=== PATIENT | female | born 1995 | race Caucasian/White ===

== ENCOUNTER 2016-06-18 08:53 | Emergency (ER) | payer BC, OTHER, MEDICAID ==
[~2016-06-18 08:53] MED LIST: BUPR15TAXL PO; IBUP80TA PO; LABE20TAB PO; LOTRCRE TOP; NORA0.35 PO; PERC5TAB PO; PREN27TA3 PO; STUACAP PO; TYLE325T5 PO; ZOLO50TA PO
[2016-06-18 10:13] LABS: CONTROL LINE UCG INT CTR LINE PRESENT
--- NOTE | 2016-06-18 10:48 | REP ---
Clinical: Epigastric and abdominal pain. Technique: Upright view of the chest with supine and upright views of the abdomen and pelvis. Findings: Frontal upright view of the chest demonstrates no acute cardiopulmonary process or free air below the diaphragm to suspect pneumoperitoneum. Supine and upright views of the abdomen and pelvis demonstrate nonspecific bowel gas pattern without obstruction or perforation. No organomegaly. No abnormal calcifications. Skeletal structures normal for age. Impression: Nonspecific bowel gas pattern. Signed by Omer Wyman MD 06/18/2016 10:39 A
--- NOTE | 2016-06-18 11:10 | EDDOCDS ---
Nurse's Notes [facility] Name: Erma Adam Age: 21 yrs Sex: Female : 1995 Arrival Date: 06/18/2016 Time: 08:53 Bed PR1 / 25 Private MD: Carmine Mcknight Diagnosis: Constipation Presentation: 06/18 09:05 Presenting complaint: Patient states: "I was severely constipated last week. I took 3 jc4 tablets and I went 2 days and had diarrhea. Now I'm back to being constipated. Now I have a lump in my stomach and I don't know what to do. My doctors keep ignoring it and it's really frustrating". Risk factors: the patient reports no vaginal bleeding. Suicide/Homicide risk assessment- the patient denies having any suicidal and/or homicidal ideations and does not present with any other emotional, behavioral or mental health complaints. Status: Patient is not a professional services manager or dependent. Transition of care: patient was not received from another setting of care. 09:05 Acuity: SOULEYMANE Level 4 jc4 09:05 Method Of Arrival: Walkin/Carried/Asstd jc4 09:11 Adult Sepsis Screening: The patient does not have new or worsening altered mentation. jc4 Patient's respiratory rate is less than 22. Systolic blood pressure is greater than 100. Patient has a qSOFA score of 0- Negative Sepsis Screen. Triage Assessment: 09:07 General: Appears in no apparent distress. Pain: Pain currently is 6 out of 10 on a pain jc4 scale. HIV screening NA for this visit Offered previously. GI: Reports constipation. 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 none - PMHx: Anxiety; Depression; Endometriosis; Frequent UTI's; - PSHx: ; - Social history: Smoking status: Patient uses tobacco products, light tobacco smoker. No barriers to communication noted, The patient speaks fluent Chadian. - Family history: Not pertinent. - : The pt / caregiver states he / she is not on anticoagulants. Home medication list is obtained from the patient. - Exposure Risk Screening:: None identified. Screenin:07 Screening information is obtained from the patient. Fall risk: No risks identified. jc4 Assistance ADL's: requires no assistance with activities of daily living. Abuse/DV Screen: The patient / caregiver reports he/she is: not in a situation that causes fear, pain or injury. Nutritional screening: No deficits noted. Advance Directives: Currently, there is no health care proxy. There is no active DNR order. There is no living will. There is no Power of Lap Maker. home support is adequate. Assessment: 11:06 General: Appears in no apparent distress, Behavior is cooperative, pleasant. jc4 Neurological: Level of Consciousness is awake, alert, Oriented to person, place, time. Respiratory: Airway is patent Respiratory effort is even, unlabored, Respiratory pattern is regular, symmetrical. GI: Abdomen is non- distended Bowel sounds present X 4 quads. Abd is soft and non tender X 4 quads. Derm: Skin is pink, warm & dry. Vital Signs: 09:07 BP 140 / 71; Pulse 94; Resp 20; Temp 97.4(O); Pulse Ox 98% on R/A; Weight 72.57 kg; jc4 Height 5 ft. 3 in. (160.02 cm); Pain 6/10; 11:08 BP 111 / 63; Pulse 76; Resp 20; Temp 96.4(O); Pulse Ox 97% on R/A; Pain 7/10; jc4 09:07 Body Mass Index 28.34 (72.57 kg, 160.02 cm) 4 Vitals: 09:07 Log In Time: June 18, 2016 at 08:53. 4 ED Course: 08:55 Patient visited by Reji Rodriguez Reg. pm4 08:55 Carmine Mcknight is Private Physician. pm4 08:55 Patient moved to Waiting pm4 09:05 Patient moved to Triage 3 jc4 09:07 Triage Initiated jc4 09:25 Valentin Edouard FNP [facility]. ke 09:25 Patient visited by Valentin Edouard FNP. ke 09:25 Patient visited by Valentin Edouard FNP. ke 09:35 Patient moved to TR1 jc4 09:51 Patient visited by Valentin Edouard FNP. ke 10:03 Urine Test-In Lab Sent. ead 10:05 [facility] Payment Agreement was scanned into [employer] and attached to record. lg 10:17 Patient visited by Valentin Edouard FNP. ke 10:52 Carmine Mcknight is Referral Physician. ke 10:59 Patient moved to jc4 10:59 Abdomen, Flat\\E\\Upright,PA Chest Returned. EDMS 11:07 The patient / caregiver is instructed regarding the plan of care and ED course. jc4 11:08 No IV's were initiated during this patient's visit. No procedures done that require jc4 assistance. Order Results: Lab Order: Urine Test-In Lab; SPEC'M 06/18/16 10:02 Test: URINE PREG TEST; Value: NEGATIVE; Range: NEGATIVE; Status: F Radiology Order: Abdomen, Flat\\E\\Upright,PA Chest Test: Abdomen, Flat\\E\\Upright,PA Chest REASON FOR EXAMINATION: Abdomen Pain; Clinical: Epigastric and abdominal pain.; ; Technique: Upright view of the chest with supine and upright views of the; abdomen and pelvis.; ; Findings: Frontal upright view of the chest demonstrates no acute; cardiopulmonary process or free air below the diaphragm to suspect; pneumoperitoneum. Supine and upright views of the abdomen and pelvis demonstrate; nonspecific bowel gas pattern without obstruction or perforation. No; organomegaly. No abnormal calcifications. Skeletal structures normal for age.; ; Impression:; Nonspecific bowel gas pattern.; ; ; Signed by; Omer Wyman MD 06/18/2016 10:39 A; Outcome: 10:52 Discharge ordered by Provider. ke 11:07 Discharge Assessment: Patient awake, alert and oriented x 3. No cognitive and/or jc4 functional deficits noted. Patient verbalized understanding of disposition instructions. patient administered narcotics - no. The following High Risk Discharge criteria are identified: None. Discharged to home ambulatory. Condition: stable. Discharge instructions given to patient, Instructed on discharge instructions, follow up and referral plans. medication usage, Demonstrated understanding of instructions, medications, Pt was receptive of discharge instructions/ teaching. No special radiology studies were completed. Property :Personal belongings accompany Pt. 11:08 Patient left the ED. 4 Signatures: Dispatcher [employer] EDUT Christopher Rowland, Reg Reg lg Valentin Edouard FNP FNP ke Castle, Jennifer RN RN jc4 Rica StewartRN RN Reji Zhang, Reg Reg pm4 MTDD
--- NOTE | 2016-06-18 11:10 | EDDOCDS ---
Physician Documentation [facility] Name: Erma Adam Age: 21 yrs Sex: Female : 1995 Arrival Date: 06/18/2016 Time: 08:53 Bed PR Private MD: Carmine Mcknight Disposition: 06/18/16 10:52 Discharged to Home/Self Care. Impression: Constipation. - Condition is Stable. - Discharge Instructions: Constipation, Adult. - Prescriptions for Miralax 17 gram/dose - take 17 gram by ORAL route once daily As needed dilute in 8 ounces of water or juice; 1 bottle. - Medication Reconciliation, Local Pharmacy Hours form. - Follow up: Carmine Mcknight; When: As needed; Reason: Continuance of care. - Problem is an ongoing problem. - Symptoms are unchanged. Historical: - Allergies: no known allergies; - Home Meds: 1. none - PMHx: Anxiety; Depression; Endometriosis; Frequent UTI's; - PSHx: ; - Social history: Smoking status: Patient uses tobacco products, light tobacco smoker. No barriers to communication noted, The patient speaks fluent Nepali. - Family history: Not pertinent. - : The pt / caregiver states he / she is not on anticoagulants. Home medication list is obtained from the patient. - Exposure Risk Screening:: None identified. 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 3 in. (160.02 cm); Pain 6/10; 11:08 BP 111 / 63; Pulse 76; Resp 20; Temp 96.4(O); Pulse Ox 97% on R/A; Pain 7/10; jc4 09:07 Body Mass Index 28.34 (72.57 kg, 160.02 cm) jc4 MDM: 09:32 Abdomen, Flat\E\Upright,PA Chest Ordered. EDMS 09:33 Financial registration complete. lg 09:53 Urine Test-In Lab Ordered. EDMS 10:05 [facility] Payment Agreement was scanned into [employer] and attached to record. lg 10:17 Urine Test-In Lab Reviewed. opal Signatures: Dispatcher [employer] Christopher Conner, Reg Reg lg Valentin Edouard, BURRING WHEEL OPERATOR BURRING WHEEL OPERATOR Felipa Sol, RN RN jc4 The chart was reviewed and I authenticate all verbal orders and agree with the evaluation and treatment provided.Attachments: 10:05 [facility] Payment Agreement lg MTDD
--- NOTE | 2016-06-20 12:09 | EDDOCDS ---
Nurse's Notes [facility] Name: Erma Adam Age: 21 yrs Sex: Female : 1995 Arrival Date: 06/18/2016 Time: 08:53 Bed PR1 / 25 Private MD: Carmine Mcknight Diagnosis: Constipation Presentation: 06/18 09:05 Presenting complaint: Patient states: "I was severely constipated last week. I took 3 jc4 tablets and I went 2 days and had diarrhea. Now I'm back to being constipated. Now I have a lump in my stomach and I don't know what to do. My doctors keep ignoring it and it's really frustrating". Risk factors: the patient reports no vaginal bleeding. Suicide/Homicide risk assessment- the patient denies having any suicidal and/or homicidal ideations and does not present with any other emotional, behavioral or mental health complaints. Status: Patient is not a automotive service technician or dependent. Transition of care: patient was not received from another setting of care. 09:05 Acuity: SOULEYMANE Level 4 jc4 09:05 Method Of Arrival: Walkin/Carried/Asstd jc4 09:11 Adult Sepsis Screening: The patient does not have new or worsening altered mentation. jc4 Patient's respiratory rate is less than 22. Systolic blood pressure is greater than 100. Patient has a qSOFA score of 0- Negative Sepsis Screen. Triage Assessment: 09:07 General: Appears in no apparent distress. Pain: Pain currently is 6 out of 10 on a pain jc4 scale. HIV screening NA for this visit Offered previously. GI: Reports constipation. VENEER GRADER: 09:07 LMP 05/27/2016 jc4 Historical: - Allergies: no known allergies; - Home Meds: 1. none - PMHx: Anxiety; Depression; Endometriosis; Frequent UTI's; - PSHx: ; - Social history: Smoking status: Patient uses tobacco products, light tobacco smoker. No barriers to communication noted, The patient speaks fluent [place]. - Family history: Not pertinent. - : The pt / caregiver states he / she is not on anticoagulants. Home medication list is obtained from the patient. - Exposure Risk Screening:: None identified. Screenin:07 Screening information is obtained from the patient. Fall risk: No risks identified. jc4 Assistance ADL's: requires no assistance with activities of daily living. Abuse/DV Screen: The patient / caregiver reports he/she is: not in a situation that causes fear, pain or injury. Nutritional screening: No deficits noted. Advance Directives: Currently, there is no health care proxy. There is no active DNR order. There is no living will. There is no Power of Senior Java Web Application Developer. home support is adequate. Assessment: 11:06 General: Appears in no apparent distress, Behavior is cooperative, pleasant. jc4 Neurological: Level of Consciousness is awake, alert, Oriented to person, place, time. Respiratory: Airway is patent Respiratory effort is even, unlabored, Respiratory pattern is regular, symmetrical. GI: Abdomen is non- distended Bowel sounds present X 4 quads. Abd is soft and non tender X 4 quads. Derm: Skin is pink, warm & dry. Vital Signs: 09:07 BP 140 / 71; Pulse 94; Resp 20; Temp 97.4(O); Pulse Ox 98% on R/A; Weight 72.57 kg; jc4 Height 5 ft. 3 in. (160.02 cm); Pain 6/10; 11:08 BP 111 / 63; Pulse 76; Resp 20; Temp 96.4(O); Pulse Ox 97% on R/A; Pain 7/10; jc4 09:07 Body Mass Index 28.34 (72.57 kg, 160.02 cm) 4 Vitals: 09:07 Log In Time: June 18, 2016 at 08:53. 4 ED Course: 08:55 Patient visited by Reji Rodriguez Reg. pm4 08:55 Carmine Mcknight is Private Physician. pm4 08:55 Patient moved to Waiting pm4 09:05 Patient moved to Triage 3 jc4 09:07 Triage Initiated jc4 09:25 Valent[facility] Edouard F[facility]. ke 09:25 Patient visited by Valentin Edouard FNP. ke 09:25 Patient visited by Valentin Edouard FNP. ke 09:35 Patient moved to TR1 jc4 09:51 Patient visited by Valentin Edouard FNP. ke 10:03 Urine Test-In Lab Sent. ead 10:05 [facility] Payment Agreement was scanned into [employer] and attached to record. lg 10:17 Patient visited by Valentin Edouard FNP. ke 10:52 Carmine Mcknight is Referral Physician. ke 10:59 Patient moved to PR jc4 10:59 Abdomen, Flat\\E\\Upright,PA Chest Returned. EDMS 11:07 The patient / caregiver is instructed regarding the plan of care and ED course. jc4 11:08 No IV's were initiated during this patient's visit. No procedures done that require jc4 assistance. 13:20 T-Sheet-- Draft Copy was scanned into [employer] and attached to record. gb Order Results: Lab Order: Urine Test-In Lab; SPEC'M 06/18/16 10:02 Test: URINE PREG TEST; Value: NEGATIVE; Range: NEGATIVE; Status: F Radiology Order: Abdomen, Flat\\E\\Upright,PA Chest Test: Abdomen, Flat\\E\\Upright,PA Chest REASON FOR EXAMINATION: Abdomen Pain; Clinical: Epigastric and abdominal pain.; ; Technique: Upright view of the chest with supine and upright views of the; abdomen and pelvis.; ; Findings: Frontal upright view of the chest demonstrates no acute; cardiopulmonary process or free air below the diaphragm to suspect; pneumoperitoneum. Supine and upright views of the abdomen and pelvis demonstrate; nonspecific bowel gas pattern without obstruction or perforation. No; organomegaly. No abnormal calcifications. Skeletal structures normal for age.; ; Impression:; Nonspecific bowel gas pattern.; ; ; Signed by; Omer Wyman MD 06/18/2016 10:39 A; Outcome: 10:52 Discharge ordered by Provider. ke 11:07 Discharge Assessment: Patient awake, alert and oriented x 3. No cognitive and/or jc4 functional deficits noted. Patient verbalized understanding of disposition instructions. patient administered narcotics - no. The following High Risk Discharge criteria are identified: None. Discharged to home ambulatory. Condition: stable. Discharge instructions given to patient, Instructed on discharge instructions, follow up and referral plans. medication usage, Demonstrated understanding of instructions, medications, Pt was receptive of discharge instructions/ teaching. No special radiology studies were completed. Property :Personal belongings accompany Pt. 11:08 Patient left the ED. jc4 Signatures: Dispatcher MedHo EDMS Rupinder Forte, Reg Reg gb Christopher Rowland, Reg Reg lg Valentin Edouard FNP FNP ke Castle, Jennifer, RN RN jc4 Rica StewartYANIV RN ead Reji Rodriguez, Reg Reg pm4 Chart Complete MTDD
--- NOTE | 2016-06-20 12:09 | EDDOCDS ---
Physician Documentation [facility] Name: Erma Adam Age: 21 yrs Sex: Female : 1995 Arrival Date: 06/18/2016 Time: 08:53 Bed PR Private MD: Carmine Mcknight Disposition: 06/18/16 10:52 Discharged to Home/Self Care. Impression: Constipation. - Condition is Stable. - Discharge Instructions: Constipation, Adult. - Prescriptions for Miralax 17 gram/dose - take 17 gram by ORAL route once daily As needed dilute in 8 ounces of water or juice; 1 bottle. - Medication Reconciliation, Local Pharmacy Hours form. - Follow up: Carmine Mcknight; When: As needed; Reason: Continuance of care. - Problem is an ongoing problem. - Symptoms are unchanged. Historical: - Allergies: no known allergies; - Home Meds: 1. none - PMHx: Anxiety; Depression; Endometriosis; Frequent UTI's; - PSHx: ; - Social history: Smoking status: Patient uses tobacco products, light tobacco smoker. No barriers to communication noted, The patient speaks fluent Italian. - Family history: Not pertinent. - : The pt / caregiver states he / she is not on anticoagulants. Home medication list is obtained from the patient. - Exposure Risk Screening:: None identified. PARTITION NOTCHER: 06/18 09:07 LMP 05/27/2016 jc4 Vital Signs: 09:07 BP 140 / 71; Pulse 94; Resp 20; Temp 97.4(O); Pulse Ox 98% on R/A; Weight 72.57 kg / jc4 159.99 lbs; Height 5 ft. 3 in. (160.02 cm); Pain 6/10; 11:08 BP 111 / 63; Pulse 76; Resp 20; Temp 96.4(O); Pulse Ox 97% on R/A; Pain 7/10; jc4 09:07 Body Mass Index 28.34 (72.57 kg, 160.02 cm) jc4 MDM: 09:32 Abdomen, Flat\E\Upright,PA Chest Ordered. EDMS 09:33 Financial registration complete. lg 09:53 Urine Test-In Lab Ordered. EDMS 10:05 [facility] Payment Agreement was scanned into [employer] and attached to record. lg 10:17 Urine Test-In Lab Reviewed. opal 13:20 T-Sheet-- Draft Copy was scanned into [employer] and attached to record. gb Signatures: Dispatcher [employer]Host EDMS Rupinder Forte, Reg Reg gb Christopher Rowland, Reg Reg lg Valentin Edouard, FIREWORKS ASSEMBLY SUPERVISOR FIREWORKS ASSEMBLY SUPERVISOR Felipa Sol, RN RN jc4 The chart was reviewed and I authenticate all verbal orders and agree with the evaluation and treatment provided.Attachments: 10:05 [facility] Payment Agreement lg 13:20 T-Sheet-- Draft Copy gb Chart Complete MTDD
--- NOTE | 2016-06-20 12:09 | EDDOCDS ---
Physician Documentation [facility] Name: Erma Adam Age: 21 yrs Sex: Female : 1995 Arrival Date: 06/18/2016 Time: 08:53 Bed PR Private MD: Carmine Mcknight Disposition: 06/18/16 10:52 Discharged to Home/Self Care. Impression: Constipation. - Condition is Stable. - Discharge Instructions: Constipation, Adult. - Prescriptions for Miralax 17 gram/dose - take 17 gram by ORAL route once daily As needed dilute in 8 ounces of water or juice; 1 bottle. - Medication Reconciliation, Local Pharmacy Hours form. - Follow up: Carmine Mcknight; When: As needed; Reason: Continuance of care. - Problem is an ongoing problem. - Symptoms are unchanged. Historical: - Allergies: no known allergies; - Home Meds: 1. none - PMHx: Anxiety; Depression; Endometriosis; Frequent UTI's; - PSHx: ; - Social history: Smoking status: Patient uses tobacco products, light tobacco smoker. No barriers to communication noted, The patient speaks fluent Amharic. - Family history: Not pertinent. - : The pt / caregiver states he / she is not on anticoagulants. Home medication list is obtained from the patient. - Exposure Risk Screening:: None identified. SUPERVISOR ENGINES ROAD: 06/18 09:07 LMP 05/27/2016 jc4 Vital Signs: 09:07 BP 140 / 71; Pulse 94; Resp 20; Temp 97.4(O); Pulse Ox 98% on R/A; Weight 72.57 kg / jc4 159.99 lbs; Height 5 ft. 3 in. (160.02 cm); Pain 6/10; 11:08 BP 111 / 63; Pulse 76; Resp 20; Temp 96.4(O); Pulse Ox 97% on R/A; Pain 7/10; jc4 09:07 Body Mass Index 28.34 (72.57 kg, 160.02 cm) jc4 MDM: 09:32 Abdomen, Flat\E\Upright,PA Chest Ordered. EDMS 09:33 Financial registration complete. lg 09:53 Urine Test-In Lab Ordered. EDMS 10:05 [facility] Payment Agreement was scanned into [employer] and attached to record. lg 10:17 Urine Test-In Lab Reviewed. opal 13:20 T-Sheet-- Draft Copy was scanned into [employer] and attached to record. gb Signatures: Dispatcher [employer] EDMS Rupinder Forte, Reg Reg gb Christopher Rowland, Reg Reg lg Valentin Edouard, BESSEMER BOTTOM MAKER BESSEMER BOTTOM MAKER Felipa Sol, RN RN jc4 The chart was reviewed and I authenticate all verbal orders and agree with the evaluation and treatment provided.Attachments: 10:05 [facility] Payment Agreement lg 13:20 T-Sheet-- Draft Copy gb Chart Complete MTDD
== END 2016-06-18 11:08 | disposition home or self-care (01) ==
LOC: M ED 08:53
DX: K59.00 Constipation, unspecified (principal); N80.9 Endometriosis, unspecified; F41.9 Anxiety disorder, unspecified; F32.9 Major depressive disorder, single episode, unspecified; Z87.440 Personal history of urinary (tract) infections; F17.200 Nicotine dependence, unspecified, uncomplicated

== ENCOUNTER 2016-06-24 12:36 | Emergency (ER) | payer BC, OTHER, MEDICAID ==
[2016-06-24 14:04] LABS: BASO % 0.5 % (0.0-1.0); EOS # 0.2 K/mm3 (0.0-0.50); EOS % 2.8 % (0.0-3.0); LARGE UNSTAINED CELL # 0.2 K/mm3 (0.0-0.4); LARGE UNSTAINED CELL % 2.2 % (0.0-4.0); LYMPH % 26.1 % (24.0-44.0); MEAN CORPUSCULAR HEMOGLOBIN 31.6 pg (27.0-33.0); MEAN CORPUSCULAR HGB CONC 33.9 g/dl (32.0-36.5); MEAN CORPUSCULAR VOLUME 93.1 fl (80.0-96.0); MONO # 0.4 K/mm3 (0.0-0.8); MONO % 4.5 % (0.0-5.0); NEUTROPHILS # 4.9 K/mm3 (1.8-7.7); NEUTROPHILS % 63.9 % (36.0-66.0); PLATELET COUNT, AUTOMATED 265 k/mm3 (150-450); RED CELL DISTRIBUTION WIDTH 11.7 % (11.5-14.5); WHITE BLOOD COUNT 7.7 K/mm3 (4.0-10.0)
[2016-06-24 14:07] LABS: CALCIUM OXALATE CRYSTALS SMALL
[2016-06-24] MEDS ORDERED: KETOROLAC 30 MG/ML VIAL (J1885) As Ordered ONE (14:17)
[2016-06-24] MEDS ORDERED: ONDANSETRON 4MG/2ML VIAL (J2405) As Ordered ONE (14:17)
--- NOTE | 2016-06-24 14:22 | REP ---
Clinical: Pelvic pain . Technique: Transabdominal pelvic ultrasound followed by transvaginal examination for better evaluation of the endometrium and adnexa with color Doppler evaluation of the ovaries. Findings: Bladder is unremarkable and under distended measuring 4.7 x 1.3 x 1.9 cm . Normal retroverted uterus measures 7.3 x 4.0 x 5.6 cm with sub centimeter Nabothian cysts in the lower uterine segment. The endometrial complex measures 4.8 mm thickness. No significant discrete uterine or endometrial abnormalities are appreciated. Bilateral ovaries are normal in appearance and vascularity without evidence for torsion. Right ovary measures 3.4 x 2.0 x 2.4 cm ; R I = 0.60 . Left ovary measures 3.8 x 2.4 x 2.0 cm ; R I = 0.60 . Trace pelvic free fluid is nonspecific. No adnexal mass lesion . Impression: 1. Essentially normal pelvic ultrasound. No evidence for torsion. Signed by Omer Wyman MD 06/24/2016 02:15 P
[2016-06-24 14:26] LABS: ALBUMIN 3.8 GM/DL (3.2-5.2); ALKALINE PHOSPHATASE 80 U/L (45-117); ALT/SGPT 23 U/L (12-78); AMYLASE 42 U/L (25-115); ANION GAP 5 MEQ/L (8-16); AST/SGOT 13 U/L (15-37); BILIRUBIN,DIRECT < 0.1 MG/DL (0.0-0.2); BILIRUBIN,TOTAL 0.3 MG/DL (0.2-1.0); BLOOD UREA NITROGEN 9 MG/DL (7-18); CALCIUM LEVEL 8.7 MG/DL (8.5-10.1); CARBON DIOXIDE LEVEL 30 MEQ/L (21-32); CHLORIDE LEVEL 108 MEQ/L (98-107); CREATININE FOR GFR 0.67 MG/DL (0.55-1.02); GLOMERULAR FILTRATION RATE > 60.0 (>60); GLUCOSE, FASTING 80 MG/DL (70-105); SODIUM LEVEL 143 MEQ/L (136-145); TOTAL PROTEIN 7.6 GM/DL (6.4-8.2)
--- NOTE | 2016-06-24 15:08 | REP ---
Clinical: Diffuse abdominal and flank pain. Comparison: 11/09/2015. Findings: Lung bases clear. Liver, spleen, pancreas, gallbladder, bilateral adrenal glands and kidneys are normal for noncontrast evaluation. The enteric system is without obstruction or acute inflammatory process and a normal terminal ileum and appendix are identified in the right lower quadrant. Pelvis demonstrates collapse normal bladder and age-appropriate uterus/adnexa. 3 cm fat containing periumbilical hernia again identified. No pelvic fluid or ascites. No free air. No evidence for abdominal aortic aneurysm. Musculoskeletal structures appear intact and without focal osseous abnormality. Impression: 3 cm fat containing periumbilical hernia. Otherwise normal noncontrast CT of the abdomen and pelvis. Signed by Omer Wyman MD 06/24/2016 02:59 P
[2016-06-24] MEDS ORDERED: CIPROFLOXACIN 500 MG TAB As Ordered ONE (15:24)
[2016-06-24] MEDS ORDERED: PHENAZOPYRIDINE 100 MG TAB As Ordered ONE (15:24)
--- NOTE | 2016-06-24 15:32 | EDDOCDS ---
Nurse's Notes [facility] Name: Erma Adam Age: 21 yrs Sex: Female : 1995 Arrival Date: 06/24/2016 Time: 12:36 Bed I5 / M5 Private MD: Carmine Mcknight Diagnosis: Generalized abdominal pain;Umbilical hernia;Urinary tract infection, site not specified;Anxiety disorder, unspecified-with Depressed Mood, No SI/HI;Dysmenorrhea, unspecified;Constipation Presentation: 06/24 12:41 Presenting complaint: Patient states: abdominal pain and cramps since yesterday. worse rs3 with menstrual period. H/o endometriosis. No relief with Tylenol, Motrin and midol. Risk factors: the patient reports moderate vaginal bleeding. Adult Sepsis Screening: The patient does not have new or worsening altered mentation. Patient's respiratory rate is less than 22. Systolic blood pressure is greater than 100. Patient has a qSOFA score of 0- Negative Sepsis Screen. Suicide/Homicide risk assessment- the patient denies having any suicidal and/or homicidal ideations and does not present with any other emotional, behavioral or mental health complaints. Status: Patient is not a shared services and outsourcing manager or dependent. Transition of care: patient was not received from another setting of care. 12:41 Acuity: SOULEYMANE Level 4 rs3 12:41 Method Of Arrival: Walkin/Carried/Asstd rs3 Triage Assessment: 12:44 General: Appears in no apparent distress. Pain: Location: abdomen. HIV screening NA for rs3 this visit Offered previously. GI: Reports lower abdominal pain, upper abd pain. 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 Miralax 17 gram/dose Oral powd 17 g once daily - PMHx: Anxiety; Depression; Endometriosis; Frequent UTI's; - PSHx: ; - Social history: Smoking status: Patient uses tobacco products, current every day smoker. . - Family history: No immediate family members are acutely ill. - : The pt / caregiver states he / she is not on anticoagulants. Home medication list is obtained from the patient. - Exposure Risk Screening:: None identified. Screenin:07 Screening information is obtained from the patient. Fall risk: No risks identified. hs1 Assistance ADL's: requires no assistance with activities of daily living. Abuse/DV Screen: The patient / caregiver reports he/she is: not in a situation that causes fear, pain or injury. Nutritional screening: No deficits noted. Advance Directives: There is no active DNR order. home support is adequate. Assessment: 13:06 General: Appears in no apparent distress, Behavior is appropriate for age, cooperative. hs1 Neurological: No deficits noted. Cardiovascular: Capillary refill < 3 seconds. Respiratory: Airway is patent Respiratory effort is even, unlabored, Respiratory pattern is regular, symmetrical. GI: Abdomen is flat, non- distended Bowel sounds present X 4 quads. Abd is soft X 4 quads Abd is non tender X 4 quads. Derm: Skin is pink, warm & dry. normal. 14:21 Reassessment: Patient appears in no apparent distress at this time. Patient states hs1 symptoms have not improved. Patient states pain 7/10. Medication administered at this time. Patient returns from Ultrasound with no needs. Patient aware of needing CT. . 15:29 General: Appears in no apparent distress, comfortable, Behavior is appropriate for age, hs1 cooperative. Pain: Location: abdomen Pain currently is 6 out of 10 on a pain scale. Quality of pain is described as tender. Cardiovascular: No deficits noted. Respiratory: No deficits noted. GI: Denies nausea, vomiting. Vital Signs: 12:38 BP 127 / 77; Pulse 77; Resp 18 S; Temp 97.1(O); Pulse Ox 100% on R/A; Weight 72.57 kg dd6 (R); Height 5 ft. 3 in. (160.02 cm) (R); 15:28 BP 126 / 80; Pulse 68; Resp 18; Temp 97.7(O); Pulse Ox 100% ; jrd 12:38 Body Mass Index 28.34 (72.57 kg, 160.02 cm) dd6 Vitals: 12:38 Log In Time: June 24, 2016 at 12:36. dd6 ED Course: 12:37 Patient visited by Brayden Alvarado PCA. dd6 12:37 Carmine Mcknight is Private Physician. dd6 12:37 Patient moved to Waiting dd6 12:38 Patient moved to Pre RCE dd6 12:43 Triage Initiated rs3 13:00 Patient moved to I5 / ar3 13:04 Koki Pena PA-C is PHCP. ef1 13:04 Kenny Matson MD is Attending Physician. ef1 13:04 Patient visited by Koki Pena PA-C. ef1 13:07 The patient / caregiver is instructed regarding the plan of care and ED course. hs1 13:35 Patient visited by Koki Pena PA-C. ef1 13:35 Inserted saline lock: 18 gauge in left antecubital area and blood collected. The hs1 patient tolerated the procedure well. 13:38 Amylase Sent. hs1 13:38 Basic Metabolic Profile Sent. hs1 13:38 CBC with Diff Sent. hs1 13:38 Lipase Sent. hs1 13:38 Liver Profile Sent. hs1 13:38 Urinalysis Sent. hs1 13:38 Urine Culture Sent. hs1 13:39 Patient moved to Ultrasound hgl 14:07 Patient moved to I5 / M5 hgl 14:10 Patient visited by Koki Pena PA-C. ef1 14:21 [facility] Payment Agreement was scanned into [employer] and attached to record. mm15 14:26 -US Pelvic Non-Ob Complete Returned. EDMS 14:35 Patient visited by Koki Pena PA-C. ef1 14:41 Patient visited by Vidya Fan PSA. ml4 15:13 Patient visited by Koki Pena PA-C. ef1 15:16 Carmine Mcknight is Referral Physician. ef1 15:16 Moris Garcia is Referral Physician. ef1 15:18 Your School Custodian is Referral Physician. ef1 15:18 Zaid Montes MD is Referral Physician. ef1 15:29 Patient visited by Jag Shields PCA. jrd 15:30 Discontinued IV lock intact, bleeding controlled, pressure dressing applied, No hs1 redness/swelling at site. No procedures done that require assistance. Administered Medications: 14:21 Drug: ketorolac 30 mg [ketorolac 30 mg/mL (1 mL) injection solution (1 mL)] Route: IVP; hs1 Site: left antecubital; 14:21 Drug: Ondansetron 4 mg [ondansetron HCl 2 mg/mL intravenous solution (2 mL)] Route: hs1 IVP; Site: left antecubital; 15:29 Drug: Ciprofloxacin 500 mg [ciprofloxacin 500 mg tablet (1 tabs)] Route: PO; hs1 15:29 Drug: Phenazopyridine 200 mg [phenazopyridine 100 mg tablet (2 tabs)] Route: PO; hs1 Point of Care Testing: Urine : 13:53 hCG Reading: Negative; Control Reading: Positive; hs1 Ranges: Order Results: Lab Order: Amylase; SPEC'M 06/24/16 13:27 Test: AMYLASE; Value: 42; Range: 25-115; Units: U/L; Status: F Lab Order: Basic Metabolic Profile; SPEC'M 06/24/16 13:27 Test: GLUCOSE, FASTING; Value: 80; Range: 70-105; Units: MG/DL; Status: F Test: BLOOD UREA NITROGEN; Value: 9; Range: 7-18; Units: MG/DL; Status: F Test: CREATININE FOR GFR; Value: 0.67; Range: 0.55-1.02; Units: MG/DL; Status: F Test: GLOMERULAR FILTRATION RATE; Value: > 60.0; Range: >60; Status: F Test: SODIUM LEVEL; Value: 143; Range: 136-145; Units: MEQ/L; Status: F Test: POTASSIUM SERUM; Value: 4.0; Range: 3.5-5.1; Units: MEQ/L; Status: F Test: CHLORIDE LEVEL; Value: 108; Range: 98-107; Abnormal: Above high normal; Units: MEQ/L; Status: F Test: CARBON DIOXIDE LEVEL; Value: 30; Range: 21-32; Units: MEQ/L; Status: F Test: ANION GAP; Value: 5; Range: 8-16; Abnormal: Below low normal; Units: MEQ/L; Status: F Test: CALCIUM LEVEL; Value: 8.7; Range: 8.5-10.1; Units: MG/DL; Status: F Test Note: ; Units are mL/min/1.73 m2 Chronic Kidney Disease Staging per NKF: Stage I & II GFR >=60 Normal to Mildly Decreased Stage III GFR 30-59 Moderately Decreased Stage IV GFR 15-29 Severely Decreased Stage V GFR <15 Very Little GFR Left ESRD GFR <15 on MAGNETIC OBSERVER Lab Order: CBC with Diff; SPEC'M 06/24/16 13:27 Test: WHITE BLOOD COUNT; Value: 7.7; Range: 4.0-10.0; Units: K/mm3; Status: F Test: RED BLOOD COUNT; Value: 4.39; Range: 4.00-5.40; Units: M/mm3; Status: F Test: HEMOGLOBIN; Value: 13.9; Range: 12.0-16.0; Units: g/dl; Status: F Test: HEMATOCRIT; Value: 40.9; Range: 36.0-47.0; Units: %; Status: F Test: MEAN CORPUSCULAR VOLUME; Value: 93.1; Range: 80.0-96.0; Units: fl; Status: F Test: MEAN CORPUSCULAR HEMOGLOBIN; Value: 31.6; Range: 27.0-33.0; Units: pg; Status: F Test: MEAN CORPUSCULAR HGB CONC; Value: 33.9; Range: 32.0-36.5; Units: g/dl; Status: F Test: RED CELL DISTRIBUTION WIDTH; Value: 11.7; Range: 11.5-14.5; Units: %; Status: F Test: PLATELET COUNT, AUTOMATED; Value: 265; Range: 150-450; Units: k/mm3; Status: F Test: NEUTROPHILS %; Value: 63.9; Range: 36.0-66.0; Units: %; Status: F Test: LYMPH %; Value: 26.1; Range: 24.0-44.0; Units: %; Status: F Test: MONO %; Value: 4.5; Range: 0.0-5.0; Units: %; Status: F Test: EOS %; Value: 2.8; Range: 0.0-3.0; Units: %; Status: F Test: BASO %; Value: 0.5; Range: 0.0-1.0; Units: %; Status: F Test: LARGE UNSTAINED CELL %; Value: 2.2; Range: 0.0-4.0; Units: %; Status: F Test: NEUTROPHILS #; Value: 4.9; Range: 1.8-7.7; Units: K/mm3; Status: F Test: LYMPH #; Value: 2.0; Range: 1.5-6.5; Units: K/mm3; Status: F Test: MONO #; Value: 0.4; Range: 0.0-0.8; Units: K/mm3; Status: F Test: EOS #; Value: 0.2; Range: 0.0-0.50; Units: K/mm3; Status: F Test: BASO #; Value: 0.0; Range: 0.0-0.2; Units: K/mm3; Status: F Test: LARGE UNSTAINED CELL #; Value: 0.2; Range: 0.0-0.4; Units: K/mm3; Status: F Lab Order: Lipase; SPEC' 06/24/16 13: Test: LIPASE; Value: 192; Range: 73-393; Units: U/L; Status: F Lab Order: Liver Profile; SPEC' 06/24/16 13: Test: AST/SGOT; Value: 13; Range: 15-37; Abnormal: Below low normal; Units: U/L; Status: F Test: ALT/SGPT; Value: 23; Range: 12-78; Units: U/L; Status: F Test: ALKALINE PHOSPHATASE; Value: 80; Range: 45-117; Units: U/L; Status: F Test: BILIRUBIN,TOTAL; Value: 0.3; Range: 0.2-1.0; Units: MG/DL; Status: F Test: BILIRUBIN,DIRECT; Value: < 0.1; Range: 0.0-0.2; Units: MG/DL; Status: F Test: TOTAL PROTEIN; Value: 7.6; Range: 6.4-8.2; Units: GM/DL; Status: F Test: ALBUMIN; Value: 3.8; Range: 3.2-5.2; Units: GM/DL; Status: F Test: ALBUMIN/GLOBULIN RATIO; Value: 1.00; Range: 1.00-1.93; Status: F Lab Order: Urinalysis; SPEC' 06/24/16 13:27 Test: APPEARANCE, URINE; Value: HAZY; Range: CLEAR; Status: F Test: COLOR, URINE; Value: YELLOW; Range: YELLOW; Status: F Test: PH,URINE; Value: 5.0; Range: 5.0-9.0; Units: UNITS; Status: F Test: SPECIFIC GRAVITY URINE AUTO; Value: 1.019; Range: 1.002-1.035; Status: F Test: PROTEIN, URINE AUTO; Value: 1+; Range: NEGATIVE; Abnormal: Above high normal; Units: mg/dL; Status: F Test: GLUCOSE, URINE (UA) AUTO; Value: NEGATIVE; Range: NEGATIVE; Units: mg/dL; Status: F Test: KETONE, URINE AUTO; Value: NEGATIVE; Range: NEGATIVE; Units: mg/dL; Status: F Test: UROBILINOGEN, URINE AUTO; Value: 0.2; Range: 0.0-2.0; Units: mg/dL; Status: F Test: BILIRUBIN, URINE AUTO; Value: NEGATIVE; Range: NEGATIVE; Status: F Test: NITRITE, URINE AUTO; Value: NEGATIVE; Range: NEGATIVE; Status: F Test: LEUKOCYTE ESTERASE, URINE AUTO; Value: NEGATIVE; Range: NEGATIVE; Status: F Test: BLOOD, URINE BLOOD; Value: 3+; Range: NEGATIVE; Abnormal: Above high normal; Status: F Test: WBC, URINE AUTO; Value: 4; Range: 0-3; Abnormal: Above high normal; Units: /HPF; Status: F Test: RBC, URINE AUTO; Value: 95; Range: 0-3; Abnormal: Above high normal; Units: /HPF; Status: F Test: BACTERIA, URINE AUTO; Value: NEGATIVE; Range: NEGATIVE; Status: F Test: SQUAMOUS EPITHELIAL CELL UR AU; Value: 2; Range: 0-6; Units: /HPF; Status: F Test: MUCUS, URINE; Value: SMALL; Range: NEGATIVE; Status: F Test: HYALINE CAST, URINE AUTO; Value: 0; Range: 0-1; Units: /LPF; Status: F Test: CALCIUM OXALATE CRYSTALS; Value: SMALL; Range: NONE; Status: F Radiology Order: -US Pelvic Non-Ob Complete Test: -US Pelvic Non-Ob Complete REASON FOR EXAMINATION: Adnexal Pain r/o Torsion; Clinical: Pelvic pain .; ; Technique: Transabdominal pelvic ultrasound followed by transvaginal examination; for better evaluation of the endometrium and adnexa with color Doppler evaluation; of the ovaries.; ; Findings:; ; Bladder is unremarkable and under distended measuring 4.7 x 1.3 x 1.9 cm .; ; Normal retroverted uterus measures 7.3 x 4.0 x 5.6 cm with sub centimeter; Nabothian cysts in the lower uterine segment. The endometrial complex measures; 4.8 mm thickness. No significant discrete uterine or endometrial abnormalities; are appreciated.; ; Bilateral ovaries are normal in appearance and vascularity without evidence for; torsion. Right ovary measures 3.4 x 2.0 x 2.4 cm ; R I = 0.60 . Left ovary; measures 3.8 x 2.4 x 2.0 cm ; R I = 0.60 .; ; Trace pelvic free fluid is nonspecific. No adnexal mass lesion .; ; Impression:; 1. Essentially normal pelvic ultrasound. No evidence for torsion.; ; ; Signed by; Omer Wyman MD 06/24/2016 02:15 P; Outcome: 15:16 Discharge ordered by Provider. ef1 15:31 Discharge Assessment: Patient awake, alert and oriented x 3. No cognitive and/or hs1 functional deficits noted. Patient verbalized understanding of disposition instructions. patient administered narcotics - no. The following High Risk Discharge criteria are identified: None. Condition: stable. Discharge instructions given to patient, Instructed on discharge instructions, follow up and referral plans. medication usage, Demonstrated understanding of instructions, medications, Pt was receptive of discharge instructions/ teaching. Prescriptions given X 6. CT Study completed. Ultrasound Study completed. Property sent home with patient. 15:31 Patient left the ED. hs1 Signatures: Dispatcher [employer] EDMS Vidya Fan, PSA PSA ml4 DesormBrayden gonzalez, AIR SUPPORT OPERATIONS OPERATOR AIR SUPPORT OPERATIONS OPERATOR dd6 Koki Pena, PA-C PA-C ef1 Jossy Abdullahi,YANIV RN rs3 Frances Trevizo, AIR SUPPORT OPERATIONS OPERATOR AIR SUPPORT OPERATIONS OPERATOR ar3 Yanci Montenegro RN RN hs1 Jay Bee Marlynn mm15 Jag Shields, AIR SUPPORT OPERATIONS OPERATOR AIR SUPPORT OPERATIONS OPERATOR jrd MTDD
--- NOTE | 2016-06-24 15:32 | EDDOCDS ---
Physician Documentation [facility] Name: Erma Adam Age: 21 yrs Sex: Female : 1995 Arrival Date: 06/24/2016 Time: 12:36 Bed I5 / M5 Private MD: Carmine Mcknight Disposition: 06/24/16 15:16 Discharged to Home/Self Care. Impression: Generalized abdominal pain, Umbilical hernia, Urinary tract infection, site not specified, Anxiety disorder, unspecified - with Depressed Mood, No SI/HI, Dysmenorrhea, unspecified, Constipation. - Condition is Stable. - Discharge Instructions: Abdominal Pain, Adult, Urinary Tract Infection, Akzv-oh-Nwjw, Generalized Anxiety Disorder, Depression, Adult, Intu-vp-Asrk, Hernia, Phfg-an-Hvpa, Dysmenorrhea, Dvtj-hy-Elvt. - Prescriptions for Hydroxyzine HCl 25 mg Oral Tablet - take 1 tablet by ORAL route every 6 hours As needed For anxiety/ sleep disturbance; 12 tablet. Cipro 500 mg Oral Tablet - take 1 tablet by ORAL route every 12 hours; 14 tablet. Naprosyn 500 mg Oral Tablet - take 1 tablet by ORAL route 2 times per day take with food; 30 tablet. Pyridium 200 mg Oral Tablet - take 1 tablet by ORAL route every 8 hours for 3 days; 9 tablet. Reglan 10 mg Oral Tablet - take 1 tablet by ORAL route every 6 hours take 30 minutes before meals and at bedtime; 20 tablet. Colace 100 mg Oral Tablet - take 1 tablet by ORAL route every 12 hours; 14 tablet. - Medication Reconciliation, Local Pharmacy Hours form. - Follow up: Carmine Mcknight; When: 1 - 2 days; Reason: Recheck today's complaints, Continuance of care. Follow up: Emergency Department; Reason: Worsening of conditions. Follow up: Moris Garcia; When: Call to arrange an appointment; Reason: Further diagnostic work-up, Recheck today's complaints, Continuance of care. Follow up: Your Contact Manager; When: Call to arrange an appointment; Reason: Further diagnostic work-up, Recheck today's complaints, Continuance of care. Follow up: Zaid Montes MD; When: Call to arrange an appointment; Reason: Further diagnostic work-up, Recheck today's complaints, Continuance of care. - Problem is new. - Symptoms have improved. Historical: - Allergies: no known allergies; - Home Meds: 1. Miralax 17 gram/dose Oral powd 17 g once daily - PMHx: Anxiety; Depression; Endometriosis; Frequent UTI's; - PSHx: ; - Social history: Smoking status: Patient uses tobacco products, current every day smoker. . - Family history: No immediate family members are acutely ill. - : The pt / caregiver states he / she is not on anticoagulants. Home medication list is obtained from the patient. - Exposure Risk Screening:: None identified. SEAMLESS HOSIERY KNITTER: 06/24 12:45 LMP 06/23/2016 rs3 Vital Signs: 12:38 BP 127 / 77; Pulse 77; Resp 18 S; Temp 97.1(O); Pulse Ox 100% on R/A; Weight 72.57 kg / dd6 159.99 lbs (R); Height 5 ft. 3 in. (160.02 cm) (R); 15:28 BP 126 / 80; Pulse 68; Resp 18; Temp 97.7(O); Pulse Ox 100% ; jrd 12:38 Body Mass Index 28.34 (72.57 kg, 160.02 cm) dd6 MDM: 13:08 IV Saline Lock ordered. ef1 13:08 Undress patient appropriately for examination ordered. ef1 13:08 UCG by Nursing ordered. ef1 13:09 Amylase Ordered. EDMS 13:09 Basic Metabolic Profile Ordered. EDMS 13:09 CBC with Diff Ordered. EDMS 13:09 Lipase Ordered. EDMS 13:09 Liver Profile Ordered. EDMS 13:09 Urinalysis Ordered. EDMS 13:09 Urine Culture Ordered. EDMS 13:09 -US Pelvic Non-Ob Complete Ordered. EDMS 13:09 NOTHING BY MOUTH+DIET ordered. EDMS 13:09 DUPLEX SCAN LIMITED (DOPPLER)+US Ordered. EDMS 13:41 ketorolac 30 mg IVP once ordered. ef1 13:41 Ondansetron 4 mg IVP once ordered. ef1 13:51 Financial registration complete. mm15 13:52 Transvaginal NON- US Ordered. EDMS 14:12 CT ABD & PELVIS: No Contrast Ordered. EDMS 14:21 [facility] Payment Agreement was scanned into [employer] and attached to record. mm15 14:36 Consult PFS/PSA/Social Professionals: Resources/Social Work ordered. ef1 14:37 Basic Metabolic Profile Reviewed. ef1 14:37 Liver Profile Reviewed. ef1 14:37 Urinalysis Reviewed. ef1 14:37 Amylase Reviewed. ef1 14:37 CBC with Diff Reviewed. ef1 14:37 Lipase Reviewed. ef1 14:37 -US Pelvic Non-Ob Complete Reviewed. ef1 14:41 Consult PFS/PSA/Social Professionals: Resources/Social Work complete. ml4 15:20 Ciprofloxacin 500 mg PO once ordered. ef1 15:20 Phenazopyridine 200 mg PO once ordered. ef1 Point of Care Testing: Urine : 13:53 hCG Reading: Negative; Control Reading: Positive; hs1 Ranges: Administered Medications: 14:21 Drug: ketorolac 30 mg [ketorolac 30 mg/mL (1 mL) injection solution (1 mL)] Route: IVP; hs1 Site: left antecubital; 14:21 Drug: Ondansetron 4 mg [ondansetron HCl 2 mg/mL intravenous solution (2 mL)] Route: hs1 IVP; Site: left antecubital; 15:29 Drug: Ciprofloxacin 500 mg [ciprofloxacin 500 mg tablet (1 tabs)] Route: PO; hs1 15:29 Drug: Phenazopyridine 200 mg [phenazopyridine 100 mg tablet (2 tabs)] Route: PO; hs1 Signatures: Dispatcher [employer] EDMS Vidya Fan, PSA PSA ml4 Koki Pena, PA-C PA-C ef1 Jossy Abdullahi RN RN rs3 Yanci Montenegro RN RN hs1 Lubna Haynes mm15 The chart was reviewed and I authenticate all verbal orders and agree with the evaluation and treatment provided.Corrections: (The following items were deleted from the chart) 14:16 13:09 Abdomen,Flat\E\Upright,PA CHEST+XR ordered. EDMS EDMS Attachments: 14:21 [facility] Payment Agreement mm15 MTDD
--- NOTE | 2016-06-26 16:32 | EDDOCDS ---
Nurse's Notes [facility] Name: Erma Adam Age: 21 yrs Sex: Female : 1995 Arrival Date: 06/24/2016 Time: 12:36 Bed I5 / M5 Private MD: Carmine Mcknight Diagnosis: Generalized abdominal pain;Umbilical hernia;Urinary tract infection, site not specified;Anxiety disorder, unspecified-with Depressed Mood, No SI/HI;Dysmenorrhea, unspecified;Constipation Presentation: 06/24 12:41 Presenting complaint: Patient states: abdominal pain and cramps since yesterday. worse rs3 with menstrual period. H/o endometriosis. No relief with Tylenol, Motrin and midol. Risk factors: the patient reports moderate vaginal bleeding. Adult Sepsis Screening: The patient does not have new or worsening altered mentation. Patient's respiratory rate is less than 22. Systolic blood pressure is greater than 100. Patient has a qSOFA score of 0- Negative Sepsis Screen. Suicide/Homicide risk assessment- the patient denies having any suicidal and/or homicidal ideations and does not present with any other emotional, behavioral or mental health complaints. Status: Patient is not a veterans service officer or dependent. Transition of care: patient was not received from another setting of care. 12:41 Acuity: SOULEYMANE Level 4 rs3 12:41 Method Of Arrival: Walkin/Carried/Asstd rs3 Triage Assessment: 12:44 General: Appears in no apparent distress. Pain: Location: abdomen. HIV screening NA for rs3 this visit Offered previously. GI: Reports lower abdominal pain, upper abd pain. TRANSACTION PROCESSOR: 12:45 LMP 06/23/2016 rs3 Historical: - Allergies: no known allergies; - Home Meds: 1. Miralax 17 gram/dose Oral powd 17 g once daily - PMHx: Anxiety; Depression; Endometriosis; Frequent UTI's; - PSHx: ; - Social history: Smoking status: Patient uses tobacco products, current every day smoker. . - Family history: No immediate family members are acutely ill. - : The pt / caregiver states he / she is not on anticoagulants. Home medication list is obtained from the patient. - Exposure Risk Screening:: None identified. Screenin:07 Screening information is obtained from the patient. Fall risk: No risks identified. hs1 Assistance ADL's: requires no assistance with activities of daily living. Abuse/DV Screen: The patient / caregiver reports he/she is: not in a situation that causes fear, pain or injury. Nutritional screening: No deficits noted. Advance Directives: There is no active DNR order. home support is adequate. Assessment: 13:06 General: Appears in no apparent distress, Behavior is appropriate for age, cooperative. hs1 Neurological: No deficits noted. Cardiovascular: Capillary refill < 3 seconds. Respiratory: Airway is patent Respiratory effort is even, unlabored, Respiratory pattern is regular, symmetrical. GI: Abdomen is flat, non- distended Bowel sounds present X 4 quads. Abd is soft X 4 quads Abd is non tender X 4 quads. Derm: Skin is pink, warm & dry. normal. 14:21 Reassessment: Patient appears in no apparent distress at this time. Patient states hs1 symptoms have not improved. Patient states pain 7/10. Medication administered at this time. Patient returns from Ultrasound with no needs. Patient aware of needing CT. . 15:29 General: Appears in no apparent distress, comfortable, Behavior is appropriate for age, hs1 cooperative. Pain: Location: abdomen Pain currently is 6 out of 10 on a pain scale. Quality of pain is described as tender. Cardiovascular: No deficits noted. Respiratory: No deficits noted. GI: Denies nausea, vomiting. Social Work Consult: 15:30 Social Work Note: Met pt at bedside regarding depression. Pt reports a hx of ml4 depression, hospitalized to [facility] 2013. States she's been increasingly more depressed due to on-going financial difficulties and custody problems regarding her 3 year old daughter. Due to her stressors, pt reports unable to sleep and is having difficulty eating. She denies SI and HI, able to CFS. Referrals for outpt services was given at bedside and directed to follow up with [facility] and DSS for further tx. Vital Signs: 12:38 BP 127 / 77; Pulse 77; Resp 18 S; Temp 97.1(O); Pulse Ox 100% on R/A; Weight 72.57 kg dd6 (R); Height 5 ft. 3 in. (160.02 cm) (R); 15:28 BP 126 / 80; Pulse 68; Resp 18; Temp 97.7(O); Pulse Ox 100% ; jrd 12:38 Body Mass Index 28.34 (72.57 kg, 160.02 cm) dd6 Vitals: 12:38 Log In Time: June 24, 2016 at 12:36. dd6 ED Course: 12:37 Patient visited by Brayden Alvarado PCA. dd6 12:37 Carmine Mcknight is Private Physician. dd6 12:37 Patient moved to Waiting dd6 12:38 Patient moved to Pre RCE dd6 12:43 Triage Initiated rs3 13:00 Patient moved to I5 / M5 ar3 13:04 Koki Pena PA-C is PHCP. ef1 13:04 Kenny Matson MD is Attending Physician. ef1 13:04 Patient visited by Koki Pena PA-C. ef1 13:07 The patient / caregiver is instructed regarding the plan of care and ED course. hs1 13:35 Patient visited by Koki Pena PA-C. ef1 13:35 Inserted saline lock: 18 gauge in left antecubital area and blood collected. The hs1 patient tolerated the procedure well. 13:38 Amylase Sent. hs1 13:38 Basic Metabolic Profile Sent. hs1 13:38 CBC with Diff Sent. hs1 13:38 Lipase Sent. hs1 13:38 Liver Profile Sent. hs1 13:38 Urinalysis Sent. hs1 13:38 Urine Culture Sent. hs1 13:39 Patient moved to Ultrasound hgl 14:07 Patient moved to I5 / M5 hgl 14:10 Patient visited by Koki Pena PA-C. ef1 14:21 [facility] Payment Agreement was scanned into [employer] and attached to record. mm15 14:26 -US Pelvic Non-Ob Complete Returned. EDMS 14:35 Patient visited by Koki Pena PA-C. ef1 14:41 Patient visited by Vidya Fan PSA. ml4 15:13 Patient visited by Koki Pena PA-C. ef1 15:16 Carmine Mcknight is Referral Physician. ef1 15:16 Moris Garcia is Referral Physician. ef1 15:18 Your [employer] is Referral Physician. ef1 15:18 Zaid Montes MD is Referral Physician. ef1 15:29 Patient visited by Jag Shields PCA. jrd 15:30 Discontinued IV lock intact, bleeding controlled, pressure dressing applied, No hs1 redness/swelling at site. No procedures done that require assistance. 15:47 CT ABD & PELVIS: No Contrast Returned. EDMS 15:48 PSA Outpatient Referrals was scanned into [employer] and attached to record. ml4 22:25 T-Sheet-- Draft Copy was scanned into [employer] and attached to record. klr Administered Medications: 14:21 Drug: ketorolac 30 mg [ketorolac 30 mg/mL (1 mL) injection solution (1 mL)] Route: IVP; hs1 Site: left antecubital; 14:21 Drug: Ondansetron 4 mg [ondansetron HCl 2 mg/mL intravenous solution (2 mL)] Route: hs1 IVP; Site: left antecubital; 15:29 Drug: Ciprofloxacin 500 mg [ciprofloxacin 500 mg tablet (1 tabs)] Route: PO; hs1 15:29 Drug: Phenazopyridine 200 mg [phenazopyridine 100 mg tablet (2 tabs)] Route: PO; hs1 Point of Care Testing: Urine : 13:53 hCG Reading: Negative; Control Reading: Positive; hs1 Ranges: Order Results: Lab Order: Amylase; SPEC'M 06/24/16 13:27 Test: AMYLASE; Value: 42; Range: 25-115; Units: U/L; Status: F Lab Order: Basic Metabolic Profile; SPEC'M 06/24/16 13:27 Test: GLUCOSE, FASTING; Value: 80; Range: 70-105; Units: MG/DL; Status: F Test: BLOOD UREA NITROGEN; Value: 9; Range: 7-18; Units: MG/DL; Status: F Test: CREATININE FOR GFR; Value: 0.67; Range: 0.55-1.02; Units: MG/DL; Status: F Test: GLOMERULAR FILTRATION RATE; Value: > 60.0; Range: >60; Status: F Test: SODIUM LEVEL; Value: 143; Range: 136-145; Units: MEQ/L; Status: F Test: POTASSIUM SERUM; Value: 4.0; Range: 3.5-5.1; Units: MEQ/L; Status: F Test: CHLORIDE LEVEL; Value: 108; Range: 98-107; Abnormal: Above high normal; Units: MEQ/L; Status: F Test: CARBON DIOXIDE LEVEL; Value: 30; Range: 21-32; Units: MEQ/L; Status: F Test: ANION GAP; Value: 5; Range: 8-16; Abnormal: Below low normal; Units: MEQ/L; Status: F Test: CALCIUM LEVEL; Value: 8.7; Range: 8.5-10.1; Units: MG/DL; Status: F Test Note: ; Units are mL/min/1.73 m2 Chronic Kidney Disease Staging per NKF: Stage I & II GFR >=60 Normal to Mildly Decreased Stage III GFR 30-59 Moderately Decreased Stage IV GFR 15-29 Severely Decreased Stage V GFR <15 Very Little GFR Left ESRD GFR <15 on DISABILITY EXAMINER Lab Order: CBC with Diff; SPEC'M 06/24/16 13:27 Test: WHITE BLOOD COUNT; Value: 7.7; Range: 4.0-10.0; Units: K/mm3; Status: F Test: RED BLOOD COUNT; Value: 4.39; Range: 4.00-5.40; Units: M/mm3; Status: F Test: HEMOGLOBIN; Value: 13.9; Range: 12.0-16.0; Units: g/dl; Status: F Test: HEMATOCRIT; Value: 40.9; Range: 36.0-47.0; Units: %; Status: F Test: MEAN CORPUSCULAR VOLUME; Value: 93.1; Range: 80.0-96.0; Units: fl; Status: F Test: MEAN CORPUSCULAR HEMOGLOBIN; Value: 31.6; Range: 27.0-33.0; Units: pg; Status: F Test: MEAN CORPUSCULAR HGB CONC; Value: 33.9; Range: 32.0-36.5; Units: g/dl; Status: F Test: RED CELL DISTRIBUTION WIDTH; Value: 11.7; Range: 11.5-14.5; Units: %; Status: F Test: PLATELET COUNT, AUTOMATED; Value: 265; Range: 150-450; Units: k/mm3; Status: F Test: NEUTROPHILS %; Value: 63.9; Range: 36.0-66.0; Units: %; Status: F Test: LYMPH %; Value: 26.1; Range: 24.0-44.0; Units: %; Status: F Test: MONO %; Value: 4.5; Range: 0.0-5.0; Units: %; Status: F Test: EOS %; Value: 2.8; Range: 0.0-3.0; Units: %; Status: F Test: BASO %; Value: 0.5; Range: 0.0-1.0; Units: %; Status: F Test: LARGE UNSTAINED CELL %; Value: 2.2; Range: 0.0-4.0; Units: %; Status: F Test: NEUTROPHILS #; Value: 4.9; Range: 1.8-7.7; Units: K/mm3; Status: F Test: LYMPH #; Value: 2.0; Range: 1.5-6.5; Units: K/mm3; Status: F Test: MONO #; Value: 0.4; Range: 0.0-0.8; Units: K/mm3; Status: F Test: EOS #; Value: 0.2; Range: 0.0-0.50; Units: K/mm3; Status: F Test: BASO #; Value: 0.0; Range: 0.0-0.2; Units: K/mm3; Status: F Test: LARGE UNSTAINED CELL #; Value: 0.2; Range: 0.0-0.4; Units: K/mm3; Status: F Lab Order: Lipase; SPEC' 06/24/16 13:27 Test: LIPASE; Value: 192; Range: 73-393; Units: U/L; Status: F Lab Order: Liver Profile; SPEC' 06/24/16 13:27 Test: AST/SGOT; Value: 13; Range: 15-37; Abnormal: Below low normal; Units: U/L; Status: F Test: ALT/SGPT; Value: 23; Range: 12-78; Units: U/L; Status: F Test: ALKALINE PHOSPHATASE; Value: 80; Range: 45-117; Units: U/L; Status: F Test: BILIRUBIN,TOTAL; Value: 0.3; Range: 0.2-1.0; Units: MG/DL; Status: F Test: BILIRUBIN,DIRECT; Value: < 0.1; Range: 0.0-0.2; Units: MG/DL; Status: F Test: TOTAL PROTEIN; Value: 7.6; Range: 6.4-8.2; Units: GM/DL; Status: F Test: ALBUMIN; Value: 3.8; Range: 3.2-5.2; Units: GM/DL; Status: F Test: ALBUMIN/GLOBULIN RATIO; Value: 1.00; Range: 1.00-1.93; Status: F Lab Order: Urinalysis; SPEC'M 06/24/16 13:27 Test: APPEARANCE, URINE; Value: HAZY; Range: CLEAR; Status: F Test: COLOR, URINE; Value: YELLOW; Range: YELLOW; Status: F Test: PH,URINE; Value: 5.0; Range: 5.0-9.0; Units: UNITS; Status: F Test: SPECIFIC GRAVITY URINE AUTO; Value: 1.019; Range: 1.002-1.035; Status: F Test: PROTEIN, URINE AUTO; Value: 1+; Range: NEGATIVE; Abnormal: Above high normal; Units: mg/dL; Status: F Test: GLUCOSE, URINE (UA) AUTO; Value: NEGATIVE; Range: NEGATIVE; Units: mg/dL; Status: F Test: KETONE, URINE AUTO; Value: NEGATIVE; Range: NEGATIVE; Units: mg/dL; Status: F Test: UROBILINOGEN, URINE AUTO; Value: 0.2; Range: 0.0-2.0; Units: mg/dL; Status: F Test: BILIRUBIN, URINE AUTO; Value: NEGATIVE; Range: NEGATIVE; Status: F Test: NITRITE, URINE AUTO; Value: NEGATIVE; Range: NEGATIVE; Status: F Test: LEUKOCYTE ESTERASE, URINE AUTO; Value: NEGATIVE; Range: NEGATIVE; Status: F Test: BLOOD, URINE BLOOD; Value: 3+; Range: NEGATIVE; Abnormal: Above high normal; Status: F Test: WBC, URINE AUTO; Value: 4; Range: 0-3; Abnormal: Above high normal; Units: /HPF; Status: F Test: RBC, URINE AUTO; Value: 95; Range: 0-3; Abnormal: Above high normal; Units: /HPF; Status: F Test: BACTERIA, URINE AUTO; Value: NEGATIVE; Range: NEGATIVE; Status: F Test: SQUAMOUS EPITHELIAL CELL UR AU; Value: 2; Range: 0-6; Units: /HPF; Status: F Test: MUCUS, URINE; Value: SMALL; Range: NEGATIVE; Status: F Test: HYALINE CAST, URINE AUTO; Value: 0; Range: 0-1; Units: /LPF; Status: F Test: CALCIUM OXALATE CRYSTALS; Value: SMALL; Range: NONE; Status: F Lab Order: Urine Culture; SPEC'M 06/24/16 13:27 Test: URINE CULTURE; Value: URINE CULTURE RESULT; Status: F Test: URINE CULTURE; Value: NO GROWTH CLINICAL SIGNIFICANCE 2 OR MORE ORGANISMS; Status: F Radiology Order: -US Pelvic Non-Ob Complete Test: -US Pelvic Non-Ob Complete REASON FOR EXAMINATION: Adnexal Pain r/o Torsion; Clinical: Pelvic pain .; ; Technique: Transabdominal pelvic ultrasound followed by transvaginal examination; for better evaluation of the endometrium and adnexa with color Doppler evaluation; of the ovaries.; ; Findings:; ; Bladder is unremarkable and under distended measuring 4.7 x 1.3 x 1.9 cm .; ; Normal retroverted uterus measures 7.3 x 4.0 x 5.6 cm with sub centimeter; Nabothian cysts in the lower uterine segment. The endometrial complex measures; 4.8 mm thickness. No significant discrete uterine or endometrial abnormalities; are appreciated.; ; Bilateral ovaries are normal in appearance and vascularity without evidence for; torsion. Right ovary measures 3.4 x 2.0 x 2.4 cm ; R I = 0.60 . Left ovary; measures 3.8 x 2.4 x 2.0 cm ; R I = 0.60 .; ; Trace pelvic free fluid is nonspecific. No adnexal mass lesion .; ; Impression:; 1. Essentially normal pelvic ultrasound. No evidence for torsion.; ; ; Signed by; Omer Wyman MD 06/24/2016 02:15 P; Radiology Order: CT ABD & PELVIS: No Contrast Test: CT ABD & PELVIS: No Contrast REASON FOR EXAMINATION: diffuse abd pain with flank pain; Clinical: Diffuse abdominal and flank pain.; ; Comparison: 11/09/2015.; ; Findings:; Lung bases clear.; ; Liver, spleen, pancreas, gallbladder, bilateral adrenal glands and kidneys are; normal for noncontrast evaluation. The enteric system is without obstruction or; acute inflammatory process and a normal terminal ileum and appendix are; identified in the right lower quadrant. Pelvis demonstrates collapse normal; bladder and age-appropriate uterus/adnexa. 3 cm fat containing periumbilical; hernia again identified. No pelvic fluid or ascites. No free air. No evidence; for abdominal aortic aneurysm. Musculoskeletal structures appear intact and; without focal osseous abnormality.; ; Impression:; 3 cm fat containing periumbilical hernia.; Otherwise normal noncontrast CT of the abdomen and pelvis.; ; ; Signed by; Omer Wyman MD 06/24/2016 02:59 P; Outcome: 15:16 Discharge ordered by Provider. ef1 15:31 Discharge Assessment: Patient awake, alert and oriented x 3. No cognitive and/or hs1 functional deficits noted. Patient verbalized understanding of disposition instructions. patient administered narcotics - no. The following High Risk Discharge criteria are identified: None. Condition: stable. Discharge instructions given to patient, Instructed on discharge instructions, follow up and referral plans. medication usage, Demonstrated understanding of instructions, medications, Pt was receptive of discharge instructions/ teaching. Prescriptions given X 6. CT Study completed. Ultrasound Study completed. Property sent home with patient. 15:31 Patient left the ED. hs1 Signatures: Dispatcher [employer] EDMS Vidya Fan, PSA PSA ml4 Desormeau, Brayden, FILTER MACHINE OPERATOR FILTER MACHINE OPERATOR dd6 Koki Pena, PA-C PA-C ef1 Jossy Abdullahi,RN RN rs3 Frances Trevizo, FILTER MACHINE OPERATOR FILTER MACHINE OPERATOR ar3 Yanci Montenegro RN RN hs1 Jay Bee Marlynn mm15 Jag Shields, FILTER MACHINE OPERATOR FILTER MACHINE OPERATOR d Diana Mcgrath Chart Complete MTDD
--- NOTE | 2016-06-26 16:32 | EDDOCDS ---
Physician Documentation [facility] Name: Erma Adam Age: 21 yrs Sex: Female : 1995 Arrival Date: 06/24/2016 Time: 12:36 Bed I5 / M5 Private MD: Carmine Mcknihgt Disposition: 06/24/16 15:16 Discharged to Home/Self Care. Impression: Generalized abdominal pain, Umbilical hernia, Urinary tract infection, site not specified, Anxiety disorder, unspecified - with Depressed Mood, No SI/HI, Dysmenorrhea, unspecified, Constipation. - Condition is Stable. - Discharge Instructions: Abdominal Pain, Adult, Urinary Tract Infection, [id number], Generalized Anxiety Disorder, Depression, Adult, Jkum-zn-Kduk, Hernia, Daid-ll-Vyjl, Dysmenorrhea, Smgx-[id number]-[id number]. - Prescriptions for Hydroxyzine HCl 25 mg Oral Tablet - take 1 tablet by ORAL route every 6 hours As needed For anxiety/ sleep disturbance; 12 tablet. Cipro 500 mg Oral Tablet - take 1 tablet by ORAL route every 12 hours; 14 tablet. Naprosyn 500 mg Oral Tablet - take 1 tablet by ORAL route 2 times per day take with food; 30 tablet. Pyridium 200 mg Oral Tablet - take 1 tablet by ORAL route every 8 hours for 3 days; 9 tablet. Reglan 10 mg Oral Tablet - take 1 tablet by ORAL route every 6 hours take 30 minutes before meals and at bedtime; 20 tablet. Colace 100 mg Oral Tablet - take 1 tablet by ORAL route every 12 hours; 14 tablet. - Medication Reconciliation, Local Pharmacy Hours form. - Follow up: Carmine Mcknight; When: 1 - 2 days; Reason: Recheck today's complaints, Continuance of care. Follow up: Emergency Department; Reason: Worsening of conditions. Follow up: Moris Garcia; When: Call to arrange an appointment; Reason: Further diagnostic work-up, Recheck today's complaints, Continuance of care. Follow up: Your [employer]; When: Call to arrange an appointment; Reason: Further diagnostic work-up, Recheck today's complaints, Continuance of care. Follow up: Zaid Montes MD; When: Call to arrange an appointment; Reason: Further diagnostic work-up, Recheck today's complaints, Continuance of care. - Problem is new. - Symptoms have improved. Historical: - Allergies: no known allergies; - Home Meds: 1. Miralax 17 gram/dose Oral powd 17 g once daily - PMHx: Anxiety; Depression; Endometriosis; Frequent UTI's; - PSHx: ; - Social history: Smoking status: Patient uses tobacco products, current every day smoker. . - Family history: No immediate family members are acutely ill. - : The pt / caregiver states he / she is not on anticoagulants. Home medication list is obtained from the patient. - Exposure Risk Screening:: None identified. ELECTROPLATING SALES REPRESENTATIVE: 06/24 12:45 LMP 06/23/2016 rs3 Vital Signs: 12:38 BP 127 / 77; Pulse 77; Resp 18 S; Temp 97.1(O); Pulse Ox 100% on R/A; Weight 72.57 kg / dd6 159.99 lbs (R); Height 5 ft. 3 in. (160.02 cm) (R); 15:28 BP 126 / 80; Pulse 68; Resp 18; Temp 97.7(O); Pulse Ox 100% ; jrd 12:38 Body Mass Index 28.34 (72.57 kg, 160.02 cm) dd6 MDM: 13:08 IV Saline Lock ordered. ef1 13:08 Undress patient appropriately for examination ordered. ef1 13:08 UCG by Nursing ordered. ef1 13:09 Amylase Ordered. EDMS 13:09 Basic Metabolic Profile Ordered. EDMS 13:09 CBC with Diff Ordered. EDMS 13:09 Lipase Ordered. EDMS 13:09 Liver Profile Ordered. EDMS 13:09 Urinalysis Ordered. EDMS 13:09 Urine Culture Ordered. EDMS 13:09 -US Pelvic Non-Ob Complete Ordered. EDMS 13:09 NOTHING BY MOUTH+DIET ordered. EDMS 13:09 DUPLEX SCAN LIMITED (DOPPLER)+US Ordered. EDMS 13:41 ketorolac 30 mg IVP once ordered. ef1 13:41 Ondansetron 4 mg IVP once ordered. ef1 13:51 Financial registration complete. mm15 13:52 Transvaginal NON- US Ordered. EDMS 14:12 CT ABD & PELVIS: No Contrast Ordered. EDMS 14:21 [facility] Payment Agreement was scanned into [employer] and attached to record. mm15 14:36 Consult PFS/PSA/Pediatric Rn: Resources/Social Work ordered. ef1 14:37 Basic Metabolic Profile Reviewed. ef1 14:37 Liver Profile Reviewed. ef1 14:37 Urinalysis Reviewed. ef1 14:37 Amylase Reviewed. ef1 14:37 CBC with Diff Reviewed. ef1 14:37 Lipase Reviewed. ef1 14:37 -US Pelvic Non-Ob Complete Reviewed. ef1 14:41 Consult PFS/PSA/Pediatric Rn: Resources/Social Work complete. ml4 15:20 Ciprofloxacin 500 mg PO once ordered. ef1 15:20 Phenazopyridine 200 mg PO once ordered. ef1 15:48 PSA Outpatient Referrals was scanned into [employer] and attached to record. ml4 22:25 T-Sheet-- Draft Copy was scanned into [employer] and attached to record. klr Point of Care Testing: Urine : 13:53 hCG Reading: Negative; Control Reading: Positive; hs1 Ranges: Administered Medications: 14:21 Drug: ketorolac 30 mg [ketorolac 30 mg/mL (1 mL) injection solution (1 mL)] Route: IVP; hs1 Site: left antecubital; 14:21 Drug: Ondansetron 4 mg [ondansetron HCl 2 mg/mL intravenous solution (2 mL)] Route: hs1 IVP; Site: left antecubital; 15:29 Drug: Ciprofloxacin 500 mg [ciprofloxacin 500 mg tablet (1 tabs)] Route: PO; hs1 15:29 Drug: Phenazopyridine 200 mg [phenazopyridine 100 mg tablet (2 tabs)] Route: PO; hs1 Signatures: [facility] Vidya Fan, PSA PSA ml4 Koki Pena PA-C PA-C ef1 Jossy AbdullahiRN RN rs3 Yanci Montenegro RN RN hs1 Lubna Haynes mm15 Diana Mcgrath klray The chart was reviewed and I authenticate all verbal orders and agree with the evaluation and treatment provided.Corrections: (The following items were deleted from the chart) 14:16 13:09 Abdomen,Flat\E\Upright,PA CHEST+XR ordered. EDMS EDMS Attachments: 14:21 [facility] Payment Agreement mm15 22:25 T-Sheet-- Draft Copy klr Chart Complete MTDD
--- NOTE | 2016-06-26 16:32 | EDDOCDS ---
Physician Documentation [facility] Name: Erma Adam Age: 21 yrs Sex: Female : 1995 Arrival Date: 06/24/2016 Time: 12:36 Bed I5 / M5 Private MD: Carmine Mcknight Disposition: 06/24/16 15:16 Discharged to Home/Self Care. Impression: Generalized abdominal pain, Umbilical hernia, Urinary tract infection, site not specified, Anxiety disorder, unspecified - with Depressed Mood, No SI/HI, Dysmenorrhea, unspecified, Constipation. - Condition is Stable. - Discharge Instructions: Abdominal Pain, Adult, Urinary Tract Infection, Qlts-di-Glii, Generalized Anxiety Disorder, Depression, Adult, Kzyt-cv-Pgmq, Hernia, Kkby-wr-Tdbe, Dysmenorrhea, Bacy-wj-Shcj. - Prescriptions for Hydroxyzine HCl 25 mg Oral Tablet - take 1 tablet by ORAL route every 6 hours As needed For anxiety/ sleep disturbance; 12 tablet. Cipro 500 mg Oral Tablet - take 1 tablet by ORAL route every 12 hours; 14 tablet. Naprosyn 500 mg Oral Tablet - take 1 tablet by ORAL route 2 times per day take with food; 30 tablet. Pyridium 200 mg Oral Tablet - take 1 tablet by ORAL route every 8 hours for 3 days; 9 tablet. Reglan 10 mg Oral Tablet - take 1 tablet by ORAL route every 6 hours take 30 minutes before meals and at bedtime; 20 tablet. Colace 100 mg Oral Tablet - take 1 tablet by ORAL route every 12 hours; 14 tablet. - Medication Reconciliation, Local Pharmacy Hours form. - Follow up: Carmine Mcknight; When: 1 - 2 days; Reason: Recheck today's complaints, Continuance of care. Follow up: Emergency Department; Reason: Worsening of conditions. Follow up: Moris Garcia; When: Call to arrange an appointment; Reason: Further diagnostic work-up, Recheck today's complaints, Continuance of care. Follow up: [facility] [employer] [facility] [facility]; When: Call to arrange an appointment; Reason: Further diagnostic work-up, Recheck today's complaints, Continuance of care. Follow up: Zaid Montes MD; When: Call to arrange an appointment; Reason: Further diagnostic work-up, Recheck today's complaints, Continuance of care. - Problem is new. - Symptoms have improved. Historical: - Allergies: no known allergies; - Home Meds: 1. Miralax 17 gram/dose Oral powd 17 g once daily - PMHx: Anxiety; Depression; Endometriosis; Frequent UTI's; - PSHx: ; - Social history: Smoking status: Patient uses tobacco products, current every day smoker. . - Family history: No immediate family members are acutely ill. - : The pt / caregiver states he / she is not on anticoagulants. Home medication list is obtained from the patient. - Exposure Risk Screening:: None identified. 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 3 in. (160.02 cm) (R); 15:28 BP 126 / 80; Pulse 68; Resp 18; Temp 97.7(O); Pulse Ox 100% ; jrd 12:38 Body Mass Index 28.34 (72.57 kg, 160.02 cm) dd6 MDM: 13:08 IV Saline Lock ordered. ef1 13:08 Undress patient appropriately for examination ordered. ef1 13:08 UCG by Nursing ordered. ef1 13:09 Amylase Ordered. EDMS 13:09 Basic Metabolic Profile Ordered. EDMS 13:09 CBC with Diff Ordered. EDMS 13:09 Lipase Ordered. EDMS 13:09 Liver Profile Ordered. EDMS 13:09 Urinalysis Ordered. EDMS 13:09 Urine Culture Ordered. EDMS 13:09 -US Pelvic Non-Ob Complete Ordered. EDMS 13:09 NOTHING BY MOUTH+DIET ordered. EDMS 13:09 DUPLEX SCAN LIMITED (DOPPLER)+US Ordered. EDMS 13:41 ketorolac 30 mg IVP once ordered. ef1 13:41 Ondansetron 4 mg IVP once ordered. ef1 13:51 Financial registration complete. mm15 13:52 Transvaginal NON- US Ordered. EDMS 14:12 CT ABD & PELVIS: No Contrast Ordered. EDMS 14:21 [facility] Payment Agreement was scanned into [employer] and attached to record. mm15 14:36 Consult PFS/PSA/Risk Investigator: Resources/Social Work ordered. ef1 14:37 Basic Metabolic Profile Reviewed. ef1 14:37 Liver Profile Reviewed. ef1 14:37 Urinalysis Reviewed. ef1 14:37 Amylase Reviewed. ef1 14:37 CBC with Diff Reviewed. ef1 14:37 Lipase Reviewed. ef1 14:37 -US Pelvic Non-Ob Complete Reviewed. ef1 14:41 Consult PFS/PSA/Risk Investigator: Resources/Social Work complete. ml4 15:20 Ciprofloxacin 500 mg PO once ordered. ef1 15:20 Phenazopyridine 200 mg PO once ordered. ef1 15:48 PSA Outpatient Referrals was scanned into [employer] and attached to record. ml4 22:25 T-Sheet-- Draft Copy was scanned into [employer] and attached to record. klr Point of Care Testing: Urine : 13:53 hCG Reading: Negative; Control Reading: Positive; hs1 Ranges: Administered Medications: 14:21 Drug: ketorolac 30 mg [ketorolac 30 mg/mL (1 mL) injection solution (1 mL)] Route: IVP; hs1 Site: left antecubital; 14:21 Drug: Ondansetron 4 mg [ondansetron HCl 2 mg/mL intravenous solution (2 mL)] Route: hs1 IVP; Site: left antecubital; 15:29 Drug: Ciprofloxacin 500 mg [ciprofloxacin 500 mg tablet (1 tabs)] Route: PO; hs1 15:29 Drug: Phenazopyridine 200 mg [phenazopyridine 100 mg tablet (2 tabs)] Route: PO; hs1 Signatures: [facility] EDID Vidya Fan, PSA PSA ml4 Koki Pnea PA-C PA-C ef1 Jossy AbdullahiRN RN rs3 Yanci Montenegro RN RN hs1 Lubna Haynes mm15 Diana Mcgrath klray The chart was reviewed and I authenticate all verbal orders and agree with the evaluation and treatment provided.Corrections: (The following items were deleted from the chart) 14:16 13:09 Abdomen,Flat\E\Upright,PA CHEST+XR ordered. EDMS EDMS Attachments: 14:21 [facility] Payment Agreement mm15 22:25 T-Sheet-- Draft Copy klr Chart Complete MTDD
== END 2016-06-24 15:31 | disposition home or self-care (01) ==
LOC: M ED 12:36
DX: N39.0 Urinary tract infection, site not specified (principal); K42.9 Umbilical hernia without obstruction or gangrene; N94.6 Dysmenorrhea, unspecified; K59.00 Constipation, unspecified; F41.9 Anxiety disorder, unspecified; F32.9 Major depressive disorder, single episode, unspecified; F17.210 Nicotine dependence, cigarettes, uncomplicated; N80.9 Endometriosis, unspecified; Z87.440 Personal history of urinary (tract) infections
CPT/HCPCS: 36415; 74176; 76830; 76856; 80048; 80076; 81001; 81025; 82150; 83690; 85025; 87086; 93976; 96374; 96375; 99284; J1885; J2405

== ENCOUNTER 2016-06-25 20:20 | Emergency (ER) | payer BC, OTHER, MEDICAID ==
[2016-06-25] MEDS ORDERED: MORPHINE 4 MG/ML 1ML SYRINGE As Ordered ONE (23:49)
[2016-06-25] MEDS ORDERED: ONDANSETRON 4MG/2ML VIAL (J2405) As Ordered ONE (23:49)
[2016-06-26 00:08] LABS: BASO % 0.3 % (0.0-1.0); EOS # 0.2 K/mm3 (0.0-0.50); EOS % 2.4 % (0.0-3.0); LARGE UNSTAINED CELL # 0.2 K/mm3 (0.0-0.4); LARGE UNSTAINED CELL % 1.8 % (0.0-4.0); LYMPH # 2.2 K/mm3 (1.5-6.5); LYMPH % 25.6 % (24.0-44.0); MEAN CORPUSCULAR HEMOGLOBIN 31.3 pg (27.0-33.0); MEAN CORPUSCULAR VOLUME 92.2 fl (80.0-96.0); MONO # 0.3 K/mm3 (0.0-0.8); MONO % 3.4 % (0.0-5.0); NEUTROPHILS # 5.7 K/mm3 (1.8-7.7); NEUTROPHILS % 66.4 % (36.0-66.0); PLATELET COUNT, AUTOMATED 259 k/mm3 (150-450); RED CELL DISTRIBUTION WIDTH 11.6 % (11.5-14.5); WHITE BLOOD COUNT 8.6 K/mm3 (4.0-10.0)
[2016-06-26 00:23] LABS: CONTROL LINE HCG INT CTR LINE PRESENT
[2016-06-26 00:30] LABS: ALBUMIN 3.7 GM/DL (3.2-5.2); ALBUMIN/GLOBULIN RATIO 1.06 (1.00-1.93); ALKALINE PHOSPHATASE 75 U/L (45-117); ALT/SGPT 19 U/L (12-78); AMYLASE 43 U/L (25-115); ANION GAP 8 MEQ/L (8-16); AST/SGOT 16 U/L (15-37); BILIRUBIN,DIRECT < 0.1 MG/DL (0.0-0.2); BILIRUBIN,TOTAL 0.3 MG/DL (0.2-1.0); BLOOD UREA NITROGEN 11 MG/DL (7-18); CALCIUM LEVEL 8.5 MG/DL (8.5-10.1); CARBON DIOXIDE LEVEL 26 MEQ/L (21-32); CHLORIDE LEVEL 109 MEQ/L (98-107); CREATININE FOR GFR 0.73 MG/DL (0.55-1.02); GLOMERULAR FILTRATION RATE > 60.0 (>60); GLUCOSE, FASTING 87 MG/DL (70-105); SODIUM LEVEL 143 MEQ/L (136-145); TOTAL PROTEIN 7.2 GM/DL (6.4-8.2)
[2016-06-26] MEDS ORDERED: ISOVUE-370 76% 100ML VIAL (Q9967) As Ordered ONE (00:43)
[2016-06-26] MEDS ORDERED: MORPHINE 4 MG/ML 1ML SYRINGE As Ordered ONE (01:00)
--- NOTE | 2016-06-26 01:40 | REPUSA ---
CLINICAL HISTORY: Abdominal pain. TECHNIQUE: Multiple axial, sagittal and coronal CT images were obtained through the abdomen and pelvi s after administration of intravenous contrast material. COMMENTS: The liver is of uniform attenuation without mass or defect. There is no intra or extrahepatic biliary ductal dilatation. The spleen is normal. The gallbladder is within normal limits. The pancreas is of normal contour and attenuation characteristics. There is no evidence of adrenal mass. Both kidneys demonstrate prompt and equal nephrograms. The kidneys are normal in size, shape and conf iguration. There is no evidence of renal or ureteral mass. No renal or ureteral calculi are identifie d. There is no hydroureter or hydronephrosis. No evidence for appendicitis. There is no bowel wall thickening. No evidence for small or large han l obstruction. There is no evidence of abdominal ascites or lymphadenopathy. Fluid-filled mildly dila becky proximal small bowel loops. There is no evidence of intrinsic or extrinsic bladder mass. There is no pelvic ascites or lymphadeno lauren. Mild diffuse thickening of the bladder. Images of the lung bases show no evidence of pleural or parenchymal mass. There are no pleural effusi ons. The bony structures are free of lytic or blastic lesions. Fat-containing umbilical hernia without incarceration. IMPRESSION: Mild thickening of the wall of the bladder. Fluid filled mildly dilated proximal small bowel loops. Focal ileus versus mild enteritis. Thank you for your kind referral of this patient.
[2016-06-26] MEDS ORDERED: metroNIDAZOLE (FLAGYL) 500 MG TAB As Ordered ONE (02:37)
[2016-06-26] MEDS ORDERED: NORCO 5/325MG TABLET (BULK) As Ordered ONE (02:37)
--- NOTE | 2016-06-26 02:50 | EDDOCDS ---
Physician Documentation [facility] Name: Erma Adam Age: 21 yrs Sex: Female : 1995 Arrival Date: 06/25/2016 Time: 20:20 Bed 14 Private MD: Carmine Mcknight Disposition: 06/26/16 02:08 Discharged to Home/Self Care. Impression: Vaginitis, vulvitis and vulvovaginitis in diseases classified elsewhere - Bacterial. - Condition is Stable. - Discharge Instructions: Bacterial Vaginosis, Bacterial Vaginosis, [id number]. - Prescriptions for Flagyl 500 mg Oral Tablet - take 1 tablet by ORAL route every 12 hours for 7 days; 14 tablet. Thurston 5- 325 mg Oral Tablet - take 1 tablet by ORAL route every 6 hours As needed MDD: 4 tabs; 6 tablet. - Medication Reconciliation, Local Pharmacy Hours form. - Follow up: Kamila Fernandez MD; When: As previously arranged; Reason: Continuance of care. - Problem is an acute exacerbation. - Symptoms have improved. Historical: - Allergies: no known allergies; - Home Meds: 1. naproxen 250 mg Oral tab 2 tabs 2 times per day 2. Miralax 17 gram/dose Oral powd 17 g once daily 3. hydroxyzine HCl 50 mg oral tab nightly - PMHx: Anxiety; Depression; Endometriosis; Frequent UTI's; - PSHx: ; - Social history: Smoking status: Patient uses tobacco products, light tobacco smoker. No barriers to communication noted, The patient speaks fluent Turkmen, Speaks appropriately for age. - Family history: Not pertinent. - : The pt / caregiver states he / she is not on anticoagulants. Home medication list is obtained from the patient. - Exposure Risk Screening:: None identified. 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 3 in. (160.02 cm); Pain 9/10; 22:31 BP 124 / 75; Pulse 84; Resp 18; Temp 98.8(TE); Pulse Ox 97% on R/A; Pain 9/10; ar3 23:55 BP 118 / 77 (auto/); tm5 23:57 Pulse 82 MON; Pulse Ox 97% ; tm5 06/26 00:35 BP 144 / 81 (auto/); tm5 00:36 Pulse 102 MON; Pulse Ox 99% ; tm5 01:02 BP 134 / 73 (auto/); tm5 01:03 Pulse 98 MON; Pulse Ox 99% ; tm5 01:04 BP 142 / 69; Pulse 98; Resp 20; Pulse Ox 98% on R/A; tm5 01:32 BP 132 / 76 (auto/); tm5 01:33 Pulse 98 MON; Resp 20 S; Pulse Ox 98% on R/A; Pain 4/10; tm5 02:12 BP 114 / 71; Pulse 89; Resp 18; Temp 97.5(O); Pulse Ox 99% on R/A; Pain 6/10; nataly 02:47 BP 119 / 78; Pulse 87; Resp 18; Temp 98.9(O); Pulse Ox 100% on R/A; Pain 4/10; tm5 06/25 20:22 Body Mass Index 28.34 (72.57 kg, 160.02 cm) [facility] MDM: 06/25 21:35 UA Ordered. EDMS 23:34 NS 0.9% 1000 ml IV at bolus once ordered. mm11 23:34 Ondansetron 4 mg IVP once ordered. mm11 23:34 morphine 4 mg IVP every 30 minutes; Document pain score/vitals after each dose (Hold if mm11 SBP < 90mmHg) x2 ordered. 23:34 IV Saline Lock ordered. mm11 23:34 Undress patient appropriately for examination ordered. mm11 23:34 Set up pelvic ordered. mm11 23:36 Amylase Ordered. EDMS 23:36 Basic Metabolic Profile Ordered. EDMS 23:36 CBC with Diff Ordered. EDMS 23:36 HCG,Serum Qualitative Ordered. EDMS 23:36 Lipase Ordered. EDMS 23:36 Liver Profile Ordered. EDMS 23:36 CT ABD & PELVIS: IV Contrast Only Ordered. EDMS 23:36 NOTHING BY MOUTH+DIET ordered. EDMS 06/26 00:01 Financial registration complete. hs2 00:08 [place] [place] was scanned into [employer] and attached to record. hs2 00:26 UA Reviewed. mm11 00:26 CBC with Diff Reviewed. mm11 00:26 HCG,Serum Qualitative Reviewed. mm11 00:35 Basic Metabolic Profile Reviewed. mm11 00:35 Amylase Reviewed. mm11 00:35 HCG,Serum Qualitative Reviewed. mm11 00:35 Lipase Reviewed. mm11 00:35 Liver Profile Reviewed. mm11 00:54 Wet Prep Ordered. EDMS 00:54 GC & Chlamydia Amplification Ordered. EDMS 01:16 Wet Prep Reviewed. mm11 02:00 CT ABD & PELVIS: IV Contrast Only Reviewed. mm11 02:06 metroNIDAZOLE 500 mg PO once ordered. mm11 02:06 HYDROcodone-acetaminophen 4 pack- 5 mg-325 mg 1 packets PO Per package directions; mm11 Dispense with patient. 1 po q4h prn for pain ordered. Administered Medications: 06/25 23:56 Drug: NS 0.9% 1000 ml [sodium chloride 0.9 % intravenous solution] Route: IV; Rate: mlc bolus; Site: right antecubital; 06/26 01:59 Follow up: IV Status: Completed infusion; IV Intake: 1000ml tm5 06/25 23:57 Drug: Ondansetron 4 mg [ondansetron HCl 2 mg/mL intravenous solution (2 mL)] Route: mlc IVP; Site: right antecubital; 06/26 01:04 Follow up: Response: Nausea is resolved; No Adverse Reaction tm5 06/25 23:57 Drug: morphine 4 mg [morphine 4 mg/mL intravenous cartridge (1 mL)] Route: IVP; [place] [facility] [place]; 06/26 01:04 Drug: morphine 4 mg [morphine 4 mg/mL intravenous cartridge (1 mL)] Route: IVP; Site: [facility] right antecubital; 01:04 Follow up: BP 142 / 69; Pulse 98 bpm; Resp 20 bpm; Pulse Ox 98% RA tm5 01:35 Follow up: Response: No Adverse Reaction; Pain is decreased tm5 02:42 Drug: HYDROcodone-acetaminophen 4 pack- 1 packets [hydrocodone 5 mg-acetaminophen 325 tm5 mg tablet (1 tabs)] {Co-Signature: michelle (Mario Carbajal RN).} Route: PO; Signatures: Dispatcher [employer] EDMS Dariel Leiva DO DO mm11 Elina Alberto RN RN pml Stanton, Hillary, Reg Reg hs2 Connie CooperRN RN tm5 Carmencita Flowers RN mlc Mario Carbajal RN jmb The chart was reviewed and I authenticate all verbal orders and agree with the evaluation and treatment provided.Attachments: 00:08 [facility] Payment Agreement hs2 MTDD
--- NOTE | 2016-06-26 02:50 | EDDOCDS ---
Nurse's Notes [facility] Name: Erma Adam Age: 21 yrs Sex: Female : 1995 Arrival Date: 06/25/2016 Time: 20:20 Bed 14 Private MD: Carmine Mcknight Diagnosis: Vaginitis, vulvitis and vulvovaginitis in diseases classified elsewhere-Bacterial Presentation: 06/25 20:24 Presenting complaint: Patient states: lower abdominal pain - seen here a few days ago pml for the same and diagnosed with a hernia and rx for naproxen - pt states no relief. has not made appt with surgeon. Risk factors: the patient reports no vaginal bleeding. Adult Sepsis Screening: The patient does not have new or worsening altered mentation. Patient's respiratory rate is less than 22. Systolic blood pressure is greater than 100. Patient has a qSOFA score of 0- Negative Sepsis Screen. Suicide/Homicide risk assessment- the patient denies having any suicidal and/or homicidal ideations and does not present with any other emotional, behavioral or mental health complaints. Status: Patient is not a sales service coordinator or dependent. Transition of care: patient was not received from another setting of care. 20:24 Acuity: SOULEYMANE Level 3 pml 20:24 Method Of Arrival: Walkin/Carried/Asstd pml Triage Assessment: 20:26 General: Appears uncomfortable, Behavior is appropriate for age, cooperative. Pain: pml Location: umbilical area Pain currently is 9 out of 10 on a pain scale. HIV screening NA for this visit Offered previously. GI: Reports lower abdominal pain, upper abd pain. 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 naproxen 250 mg Oral tab 2 tabs 2 times per day 2. Miralax 17 gram/dose Oral powd 17 g once daily 3. hydroxyzine HCl 50 mg oral tab nightly - PMHx: Anxiety; Depression; Endometriosis; Frequent UTI's; - PSHx: ; - Social history: Smoking status: Patient uses tobacco products, light tobacco smoker. No barriers to communication noted, The patient speaks fluent Lao, Speaks appropriately for age. - Family history: Not pertinent. - : The pt / caregiver states he / she is not on anticoagulants. Home medication list is obtained from the patient. - Exposure Risk Screening:: None identified. Screenin:02 Screening information is obtained from the patient. Fall risk: No risks identified. tm5 Assistance ADL's: requires no assistance with activities of daily living. Abuse/DV Screen: The patient / caregiver reports he/she is: not in a situation that causes fear, pain or injury. Nutritional screening: No deficits noted. Advance Directives: There is no active DNR order. home support is adequate. Assessment: 23:02 General: Appears in no apparent distress, Behavior is appropriate for age, cooperative. tm5 General: pt was seen here yesterday was diagnosed with Abdominal hernia was told to follow up with Surgeon & was prescribed Naproxen & pt states that she is getting no pain relief with this medication . Pain: Location: umbilical area Pain currently is 9 out of 10 on a pain scale. Quality of pain is described as aching, sharp. Neurological: Level of Consciousness is awake, alert, Oriented to person, place, time. Respiratory: Airway is patent Respiratory effort is even, unlabored, Respiratory pattern is regular, symmetrical. GI: Abdomen is non- distended Bowel sounds present X 4 quads. Abd is soft X 4 quads Abd is tender to palpation in umbilical area. : No deficits noted. Derm: Skin is pink, warm & dry. normal. 06/26 01:58 Reassessment: Patient appears in no apparent distress at this time. Patient states tm5 feeling better. Patient states symptoms have improved. 02:00 General: pt asking this RN if she will be discharged with stronger pain medication when tm5 she goes home, states again that Naproxen wasn't working for her at home . 02:47 Reassessment: Patient appears in no apparent distress at this time. Patient states tm5 feeling better. Patient states symptoms have improved. pt had to be awakened for discharge. Vital Signs: 06/25 20:22 BP 132 / 78; Pulse 101; Resp 18; Temp 96.9; Pulse Ox 99% ; Weight 72.57 kg; Height 5 jlm ft. 3 in. (160.02 cm); Pain 9/10; 22:31 BP 124 / 75; Pulse 84; Resp 18; Temp 98.8(TE); Pulse Ox 97% on R/A; Pain 9/10; ar3 23:55 BP 118 / 77 (auto/); tm5 23:57 Pulse 82 MON; Pulse Ox 97% ; tm5 06/26 00:35 BP 144 / 81 (auto/); tm5 00:36 Pulse 102 MON; Pulse Ox 99% ; tm5 01:02 BP 134 / 73 (auto/); tm5 01:03 Pulse 98 MON; Pulse Ox 99% ; tm5 01:04 BP 142 / 69; Pulse 98; Resp 20; Pulse Ox 98% on R/A; tm5 01:32 BP 132 / 76 (auto/); tm5 01:33 Pulse 98 MON; Resp 20 S; Pulse Ox 98% on R/A; Pain 4/10; tm5 02:12 BP 114 / 71; Pulse 89; Resp 18; Temp 97.5(O); Pulse Ox 99% on R/A; Pain 6/10; nataly 02:47 BP 119 / 78; Pulse 87; Resp 18; Temp 98.9(O); Pulse Ox 100% on R/A; Pain 4/10; tm5 06/25 20:22 Body Mass Index 28.34 (72.57 kg, 160.02 cm) [facility] Vitals: 06/25 20:22 Log In Time: June 25, 2016 at 20:22. [facility] ED Course: 20:21 Patient visited by Maame Berg, Space Control Agent. [facility] 20:21 Carmine Mcknight is Private Physician. jl 20:21 Patient moved to Waiting jlm 20:23 Patient moved to Pre RCE jlm 20:25 Triage Initiated pml 22:33 Patient visited by Frances Trevizo PCA. ar3 22:59 Patient moved to cz 23:02 Awaiting ED physician evaluation. tm5 23:02 The patient / caregiver is instructed regarding the plan of care and ED course. tm5 23:11 Dariel Leiva DO is Attending Physician. mm11 23:11 Patient visited by Dariel Leiva DO. mm11 23:33 Patient visited by Dariel Leiva DO. mm11 23:57 Patient visited by Carmencita Flowers RN. [facility] [place] Inserted saline lock: 20 gauge in right antecubital area and blood collected. [place] [facility] tolerated the procedure well. 06/26 00:08 [facility] [place] was [place] into [employer] and attached to record. hs2 00:11 Patient visited by Connie Cooper RN. tm5 00:50 Patient visited by Connie Cooper RN. tm5 00:[address] tm5 00:50 Assist provider with pelvic exam: Set up pelvic tray. Specimens sent to lab. Performed tm5 by Dariel Leiva DO Patient tolerated well. 00:59 GC & Chlamydia Amplification Sent. tm5 00:59 Wet Prep Sent. tm5 01:21 Patient visited by Connie Cooper RN. tm5 01:46 CT ABD & PELVIS: IV Contrast Only Returned. EDMS 01:58 Patient visited by Connie Cooper RN. tm5 02:00 Patient visited by Connie Cooper RN. tm5 02:07 Kamila Fernandez MD is Referral Physician. mm11 02:12 Patient visited by Montse Zapata PCA. nataly 02:46 Patient visited by Connie Cooper RN. tm5 02:47 Discontinued lock intact, bleeding controlled, pressure dressing applied, No tm5 redness/swelling at site. Administered Medications: 06/25 23:56 Drug: NS 0.9% 1000 ml [sodium chloride 0.9 % intravenous solution] Route: IV; Rate: mlc bolus; Site: right antecubital; 06/26 01:59 Follow up: IV Status: Completed infusion; IV Intake: 1000ml tm5 06/25 23:57 Drug: Ondansetron 4 mg [ondansetron HCl 2 mg/mL intravenous solution (2 mL)] Route: mlc IVP; Site: right antecubital; 06/26 01:04 Follow up: Response: Nausea is resolved; No Adverse Reaction tm5 06/25 23:57 Drug: morphine 4 mg [morphine 4 mg/mL intravenous cartridge (1 mL)] Route: IVP; Site: mlc right antecubital; 06/26 01:04 Drug: morphine 4 mg [morphine 4 mg/mL intravenous cartridge (1 mL)] Route: IVP; Site: tm5 right antecubital; 01:04 Follow up: BP 142 / 69; Pulse 98 bpm; Resp 20 bpm; Pulse Ox 98% RA tm5 01:35 Follow up: Response: No Adverse Reaction; Pain is decreased tm5 02:42 Drug: HYDROcodone-acetaminophen 4 pack- 1 packets [hydrocodone 5 mg-acetaminophen 325 tm5 mg tablet (1 tabs)] {Co-Signature: michelle (Mario Carbajal RN).} Route: PO; Intake: 01:59 IV: 1000.00ml; Total: 1000.00ml. tm5 Order Results: Lab Order: UA; SPEC'M 06/25/16 21:35 Test: APPEARANCE, URINE; Value: HAZY; Range: CLEAR; Status: F Test: COLOR, URINE; Value: YELLOW; Range: YELLOW; Status: F Test: PH,URINE; Value: 6.0; Range: 5.0-9.0; Units: UNITS; Status: F Test: SPECIFIC GRAVITY URINE AUTO; Value: 1.019; Range: 1.002-1.035; Status: F Test: PROTEIN, URINE AUTO; Value: 1+; Range: NEGATIVE; Abnormal: Above high normal; Units: mg/dL; Status: F Test: GLUCOSE, URINE (UA) AUTO; Value: NEGATIVE; Range: NEGATIVE; Units: mg/dL; Status: F Test: KETONE, URINE AUTO; Value: NEGATIVE; Range: NEGATIVE; Units: mg/dL; Status: F Test: UROBILINOGEN, URINE AUTO; Value: 0.2; Range: 0.0-2.0; Units: mg/dL; Status: F Test: BILIRUBIN, URINE AUTO; Value: NEGATIVE; Range: NEGATIVE; Status: F Test: NITRITE, URINE AUTO; Value: NEGATIVE; Range: NEGATIVE; Status: F Test: LEUKOCYTE ESTERASE, URINE AUTO; Value: NEGATIVE; Range: NEGATIVE; Status: F Test: BLOOD, URINE BLOOD; Value: 3+; Range: NEGATIVE; Abnormal: Above high normal; Status: F Test: WBC, URINE AUTO; Value: 2; Range: 0-3; Units: /HPF; Status: F Test: RBC, URINE AUTO; Value: 155; Range: 0-3; Abnormal: Above high normal; Units: /HPF; Status: F Test: BACTERIA, URINE AUTO; Value: NEGATIVE; Range: NEGATIVE; Status: F Test: SQUAMOUS EPITHELIAL CELL UR AU; Value: 0; Range: 0-6; Units: /HPF; Status: F Test: MUCUS, URINE; Value: SMALL; Range: NEGATIVE; Status: F Test: HYALINE CAST, URINE AUTO; Value: 0; Range: 0-1; Units: /LPF; Status: F Lab Order: Amylase; SPEC'M 06/25/16 23:47 Test: AMYLASE; Value: 43; Range: 25-115; Units: U/L; Status: F Lab Order: Basic Metabolic Profile; SPEC'M 06/25/16 23:47 Test: GLUCOSE, FASTING; Value: 87; Range: 70-105; Units: MG/DL; Status: F Test: BLOOD UREA NITROGEN; Value: 11; Range: 7-18; Units: MG/DL; Status: F Test: CREATININE FOR GFR; Value: 0.73; Range: 0.55-1.02; Units: MG/DL; Status: F Test: SODIUM LEVEL; Range: 136-145; Units: MEQ/L; Status: I Test: POTASSIUM SERUM; Range: 3.5-5.1; Units: MEQ/L; Status: I Test: CHLORIDE LEVEL; Range: 98-107; Units: MEQ/L; Status: I Test: CARBON DIOXIDE LEVEL; Range: 21-32; Units: MEQ/L; Status: I Test: ANION GAP; Range: 8-16; Units: MEQ/L; Status: I Test: CALCIUM LEVEL; Range: 8.5-10.1; Units: MG/DL; Status: I Test: GLOMERULAR FILTRATION RATE; Value: > 60.0; Range: >60; Status: F Test: SODIUM LEVEL; Value: 143; Range: 136-145; Units: MEQ/L; Status: F Test: POTASSIUM SERUM; Value: 4.0; Range: 3.5-5.1; Units: MEQ/L; Status: F Test: CHLORIDE LEVEL; Value: 109; Range: 98-107; Abnormal: Above high normal; Units: MEQ/L; Status: F Test: CARBON DIOXIDE LEVEL; Value: 26; Range: 21-32; Units: MEQ/L; Status: F Test: ANION GAP; Value: 8; Range: 8-16; Units: MEQ/L; Status: F Test: CALCIUM LEVEL; Value: 8.5; Range: 8.5-10.1; Units: MG/DL; Status: F Test Note: ; Units are mL/min/1.73 m2 Chronic Kidney Disease Staging per NKF: Stage I & II GFR >=60 Normal to Mildly Decreased Stage III GFR 30-59 Moderately Decreased Stage IV GFR 15-29 Severely Decreased Stage V GFR <15 Very Little GFR Left ESRD GFR <15 on CONCRETE SMOOTHER Lab Order: CBC with Diff; SPEC'M 06/25/16 23:47 Test: WHITE BLOOD COUNT; Value: 8.6; Range: 4.0-10.0; Units: K/mm3; Status: F Test: RED BLOOD COUNT; Value: 4.18; Range: 4.00-5.40; Units: M/mm3; Status: F Test: HEMOGLOBIN; Value: 13.1; Range: 12.0-16.0; Units: g/dl; Status: F Test: HEMATOCRIT; Value: 38.6; Range: 36.0-47.0; Units: %; Status: F Test: MEAN CORPUSCULAR VOLUME; Value: 92.2; Range: 80.0-96.0; Units: fl; Status: F Test: MEAN CORPUSCULAR HEMOGLOBIN; Value: 31.3; Range: 27.0-33.0; Units: pg; Status: F Test: MEAN CORPUSCULAR HGB CONC; Value: 34.0; Range: 32.0-36.5; Units: g/dl; Status: F Test: RED CELL DISTRIBUTION WIDTH; Value: 11.6; Range: 11.5-14.5; Units: %; Status: F Test: PLATELET COUNT, AUTOMATED; Value: 259; Range: 150-450; Units: k/mm3; Status: F Test: NEUTROPHILS %; Value: 66.4; Range: 36.0-66.0; Abnormal: Above high normal; Units: %; Status: F Test: LYMPH %; Value: 25.6; Range: 24.0-44.0; Units: %; Status: F Test: MONO %; Value: 3.4; Range: 0.0-5.0; Units: %; Status: F Test: EOS %; Value: 2.4; Range: 0.0-3.0; Units: %; Status: F Test: BASO %; Value: 0.3; Range: 0.0-1.0; Units: %; Status: F Test: LARGE UNSTAINED CELL %; Value: 1.8; Range: 0.0-4.0; Units: %; Status: F Test: NEUTROPHILS #; Value: 5.7; Range: 1.8-7.7; Units: K/mm3; Status: F Test: LYMPH #; Value: 2.2; Range: 1.5-6.5; Units: K/mm3; Status: F Test: MONO #; Value: 0.3; Range: 0.0-0.8; Units: K/mm3; Status: F Test: EOS #; Value: 0.2; Range: 0.0-0.50; Units: K/mm3; Status: F Test: BASO #; Value: 0.0; Range: 0.0-0.2; Units: K/mm3; Status: F Test: LARGE UNSTAINED CELL #; Value: 0.2; Range: 0.0-0.4; Units: K/mm3; Status: F Lab Order: HCG,Serum Qualitative; [facility]' 06/25/16 23:47 Test: HCG, SERUM QUALITATIVE; Value: NEGATIVE; Range: NEGATIVE; Status: F Lab Order: Lipase; [facility] 06/25/16 23:47 Test: LIPASE; Value: 194; Range: 73-393; Units: U/L; Status: F Lab Order: Liver Profile; [facility] 06/25/16 23:47 Test: AST/SGOT; Value: 16; Range: 15-37; Units: U/L; Status: F Test: ALT/SGPT; Value: 19; Range: 12-78; Units: U/L; Status: F Test: ALKALINE PHOSPHATASE; Value: 75; Range: 45-117; Units: U/L; Status: F Test: BILIRUBIN,TOTAL; Value: 0.3; Range: 0.2-1.0; Units: MG/DL; Status: F Test: BILIRUBIN,DIRECT; Value: < 0.1; Range: 0.0-0.2; Units: MG/DL; Status: F Test: TOTAL PROTEIN; Value: 7.2; Range: 6.4-8.2; Units: GM/DL; Status: F Test: ALBUMIN; Value: 3.7; Range: 3.2-5.2; Units: GM/DL; Status: F Test: ALBUMIN/GLOBULIN RATIO; Value: 1.06; Range: 1.00-1.93; Status: F Lab Order: Wet Prep; SPEC'M 06/26/16 00:59 Test: WET PREP; Value: WET PREP RESULT; Status: F Test: WET PREP; Value: MODERATE RBC; Status: F Test: WET PREP; Value: FEW WBC; Status: F Test: WET PREP; Value: FEW EPITHELIAL CELLS PRESENT; Status: F Test: WET PREP; Value: FEW CLUE CELLS PRESENT; Status: F Radiology Order: CT ABD & PELVIS: IV Contrast Only Test: CT ABD & PELVIS: IV Contrast Only REASON FOR EXAMINATION: Abdomen Pain; ; CLINICAL HISTORY: Abdominal pain.; TECHNIQUE: Multiple axial, sagittal and coronal CT images were obtained through the abdomen and pelvi; s after administration of intravenous contrast material.; COMMENTS:; The liver is of uniform attenuation without mass or defect. There is no intra or extrahepatic biliary; ductal dilatation. The spleen is normal. The gallbladder is within normal limits. The pancreas is of; normal contour and attenuation characteristics. There is no evidence of adrenal mass.; Both kidneys demonstrate prompt and equal nephrograms. The kidneys are normal in size, shape and conf; iguration. There is no evidence of renal or ureteral mass. No renal or ureteral calculi are identifie; d. There is no hydroureter or hydronephrosis.; No evidence for appendicitis. There is no bowel wall thickening. No evidence for small or large han; l obstruction. There is no evidence of abdominal ascites or lymphadenopathy. Fluid-filled mildly dila; becky proximal small bowel loops.; There is no evidence of intrinsic or extrinsic bladder mass. There is no pelvic ascites or lymphadeno; lauren. Mild diffuse thickening of the bladder.; Images of the lung bases show no evidence of pleural or parenchymal mass. There are no pleural effusi; ons.; The bony structures are free of lytic or blastic lesions.; Fat-containing umbilical hernia without incarceration.; IMPRESSION:; Mild thickening of the wall of the bladder.; Fluid filled mildly dilated proximal small bowel loops. Focal ileus versus mild enteritis.; Thank you for your kind referral of this patient.; ; Outcome: 02:08 Discharge ordered by Provider. mm11 02:47 Discharge Assessment: Patient awake, alert and oriented x 3. No cognitive and/or tm5 functional deficits noted. Patient verbalized understanding of disposition instructions. patient administered narcotics - yes. Pt provided with safe discharge. The following High Risk Discharge criteria are identified: None. Discharged to home ambulatory, with parent. Condition: good Condition: stable Condition: improved. Discharge instructions given to patient, Instructed on discharge instructions, follow up and referral plans. medication usage, no driving heavy equipment, Demonstrated understanding of instructions, medications, Pt was receptive of discharge instructions/ teaching. Prescriptions given X 2. CT Study completed. Property :Personal belongings accompany Pt. 02:49 Patient left the ED. tm5 Signatures: Dispatcher [employer] EDMS Mike Tomlinson, RN RN cz Dariel Leiva, DO DO mm11 Frances Trevizo, DRY CLEANING ATTENDANT DRY CLEANING ATTENDANT ar3 Montse Zapata, DRY CLEANING ATTENDANT DRY CLEANING ATTENDANT nataly Elina AlbertoRN RN Maame Thakkar, Space Control Agent Unit jlCarmencita BarriosRN RN [facility] Jeimy Felder, Reg Reg hs2 Connie Cooper RN RN tm5 Mario martinez MTDD
--- NOTE | 2016-06-28 03:50 | EDDOCDS ---
Physician Documentation [facility] Name: Erma Adam Age: 21 yrs Sex: Female : 1995 Arrival Date: 06/25/2016 Time: 20:20 Bed 14 Private MD: Carmine Mcknight Disposition: 06/26/16 02:08 Discharged to Home/Self Care. Impression: Vaginitis, vulvitis and vulvovaginitis in diseases classified elsewhere - Bacterial. - Condition is Stable. - Discharge Instructions: Bacterial Vaginosis, Bacterial Vaginosis, Qfrx-vi-Ymbf. - Prescriptions for Flagyl 500 mg Oral Tablet - take 1 tablet by ORAL route every 12 hours for 7 days; 14 tablet. [place] 5- 325 mg Oral Tablet - take 1 tablet by ORAL route every 6 hours As needed MDD: 4 tabs; 6 tablet. - Medication Reconciliation, Local Pharmacy Hours form. - Follow up: Kamila Fernandez MD; When: As previously arranged; Reason: Continuance of care. - Problem is an acute exacerbation. - Symptoms have improved. Historical: - Allergies: no known allergies; - Home Meds: 1. naproxen 250 mg Oral tab 2 tabs 2 times per day 2. Miralax 17 gram/dose Oral powd 17 g once daily 3. hydroxyzine HCl 50 mg oral tab nightly - PMHx: Anxiety; Depression; Endometriosis; Frequent UTI's; - PSHx: ; - Social history: Smoking status: Patient uses tobacco products, light tobacco smoker. No barriers to communication noted, The patient speaks fluent Bahamian, Speaks appropriately for age. - Family history: Not pertinent. - : The pt / caregiver states he / she is not on anticoagulants. Home medication list is obtained from the patient. - Exposure Risk Screening:: None identified. 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 3 in. (160.02 cm); Pain 9/10; 22:31 BP 124 / 75; Pulse 84; Resp 18; Temp 98.8(TE); Pulse Ox 97% on R/A; Pain 9/10; ar3 23:55 BP 118 / 77 (auto/); tm5 23:57 Pulse 82 MON; Pulse Ox 97% ; tm5 06/26 00:35 BP 144 / 81 (auto/); tm5 00:36 Pulse 102 MON; Pulse Ox 99% ; tm5 01:02 BP 134 / 73 (auto/); tm5 01:03 Pulse 98 MON; Pulse Ox 99% ; tm5 01:04 BP 142 / 69; Pulse 98; Resp 20; Pulse Ox 98% on R/A; tm5 01:32 BP 132 / 76 (auto/); tm5 01:33 Pulse 98 MON; Resp 20 S; Pulse Ox 98% on R/A; Pain 4/10; tm5 02:12 BP 114 / 71; Pulse 89; Resp 18; Temp 97.5(O); Pulse Ox 99% on R/A; Pain 6/10; nataly 02:47 BP 119 / 78; Pulse 87; Resp 18; Temp 98.9(O); Pulse Ox 100% on R/A; Pain 4/10; tm5 06/25 20:22 Body Mass Index 28.34 (72.57 kg, 160.02 cm) [facility] MDM: 06/25 21:35 UA Ordered. EDMS 23:34 NS 0.9% 1000 ml IV at bolus once ordered. mm11 23:34 Ondansetron 4 mg IVP once ordered. mm11 23:34 morphine 4 mg IVP every 30 minutes; Document pain score/vitals after each dose (Hold if mm11 SBP < 90mmHg) x2 ordered. 23:34 IV Saline Lock ordered. mm11 23:34 Undress patient appropriately for examination ordered. mm11 23:34 Set up pelvic ordered. mm11 23:36 Amylase Ordered. EDMS 23:36 Basic Metabolic Profile Ordered. EDMS 23:36 CBC with Diff Ordered. EDMS 23:36 HCG,Serum Qualitative Ordered. EDMS 23:36 Lipase Ordered. EDMS 23:36 Liver Profile Ordered. EDMS 23:36 CT ABD & PELVIS: IV Contrast Only Ordered. EDMS 23:36 NOTHING BY MOUTH+DIET ordered. EDMS 06/26 00:01 Financial registration complete. hs2 00:08 [facility] [place] Agreement was scanned into [employer] and attached to record. hs2 00:26 UA Reviewed. mm11 00:26 CBC with Diff Reviewed. mm11 00:26 HCG,Serum Qualitative Reviewed. mm11 00:35 Basic Metabolic Profile Reviewed. mm11 00:35 Amylase Reviewed. mm11 00:35 HCG,Serum Qualitative Reviewed. mm11 00:35 Lipase Reviewed. mm11 00:35 Liver Profile Reviewed. mm11 00:54 Wet Prep Ordered. EDMS 00:54 GC & Chlamydia Amplification Ordered. EDMS 01:16 Wet Prep Reviewed. mm11 02:00 CT ABD & PELVIS: IV Contrast Only Reviewed. mm11 02:06 metroNIDAZOLE 500 mg PO once ordered. mm11 02:06 HYDROcodone-acetaminophen 4 pack- 5 mg-325 mg 1 packets PO Per package directions; mm11 Dispense with patient. 1 po q4h prn for pain ordered. 10:54 T-Sheet-- Draft Copy was scanned into [employer] and attached to record. 10:55 Radiology Report was scanned into [employer] and attached to record. gb Administered Medications: 06/25 23:56 Drug: NS 0.9% 1000 ml [sodium chloride 0.9 % intravenous solution] Route: IV; Rate: mlc bolus; Site: right antecubital; 06/26 01:59 Follow up: IV Status: Completed infusion; IV Intake: 1000ml tm5 06/25 23:57 Drug: Ondansetron 4 mg [ondansetron HCl 2 mg/mL intravenous solution (2 mL)] Route: mlc IVP; Site: right antecubital; 06/26 01:04 Follow up: Response: Nausea is resolved; No Adverse Reaction tm5 06/25 23:57 Drug: morphine 4 mg [morphine 4 mg/mL intravenous cartridge (1 mL)] Route: IVP; [place]: [facility] [place] antecubital; 06/26 01:04 Drug: morphine 4 mg [morphine 4 mg/mL intravenous cartridge (1 mL)] Route: IVP; Site: tm5 right antecubital; 01:04 Follow up: BP 142 / 69; Pulse 98 bpm; Resp 20 bpm; Pulse Ox 98% RA tm5 01:35 Follow up: Response: No Adverse Reaction; Pain is decreased tm5 02:42 Drug: HYDROcodone-acetaminophen 4 pack- 1 packets [hydrocodone 5 mg-acetaminophen 325 tm5 mg tablet (1 tabs)] {Co-Signature: michelle (Mario Carbajal RN).} Route: PO; 02:50 Follow up: Response: Confirmed pt not driving.; Med's dispensed home tm5 02:50 Drug: metroNIDAZOLE 500 mg [metronidazole 500 mg tablet (1 tabs)] Route: PO; tm5 02:50 Follow up: Response: Pt left department before re-evaluation is appropriate tm5 Signatures: Dispatcher [employer] EDMS Rupinder Forte, Reg Reg gb Dariel Leiva, DO mm11 Elina Alberto RN RN [facility] Jeimy Felder, Reg Reg hs2 Connie Cooper RN RN tm5 Carmencita Flowers RN, RNb The chart was reviewed and I authenticate all verbal orders and agree with the evaluation and treatment provided.Attachments: 00:08 [facility] Payment Agreement hs2 10:54 T-Sheet-- Draft Copy Chart Complete MTDD
--- NOTE | 2016-06-28 03:50 | EDDOCDS ---
Nurse's Notes [facility] Name: Erma Adam Age: 21 yrs Sex: Female : 1995 Arrival Date: 06/25/2016 Time: 20:20 Bed 14 Private MD: Carmine Mcknight Diagnosis: Vaginitis, vulvitis and vulvovaginitis in diseases classified elsewhere-Bacterial Presentation: 06/25 20:24 Presenting complaint: Patient states: lower abdominal pain - seen here a few days ago pml for the same and diagnosed with a hernia and rx for naproxen - pt states no relief. has not made appt with surgeon. Risk factors: the patient reports no vaginal bleeding. Adult Sepsis Screening: The patient does not have new or worsening altered mentation. Patient's respiratory rate is less than 22. Systolic blood pressure is greater than 100. Patient has a qSOFA score of 0- Negative Sepsis Screen. Suicide/Homicide risk assessment- the patient denies having any suicidal and/or homicidal ideations and does not present with any other emotional, behavioral or mental health complaints. Status: Patient is not a district service manager or dependent. Transition of care: patient was not received from another setting of care. 20:24 Acuity: SOULEYMANE Level 3 pml 20:24 Method Of Arrival: Walkin/Carried/Asstd pml Triage Assessment: 20:26 General: Appears uncomfortable, Behavior is appropriate for age, cooperative. Pain: pml Location: umbilical area Pain currently is 9 out of 10 on a pain scale. HIV screening NA for this visit Offered previously. GI: Reports lower abdominal pain, upper abd pain. 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 naproxen 250 mg Oral tab 2 tabs 2 times per day 2. Miralax 17 gram/dose Oral powd 17 g once daily 3. hydroxyzine HCl 50 mg oral tab nightly - PMHx: Anxiety; Depression; Endometriosis; Frequent UTI's; - PSHx: ; - Social history: Smoking status: Patient uses tobacco products, light tobacco smoker. No barriers to communication noted, The patient speaks fluent Comoran, Speaks appropriately for age. - Family history: Not pertinent. - : The pt / caregiver states he / she is not on anticoagulants. Home medication list is obtained from the patient. - Exposure Risk Screening:: None identified. Screenin:02 Screening information is obtained from the patient. Fall risk: No risks identified. tm5 Assistance ADL's: requires no assistance with activities of daily living. Abuse/DV Screen: The patient / caregiver reports he/she is: not in a situation that causes fear, pain or injury. Nutritional screening: No deficits noted. Advance Directives: There is no active DNR order. home support is adequate. Assessment: 23:02 General: Appears in no apparent distress, Behavior is appropriate for age, cooperative. tm5 General: pt was seen here yesterday was diagnosed with Abdominal hernia was told to follow up with Surgeon & was prescribed Naproxen & pt states that she is getting no pain relief with this medication . Pain: Location: umbilical area Pain currently is 9 out of 10 on a pain scale. Quality of pain is described as aching, sharp. Neurological: Level of Consciousness is awake, alert, Oriented to person, place, time. Respiratory: Airway is patent Respiratory effort is even, unlabored, Respiratory pattern is regular, symmetrical. GI: Abdomen is non- distended Bowel sounds present X 4 quads. Abd is soft X 4 quads Abd is tender to palpation in umbilical area. : No deficits noted. Derm: Skin is pink, warm & dry. normal. 06/26 01:58 Reassessment: Patient appears in no apparent distress at this time. Patient states tm5 feeling better. Patient states symptoms have improved. 02:00 General: pt asking this RN if she will be discharged with stronger pain medication when tm5 she goes home, states again that Naproxen wasn't working for her at home . 02:47 Reassessment: Patient appears in no apparent distress at this time. Patient states tm5 feeling better. Patient states symptoms have improved. pt had to be awakened for discharge. Vital Signs: 06/25 20:22 BP 132 / 78; Pulse 101; Resp 18; Temp 96.9; Pulse Ox 99% ; Weight 72.57 kg; Height 5 jlm ft. 3 in. (160.02 cm); Pain 9/10; 22:31 BP 124 / 75; Pulse 84; Resp 18; Temp 98.8(TE); Pulse Ox 97% on R/A; Pain 9/10; ar3 23:55 BP 118 / 77 (auto/); tm5 23:57 Pulse 82 MON; Pulse Ox 97% ; tm5 06/26 00:35 BP 144 / 81 (auto/); tm5 00:36 Pulse 102 MON; Pulse Ox 99% ; tm5 01:02 BP 134 / 73 (auto/); tm5 01:03 Pulse 98 MON; Pulse Ox 99% ; tm5 01:04 BP 142 / 69; Pulse 98; Resp 20; Pulse Ox 98% on R/A; tm5 01:32 BP 132 / 76 (auto/); tm5 01:33 Pulse 98 MON; Resp 20 S; Pulse Ox 98% on R/A; Pain 4/10; tm5 02:12 BP 114 / 71; Pulse 89; Resp 18; Temp 97.5(O); Pulse Ox 99% on R/A; Pain 6/10; nataly 02:47 BP 119 / 78; Pulse 87; Resp 18; Temp 98.9(O); Pulse Ox 100% on R/A; Pain 4/10; tm5 06/25 20:22 Body Mass Index 28.34 (72.57 kg, 160.02 cm) [facility] Vitals: 06/25 20:22 Log In Time: June 25, 2016 at 20:22. [facility] ED Course: 20:21 Patient visited by Maame Berg, Microsoft Net Developer. [facility] 20:21 Carmine Mcknight is Private Physician. jl 20:21 Patient moved to Waiting jlm 20:23 Patient moved to Pre RCE jlm 20:25 Triage Initiated pml 22:33 Patient visited by Frances Trevizo PCA. ar3 22:59 Patient moved to cz 23:02 Awaiting ED physician evaluation. tm5 23:02 The patient / caregiver is instructed regarding the plan of care and ED course. tm5 23:11 Dariel Leiva DO is Attending Physician. mm11 23:11 Patient visited by Dariel Leiva DO. mm11 23:33 Patient visited by Dariel Leiva DO. mm11 23:57 Patient visited by Carmencita Flowers RN. [facility] 23:57 Inserted saline lock: 20 gauge in right antecubital area and blood collected. The [facility] patient tolerated the procedure well. 06/26 00:08 [facility] [place] Agreement was scanned into [employer] and attached to record. hs2 00:11 Patient visited by Connie Cooper RN. tm5 00:50 Patient visited by Connie Cooper RN. tm5 00:[address] tm5 00:50 Assist provider with pelvic exam: Set up pelvic tray. Specimens sent to lab. Performed tm5 by Dariel Leiva DO Patient tolerated well. 00:59 GC & Chlamydia Amplification Sent. tm5 00:59 Wet Prep Sent. tm5 01:21 Patient visited by Connie Cooper RN. tm5 01:46 CT ABD & PELVIS: IV Contrast Only Returned. EDMS 01:58 Patient visited by Connie Cooper RN. tm5 02:00 Patient visited by Connie Cooper RN. tm5 02:07 Kamila Fernandez MD is Referral Physician. mm11 02:12 Patient visited by Montse Zapata PCA. nataly 02:46 Patient visited by Connie Cooper RN. tm5 02:47 Discontinued lock intact, bleeding controlled, pressure dressing applied, No tm5 redness/swelling at site. 10:54 T-Sheet-- Draft Copy was scanned into [employer] and attached to record. gb 10:55 Radiology Report was scanned into [employer] and attached to record. gb Administered Medications: 06/25 23:56 Drug: NS 0.9% 1000 ml [sodium chloride 0.9 % intravenous solution] Route: IV; Rate: mlc bolus; Site: right antecubital; 06/26 01:59 Follow up: IV Status: Completed infusion; IV Intake: 1000ml tm5 06/25 23:57 Drug: Ondansetron 4 mg [ondansetron HCl 2 mg/mL intravenous solution (2 mL)] Route: mlc IVP; Site: right antecubital; 06/26 01:04 Follow up: Response: Nausea is resolved; No Adverse Reaction tm5 06/25 23:57 Drug: morphine 4 mg [morphine 4 mg/mL intravenous cartridge (1 mL)] Route: IVP; Site: mlc right antecubital; 06/26 01:04 Drug: morphine 4 mg [morphine 4 mg/mL intravenous cartridge (1 mL)] Route: IVP; Site: tm5 right antecubital; 01:04 Follow up: BP 142 / 69; Pulse 98 bpm; Resp 20 bpm; Pulse Ox 98% RA tm5 01:35 Follow up: Response: No Adverse Reaction; Pain is decreased tm5 02:42 Drug: HYDROcodone-acetaminophen 4 pack- 1 packets [hydrocodone 5 mg-acetaminophen 325 tm5 mg tablet (1 tabs)] {Co-Signature: michelle (Mario Carbajal RN).} Route: PO; 02:50 Follow up: Response: Confirmed pt not driving.; Med's dispensed home tm5 02:50 Drug: metroNIDAZOLE 500 mg [metronidazole 500 mg tablet (1 tabs)] Route: PO; tm5 02:50 Follow up: Response: Pt left department before re-evaluation is appropriate tm5 Intake: 01:59 IV: 1000.00ml; Total: 1000.00ml. tm5 Order Results: Lab Order: UA; SPEC'M 06/25/16 21:35 Test: APPEARANCE, URINE; Value: HAZY; Range: CLEAR; Status: F Test: COLOR, URINE; Value: YELLOW; Range: YELLOW; Status: F Test: PH,URINE; Value: 6.0; Range: 5.0-9.0; Units: UNITS; Status: F Test: SPECIFIC GRAVITY URINE AUTO; Value: 1.019; Range: 1.002-1.035; Status: F Test: PROTEIN, URINE AUTO; Value: 1+; Range: NEGATIVE; Abnormal: Above high normal; Units: mg/dL; Status: F Test: GLUCOSE, URINE (UA) AUTO; Value: NEGATIVE; Range: NEGATIVE; Units: mg/dL; Status: F Test: KETONE, URINE AUTO; Value: NEGATIVE; Range: NEGATIVE; Units: mg/dL; Status: F Test: UROBILINOGEN, URINE AUTO; Value: 0.2; Range: 0.0-2.0; Units: mg/dL; Status: F Test: BILIRUBIN, URINE AUTO; Value: NEGATIVE; Range: NEGATIVE; Status: F Test: NITRITE, URINE AUTO; Value: NEGATIVE; Range: NEGATIVE; Status: F Test: LEUKOCYTE ESTERASE, URINE AUTO; Value: NEGATIVE; Range: NEGATIVE; Status: F Test: BLOOD, URINE BLOOD; Value: 3+; Range: NEGATIVE; Abnormal: Above high normal; Status: F Test: WBC, URINE AUTO; Value: 2; Range: 0-3; Units: /HPF; Status: F Test: RBC, URINE AUTO; Value: 155; Range: 0-3; Abnormal: Above high normal; Units: /HPF; Status: F Test: BACTERIA, URINE AUTO; Value: NEGATIVE; Range: NEGATIVE; Status: F Test: SQUAMOUS EPITHELIAL CELL UR AU; Value: 0; Range: 0-6; Units: /HPF; Status: F Test: MUCUS, URINE; Value: SMALL; Range: NEGATIVE; Status: F Test: HYALINE CAST, URINE AUTO; Value: 0; Range: 0-1; Units: /LPF; Status: F Lab Order: Amylase; SPEC'M 06/25/16 23:47 Test: AMYLASE; Value: 43; Range: 25-115; Units: U/L; Status: F Lab Order: Basic Metabolic Profile; SPEC'M 06/25/16 23:47 Test: GLUCOSE, FASTING; Value: 87; Range: 70-105; Units: MG/DL; Status: F Test: BLOOD UREA NITROGEN; Value: 11; Range: 7-18; Units: MG/DL; Status: F Test: CREATININE FOR GFR; Value: 0.73; Range: 0.55-1.02; Units: MG/DL; Status: F Test: SODIUM LEVEL; Range: 136-145; Units: MEQ/L; Status: I Test: POTASSIUM SERUM; Range: 3.5-5.1; Units: MEQ/L; Status: I Test: CHLORIDE LEVEL; Range: 98-107; Units: MEQ/L; Status: I Test: CARBON DIOXIDE LEVEL; Range: 21-32; Units: MEQ/L; Status: I Test: ANION GAP; Range: 8-16; Units: MEQ/L; Status: I Test: CALCIUM LEVEL; Range: 8.5-10.1; Units: MG/DL; Status: I Test: GLOMERULAR FILTRATION RATE; Value: > 60.0; Range: >60; Status: F Test: SODIUM LEVEL; Value: 143; Range: 136-145; Units: MEQ/L; Status: F Test: POTASSIUM SERUM; Value: 4.0; Range: 3.5-5.1; Units: MEQ/L; Status: F Test: CHLORIDE LEVEL; Value: 109; Range: 98-107; Abnormal: Above high normal; Units: MEQ/L; Status: F Test: CARBON DIOXIDE LEVEL; Value: 26; Range: 21-32; Units: MEQ/L; Status: F Test: ANION GAP; Value: 8; Range: 8-16; Units: MEQ/L; Status: F Test: CALCIUM LEVEL; Value: 8.5; Range: 8.5-10.1; Units: MG/DL; Status: F Test Note: ; Units are mL/min/1.73 m2 Chronic Kidney Disease Staging per NKF: Stage I & II GFR >=60 Normal to Mildly Decreased Stage III GFR 30-59 Moderately Decreased Stage IV GFR 15-29 Severely Decreased Stage V GFR <15 Very Little GFR Left ESRD GFR <15 on SUPERVISOR RECLAMATION Lab Order: CBC with Diff; SPEC'M 06/25/16 23:47 Test: WHITE BLOOD COUNT; Value: 8.6; Range: 4.0-10.0; Units: K/mm3; Status: F Test: RED BLOOD COUNT; Value: 4.18; Range: 4.00-5.40; Units: M/mm3; Status: F Test: HEMOGLOBIN; Value: 13.1; Range: 12.0-16.0; Units: g/dl; Status: F Test: HEMATOCRIT; Value: 38.6; Range: 36.0-47.0; Units: %; Status: F Test: MEAN CORPUSCULAR VOLUME; Value: 92.2; Range: 80.0-96.0; Units: fl; Status: F Test: MEAN CORPUSCULAR HEMOGLOBIN; Value: 31.3; Range: 27.0-33.0; Units: pg; Status: F Test: MEAN CORPUSCULAR HGB CONC; Value: 34.0; Range: 32.0-36.5; Units: g/dl; Status: F Test: RED CELL DISTRIBUTION WIDTH; Value: 11.6; Range: 11.5-14.5; Units: %; Status: F Test: PLATELET COUNT, AUTOMATED; Value: 259; Range: 150-450; Units: k/mm3; Status: F Test: NEUTROPHILS %; Value: 66.4; Range: 36.0-66.0; Abnormal: Above high normal; Units: %; Status: F Test: LYMPH %; Value: 25.6; Range: 24.0-44.0; Units: %; Status: F Test: MONO %; Value: 3.4; Range: 0.0-5.0; Units: %; Status: F Test: EOS %; Value: 2.4; Range: 0.0-3.0; Units: %; Status: F Test: BASO %; Value: 0.3; Range: 0.0-1.0; Units: %; Status: F Test: LARGE UNSTAINED CELL %; Value: 1.8; Range: 0.0-4.0; Units: %; Status: F Test: NEUTROPHILS #; Value: 5.7; Range: 1.8-7.7; Units: K/mm3; Status: F Test: LYMPH #; Value: 2.2; Range: 1.5-6.5; Units: K/mm3; Status: F Test: MONO #; Value: 0.3; Range: 0.0-0.8; Units: K/mm3; Status: F Test: EOS #; Value: 0.2; Range: 0.0-0.50; Units: K/mm3; Status: F Test: BASO #; Value: 0.0; Range: 0.0-0.2; Units: K/mm3; Status: F Test: LARGE UNSTAINED CELL #; Value: 0.2; Range: 0.0-0.4; Units: K/mm3; Status: F Lab Order: HCG,Serum Qualitative; [facility] 06/25/16 23:47 Test: HCG, SERUM QUALITATIVE; Value: NEGATIVE; Range: NEGATIVE; Status: F Lab Order: Lipase; [facility] 06/25/16 23:47 Test: LIPASE; Value: 194; Range: 73-393; Units: U/L; Status: F Lab Order: Liver Profile; [facility] 06/25/16 23:47 Test: AST/SGOT; Value: 16; Range: 15-37; Units: U/L; Status: F Test: ALT/SGPT; Value: 19; Range: 12-78; Units: U/L; Status: F Test: ALKALINE PHOSPHATASE; Value: 75; Range: 45-117; Units: U/L; Status: F Test: BILIRUBIN,TOTAL; Value: 0.3; Range: 0.2-1.0; Units: MG/DL; Status: F Test: BILIRUBIN,DIRECT; Value: < 0.1; Range: 0.0-0.2; Units: MG/DL; Status: F Test: TOTAL PROTEIN; Value: 7.2; Range: 6.4-8.2; Units: GM/DL; Status: F Test: ALBUMIN; Value: 3.7; Range: 3.2-5.2; Units: GM/DL; Status: F Test: ALBUMIN/GLOBULIN RATIO; Value: 1.06; Range: 1.00-1.93; Status: F Lab Order: Wet Prep; SPEC'M 06/26/16 00:59 Test: WET PREP; Value: WET PREP RESULT; Status: F Test: WET PREP; Value: MODERATE RBC; Status: F Test: WET PREP; Value: FEW WBC; Status: F Test: WET PREP; Value: FEW EPITHELIAL CELLS PRESENT; Status: F Test: WET PREP; Value: FEW CLUE CELLS PRESENT; Status: F Lab Order: GC & Chlamydia Amplification; SPEC'M 06/26/16 00:59 Test: CHLAMYDIA DNA AMPLIFICATION; Value: NEGATIVE; Range: NEGATIVE; Status: F Test: GC DNA AMPLIFICATION; Value: NEGATIVE; Range: NEGATIVE; Status: F Radiology Order: CT ABD & PELVIS: IV Contrast Only Test: CT ABD & PELVIS: IV Contrast Only REASON FOR EXAMINATION: Abdomen Pain; ; CLINICAL HISTORY: Abdominal pain.; TECHNIQUE: Multiple axial, sagittal and coronal CT images were obtained through the abdomen and pelvi; s after administration of intravenous contrast material.; COMMENTS:; The liver is of uniform attenuation without mass or defect. There is no intra or extrahepatic biliary; ductal dilatation. The spleen is normal. The gallbladder is within normal limits. The pancreas is of; normal contour and attenuation characteristics. There is no evidence of adrenal mass.; Both kidneys demonstrate prompt and equal nephrograms. The kidneys are normal in size, shape and conf; iguration. There is no evidence of renal or ureteral mass. No renal or ureteral calculi are identifie; d. There is no hydroureter or hydronephrosis.; No evidence for appendicitis. There is no bowel wall thickening. No evidence for small or large han; l obstruction. There is no evidence of abdominal ascites or lymphadenopathy. Fluid-filled mildly dila; becky proximal small bowel loops.; There is no evidence of intrinsic or extrinsic bladder mass. There is no pelvic ascites or lymphadeno; lauren. Mild diffuse thickening of the bladder.; Images of the lung bases show no evidence of pleural or parenchymal mass. There are no pleural effusi; ons.; The bony structures are free of lytic or blastic lesions.; Fat-containing umbilical hernia without incarceration.; IMPRESSION:; Mild thickening of the wall of the bladder.; Fluid filled mildly dilated proximal small bowel loops. Focal ileus versus mild enteritis.; Thank you for your kind referral of this patient.; ; Outcome: 02:08 Discharge ordered by Provider. mm11 02:47 Discharge Assessment: Patient awake, alert and oriented x 3. No cognitive and/or tm5 functional deficits noted. Patient verbalized understanding of disposition instructions. patient administered narcotics - yes. Pt provided with safe discharge. The following High Risk Discharge criteria are identified: None. Discharged to home ambulatory, with parent. Condition: good Condition: stable Condition: improved. Discharge instructions given to patient, Instructed on discharge instructions, follow up and referral plans. medication usage, no driving heavy equipment, Demonstrated understanding of instructions, medications, Pt was receptive of discharge instructions/ teaching. Prescriptions given X 2. CT Study completed. Property :Personal belongings accompany Pt. 02:49 Patient left the ED. tm5 Signatures: Dispatcher [employer] EDMS Mike Tomlinson, RN Rupinder Castelan, Reg Reg gb Dariel Leiva, DO DO mm11 Frances Trevizo, RADIO ELECTRONICS OFFICER RADIO ELECTRONICS OFFICER ar3 Montse Zapata, RADIO ELECTRONICS OFFICER RADIO ELECTRONICS OFFICER nataly Elina AlbertoRN Maame Candelario, [employer] Net Developer Unit Carmencita Barrios RN RN mlc Stanton, Hillary, Reg Reg hs2 Connie Cooper RN RN tm5 Mario martinez Chart Complete MTDD
--- NOTE | 2016-06-28 03:50 | EDDOCDS ---
Physician Documentation [facility] Name: Erma Adam Age: 21 yrs Sex: Female : 1995 Arrival Date: 06/25/2016 Time: 20:20 Bed 14 Private MD: Carmine Mcknight Disposition: 06/26/16 02:08 Discharged to Home/Self Care. Impression: Vaginitis, vulvitis and vulvovaginitis in diseases classified elsewhere - Bacterial. - Condition is Stable. - Discharge Instructions: Bacterial Vaginosis, Bacterial Vaginosis, [id number]. - Prescriptions for Flagyl 500 mg Oral Tablet - take 1 tablet by ORAL route every 12 hours for 7 days; 14 tablet. [place] 5- 325 mg Oral Tablet - take 1 tablet by ORAL route every 6 hours As needed MDD: 4 tabs; 6 tablet. - Medication Reconciliation, Local Pharmacy Hours form. - Follow up: Kamila Fernandez MD; When: As previously arranged; Reason: Continuance of care. - Problem is an acute exacerbation. - Symptoms have improved. Historical: - Allergies: no known allergies; - Home Meds: 1. naproxen 250 mg Oral tab 2 tabs 2 times per day 2. Miralax 17 gram/dose Oral powd 17 g once daily 3. hydroxyzine HCl 50 mg oral tab nightly - PMHx: Anxiety; Depression; Endometriosis; Frequent UTI's; - PSHx: ; - Social history: Smoking status: Patient uses tobacco products, light tobacco smoker. No barriers to communication noted, The patient speaks fluent Estonian, Speaks appropriately for age. - Family history: Not pertinent. - : The pt / caregiver states he / she is not on anticoagulants. Home medication list is obtained from the patient. - Exposure Risk Screening:: None identified. PLANT TECH: 06/25 20:26 LMP 06/25/2016 pml Vital Signs: 20:22 BP 132 / 78; Pulse 101; Resp 18; Temp 96.9; Pulse Ox 99% ; Weight 72.57 kg / 159.99 jlm lbs; Height 5 ft. 3 in. (160.02 cm); Pain 9/10; 22:31 BP 124 / 75; Pulse 84; Resp 18; Temp 98.8(TE); Pulse Ox 97% on R/A; Pain 9/10; ar3 23:55 BP 118 / 77 (auto/); tm5 23:57 Pulse 82 MON; Pulse Ox 97% ; tm5 06/26 00:35 BP 144 / 81 (auto/); tm5 00:36 Pulse 102 MON; Pulse Ox 99% ; tm5 01:02 BP 134 / 73 (auto/); tm5 01:03 Pulse 98 MON; Pulse Ox 99% ; tm5 01:04 BP 142 / 69; Pulse 98; Resp 20; Pulse Ox 98% on R/A; tm5 01:32 BP 132 / 76 (auto/); tm5 01:33 Pulse 98 MON; Resp 20 S; Pulse Ox 98% on R/A; Pain 4/10; tm5 02:12 BP 114 / 71; Pulse 89; Resp 18; Temp 97.5(O); Pulse Ox 99% on R/A; Pain 6/10; nataly 02:47 BP 119 / 78; Pulse 87; Resp 18; Temp 98.9(O); Pulse Ox 100% on R/A; Pain 4/10; tm5 06/25 20:22 Body Mass Index 28.34 (72.57 kg, 160.02 cm) [facility] MDM: 06/25 21:35 UA Ordered. EDMS 23:34 NS 0.9% 1000 ml IV at bolus once ordered. mm11 23:34 Ondansetron 4 mg IVP once ordered. mm11 23:34 morphine 4 mg IVP every 30 minutes; Document pain score/vitals after each dose (Hold if mm11 SBP < 90mmHg) x2 ordered. 23:34 IV Saline Lock ordered. mm11 23:34 Undress patient appropriately for examination ordered. mm11 23:34 Set up pelvic ordered. mm11 23:36 Amylase Ordered. EDMS 23:36 Basic Metabolic Profile Ordered. EDMS 23:36 CBC with Diff Ordered. EDMS 23:36 HCG,Serum Qualitative Ordered. EDMS 23:36 Lipase Ordered. EDMS 23:36 Liver Profile Ordered. EDMS 23:36 CT ABD & PELVIS: IV Contrast Only Ordered. EDMS 23:36 NOTHING BY MOUTH+DIET ordered. EDMS 06/26 00:01 Financial registration complete. hs2 00:08 [facility] Payment Agreement was scanned into [employer] and attached to record. hs2 00:26 UA Reviewed. mm11 00:26 CBC with Diff Reviewed. mm11 00:26 HCG,Serum Qualitative Reviewed. mm11 00:35 Basic Metabolic Profile Reviewed. mm11 00:35 Amylase Reviewed. mm11 00:35 HCG,Serum Qualitative Reviewed. mm11 00:35 Lipase Reviewed. mm11 00:35 Liver Profile Reviewed. mm11 00:54 Wet Prep Ordered. EDMS 00:54 GC & Chlamydia Amplification Ordered. EDMS 01:16 Wet Prep Reviewed. mm11 02:00 CT ABD & PELVIS: IV Contrast Only Reviewed. mm11 02:06 metroNIDAZOLE 500 mg PO once ordered. mm11 02:06 HYDROcodone-acetaminophen 4 pack- 5 mg-325 mg 1 packets PO Per package directions; mm11 Dispense with patient. 1 po q4h prn for pain ordered. 10:54 T-Sheet-- Draft Copy was scanned into [employer] and attached to record. 10:55 Radiology Report was scanned into [employer] and attached to record. gb Administered Medications: 06/25 23:56 Drug: NS 0.9% 1000 ml [sodium chloride 0.9 % intravenous solution] Route: IV; Rate: mlc bolus; Site: right antecubital; 06/26 01:59 Follow up: IV Status: Completed infusion; IV Intake: 1000ml tm5 06/25 23:57 Drug: Ondansetron 4 mg [ondansetron HCl 2 mg/mL intravenous solution (2 mL)] Route: mlc IVP; Site: right antecubital; 06/26 01:04 Follow up: Response: Nausea is resolved; No Adverse Reaction tm5 06/25 23:57 Drug: morphine 4 mg [morphine 4 mg/mL intravenous cartridge (1 mL)] Route: IVP; Site: [facility] right antecubital; 06/26 01:04 Drug: morphine 4 mg [morphine 4 mg/mL intravenous cartridge (1 mL)] Route: IVP; Site: tm5 right antecubital; 01:04 Follow up: BP 142 / 69; Pulse 98 bpm; Resp 20 bpm; Pulse Ox 98% RA tm5 01:35 Follow up: Response: No Adverse Reaction; Pain is decreased tm5 02:42 Drug: HYDROcodone-acetaminophen 4 pack- 1 packets [hydrocodone 5 mg-acetaminophen 325 tm5 mg tablet (1 tabs)] {Co-Signature: michelle (Mario Carbajal RN).} Route: PO; 02:50 Follow up: Response: Confirmed pt not driving.; Med's dispensed home tm5 02:50 Drug: metroNIDAZOLE 500 mg [metronidazole 500 mg tablet (1 tabs)] Route: PO; tm5 02:50 Follow up: Response: Pt left department before re-evaluation is appropriate tm5 Signatures: Dispatcher [employer] EDMS Rupinder Forte, Reg Reg gb Dariel Leiva, DO mm11 Elina Alberto RN RN [facility] Jeimy Felder, Reg Reg hs2 Connie Cooper RN RN tm5 Carmencita Flowers RN, RNb The chart was reviewed and I authenticate all verbal orders and agree with the evaluation and treatment provided.Attachments: 00:08 [facility] Payment Agreement hs2 10:54 T-Sheet-- Draft Copy Chart Complete MTDD
== END 2016-06-26 02:49 | disposition home or self-care (01) ==
LOC: M ED 20:20
DX: N76.0 Acute vaginitis (principal); N80.9 Endometriosis, unspecified; F41.9 Anxiety disorder, unspecified; F32.9 Major depressive disorder, single episode, unspecified; Z87.440 Personal history of urinary (tract) infections; F17.200 Nicotine dependence, unspecified, uncomplicated; Z79.1 Long term (current) use of non-steroidal anti-inflammatories (NSAID); Z79.899 Other long term (current) drug therapy
CPT/HCPCS: 36415; 74177; 80048; 80076; 81001; 82150; 83690; 84703; 85025; 87210; 87491; 87591; 96361; 96374; 96375; 96376; 99285; J2405; Q9967

== ENCOUNTER 2016-07-30 07:38 | Emergency (ER) | payer BC, OTHER, MEDICAID ==
[2016-07-30] MEDS ORDERED: NORCO, ANEXSIA 5/325MG TABLET (HYDROcodone/ACETAMINOPHEN) As Ordered ONE (08:23)
[2016-07-30 08:46] LABS: BASO % 0.4 % (0.0-1.0); CONTROL LINE HCG INT CTR LINE PRESENT; EOS # 0.3 K/mm3 (0.0-0.50); EOS % 3.9 % (0.0-3.0); LARGE UNSTAINED CELL # 0.2 K/mm3 (0.0-0.4); LARGE UNSTAINED CELL % 2.5 % (0.0-4.0); LYMPH % 23.1 % (24.0-44.0); MEAN CORPUSCULAR HEMOGLOBIN 31.7 pg (27.0-33.0); MEAN CORPUSCULAR HGB CONC 33.8 g/dl (32.0-36.5); MEAN CORPUSCULAR VOLUME 93.6 fl (80.0-96.0); MONO # 0.6 K/mm3 (0.0-0.8); MONO % 7.6 % (0.0-5.0); NEUTROPHILS # 4.9 K/mm3 (1.8-7.7); NEUTROPHILS % 62.4 % (36.0-66.0); PLATELET COUNT, AUTOMATED 259 k/mm3 (150-450); RED CELL DISTRIBUTION WIDTH 11.9 % (11.5-14.5); WHITE BLOOD COUNT 7.8 K/mm3 (4.0-10.0)
[2016-07-30 08:50] LABS: ANION GAP 7 MEQ/L (8-16); BLOOD UREA NITROGEN 15 MG/DL (7-18); CALCIUM LEVEL 9.2 MG/DL (8.5-10.1); CARBON DIOXIDE LEVEL 27 MEQ/L (21-32); CHLORIDE LEVEL 107 MEQ/L (98-107); CREATININE FOR GFR 0.81 MG/DL (0.55-1.02); GLOMERULAR FILTRATION RATE > 60.0 (>60); GLUCOSE, FASTING 98 MG/DL (70-105); SODIUM LEVEL 141 MEQ/L (136-145)
[2016-07-30] MEDS ORDERED: ISOVUE-370 76% 100ML VIAL (Q9967) As Ordered ONE (09:06)
--- NOTE | 2016-07-30 09:38 | REP ---
Clinical: Left lower quadrant pain. Comparison: 06/26/2016. Findings: Lung bases clear. Visualized heart and pericardium normal. Liver, spleen, pancreas, gallbladder, bilateral adrenal glands and kidneys are normal. Specifically, there is no perinephric stranding, hydroureteronephrosis, nephrolithiasis or obstructing ureteral calculus. The enteric system is without obstruction or acute inflammatory process. Normal terminal ileum and appendix identified in the right lower quadrant. Pelvis demonstrates collapsed normal bladder and age-appropriate uterus/adnexa. No pelvic fluid or ascites. No adenopathy. Stable 3 cm fat containing periumbilical hernia again identified. Abdominal aorta without aneurysm. Musculoskeletal structures intact. Impression: Stable 3 cm fat containing periumbilical hernia. No acute intra-abdominal or pelvic pathology appreciated. Signed by Omer Wyman MD 07/30/2016 09:30 A
--- NOTE | 2016-07-30 09:51 | EDDOCDS ---
Nurse's Notes [facility] Name: Erma Adam Age: 21 yrs Sex: Female : 1995 Arrival Date: 07/30/2016 Time: 07:38 Bed I3 / M3 Private MD: Carmine Mcknight Diagnosis: Abdominal and pelvic pain;Urinary tract infection, site not specified Presentation: 07/30 07:50 Presenting complaint: Patient states: patient states pain left later flank/hip, c/o ml6 pain with movement, states "I have tramadol but that doesn't normally help my pain". Acute neurological deficits are not present. Mechanism of Injury: No Mechanism of Injury. Adult Sepsis Screening: The patient does not have new or worsening altered mentation. Patient's respiratory rate is less than 22. Systolic blood pressure is greater than 100. Patient has a qSOFA score of 0- Negative Sepsis Screen. Suicide/Homicide risk assessment- the patient denies having any suicidal and/or homicidal ideations and does not present with any other emotional, behavioral or mental health complaints. Status: Patient is not a servicenow administrator or dependent. Transition of care: patient was not received from another setting of care. 07:50 Acuity: SOULEYMANE Level 4 ml6 07:50 Method Of Arrival: Walkin/Carried/Asstd ml6 08:35 Acuity level changed due to complexity of care. ml6 08:35 Acuity: SOULEYMANE Level 3 ml6 Triage Assessment: 07:55 General: Appears in no apparent distress, Behavior is appropriate for age, cooperative. ml6 Pain: Location: left inguinal area Pain currently is 6 out of 10 on a pain scale. Pain does not radiate. HIV screening NA for this visit Offered previously. Neurological: No deficits noted. Cardiovascular: No deficits noted. Respiratory: No deficits noted. GI: No deficits noted. Musculoskeletal: No deficits noted. 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 Miralax 17 gram/dose Oral powd 17 g once daily (Last dose: 07/30/2016 07:00) 2. tramadol 50 mg Oral tab 2 tabs every 6 hours (Last dose: 07/29/2016 22:00) 3. hydroxyzine HCl 50 mg Oral tab nightly (Last dose: 07/29/2016 22:00) 4. Motrin 800 mg Oral tab (Last dose: 07/30/2016 04:30) - PMHx: Anxiety; Depression; Endometriosis; Frequent UTI's; Migraines; Hernia; - PSHx: ; - Social history: Smoking status: Patient states was never smoker of tobacco. No barriers to communication noted, Speaks appropriately for age. - Family history: Not pertinent. - : The pt / caregiver states he / she is not on anticoagulants. Home medication list is obtained from the patient. - Exposure Risk Screening:: None identified. Screenin:35 Screening information is obtained from the patient. Fall risk: No risks identified. ml6 Assistance ADL's: requires no assistance with activities of daily living. Abuse/DV Screen: The patient / caregiver reports he/she is: not in a situation that causes fear, pain or injury. Nutritional screening: No deficits noted. Advance Directives: Currently, there is no health care proxy. home support is adequate. Assessment: 07:55 General: see triage assessment. ml6 09:25 General: Appears uncomfortable, Behavior is appropriate for age, cooperative. General: kc3 Provider aware of pt pain level. Pt updated on plan of care. . Pain: Location: pelvis Pain currently is 9 out of 10 on a pain scale. Respiratory: Respiratory effort is even, unlabored. Derm: Skin is pink, warm & dry. 09:42 General: Appears in no apparent distress, comfortable, Behavior is appropriate for age, kc3 cooperative. Neurological: No deficits noted. Respiratory: Respiratory effort is even, unlabored. Derm: Skin is pink, warm & dry. Vital Signs: 07:54 BP 138 / 80; Pulse 95; Resp 16; Temp 98.2(O); Pulse Ox 98% on R/A; Weight 77.11 kg (R); ml6 Height 5 ft. 3 in. (160.02 cm) (R); Pain 6/10; 09:24 BP 124 / 71; Pulse 85; Resp 18; Temp 97.7(O); Pulse Ox 99% on R/A; Pain 9/10; kc3 07:54 Body Mass Index 30.11 (77.11 kg, 160.02 cm) ml6 09:24 Provider aware of pt pain scale. kc3 Vitals: 07:54 Log In Time: July 30, 2016 at 07:37. ml6 ED Course: 07:39 Patient visited by Lubna Haynes. mm15 07:39 Carmine Mcknight is Private Physician. mm15 07:39 Patient moved to Waiting mm15 07:52 Triage Initiated ml6 07:55 Patient moved to I3 / M3 ml6 07:56 [facility] Edouard FNP [facility]. ke 07:56 Patient visited by Valentin Edouard FNP. ke 07:56 Patient visited by Valentin Edouard FNP. ke 08:25 Basic Metabolic Profile Sent. rs6 08:25 CBC with Diff Sent. rs6 08:25 HCG,Serum Qualitative Sent. rs6 08:25 Urinalysis Sent. rs6 08:27 Patient visited by Dariel Velasquez RN. ml6 08:58 Patient visited by Valentin Edouard FNP. ke 09:03 The patient / caregiver is instructed regarding the plan of care and ED course. kc3 09:14 [facility] Payment Agreement was scanned into [employer] and attached to record. lg 09:26 Patient visited by Valentin Edouard FNP. ke 09:41 Carmine Mcknight is Referral Physician. ke 09:44 No IV's were initiated during this patient's visit. No procedures done that require kc3 assistance. Administered Medications: 08:19 Drug: HYDROcodone-acetaminophen 1 tabs [hydrocodone 5 mg-acetaminophen 325 mg tablet (1 ml6 tabs)] Route: PO; Order Results: Lab Order: Basic Metabolic Profile; SPEC'M 07/30/16 08:25 Test: GLUCOSE, FASTING; Value: 98; Range: 70-105; Units: MG/DL; Status: F Test: BLOOD UREA NITROGEN; Value: 15; Range: 7-18; Units: MG/DL; Status: F Test: CREATININE FOR GFR; Value: 0.81; Range: 0.55-1.02; Units: MG/DL; Status: F Test: SODIUM LEVEL; Range: 136-145; Units: MEQ/L; Status: I Test: POTASSIUM SERUM; Range: 3.5-5.1; Units: MEQ/L; Status: I Test: CHLORIDE LEVEL; Range: 98-107; Units: MEQ/L; Status: I Test: CARBON DIOXIDE LEVEL; Range: 21-32; Units: MEQ/L; Status: I Test: ANION GAP; Range: 8-16; Units: MEQ/L; Status: I Test: CALCIUM LEVEL; Range: 8.5-10.1; Units: MG/DL; Status: I Test: GLOMERULAR FILTRATION RATE; Value: > 60.0; Range: >60; Status: F Test: SODIUM LEVEL; Value: 141; Range: 136-145; Units: MEQ/L; Status: F Test: POTASSIUM SERUM; Value: 4.0; Range: 3.5-5.1; Units: MEQ/L; Status: F Test: CHLORIDE LEVEL; Value: 107; Range: 98-107; Units: MEQ/L; Status: F Test: CARBON DIOXIDE LEVEL; Value: 27; Range: 21-32; Units: MEQ/L; Status: F Test: ANION GAP; Value: 7; Range: 8-16; Abnormal: Below low normal; Units: MEQ/L; Status: F Test: CALCIUM LEVEL; Value: 9.2; Range: 8.5-10.1; Units: MG/DL; Status: F Test Note: ; Units are mL/min/1.73 m2 Chronic Kidney Disease Staging per NKF: Stage I & II GFR >=60 Normal to Mildly Decreased Stage III GFR 30-59 Moderately Decreased Stage IV GFR 15-29 Severely Decreased Stage V GFR <15 Very Little GFR Left ESRD GFR <15 on TOBACCO STRIPPER HAND Lab Order: CBC with Diff; SPEC'M 07/30/16 08:25 Test: WHITE BLOOD COUNT; Value: 7.8; Range: 4.0-10.0; Units: K/mm3; Status: F Test: RED BLOOD COUNT; Value: 4.34; Range: 4.00-5.40; Units: M/mm3; Status: F Test: HEMOGLOBIN; Value: 13.7; Range: 12.0-16.0; Units: g/dl; Status: F Test: HEMATOCRIT; Value: 40.6; Range: 36.0-47.0; Units: %; Status: F Test: MEAN CORPUSCULAR VOLUME; Value: 93.6; Range: 80.0-96.0; Units: fl; Status: F Test: MEAN CORPUSCULAR HEMOGLOBIN; Value: 31.7; Range: 27.0-33.0; Units: pg; Status: F Test: MEAN CORPUSCULAR HGB CONC; Value: 33.8; Range: 32.0-36.5; Units: g/dl; Status: F Test: RED CELL DISTRIBUTION WIDTH; Value: 11.9; Range: 11.5-14.5; Units: %; Status: F Test: PLATELET COUNT, AUTOMATED; Value: 259; Range: 150-450; Units: k/mm3; Status: F Test: NEUTROPHILS %; Value: 62.4; Range: 36.0-66.0; Units: %; Status: F Test: LYMPH %; Value: 23.1; Range: 24.0-44.0; Abnormal: Below low normal; Units: %; Status: F Test: MONO %; Value: 7.6; Range: 0.0-5.0; Abnormal: Above high normal; Units: %; Status: F Test: EOS %; Value: 3.9; Range: 0.0-3.0; Abnormal: Above high normal; Units: %; Status: F Test: BASO %; Value: 0.4; Range: 0.0-1.0; Units: %; Status: F Test: LARGE UNSTAINED CELL %; Value: 2.5; Range: 0.0-4.0; Units: %; Status: F Test: NEUTROPHILS #; Value: 4.9; Range: 1.8-7.7; Units: K/mm3; Status: F Test: LYMPH #; Value: 2.0; Range: 1.5-6.5; Units: K/mm3; Status: F Test: MONO #; Value: 0.6; Range: 0.0-0.8; Units: K/mm3; Status: F Test: EOS #; Value: 0.3; Range: 0.0-0.50; Units: K/mm3; Status: F Test: BASO #; Value: 0.0; Range: 0.0-0.2; Units: K/mm3; Status: F Test: LARGE UNSTAINED CELL #; Value: 0.2; Range: 0.0-0.4; Units: K/mm3; Status: F Lab Order: HCG,Serum Qualitative; SPEC'M 07/30/16 08:25 Test: HCG, SERUM QUALITATIVE; Value: NEGATIVE; Range: NEGATIVE; Status: F Lab Order: Urinalysis; SPEC'M 07/30/16 08:25 Test: APPEARANCE, URINE; Value: CLOUDY; Range: CLEAR; Abnormal: Above high normal; Status: F Test: COLOR, URINE; Value: AGUSTIN; Range: YELLOW; Status: F Test: PH,URINE; Value: 5.0; Range: 5.0-9.0; Units: UNITS; Status: F Test: SPECIFIC GRAVITY URINE AUTO; Value: 1.029; Range: 1.002-1.035; Status: F Test: PROTEIN, URINE AUTO; Value: 1+; Range: NEGATIVE; Abnormal: Above high normal; Units: mg/dL; Status: F Test: GLUCOSE, URINE (UA) AUTO; Value: NEGATIVE; Range: NEGATIVE; Units: mg/dL; Status: F Test: KETONE, URINE AUTO; Value: TRACE; Range: NEGATIVE; Abnormal: Above high normal; Units: mg/dL; Status: F Test: UROBILINOGEN, URINE AUTO; Value: 0.2; Range: 0.0-2.0; Units: mg/dL; Status: F Test: BILIRUBIN, URINE AUTO; Value: NEGATIVE; Range: NEGATIVE; Status: F Test: NITRITE, URINE AUTO; Value: NEGATIVE; Range: NEGATIVE; Status: F Test: LEUKOCYTE ESTERASE, URINE AUTO; Value: 1+; Range: NEGATIVE; Abnormal: Above high normal; Status: F Test: BLOOD, URINE BLOOD; Value: 1+; Range: NEGATIVE; Abnormal: Above high normal; Status: F Test: WBC, URINE AUTO; Value: 10; Range: 0-3; Abnormal: Above high normal; Units: /HPF; Status: F Test: RBC, URINE AUTO; Value: 6; Range: 0-3; Abnormal: Above high normal; Units: /HPF; Status: F Test: BACTERIA, URINE AUTO; Value: 2+; Range: NEGATIVE; Abnormal: Above high normal; Status: F Test: SQUAMOUS EPITHELIAL CELL UR AU; Value: 33; Range: 0-6; Units: /HPF; Status: F Test: MUCUS, URINE; Value: SMALL; Range: NEGATIVE; Status: F Test: HYALINE CAST, URINE AUTO; Value: 1; Range: 0-1; Units: /LPF; Status: F Outcome: 09:42 Discharge ordered by Provider. opal 09:44 Discharge Assessment: Patient awake, alert and oriented x 3. No cognitive and/or kc3 functional deficits noted. Patient verbalized understanding of disposition instructions. patient administered narcotics - yes. Pt provided with safe discharge. The following High Risk Discharge criteria are identified: None. Discharged to home ambulatory. Condition: stable. Discharge instructions given to patient, Instructed on discharge instructions, follow up and referral plans. medication usage, Demonstrated understanding of instructions, medications, Pt was receptive of discharge instructions/ teaching. Prescriptions given X 3. CT Study completed. Property :Personal belongings accompany Pt. 09:50 Patient left the ED. kc3 Signatures: Christopher Rowland, Reg Reg lg Valentin Edouard, WORD PROCESSING OPERATOR WORD PROCESSING OPERATOR Dariel Florence, RN RN ml6 Lubna Haynes mm15 Jemma Ash, HAMMER SMITH HAMMER SMITH rs6 Lea Conway,RN RN kc3 MTDD
--- NOTE | 2016-07-30 09:51 | EDDOCDS ---
Physician Documentation [facility] Name: Erma Adam Age: 21 yrs Sex: Female : 1995 Arrival Date: 07/30/2016 Time: 07:38 Bed I3 / M3 Private MD: Carmine Mcknight Disposition: 07/30/16 09:42 Discharged to Home/Self Care. Impression: Abdominal and pelvic pain, Urinary tract infection, site not specified. - Condition is Stable. - Discharge Instructions: Abdominal Pain, Adult, Urinary Tract Infection. - Prescriptions for Cipro 500 mg Oral Tablet - take 1 tablet by ORAL route every 12 hours; 14 tablet. Pyridium 200 mg Oral Tablet - take 1 tablet by ORAL route every 8 hours for 3 days; 9 tablet. Zofran 4 mg Oral Tablet - take 1 tablet by ORAL route 4 times per day As needed; 10 tablet. - Medication Reconciliation, Local Pharmacy Hours form. - Follow up: Carmine Mcknight; When: 2 - 3 days; Reason: Recheck today's complaints, Continuance of care. - Problem is an ongoing problem. - Symptoms are unchanged. Historical: - Allergies: no known allergies; - Home Meds: 1. Miralax 17 gram/dose Oral powd 17 g once daily (Last dose: 07/30/2016 07:00) 2. tramadol 50 mg Oral tab 2 tabs every 6 hours (Last dose: 07/29/2016 22:00) 3. hydroxyzine HCl 50 mg Oral tab nightly (Last dose: 07/29/2016 22:00) 4. Motrin 800 mg Oral tab (Last dose: 07/30/2016 04:30) - PMHx: Anxiety; Depression; Endometriosis; Frequent UTI's; Migraines; Hernia; - PSHx: ; - Social history: Smoking status: Patient states was never smoker of tobacco. No barriers to communication noted, Speaks appropriately for age. - Family history: Not pertinent. - : The pt / caregiver states he / she is not on anticoagulants. Home medication list is obtained from the patient. - Exposure Risk Screening:: None identified. 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 3 in. (160.02 cm) (R); Pain 6/10; 09:24 BP 124 / 71; Pulse 85; Resp 18; Temp 97.7(O); Pulse Ox 99% on R/A; Pain 9/10; kc3 07:54 Body Mass Index 30.11 (77.11 kg, 160.02 cm) ml6 09:24 Provider aware of pt pain scale. kc3 MDM: 08:07 Undress patient appropriately for examination ordered. ke 08:07 Basic Metabolic Profile Ordered. EDMS 08:07 CBC with Diff Ordered. EDMS 08:07 HCG,Serum Qualitative Ordered. EDMS 08:07 Urinalysis Ordered. EDMS 08:07 CT ABD & PELVIS: No Contrast Ordered. EDMS 08:08 NOTHING BY MOUTH+DIET ordered. EDMS 08:11 HYDROcodone-acetaminophen 5 mg-325 mg 1 tabs PO once ordered. ke 08:35 Financial registration complete. lg 08:52 CBC with Diff Reviewed. ke 08:52 Urinalysis Reviewed. ke 08:52 HCG,Serum Qualitative Reviewed. ke 08:54 Basic Metabolic Profile Reviewed. ke 08:54 HCG,Serum Qualitative Reviewed. ke 09:14 [facility] Payment Agreement was scanned into [employer] and attached to record. lg Administered Medications: 08:19 Drug: HYDROcodone-acetaminophen 1 tabs [hydrocodone 5 mg-acetaminophen 325 mg tablet (1 ml6 tabs)] Route: PO; Signatures: Dispatcher [employer] EDChristopher Whitaker, Reg Reg lg Valentin Edouard, APPRAISER IRRIGATION TAX APPRAISER IRRIGATION TAX Dariel Florence RN RN ml6 Lea Conway,YANIV RN kc3 The chart was reviewed and I authenticate all verbal orders and agree with the evaluation and treatment provided.Attachments: 09:14 [facility] Payment Agreement lg MTDD
--- NOTE | 2016-08-01 10:51 | EDDOCDS ---
Physician Documentation [facility] Name: Erma Adam Age: 21 yrs Sex: Female : 1995 Arrival Date: 07/30/2016 Time: 07:38 Bed I3 / M3 Private MD: Carmine Mcknight Disposition: 07/30/16 09:42 Discharged to Home/Self Care. Impression: Abdominal and pelvic pain, Urinary tract infection, site not specified. - Condition is Stable. - Discharge Instructions: Abdominal Pain, Adult, Urinary Tract Infection. - Prescriptions for Cipro 500 mg Oral Tablet - take 1 tablet by ORAL route every 12 hours; 14 tablet. Pyridium 200 mg Oral Tablet - take 1 tablet by ORAL route every 8 hours for 3 days; 9 tablet. Zofran 4 mg Oral Tablet - take 1 tablet by ORAL route 4 times per day As needed; 10 tablet. - Medication Reconciliation, Local Pharmacy Hours form. - Follow up: Carmine Mcknight; When: 2 - 3 days; Reason: Recheck today's complaints, Continuance of care. - Problem is an ongoing problem. - Symptoms are unchanged. Historical: - Allergies: no known allergies; - Home Meds: 1. Miralax 17 gram/dose Oral powd 17 g once daily (Last dose: 07/30/2016 07:00) 2. tramadol 50 mg Oral tab 2 tabs every 6 hours (Last dose: 07/29/2016 22:00) 3. hydroxyzine HCl 50 mg Oral tab nightly (Last dose: 07/29/2016 22:00) 4. Motrin 800 mg Oral tab (Last dose: 07/30/2016 04:30) - PMHx: Anxiety; Depression; Endometriosis; Frequent UTI's; Migraines; Hernia; - PSHx: ; - Social history: Smoking status: Patient states was never smoker of tobacco. No barriers to communication noted, Speaks appropriately for age. - Family history: Not pertinent. - : The pt / caregiver states he / she is not on anticoagulants. Home medication list is obtained from the patient. - Exposure Risk Screening:: None identified. 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 3 in. (160.02 cm) (R); Pain 6/10; 09:24 BP 124 / 71; Pulse 85; Resp 18; Temp 97.7(O); Pulse Ox 99% on R/A; Pain 9/10; kc3 07:54 Body Mass Index 30.11 (77.11 kg, 160.02 cm) ml6 09:24 Provider aware of pt pain scale. kc3 MDM: 08:07 Undress patient appropriately for examination ordered. ke 08:07 Basic Metabolic Profile Ordered. EDMS 08:07 CBC with Diff Ordered. EDMS 08:07 HCG,Serum Qualitative Ordered. EDMS 08:07 Urinalysis Ordered. EDMS 08:07 CT ABD & PELVIS: No Contrast Ordered. EDMS 08:08 NOTHING BY MOUTH+DIET ordered. EDMS 08:11 HYDROcodone-acetaminophen 5 mg-325 mg 1 tabs PO once ordered. ke 08:35 Financial registration complete. lg 08:52 CBC with Diff Reviewed. ke 08:52 Urinalysis Reviewed. ke 08:52 HCG,Serum Qualitative Reviewed. ke 08:54 Basic Metabolic Profile Reviewed. ke 08:54 HCG,Serum Qualitative Reviewed. ke 09:14 [facility] Payment Agreement was scanned into [employer] and attached to record. lg 14:53 T-Sheet-- Draft Copy was scanned into [employer] and attached to record. gb Administered Medications: 08:19 Drug: HYDROcodone-acetaminophen 1 tabs [hydrocodone 5 mg-acetaminophen 325 mg tablet (1 ml6 tabs)] Route: PO; Signatures: Dispatcher [employer] EDMS Rupinder Forte, Reg Reg gb Christopher Rowland, Reg Reg lg Valentin Edouard, FIELD SALES MANAGER FIELD SALES MANAGER Dariel Florence RN RN ml6 Lea ConwayRN RN kc3 The chart was reviewed and I authenticate all verbal orders and agree with the evaluation and treatment provided.Attachments: 09:14 [facility] Payment Agreement lg 14:53 T-Sheet-- Draft Copy gb Chart Complete MTDD
--- NOTE | 2016-08-01 10:51 | EDDOCDS ---
Physician Documentation [facility] Name: Erma Adam Age: 21 yrs Sex: Female : 1995 Arrival Date: 07/30/2016 Time: 07:38 Bed I3 / M3 Private MD: Carmine Mcknight Disposition: 07/30/16 09:42 Discharged to Home/Self Care. Impression: Abdominal and pelvic pain, Urinary tract infection, site not specified. - Condition is Stable. - Discharge Instructions: Abdominal Pain, Adult, Urinary Tract Infection. - Prescriptions for Cipro 500 mg Oral Tablet - take 1 tablet by ORAL route every 12 hours; 14 tablet. Pyridium 200 mg Oral Tablet - take 1 tablet by ORAL route every 8 hours for 3 days; 9 tablet. Zofran 4 mg Oral Tablet - take 1 tablet by ORAL route 4 times per day As needed; 10 tablet. - Medication Reconciliation, Local Pharmacy Hours form. - Follow up: Carmine Mcknight; When: 2 - 3 days; Reason: Recheck today's complaints, Continuance of care. - Problem is an ongoing problem. - Symptoms are unchanged. Historical: - Allergies: no known allergies; - Home Meds: 1. Miralax 17 gram/dose Oral powd 17 g once daily (Last dose: 07/30/2016 07:00) 2. tramadol 50 mg Oral tab 2 tabs every 6 hours (Last dose: 07/29/2016 22:00) 3. hydroxyzine HCl 50 mg Oral tab nightly (Last dose: 07/29/2016 22:00) 4. Motrin 800 mg Oral tab (Last dose: 07/30/2016 04:30) - PMHx: Anxiety; Depression; Endometriosis; Frequent UTI's; Migraines; Hernia; - PSHx: ; - Social history: Smoking status: Patient states was never smoker of tobacco. No barriers to communication noted, Speaks appropriately for age. - Family history: Not pertinent. - : The pt / caregiver states he / she is not on anticoagulants. Home medication list is obtained from the patient. - Exposure Risk Screening:: None identified. MILITARY COOK: 07/30 07:54 1, Living 1, LMP 07/30/2016 ml6 Vital Signs: 07:54 BP 138 / 80; Pulse 95; Resp 16; Temp 98.2(O); Pulse Ox 98% on R/A; Weight 77.11 kg / ml6 170 lbs (R); Height 5 ft. 3 in. (160.02 cm) (R); Pain 6/10; 09:24 BP 124 / 71; Pulse 85; Resp 18; Temp 97.7(O); Pulse Ox 99% on R/A; Pain 9/10; kc3 07:54 Body Mass Index 30.11 (77.11 kg, 160.02 cm) ml6 09:24 Provider aware of pt pain scale. kc3 MDM: 08:07 Undress patient appropriately for examination ordered. ke 08:07 Basic Metabolic Profile Ordered. EDMS 08:07 CBC with Diff Ordered. EDMS 08:07 HCG,Serum Qualitative Ordered. EDMS 08:07 Urinalysis Ordered. EDMS 08:07 CT ABD & PELVIS: No Contrast Ordered. EDMS 08:08 NOTHING BY MOUTH+DIET ordered. EDMS 08:11 HYDROcodone-acetaminophen 5 mg-325 mg 1 tabs PO once ordered. ke 08:35 Financial registration complete. lg 08:52 CBC with Diff Reviewed. ke 08:52 Urinalysis Reviewed. ke 08:52 HCG,Serum Qualitative Reviewed. ke 08:54 Basic Metabolic Profile Reviewed. ke 08:54 HCG,Serum Qualitative Reviewed. ke 09:14 [facility] Payment Agreement was scanned into [employer] and attached to record. lg 14:53 T-Sheet-- Draft Copy was scanned into [employer] and attached to record. gb Administered Medications: 08:19 Drug: HYDROcodone-acetaminophen 1 tabs [hydrocodone 5 mg-acetaminophen 325 mg tablet (1 ml6 tabs)] Route: PO; Signatures: Dispatcher [employer] EDMS Rupinder Forte, Reg Reg gb Christopher Rowland, Reg Reg lg Valentin Edouard, OIL WELL PERFORATOR OPERATOR OIL WELL PERFORATOR OPERATOR Dariel Florence RN RN ml6 Lea ConwayRN RN kc3 The chart was reviewed and I authenticate all verbal orders and agree with the evaluation and treatment provided.Attachments: 09:14 [facility] Payment Agreement lg 14:53 T-Sheet-- Draft Copy gb Chart Complete MTDD
--- NOTE | 2016-08-01 10:51 | EDDOCDS ---
Nurse's Notes [facility] Name: Erma Adam Age: 21 yrs Sex: Female : 1995 Arrival Date: 07/30/2016 Time: 07:38 Bed I3 / M3 Private MD: Carmine Mcknight Diagnosis: Abdominal and pelvic pain;Urinary tract infection, site not specified Presentation: 07/30 07:50 Presenting complaint: Patient states: patient states pain left later flank/hip, c/o ml6 pain with movement, states "I have tramadol but that doesn't normally help my pain". Acute neurological deficits are not present. Mechanism of Injury: No Mechanism of Injury. Adult Sepsis Screening: The patient does not have new or worsening altered mentation. Patient's respiratory rate is less than 22. Systolic blood pressure is greater than 100. Patient has a qSOFA score of 0- Negative Sepsis Screen. Suicide/Homicide risk assessment- the patient denies having any suicidal and/or homicidal ideations and does not present with any other emotional, behavioral or mental health complaints. Status: Patient is not a director of therapy services or dependent. Transition of care: patient was not received from another setting of care. 07:50 Acuity: SOULEYMANE Level 4 ml6 07:50 Method Of Arrival: Walkin/Carried/Asstd ml6 08:35 Acuity level changed due to complexity of care. ml6 08:35 Acuity: SOULEYMANE Level 3 ml6 Triage Assessment: 07:55 General: Appears in no apparent distress, Behavior is appropriate for age, cooperative. ml6 Pain: Location: left inguinal area Pain currently is 6 out of 10 on a pain scale. Pain does not radiate. HIV screening NA for this visit Offered previously. Neurological: No deficits noted. Cardiovascular: No deficits noted. Respiratory: No deficits noted. GI: No deficits noted. Musculoskeletal: No deficits noted. 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 Miralax 17 gram/dose Oral powd 17 g once daily (Last dose: 07/30/2016 07:00) 2. tramadol 50 mg Oral tab 2 tabs every 6 hours (Last dose: 07/29/2016 22:00) 3. hydroxyzine HCl 50 mg Oral tab nightly (Last dose: 07/29/2016 22:00) 4. Motrin 800 mg Oral tab (Last dose: 07/30/2016 04:30) - PMHx: Anxiety; Depression; Endometriosis; Frequent UTI's; Migraines; Hernia; - PSHx: ; - Social history: Smoking status: Patient states was never smoker of tobacco. No barriers to communication noted, Speaks appropriately for age. - Family history: Not pertinent. - : The pt / caregiver states he / she is not on anticoagulants. Home medication list is obtained from the patient. - Exposure Risk Screening:: None identified. Screenin:35 Screening information is obtained from the patient. Fall risk: No risks identified. ml6 Assistance ADL's: requires no assistance with activities of daily living. Abuse/DV Screen: The patient / caregiver reports he/she is: not in a situation that causes fear, pain or injury. Nutritional screening: No deficits noted. Advance Directives: Currently, there is no health care proxy. home support is adequate. Assessment: 07:55 General: see triage assessment. ml6 09:25 General: Appears uncomfortable, Behavior is appropriate for age, cooperative. General: kc3 Provider aware of pt pain level. Pt updated on plan of care. . Pain: Location: pelvis Pain currently is 9 out of 10 on a pain scale. Respiratory: Respiratory effort is even, unlabored. Derm: Skin is pink, warm & dry. 09:42 General: Appears in no apparent distress, comfortable, Behavior is appropriate for age, kc3 cooperative. Neurological: No deficits noted. Respiratory: Respiratory effort is even, unlabored. Derm: Skin is pink, warm & dry. Vital Signs: 07:54 BP 138 / 80; Pulse 95; Resp 16; Temp 98.2(O); Pulse Ox 98% on R/A; Weight 77.11 kg (R); ml6 Height 5 ft. 3 in. (160.02 cm) (R); Pain 6/10; 09:24 BP 124 / 71; Pulse 85; Resp 18; Temp 97.7(O); Pulse Ox 99% on R/A; Pain 9/10; kc3 07:54 Body Mass Index 30.11 (77.11 kg, 160.02 cm) ml6 09:24 Provider aware of pt pain scale. kc3 Vitals: 07:54 Log In Time: July 30, 2016 at 07:37. ml6 ED Course: 07:39 Patient visited by Lubna Haynes. mm15 07:39 Carmine Mcknight is Private Physician. mm15 07:39 Patient moved to Waiting mm15 07:52 Triage Initiated ml6 07:55 Patient moved to I3 / M3 ml6 07:56 Valentin Edouard FNP is PSYCHIATRICP. ke 07:56 Patient visited by Valentin Edouard FNP. ke 07:56 Patient visited by Valentin Edouard FNP. ke 08:25 Basic Metabolic Profile Sent. rs6 08:25 CBC with Diff Sent. rs6 08:25 HCG,Serum Qualitative Sent. rs6 08:25 Urinalysis Sent. rs6 08:27 Patient visited by Dariel Velasquez RN. ml6 08:58 Patient visited by Valentin Edouard FNP. ke 09:03 The patient / caregiver is instructed regarding the plan of care and ED course. kc3 09:14 [facility] Payment Agreement was scanned into [employer] and attached to record. lg 09:26 Patient visited by Valentin Edouard FNP. ke 09:41 Carmine Mcknight is Referral Physician. ke 09:44 No IV's were initiated during this patient's visit. No procedures done that require kc3 assistance. 09:55 CT ABD & PELVIS: No Contrast Returned. EDMS 14:53 T-Sheet-- Draft Copy was scanned into [employer] and attached to record. gb Administered Medications: 08:19 Drug: HYDROcodone-acetaminophen 1 tabs [hydrocodone 5 mg-acetaminophen 325 mg tablet (1 ml6 tabs)] Route: PO; Order Results: Lab Order: Basic Metabolic Profile; SPEC'M 07/30/16 08:25 Test: GLUCOSE, FASTING; Value: 98; Range: 70-105; Units: MG/DL; Status: F Test: BLOOD UREA NITROGEN; Value: 15; Range: 7-18; Units: MG/DL; Status: F Test: CREATININE FOR GFR; Value: 0.81; Range: 0.55-1.02; Units: MG/DL; Status: F Test: SODIUM LEVEL; Range: 136-145; Units: MEQ/L; Status: I Test: POTASSIUM SERUM; Range: 3.5-5.1; Units: MEQ/L; Status: I Test: CHLORIDE LEVEL; Range: 98-107; Units: MEQ/L; Status: I Test: CARBON DIOXIDE LEVEL; Range: 21-32; Units: MEQ/L; Status: I Test: ANION GAP; Range: 8-16; Units: MEQ/L; Status: I Test: CALCIUM LEVEL; Range: 8.5-10.1; Units: MG/DL; Status: I Test: GLOMERULAR FILTRATION RATE; Value: > 60.0; Range: >60; Status: F Test: SODIUM LEVEL; Value: 141; Range: 136-145; Units: MEQ/L; Status: F Test: POTASSIUM SERUM; Value: 4.0; Range: 3.5-5.1; Units: MEQ/L; Status: F Test: CHLORIDE LEVEL; Value: 107; Range: 98-107; Units: MEQ/L; Status: F Test: CARBON DIOXIDE LEVEL; Value: 27; Range: 21-32; Units: MEQ/L; Status: F Test: ANION GAP; Value: 7; Range: 8-16; Abnormal: Below low normal; Units: MEQ/L; Status: F Test: CALCIUM LEVEL; Value: 9.2; Range: 8.5-10.1; Units: MG/DL; Status: F Test Note: ; Units are mL/min/1.73 m2 Chronic Kidney Disease Staging per NKF: Stage I & II GFR >=60 Normal to Mildly Decreased Stage III GFR 30-59 Moderately Decreased Stage IV GFR 15-29 Severely Decreased Stage V GFR <15 Very Little GFR Left ESRD GFR <15 on SHANKER OUT Lab Order: CBC with Diff; SPEC'M 07/30/16 08:25 Test: WHITE BLOOD COUNT; Value: 7.8; Range: 4.0-10.0; Units: K/mm3; Status: F Test: RED BLOOD COUNT; Value: 4.34; Range: 4.00-5.40; Units: M/mm3; Status: F Test: HEMOGLOBIN; Value: 13.7; Range: 12.0-16.0; Units: g/dl; Status: F Test: HEMATOCRIT; Value: 40.6; Range: 36.0-47.0; Units: %; Status: F Test: MEAN CORPUSCULAR VOLUME; Value: 93.6; Range: 80.0-96.0; Units: fl; Status: F Test: MEAN CORPUSCULAR HEMOGLOBIN; Value: 31.7; Range: 27.0-33.0; Units: pg; Status: F Test: MEAN CORPUSCULAR HGB CONC; Value: 33.8; Range: 32.0-36.5; Units: g/dl; Status: F Test: RED CELL DISTRIBUTION WIDTH; Value: 11.9; Range: 11.5-14.5; Units: %; Status: F Test: PLATELET COUNT, AUTOMATED; Value: 259; Range: 150-450; Units: k/mm3; Status: F Test: NEUTROPHILS %; Value: 62.4; Range: 36.0-66.0; Units: %; Status: F Test: LYMPH %; Value: 23.1; Range: 24.0-44.0; Abnormal: Below low normal; Units: %; Status: F Test: MONO %; Value: 7.6; Range: 0.0-5.0; Abnormal: Above high normal; Units: %; Status: F Test: EOS %; Value: 3.9; Range: 0.0-3.0; Abnormal: Above high normal; Units: %; Status: F Test: BASO %; Value: 0.4; Range: 0.0-1.0; Units: %; Status: F Test: LARGE UNSTAINED CELL %; Value: 2.5; Range: 0.0-4.0; Units: %; Status: F Test: NEUTROPHILS #; Value: 4.9; Range: 1.8-7.7; Units: K/mm3; Status: F Test: LYMPH #; Value: 2.0; Range: 1.5-6.5; Units: K/mm3; Status: F Test: MONO #; Value: 0.6; Range: 0.0-0.8; Units: K/mm3; Status: F Test: EOS #; Value: 0.3; Range: 0.0-0.50; Units: K/mm3; Status: F Test: BASO #; Value: 0.0; Range: 0.0-0.2; Units: K/mm3; Status: F Test: LARGE UNSTAINED CELL #; Value: 0.2; Range: 0.0-0.4; Units: K/mm3; Status: F Lab Order: HCG,Serum Qualitative; SPEC'M 07/30/16 08:25 Test: HCG, SERUM QUALITATIVE; Value: NEGATIVE; Range: NEGATIVE; Status: F Lab Order: Urinalysis; SPEC'M 07/30/16 08:25 Test: APPEARANCE, URINE; Value: CLOUDY; Range: CLEAR; Abnormal: Above high normal; Status: F Test: COLOR, URINE; Value: AGUSTIN; Range: YELLOW; Status: F Test: PH,URINE; Value: 5.0; Range: 5.0-9.0; Units: UNITS; Status: F Test: SPECIFIC GRAVITY URINE AUTO; Value: 1.029; Range: 1.002-1.035; Status: F Test: PROTEIN, URINE AUTO; Value: 1+; Range: NEGATIVE; Abnormal: Above high normal; Units: mg/dL; Status: F Test: GLUCOSE, URINE (UA) AUTO; Value: NEGATIVE; Range: NEGATIVE; Units: mg/dL; Status: F Test: KETONE, URINE AUTO; Value: TRACE; Range: NEGATIVE; Abnormal: Above high normal; Units: mg/dL; Status: F Test: UROBILINOGEN, URINE AUTO; Value: 0.2; Range: 0.0-2.0; Units: mg/dL; Status: F Test: BILIRUBIN, URINE AUTO; Value: NEGATIVE; Range: NEGATIVE; Status: F Test: NITRITE, URINE AUTO; Value: NEGATIVE; Range: NEGATIVE; Status: F Test: LEUKOCYTE ESTERASE, URINE AUTO; Value: 1+; Range: NEGATIVE; Abnormal: Above high normal; Status: F Test: BLOOD, URINE BLOOD; Value: 1+; Range: NEGATIVE; Abnormal: Above high normal; Status: F Test: WBC, URINE AUTO; Value: 10; Range: 0-3; Abnormal: Above high normal; Units: /HPF; Status: F Test: RBC, URINE AUTO; Value: 6; Range: 0-3; Abnormal: Above high normal; Units: /HPF; Status: F Test: BACTERIA, URINE AUTO; Value: 2+; Range: NEGATIVE; Abnormal: Above high normal; Status: F Test: SQUAMOUS EPITHELIAL CELL UR AU; Value: 33; Range: 0-6; Units: /HPF; Status: F Test: MUCUS, URINE; Value: SMALL; Range: NEGATIVE; Status: F Test: HYALINE CAST, URINE AUTO; Value: 1; Range: 0-1; Units: /LPF; Status: F Radiology Order: CT ABD & PELVIS: No Contrast Test: CT ABD & PELVIS: No Contrast REASON FOR EXAMINATION: llq pain; Clinical: Left lower quadrant pain.; ; Comparison: 06/26/2016.; ; Findings:; Lung bases clear. Visualized heart and pericardium normal.; ; Liver, spleen, pancreas, gallbladder, bilateral adrenal glands and kidneys are; normal. Specifically, there is no perinephric stranding, hydroureteronephrosis,; nephrolithiasis or obstructing ureteral calculus. The enteric system is without; obstruction or acute inflammatory process. Normal terminal ileum and appendix; identified in the right lower quadrant. Pelvis demonstrates collapsed normal; bladder and age-appropriate uterus/adnexa. No pelvic fluid or ascites. No; adenopathy. Stable 3 cm fat containing periumbilical hernia again identified.; Abdominal aorta without aneurysm. Musculoskeletal structures intact.; ; Impression:; Stable 3 cm fat containing periumbilical hernia.; No acute intra-abdominal or pelvic pathology appreciated.; ; ; Signed by; Omer Wyman MD 07/30/2016 09:30 A; Outcome: 09:42 Discharge ordered by Provider. opal 09:44 Discharge Assessment: Patient awake, alert and oriented x 3. No cognitive and/or kc3 functional deficits noted. Patient verbalized understanding of disposition instructions. patient administered narcotics - yes. Pt provided with safe discharge. The following High Risk Discharge criteria are identified: None. Discharged to home ambulatory. Condition: stable. Discharge instructions given to patient, Instructed on discharge instructions, follow up and referral plans. medication usage, Demonstrated understanding of instructions, medications, Pt was receptive of discharge instructions/ teaching. Prescriptions given X 3. CT Study completed. Property :Personal belongings accompany Pt. 09:50 Patient left the ED. kc3 Signatures: Dispatcher [employer] EDMS Rupinder Forte, Reg Reg gb Christopher Rowland, Reg Reg lg Valentin Edouard, SOCIAL SCIENTIST SOCIAL SCIENTIST Dariel Florence, RN RN ml6 Lubna Haynes mm15 Jemma Ash, SPECIAL PROGRAMS DIRECTOR SPECIAL PROGRAMS DIRECTOR rs6 Lea Conway,RN RN kc3 Chart Complete MTDD
== END 2016-07-30 09:50 | disposition home or self-care (01) ==
LOC: M ED 07:38
DX: N39.0 Urinary tract infection, site not specified (principal); F41.9 Anxiety disorder, unspecified; F32.9 Major depressive disorder, single episode, unspecified; G43.909 Migraine, unspecified, not intractable, without status migrainosus; Z87.440 Personal history of urinary (tract) infections; Z79.899 Other long term (current) drug therapy
CPT/HCPCS: 74176; 80048; 81001; 84703; 85025; 99284; Q9967

== ENCOUNTER 2016-08-03 09:00 | Emergency (ER) | payer BC, OTHER, MEDICAID ==
[2016-08-03] MEDS ORDERED: KETOROLAC 30 MG/ML VIAL (J1885) As Ordered ONE (09:19)
--- NOTE | 2016-08-03 10:07 | EDDOCDS ---
Physician Documentation [facility] Name: Erma Adam Age: 21 yrs Sex: Female : 1995 Arrival Date: 08/03/2016 Time: 09:00 Bed Triage 2 Private MD: Carmine Mcknight Disposition: 08/03/16 10:00 Discharged to Home/Self Care. Impression: Streptococcal pharyngitis, Headache, Influenza due to unidentified influenza virus. - Condition is Stable. - Discharge Instructions: Influenza Adult, Strep Throat. - Prescriptions for lidocaine HCl 2 % Mucous Membrane solution - take 15 milliliter by ORAL route every 3 hours swish, gargle and spit; 200 milliliter. Augmentin 875- 125 mg Oral Tablet - take 1 tablet by ORAL route every 12 hours for 10 days; 20 tablet. Prednisone 20 mg Oral Tablet - take 1 tablet by ORAL route once daily for 5 days; 5 tablet. - Medication Reconciliation form. - Follow up: Carmine Mcknight; When: Call to arrange an appointment; Reason: Wound/Symptom Recheck, Recheck today's complaints, Continuance of care. - Problem is an ongoing problem. - Symptoms have improved. Historical: - Allergies: no known allergies; - Home Meds: 1. hydroxyzine HCl 50 mg Oral tab nightly 2. Miralax 17 gram/dose Oral powd 17 g once daily 3. Motrin 800 mg Oral tab prn (Last dose: 08/03/2016 05:00) 4. Amoxicillin Unknown Oral 2 times per day (Last dose: 08/02/2016) 5. Cipro 500 mg Oral tab 1 tab every 12 hours - PMHx: Anxiety; Depression; Endometriosis; Frequent UTI's; Hernia; Migraines; - PSHx: ; - Social history: Smoking status: Patient states was never smoker of tobacco. No barriers to communication noted, The patient speaks fluent Spanish, Speaks appropriately for age. - Family history: Not pertinent. - : The pt / caregiver states he / she is not on anticoagulants. Home medication list is obtained from the patient. - Exposure Risk Screening:: None identified. 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 3 in. (160.02 cm); Pain 10/10; 09:53 BP 126 / 66; Pulse 104; Resp 20; Temp 101.0(O); Pulse Ox 98% on R/A; Pain 7/10; dwg 09:03 Body Mass Index 30.11 (77.11 kg, 160.02 cm) dem1 MDM: 09:15 ketorolac 60 mg IM once ordered. cc10 09:17 Financial registration complete. mm15 09:19 [facility] Payment Agreement was scanned into [employer] and attached to record. mm15 09:46 Vital Signs ordered. cc10 Administered Medications: 09:26 Drug: ketorolac 60 mg [ketorolac 30 mg/mL (1 mL) injection solution (2 mL)] Route: IM; dwg Site: right gluteus; 09:54 Follow up: Response: Pain is decreased [facility] 09:43 CANCELLED (Other Intervention Used): Cephalexin 500 mg PO once cc10 Signatures: Suzy Kelly, RN RN [facility] Lubna Haynes mm15 Darin Agee PA-C PAChalo cc10 Eric Hope RN [facility] The chart was reviewed and I authenticate all verbal orders and agree with the evaluation and treatment provided.Corrections: (The following items were deleted from the chart) 09:43 09:42 Splint ordered. cc10 cc10 09:43 09:42 Wound Care ordered. cc10 cc10 09:43 09:42 Cephalexin 500 mg PO once ordered. cc10 cc10 Attachments: 09:19 [facility] Payment Agreement mm15 MTDD
--- NOTE | 2016-08-03 10:07 | EDDOCDS ---
Nurse's Notes [facility] Name: Erma Adam Age: 21 yrs Sex: Female : 1995 Arrival Date: 08/03/2016 Time: 09:00 Bed Triage 2 Private MD: Carmine Mcknight Diagnosis: Streptococcal pharyngitis;Headache;Influenza due to unidentified influenza virus Presentation: 08/03 09:04 Presenting complaint: Patient states: migraine, ears hurt, dx with strep a couple of srm days ago. placed on amoxicllin and now she feels worse. symptoms for 5 days. Adult Sepsis Screening: The patient does not have new or worsening altered mentation. Patient's respiratory rate is less than 22. Systolic blood pressure is greater than 100. Patient has a qSOFA score of 0- Negative Sepsis Screen. Suicide/Homicide risk assessment- the patient denies having any suicidal and/or homicidal ideations and does not present with any other emotional, behavioral or mental health complaints. Status: Patient is not a financial service professional or dependent. Transition of care: patient was not received from another setting of care. 09:04 Acuity: SOULEYMANE Level 4 srm 09:04 Method Of Arrival: Wheelchair [facility] Triage Assessment: 09:07 General: Appears in no apparent distress, Behavior is appropriate for age, cooperative. srm Pain: Pain currently is 10 out of 10 on a pain scale. HIV screening NA for this visit Offered previously. 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 hydroxyzine HCl 50 mg Oral tab nightly 2. Miralax 17 gram/dose Oral powd 17 g once daily 3. Motrin 800 mg Oral tab prn (Last dose: 08/03/2016 05:00) 4. Amoxicillin Unknown Oral 2 times per day (Last dose: 08/02/2016) 5. Cipro 500 mg Oral tab 1 tab every 12 hours - PMHx: Anxiety; Depression; Endometriosis; Frequent UTI's; Hernia; Migraines; - PSHx: ; - Social history: Smoking status: Patient states was never smoker of tobacco. No barriers to communication noted, The patient speaks fluent Tajik, Speaks appropriately for age. - Family history: Not pertinent. - : The pt / caregiver states he / she is not on anticoagulants. Home medication list is obtained from the patient. - Exposure Risk Screening:: None identified. Screenin:55 Screening information is obtained from the patient. Fall risk: No risks identified. dwg Assistance ADL's: requires no assistance with activities of daily living. Abuse/DV Screen: The patient / caregiver reports he/she is: not in a situation that causes fear, pain or injury. Nutritional screening: No deficits noted. Advance Directives: Currently, there is no health care proxy. There is no active DNR order. There is no living will. There is no Power of Credit Correspondence Clerk. Advance directive information has not previously been placed in an [facility] medical record. Further advance directive information is declined. home support is adequate. Assessment: 09:53 General: States feeling less pain to head since IM Toradol . dwg 09:54 General: Appears in no apparent distress, Behavior is cooperative. Pain: Pain. dwg Neurological: Level of Consciousness is awake, alert, Oriented to person, place, time. Respiratory: Airway is patent Respiratory effort is even, unlabored, Respiratory pattern is regular, symmetrical. 10:05 Reassessment: Patient appears in no apparent distress at this time. Patient states srm symptoms have improved. Vital Signs: 09:03 BP 114 / 63; Pulse 93; Resp 18; Temp 100.0(O); Pulse Ox 97% on R/A; Weight 77.11 kg; dem1 Height 5 ft. 3 in. (160.02 cm); Pain 10/10; 09:53 BP 126 / 66; Pulse 104; Resp 20; Temp 101.0(O); Pulse Ox 98% on R/A; Pain 7/10; dwg 09:03 Body Mass Index 30.11 (77.11 kg, 160.02 cm) [facility] Vitals: 09:03 Log In Time: August 03, 2016 at 08:59. [facility] ED Course: 09:03 Patient visited by Gaby Lancaster. dem1 09:03 Carmine Mcknight is Private Physician. dem1 09:03 Darin Agee [facility]C [facility] cc10 09:03 Kenny Matson MD is Attending Physician. cc10 09:03 Patient moved to Waiting dem1 09:04 Patient visited by Gaby Lancaster. dem1 09:04 Patient moved to Pre RCE dem1 09:06 Triage Initiated srm 09:08 Patient moved to Triage 2 srm 09:09 Patient visited by Darin Agee PA-C. cc10 09:09 Patient visited by Darin Agee PA-C. cc10 09:19 [facility] Payment Agreement was scanned into [employer] and attached to record. mm15 09:54 Patient visited by Eric Hope RN. dwg 10:00 Carmine Mcknight is Referral Physician. cc10 10:05 The patient / caregiver is instructed regarding the plan of care and ED course. Patient srm has correct armband on for positive identification. 10:05 No IV's were initiated during this patient's visit. No procedures done that require srm assistance. Administered Medications: 09:26 Drug: ketorolac 60 mg [ketorolac 30 mg/mL (1 mL) injection solution (2 mL)] Route: IM; dwg Site: right gluteus; 09:54 Follow up: Response: Pain is decreased dw 09:43 CANCELLED (Other Intervention Used): Cephalexin 500 mg PO once cc10 Order Results: There are currently no results for this order. Outcome: 10:00 Discharge ordered by Provider. cc10 10:05 Discharge Assessment: Patient awake, alert and oriented x 3. No cognitive and/or srm functional deficits noted. Patient verbalized understanding of disposition instructions. patient administered narcotics - no. The following High Risk Discharge criteria are identified: None. Discharged to home ambulatory. Condition: good Condition: stable. Discharge instructions given to patient, Instructed on discharge instructions, follow up and referral plans. medication usage, Demonstrated understanding of instructions, medications, Pt was receptive of discharge instructions/ teaching. Prescriptions given X 3. No special radiology studies were completed. Property :Personal belongings accompany Pt. 10:06 Patient left the ED. srm Signatures: Eric Hope, YANIV PURVIS [facility] Suzy Kelly RN RN srm Mack, Demeishia dem1 Lubna Haynes mm15 Darin Agee PA-C PA-C cc10 MTDD
--- NOTE | 2016-08-05 11:08 | EDDOCDS ---
Physician Documentation [facility] Name: Erma Adam Age: 21 yrs Sex: Female : 1995 Arrival Date: 08/03/2016 Time: 09:00 Bed Triage 2 Private MD: Carmine Mcknight Disposition: 08/03/16 10:00 Discharged to Home/Self Care. Impression: Streptococcal pharyngitis, Headache, Influenza due to unidentified influenza virus. - Condition is Stable. - Discharge Instructions: Influenza Adult, Strep Throat. - Prescriptions for lidocaine HCl 2 % Mucous Membrane solution - take 15 milliliter by ORAL route every 3 hours swish, gargle and spit; 200 milliliter. Augmentin 875- 125 mg Oral Tablet - take 1 tablet by ORAL route every 12 hours for 10 days; 20 tablet. Prednisone 20 mg Oral Tablet - take 1 tablet by ORAL route once daily for 5 days; 5 tablet. - Medication Reconciliation form. - Follow up: Carmine Mcknight; When: Call to arrange an appointment; Reason: Wound/Symptom Recheck, Recheck today's complaints, Continuance of care. - Problem is an ongoing problem. - Symptoms have improved. Historical: - Allergies: no known allergies; - Home Meds: 1. hydroxyzine HCl 50 mg Oral tab nightly 2. Miralax 17 gram/dose Oral powd 17 g once daily 3. Motrin 800 mg Oral tab prn (Last dose: 08/03/2016 05:00) 4. Amoxicillin Unknown Oral 2 times per day (Last dose: 08/02/2016) 5. Cipro 500 mg Oral tab 1 tab every 12 hours - PMHx: Anxiety; Depression; Endometriosis; Frequent UTI's; Hernia; Migraines; - PSHx: ; - Social history: Smoking status: Patient states was never smoker of tobacco. No barriers to communication noted, The patient speaks fluent Bulgarian, Speaks appropriately for age. - Family history: Not pertinent. - : The pt / caregiver states he / she is not on anticoagulants. Home medication list is obtained from the patient. - Exposure Risk Screening:: None identified. 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 3 in. (160.02 cm); Pain 10/10; 09:53 BP 126 / 66; Pulse 104; Resp 20; Temp 101.0(O); Pulse Ox 98% on R/A; Pain 7/10; dwg 09:03 Body Mass Index 30.11 (77.11 kg, 160.02 cm) dem1 MDM: 09:15 ketorolac 60 mg IM once ordered. [facility] 09:17 Financial registration complete. 15 09:19 [facility] Payment Agreement was scanned into Cloudacc and attached to record. mm15 09:46 Vital Signs ordered. cc10 18:51 T-Sheet-- Draft Copy was scanned into Cloudacc and attached to record. klr Administered Medications: 09:26 Drug: ketorolac 60 mg [ketorolac 30 mg/mL (1 mL) injection solution (2 mL)] Route: IM; dwg Site: right gluteus; 09:54 Follow up: Response: Pain is decreased [facility] 09:43 CANCELLED (Other Intervention Used): Cephalexin 500 mg PO once cc10 Signatures: Suzy Kelly RN RN [facility] Lubna Haynes mm15 Darin Agee PA-C PA-C [facility] Diana Mcgrath Daniel RN [facility] The chart was reviewed and I authenticate all verbal orders and agree with the evaluation and treatment provided.Corrections: (The following items were deleted from the chart) 09:43 09:42 Splint ordered. 10 cc10 :43 09:42 Wound Care ordered. [address] :43 09:42 Cephalexin 500 mg PO once ordered. [facility] cc10 Attachments: 09:19 [facility] Payment Agreement mm15 18:51 T-Sheet-- Draft Copy klr Chart Complete MTDD
--- NOTE | 2016-08-05 11:08 | EDDOCDS ---
Physician Documentation [facility] Name: Erma Adam Age: 21 yrs Sex: Female : 1995 Arrival Date: 08/03/2016 Time: 09:00 Bed Triage 2 Private MD: Carmine Mcknight Disposition: 08/03/16 10:00 Discharged to Home/Self Care. Impression: Streptococcal pharyngitis, Headache, Influenza due to unidentified influenza virus. - Condition is Stable. - Discharge Instructions: Influenza Adult, Strep Throat. - Prescriptions for lidocaine HCl 2 % Mucous Membrane solution - take 15 milliliter by ORAL route every 3 hours swish, gargle and spit; 200 milliliter. Augmentin 875- 125 mg Oral Tablet - take 1 tablet by ORAL route every 12 hours for 10 days; 20 tablet. Prednisone 20 mg Oral Tablet - take 1 tablet by ORAL route once daily for 5 days; 5 tablet. - Medication Reconciliation form. - Follow up: Carmine Mcknight; When: Call to arrange an appointment; Reason: Wound/Symptom Recheck, Recheck today's complaints, Continuance of care. - Problem is an ongoing problem. - Symptoms have improved. Historical: - Allergies: no known allergies; - Home Meds: 1. hydroxyzine HCl 50 mg Oral tab nightly 2. Miralax 17 gram/dose Oral powd 17 g once daily 3. Motrin 800 mg Oral tab prn (Last dose: 08/03/2016 05:00) 4. Amoxicillin Unknown Oral 2 times per day (Last dose: 08/02/2016) 5. Cipro 500 mg Oral tab 1 tab every 12 hours - PMHx: Anxiety; Depression; Endometriosis; Frequent UTI's; Hernia; Migraines; - PSHx: ; - Social history: Smoking status: Patient states was never smoker of tobacco. No barriers to communication noted, The patient speaks fluent Khmer, Speaks appropriately for age. - Family history: Not pertinent. - : The pt / caregiver states he / she is not on anticoagulants. Home medication list is obtained from the patient. - Exposure Risk Screening:: None identified. 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 3 in. (160.02 cm); Pain 10/10; 09:53 BP 126 / 66; Pulse 104; Resp 20; Temp 101.0(O); Pulse Ox 98% on R/A; Pain 7/10; dwg 09:03 Body Mass Index 30.11 (77.11 kg, 160.02 cm) dem1 MDM: 09:15 ketorolac 60 mg IM once ordered. [facility] 09:17 Financial registration complete. 15 09:19 [facility] Payment Agreement was scanned into [email or web address] and attached to record. mm15 09:46 Vital Signs ordered. cc10 18:51 T-Sheet-- Draft Copy was scanned into Vari[employer] and attached to record. klr Administered Medications: 09:26 Drug: ketorolac 60 mg [ketorolac 30 mg/mL (1 mL) injection solution (2 mL)] Route: IM; dwg Site: right gluteus; 09:54 Follow up: Response: Pain is decreased [facility] 09:43 CANCELLED (Other Intervention Used): Cephalexin 500 mg PO once cc10 Signatures: Suzy Kelly RN RN [facility] Lubna Haynes mm15 Darin Agee PA-C PA-C [facility] Diana Mcgrath Daniel RN [facility] The chart was reviewed and I authenticate all verbal orders and agree with the evaluation and treatment provided.Corrections: (The following items were deleted from the chart) 09:43 09:42 Splint ordered. 10 cc10 :43 09:42 Wound Care ordered. [address] :43 09:42 Cephalexin 500 mg PO once ordered. [facility] cc10 Attachments: 09:19 [facility] Payment Agreement mm15 18:51 T-Sheet-- Draft Copy klr Chart Complete MTDD
--- NOTE | 2016-08-05 11:08 | EDDOCDS ---
Nurse's Notes [facility] Name: Erma Adam Age: 21 yrs Sex: Female : 1995 Arrival Date: 08/03/2016 Time: 09:00 Bed Triage 2 Private MD: Carmine Mcknight Diagnosis: Streptococcal pharyngitis;Headache;Influenza due to unidentified influenza virus Presentation: 08/03 09:04 Presenting complaint: Patient states: migraine, ears hurt, dx with strep a couple of srm days ago. placed on amoxicllin and now she feels worse. symptoms for 5 days. Adult Sepsis Screening: The patient does not have new or worsening altered mentation. Patient's respiratory rate is less than 22. Systolic blood pressure is greater than 100. Patient has a qSOFA score of 0- Negative Sepsis Screen. Suicide/Homicide risk assessment- the patient denies having any suicidal and/or homicidal ideations and does not present with any other emotional, behavioral or mental health complaints. Status: Patient is not a guest services lead or dependent. Transition of care: patient was not received from another setting of care. 09:04 Acuity: SOULEYMANE Level 4 srm 09:04 Method Of Arrival: Wheelchair [facility] Triage Assessment: 09:07 General: Appears in no apparent distress, Behavior is appropriate for age, cooperative. srm Pain: Pain currently is 10 out of 10 on a pain scale. HIV screening NA for this visit Offered previously. 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 hydroxyzine HCl 50 mg Oral tab nightly 2. Miralax 17 gram/dose Oral powd 17 g once daily 3. Motrin 800 mg Oral tab prn (Last dose: 08/03/2016 05:00) 4. Amoxicillin Unknown Oral 2 times per day (Last dose: 08/02/2016) 5. Cipro 500 mg Oral tab 1 tab every 12 hours - PMHx: Anxiety; Depression; Endometriosis; Frequent UTI's; Hernia; Migraines; - PSHx: ; - Social history: Smoking status: Patient states was never smoker of tobacco. No barriers to communication noted, The patient speaks fluent Indonesian, Speaks appropriately for age. - Family history: Not pertinent. - : The pt / caregiver states he / she is not on anticoagulants. Home medication list is obtained from the patient. - Exposure Risk Screening:: None identified. Screenin:55 Screening information is obtained from the patient. Fall risk: No risks identified. dwg Assistance ADL's: requires no assistance with activities of daily living. Abuse/DV Screen: The patient / caregiver reports he/she is: not in a situation that causes fear, pain or injury. Nutritional screening: No deficits noted. Advance Directives: Currently, there is no health care proxy. There is no active DNR order. There is no living will. There is no Power of [employer]. Advance directive information has not previously been placed in an [facility] medical record. Further advance directive information is declined. home support is adequate. Assessment: 09:53 General: States feeling less pain to head since IM Toradol . dwg 09:54 General: Appears in no apparent distress, Behavior is cooperative. Pain: Pain. dwg Neurological: Level of Consciousness is awake, alert, Oriented to person, place, time. Respiratory: Airway is patent Respiratory effort is even, unlabored, Respiratory pattern is regular, symmetrical. 10:05 Reassessment: Patient appears in no apparent distress at this time. Patient states srm symptoms have improved. Vital Signs: 09:03 BP 114 / 63; Pulse 93; Resp 18; Temp 100.0(O); Pulse Ox 97% on R/A; Weight 77.11 kg; dem1 Height 5 ft. 3 in. (160.02 cm); Pain 10/10; 09:53 BP 126 / 66; Pulse 104; Resp 20; Temp 101.0(O); Pulse Ox 98% on R/A; Pain 7/10; dwg 09:03 Body Mass Index 30.11 (77.11 kg, 160.02 cm) [facility] Vitals: 09:03 Log In Time: August 03, 2016 at 08:59. [facility] ED Course: 09:03 Patient visited by Gaby Lancaster. dem1 09:03 Carmine Mcknight is Private Physician. dem1 09:03 [facility] Agee [facility] cc10 09:03 Kenny Matson MD is Attending Physician. cc10 09:03 Patient moved to Waiting dem1 09:04 Patient visited by Gaby Lancaster. dem1 09:04 Patient moved to Pre RCE dem1 09:06 Triage Initiated srm 09:08 Patient moved to Triage 2 srm 09:09 Patient visited by Darin Agee PA-C. cc10 09:09 Patient visited by Darin Agee PA-C. cc10 09:19 REPLACED BY [facility] Payment Agreement was scanned into [employer] and attached to record. mm15 09:54 Patient visited by Eric Hope RN. dwg 10:00 Carmine Mcknight is Referral Physician. cc10 10:05 The patient / caregiver is instructed regarding the plan of care and ED course. Patient srm has correct armband on for positive identification. 10:05 No IV's were initiated during this patient's visit. No procedures done that require srm assistance. 18:51 T-Sheet-- Draft Copy was scanned into [employer] and attached to record. klr Administered Medications: 09:26 Drug: ketorolac 60 mg [ketorolac 30 mg/mL (1 mL) injection solution (2 mL)] Route: IM; dwg Site: right gluteus; 09:54 Follow up: Response: Pain is decreased dw 09:43 CANCELLED (Other Intervention Used): Cephalexin 500 mg PO once cc10 Order Results: There are currently no results for this order. Outcome: 10:00 Discharge ordered by Provider. cc10 10:05 Discharge Assessment: Patient awake, alert and oriented x 3. No cognitive and/or srm functional deficits noted. Patient verbalized understanding of disposition instructions. patient administered narcotics - no. The following High Risk Discharge criteria are identified: None. Discharged to home ambulatory. Condition: good Condition: stable. Discharge instructions given to patient, Instructed on discharge instructions, follow up and referral plans. medication usage, Demonstrated understanding of instructions, medications, Pt was receptive of discharge instructions/ teaching. Prescriptions given X 3. No special radiology studies were completed. Property :Personal belongings accompany Pt. 10:06 Patient left the ED. srm Signatures: Eric Hope RN RN [facility] Suzy Kelly RN RN [facility] Tonny Loucourtneyshilparas dem1 Lubna Haynes mm15 Darin Agee PA-C PA-C cc10 Diana Mcgrath klray Chart Complete MTDD
== END 2016-08-03 10:06 | disposition home or self-care (01) ==
LOC: M ED 09:00
DX: J02.0 Streptococcal pharyngitis (principal); R51 Headache; F41.9 Anxiety disorder, unspecified; F32.9 Major depressive disorder, single episode, unspecified; N80.9 Endometriosis, unspecified; Z87.440 Personal history of urinary (tract) infections; K46.9 Unspecified abdominal hernia without obstruction or gangrene; Z79.899 Other long term (current) drug therapy
CPT/HCPCS: 96372; 99283; J1885

== ENCOUNTER → 2016-08-15 | Outpatient (CLI) | payer BC, OTHER, MEDICAID ==
[2016-08-15 18:17] LABS: PROLACTIN 6.2 NG/ML
== END ==
LOC: M SMT 14:04
PROVIDERS: ATTEND Obstetrics & Gynecology
DX: N97.9 Female infertility, unspecified (principal)

== ENCOUNTER 2016-09-11 12:35 | Emergency (ER) | payer BC, OTHER, MEDICAID ==
[~2016-09-11] VITALS: Ht 160 cm; Wt 72.6 kg
[2016-09-11 16:01] LABS: BASO % 0.5 % (0.0-1.0); EOS # 0.2 K/mm3 (0.0-0.50); EOS % 2.3 % (0.0-3.0); LARGE UNSTAINED CELL # 0.2 K/mm3 (0.0-0.4); LARGE UNSTAINED CELL % 2.1 % (0.0-4.0); LYMPH # 2.6 K/mm3 (1.5-6.5); LYMPH % 26.5 % (24.0-44.0); MEAN CORPUSCULAR HEMOGLOBIN 31.3 pg (27.0-33.0); MEAN CORPUSCULAR HGB CONC 33.9 g/dl (32.0-36.5); MEAN CORPUSCULAR VOLUME 92.3 fl (80.0-96.0); MONO # 0.5 K/mm3 (0.0-0.8); MONO % 4.9 % (0.0-5.0); NEUTROPHILS # 5.8 K/mm3 (1.8-7.7); NEUTROPHILS % 63.7 % (36.0-66.0); PLATELET COUNT, AUTOMATED 272 k/mm3 (150-450); RED CELL DISTRIBUTION WIDTH 12.3 % (11.5-14.5); WHITE BLOOD COUNT 9.2 K/mm3 (4.0-10.0)
--- NOTE | 2016-09-11 16:16 | REP ---
ABDOMINAL SERIES: Supine and erect views of the abdomen demonstrate no evidence of free air and no evidence for bowel obstruction. No abnormal calcifications are seen. The lungs are clear. Visualized osseous structures are intact. Heart and mediastinum are within normal limits. IMPRESSION: Negative abdominal series. Signed by Eric Barnard MD 09/11/2016 04:43 P
[2016-09-11 16:22] LABS: ANION GAP 7 MEQ/L (8-16); BLOOD UREA NITROGEN 19 MG/DL (7-18); CALCIUM LEVEL 8.7 MG/DL (8.5-10.1); CARBON DIOXIDE LEVEL 24 MEQ/L (21-32); CHLORIDE LEVEL 109 MEQ/L (98-107); CREATININE FOR GFR 0.79 MG/DL (0.55-1.02); GLOMERULAR FILTRATION RATE > 60.0 (>60); GLUCOSE, FASTING 88 MG/DL (70-105); SODIUM LEVEL 140 MEQ/L (136-145)
--- NOTE | 2016-09-11 16:49 | REP ---
PELVIC ULTRASOUND: Real-time sonographic evaluation of the pelvis performed utilizing transabdominal and endovaginal technique. The bladder measures 3.9 x 2.3 x 3.7 cm. The uterus measures 7.2 x 3.6 x 5.5 cm. There is a somewhat septate configuration to the uterus with right-sided endometrium measuring 6 mm in thickness and left side 4 mm. The uterus is retroverted. Ovaries appear normal in size and echotexture, the right ovary measuring 2.8 x 2.3 x 2.8 cm and left ovary 3.8 x 2.2 x 3.7 cm. There is no adnexal mass. There is no evidence of ovarian torsion with blood flow seen in each ovary with duplex Doppler evaluation, RI of the right ovary 0.26 and left ovary 0.37. Trace free fluid is seen. IMPRESSION: Negative pelvic ultrasound. Signed by Eric Barnard MD 09/12/2016 08:34 A
[2016-09-11] MEDS ORDERED: FLAG500T PO (17:44)
[2016-09-11] MEDS ORDERED: NAPR500T2 PO (17:44)
[2016-09-11 18:11] VITALS: BP 122/77
== END 2016-09-11 18:14 | disposition home or self-care (01) ==
LOC: M ED 15:12
DX: N93.0 Postcoital and contact bleeding (principal); N76.0 Acute vaginitis; Z87.440 Personal history of urinary (tract) infections; K42.9 Umbilical hernia without obstruction or gangrene; F17.210 Nicotine dependence, cigarettes, uncomplicated

== ENCOUNTER 2016-09-16 09:22 | Emergency (ER) | payer BC, OTHER, MEDICAID ==
[~2016-09-16] VITALS: Ht 160 cm; Wt 72.6 kg
[~2016-09-16 09:22] MED LIST changes: +FLAG500T PO; +NAPR500T2 PO
[2016-09-16] MEDS ORDERED: KETO10TAB PO (10:36)
[2016-09-16 11:11] LABS: CONTROL LINE HCG INT CTR LINE PRESENT
[2016-09-16] MEDS ORDERED: KETOROLAC 60 MG/2 ML VIAL (J1885) IM ONE (11:30)
[2016-09-16 12:19] VITALS: BP 115/75
== END 2016-09-16 12:40 | disposition home or self-care (01) ==
LOC: M ED 10:35
DX: R10.2 Pelvic and perineal pain (principal); F17.210 Nicotine dependence, cigarettes, uncomplicated; Z88.0 Allergy status to penicillin; Z79.899 Other long term (current) drug therapy
CPT/HCPCS: 36415; 84703; 96372; 99282; J1885

== ENCOUNTER 2016-09-22 17:23 | Emergency (ER) | payer BC, OTHER, MEDICAID ==
[~2016-09-22] VITALS: Ht 160 cm; Wt 77.1 kg
[~2016-09-22 17:23] MED LIST changes: +KETO10TAB PO
[2016-09-22] MEDS ORDERED: CIPR500T89 PO (17:30)
[2016-09-22] MEDS ORDERED: IBUP600T26 PO (17:30)
[2016-09-22] MEDS ORDERED: NS 1,000 ML IV ONE (17:45)
[2016-09-22 18:22] LABS: BASO % 0.5 % (0.0-1.0); EOS # 0.2 K/mm3 (0.0-0.50); EOS % 3.6 % (0.0-3.0); LARGE UNSTAINED CELL # 0.3 K/mm3 (0.0-0.4); LYMPH # 1.5 K/mm3 (1.5-6.5); LYMPH % 28.1 % (24.0-44.0); MEAN CORPUSCULAR HEMOGLOBIN 30.7 pg (27.0-33.0); MEAN CORPUSCULAR HGB CONC 33.4 g/dl (32.0-36.5); MONO # 0.4 K/mm3 (0.0-0.8); MONO % 7.3 % (0.0-5.0); NEUTROPHILS # 2.9 K/mm3 (1.8-7.7); NEUTROPHILS % 55.5 % (36.0-66.0); PLATELET COUNT, AUTOMATED 218 k/mm3 (150-450); RED CELL DISTRIBUTION WIDTH 12.3 % (11.5-14.5); WHITE BLOOD COUNT 5.2 K/mm3 (4.0-10.0)
[2016-09-22 18:40] LABS: CONTROL LINE HCG INT CTR LINE PRESENT
[2016-09-22 18:46] LABS: ANION GAP 7 MEQ/L (8-16); BLOOD UREA NITROGEN 13 MG/DL (7-18); CALCIUM LEVEL 8.2 MG/DL (8.5-10.1); CARBON DIOXIDE LEVEL 25 MEQ/L (21-32); CHLORIDE LEVEL 108 MEQ/L (98-107); CREATININE FOR GFR 0.77 MG/DL (0.55-1.02); GLOMERULAR FILTRATION RATE > 60.0 (>60); GLUCOSE, FASTING 79 MG/DL (70-105); POTASSIUM SERUM 3.8 MEQ/L (3.5-5.1); SODIUM LEVEL 140 MEQ/L (136-145)
[2016-09-22 20:16] LABS: METHADONE URINE NEGATIVE (NEGATIVE)
[2016-09-22 20:43] VITALS: BP 112/68
--- NOTE | 2016-09-23 08:50 | REP ---
REASON: Syncope. COMPARISON: Frontal view obtained as part of an abdominal series, 09/11/2016. FINDINGS: The technique utilized in obtaining the radiograph has magnified the cardiac silhouette and accentuated the interstitial markings. The superior mediastinal structures are midline. The cardiac silhouette is unremarkable in size, shape, and position. The diaphragmatic surfaces of the lungs are regular, and the costophrenic angles are clear. The pulmonary dial are clear. The imaged osseous structures are intact. IMPRESSION: There is no acute cardiopulmonary disease. Signed by Augustin Roque DO 09/23/2016 08:51 A
--- NOTE | 2016-09-23 09:21 | ECGEPIP ---
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
== END 2016-09-22 20:46 | disposition home or self-care (01) ==
LOC: M ED 17:52
DX: R55 Syncope and collapse (principal); F17.200 Nicotine dependence, unspecified, uncomplicated; Z88.0 Allergy status to penicillin
CPT/HCPCS: 71010; 80048; 80306; 81001; 82550; 82553; 84443; 84703; 85025; 87086; 93005; 93041; 99284; G0480

== ENCOUNTER → 2016-10-17 | Outpatient (CLI) | payer BC, OTHER, MEDICAID ==
[~2016-10-17] MED LIST changes: +CIPR500T89 PO; +IBUP600T26 PO
--- NOTE | 2016-10-18 02:28 | REP ---
Clinical: Pain . Technique: AP, lateral, bilateral oblique, and coned-down views. Findings: Alignment and lordosis is maintained. The vertebral bodies including transverse process and spinous processes are intact and normal. There is no evidence for acute fracture / compression injury or subluxation. No evidence for spondylolysis or spondylolisthesis. No significant degenerative change is noted. Impression: Normal lumbosacral spine radiograph series. Signed by Omer Wyman MD 10/18/2016 02:19 A
== END ==
LOC: M WUC 13:45
PROVIDERS: ATTEND Physician Assistant
DX: M54.5 Low back pain (principal)

== ENCOUNTER 2016-10-25 06:06 | Emergency (ER) | payer BC, OTHER, MEDICAID ==
[~2016-10-25] VITALS: Ht 160 cm; Wt 72.6 kg
[2016-10-25 06:10] VITALS: BP 136/86
[2016-10-25] MEDS ORDERED: CEFD1CAP8 PO (06:43)
[2016-10-25] MEDS ORDERED: LIDO1SOL7 MT (06:43)
[2016-10-25] MEDS ORDERED: CEFDINIR 300 MG CAP (OMNICEF) PO ONE (06:45)
[2016-10-25] MEDS ORDERED: ACETAMINOPHEN TAB 650MG DOSE (2X325MG) PO ONE (06:45)
[2016-10-25] MEDS ORDERED: diphenhydrAMINE 25 MG CAP PO ONE (06:45)
[2016-10-25] MEDS ORDERED: BENA25CA4 PO (07:04)
== END 2016-10-25 07:08 | disposition home or self-care (01) ==
LOC: M ED 06:48
DX: J02.9 Acute pharyngitis, unspecified (principal); F17.200 Nicotine dependence, unspecified, uncomplicated; Z88.0 Allergy status to penicillin

== ENCOUNTER → 2016-11-01 | Outpatient (REF) | payer OTHER, MEDICAID ==
[~2016-11-01] MED LIST changes: +BENA25CA4 PO; +CEFD1CAP8 PO; +LIDO1SOL7 MT
== END ==
LOC: M WUC 15:34
PROVIDERS: ATTEND Physician Assistant
DX: R30.0 Dysuria (principal); J02.9 Acute pharyngitis, unspecified

== ENCOUNTER 2016-12-04 19:34 | Emergency (ER) | payer BC, OTHER, MEDICAID ==
[~2016-12-04] VITALS: Ht 160 cm; Wt 76.3 kg
[~2016-12-04 19:34] MED LIST changes: +CIPR-249 PO; -CIPR500T89 PO; +IBUP-1022 PO; -IBUP600T26 PO; -NAPR500T2 PO; +NAPR500T3 PO
[2016-12-04] MEDS ORDERED: MIRA3350 PO (20:47)
[2016-12-04 20:53] VITALS: BP 121/63
--- NOTE | 2016-12-04 20:54 | REP ---
Clinical: Distension and abdominal pain. Technique: Upright view of the chest with supine and upright views of the abdomen and pelvis. Findings: Frontal upright view of the chest demonstrates no acute cardiopulmonary process or free air below the diaphragm to suspect pneumoperitoneum. Supine and upright views of the abdomen and pelvis demonstrate nonspecific bowel gas pattern without obstruction or perforation. Moderate fecal stasis and possible constipation suggested. No organomegaly. No abnormal calcifications. Skeletal structures normal for age. Impression: Moderate fecal stasis and constipation suggested. No bowel obstruction or perforation appreciated. Signed by Omer Wyman MD 12/04/2016 08:46 P
[2016-12-14] MEDS ORDERED: NORC1TAB4 PO (12:11)
[2016-12-17] MEDS ORDERED: OXYC1TAB23 PO (14:23)
== END 2016-12-04 21:10 | disposition home or self-care (01) ==
LOC: M ED 19:34
DX: K59.00 Constipation, unspecified (principal); F17.200 Nicotine dependence, unspecified, uncomplicated; Z88.1 Allergy status to other antibiotic agents

== ENCOUNTER → 2016-12-14 | Day surgery (SDC) | payer BC, OTHER, MEDICAID ==
[~2016-12-14] VITALS: Ht 160 cm; Wt 74.4 kg
[~2016-12-14] MED LIST changes: +BUPIVACAINE HCL 0.25% 30 ML VIAL As Ordered ONE; +COLA100C5 PO; +DEBR6.5S4 AU; +GLYCOPYRROLATE INJ 0.2 MG/ML 2 ML VIAL As Ordered ONE; +HYDR-3363; +HYDR-3363 PO; +HYDROmorphone HCL 1 MG/ML SYRINGE (J1170) As Ordered ONE; +KETOROLAC 30 MG/ML VIAL (J1885) IV PRN; +KETOROLAC 60 MG/2 ML VIAL (J1885) As Ordered ONE; +LIDOCAINE 1% SDV INJ 30 ML VIAL As Ordered ONE; +LIDOCAINE 2% INJ 100 MG/5 ML SDV (FOR ANES.) As Ordered ONE; +LR 1,000 ML IV ONE; +LR 1,000 ML IV SCH; +LevoFLOXacin IV 500 MG in APPROPRIATE DILUENT 1 EA IV ONE; +MICOCRE PV; +MIDAZOLAM INJ 2 MG/2 ML VIAL (J2250) As Ordered ONE; +MIRA3350 PO; +NAPR500T3; +NEOSTIGMINE 1MG/ML 5 ML SYRINGE (J2710) As Ordered ONE; +NORC1TAB4 PO; +NORCO, ANEXSIA 5/325MG TABLET (HYDROcodone/ACETAMINOPHEN) PO PRN; +ONDANSETRON 4MG/2ML VIAL (J2405) As Ordered ONE; +ONDANSETRON 4MG/2ML VIAL (J2405) IV PRN; +OXYC1TAB23 PO; +PARO20TA3 PO; +PERCOCET 5MG/325MG TAB As Ordered ONE; +PRED20TA; +PROPOFOL 200 MG/20 ML VIAL As Ordered ONE; +ROCURONIUM BROMIDE 50 MG/5 ML VIAL/SYRINGE As Ordered ONE; +TRAM50TA2 PO; +TRAZ-136 PO; +TRAZ50TA11 PO; +dexameTHASONE 4 MG/ML 1ML VIAL (J1100) As Ordered ONE; +fentaNYL 100 MCG/2 ML INJECTION (J3010) As Ordered ONE; +fentaNYL 250 MCG/5 ML INJECTION (J3010) As Ordered ONE
[2016-12-14 08:43] LABS: CONTROL LINE UCG INT CTR LINE PRESENT
[2016-12-14] MEDS: fentaNYL 100 MCG/2 ML INJECTION (J3010) IV PRN ×4 (12:14→12:31)
[2016-12-14] MEDS: PERCOCET 5MG/325MG TAB PO PRN ×2 (12:30→13:00)
[2016-12-14] MEDS: HYDROmorphone HCL 1 MG/ML SYRINGE (J1170) IV PRN ×5 (12:43→13:16)
[2016-12-14 15:30] VITALS: BP 112/53
--- NOTE | 2017-01-09 06:42 | ROOPDOC ---
[facility] Report Of Operation Report of Operation DATE OF PROCEDURE: 12/14/2016 PREPROCEDURE DIAGNOSES: Umbilical hernia,. POSTPROCEDURE DIAGNOSES: Umbilical and supraumbilical hernia. PROCEDURE: Laparoscopic repair umbilical hernia. SURGEON: Tamica Montes MD RENTAL MANAGEMENT TRAINEE: ANESTHESIA: Gen. ESTIMATED BLOOD LOSS: Approximately 5 mL. COMPLICATIONS: 9. REMARKS: 12 cm Parietex composite mesh was placed as intraperitoneal onlay mesh. PROCEDURE NOTE: 0.2-year-old female with symptomatic umbilical hernia on examination here for elective repair of her hernia.. DESCRIPTION OF PROCEDURE: Patient received a dose of Ancef 2 g IV preoperatively. She is brought to the operating room in supine table. Compression boots placed extremities for DVT prophylaxis. General endotracheal anesthesia started. Her abdomen then prepped and draped in usual sterile fashion. Entry to the abdomen done through an incision on her left upper quadrant area. Veress needle was inserted in a controlled fashion. CO2 insufflation and started pressure 15 mmHg. Using the same incision a 5 mm Visiport was placed under direct vision laparoscope. The area underneath the insertion site was inspected and no injury was found. She was placed in stress slight left lateral decubitus position. A second working port was placed over the left lower quadrant area. Operative findings: After full dissection of the area around the umbilicus a 2 cm fascial defect was found just above the umbilical cleft containing preperitoneal fat with a resulting palpable nodularity above this extending about 4 cm just above her umbilicus. And this was reduced back into the abdomen. The area underneath the umbilical cleft itself also has a small defect. Due to this 2 distinct defects are closed with another I chose a 12 cm (composite mesh to adequately cover the defect with about a 4 cm overlap circumferentially. 0 Vicryl stay sutures were placed at the 4 cardinal corners of the mesh. This is rolled tightly and placed into the abdomen through the left upper quadrant port site. This was unrolled inside the abdomen with the smooth side facing the bowels. The stay sutures were pulled transabdominally with the use of a Lobo Yee device to center the mesh at the defect. We decreased the pressure to 10 mmHg. 2 rows of trans fascial tacks was then placed using SecureStrap device. After making sure that the mesh was adequately adhered to the abdominal wall and the transabdominal sutures were tied off. We surveyed the abdomen no injury or bleeding found at the surgical site. The abdomen was then deflated. All ports were removed. Testis were all less than a centimeter defect only the skin was closed with 4-0 Monocryl in subcuticular fashion. Dermabond was then used for wound dressing patient was properly awake and extubated and brought to recovery room stable TAMICA MONTES MD Jan 09, 2017 06:42
== END | disposition home or self-care (01) ==
LOC: M SDC 07:58
PROVIDERS: ATTEND Surgery
DX: K42.9 Umbilical hernia without obstruction or gangrene (principal); F41.9 Anxiety disorder, unspecified; F32.9 Major depressive disorder, single episode, unspecified; Z88.0 Allergy status to penicillin; F17.210 Nicotine dependence, cigarettes, uncomplicated
CPT/HCPCS: 49652; 84703; C1781; J1100; J1170; J1885; J1956; J2250; J2405; J2710; J3010

== ENCOUNTER 2016-12-15 21:16 | Emergency (ER) | payer BC, OTHER, MEDICAID ==
[~2016-12-15] VITALS: Ht 160 cm; Wt 75.0 kg
[~2016-12-15 21:16] MED LIST changes: -BUPIVACAINE HCL 0.25% 30 ML VIAL As Ordered ONE; -COLA100C5 PO; -DEBR6.5S4 AU; -GLYCOPYRROLATE INJ 0.2 MG/ML 2 ML VIAL As Ordered ONE; -HYDR-3363; -HYDR-3363 PO; -HYDROmorphone HCL 1 MG/ML SYRINGE (J1170) As Ordered ONE; -KETOROLAC 30 MG/ML VIAL (J1885) IV PRN; -KETOROLAC 60 MG/2 ML VIAL (J1885) As Ordered ONE; -LIDOCAINE 1% SDV INJ 30 ML VIAL As Ordered ONE; -LIDOCAINE 2% INJ 100 MG/5 ML SDV (FOR ANES.) As Ordered ONE; -LR 1,000 ML IV ONE; -LR 1,000 ML IV SCH; -LevoFLOXacin IV 500 MG in APPROPRIATE DILUENT 1 EA IV ONE; -MICOCRE PV; -MIDAZOLAM INJ 2 MG/2 ML VIAL (J2250) As Ordered ONE; -NAPR500T3; -NEOSTIGMINE 1MG/ML 5 ML SYRINGE (J2710) As Ordered ONE; -NORCO, ANEXSIA 5/325MG TABLET (HYDROcodone/ACETAMINOPHEN) PO PRN; -ONDANSETRON 4MG/2ML VIAL (J2405) As Ordered ONE; -ONDANSETRON 4MG/2ML VIAL (J2405) IV PRN; -OXYC1TAB23 PO; -PARO20TA3 PO; -PERCOCET 5MG/325MG TAB As Ordered ONE; -PRED20TA; -PROPOFOL 200 MG/20 ML VIAL As Ordered ONE; -ROCURONIUM BROMIDE 50 MG/5 ML VIAL/SYRINGE As Ordered ONE; -TRAM50TA2 PO; -TRAZ-136 PO; -TRAZ50TA11 PO; -dexameTHASONE 4 MG/ML 1ML VIAL (J1100) As Ordered ONE; -fentaNYL 100 MCG/2 ML INJECTION (J3010) As Ordered ONE; -fentaNYL 250 MCG/5 ML INJECTION (J3010) As Ordered ONE
[2016-12-15] MEDS ORDERED: MORPHINE 4 MG/ML 1ML SYRINGE IV ONE (22:00)
[2016-12-15] MEDS ORDERED: ONDANSETRON 4MG/2ML VIAL (J2405) IV ONE (22:00)
[2016-12-15] MEDS ORDERED: NS 1,000 ML IV ONE (22:00)
[2016-12-15 22:22] LABS: BASO # 0.1 K/mm3 (0.0-0.2); BASO % 0.9 % (0.0-1.0); EOS # 0.2 K/mm3 (0.0-0.50); EOS % 2.1 % (0.0-3.0); LARGE UNSTAINED CELL # 0.1 K/mm3 (0.0-0.4); LARGE UNSTAINED CELL % 1.6 % (0.0-4.0); LYMPH # 2.7 K/mm3 (1.5-6.5); LYMPH % 35.8 % (24.0-44.0); MEAN CORPUSCULAR HEMOGLOBIN 30.3 pg (27.0-33.0); MEAN CORPUSCULAR HGB CONC 34.3 g/dl (32.0-36.5); MEAN CORPUSCULAR VOLUME 88.6 fl (80.0-96.0); MONO # 0.4 K/mm3 (0.0-0.8); MONO % 5.7 % (0.0-5.0); NEUTROPHILS # 3.9 K/mm3 (1.8-7.7); NEUTROPHILS % 53.9 % (36.0-66.0); PLATELET COUNT, AUTOMATED 205 k/mm3 (150-450); WHITE BLOOD COUNT 7.3 K/mm3 (4.0-10.0)
[2016-12-15 22:32] LABS: INR 0.98
[2016-12-15 22:48] LABS: ALBUMIN 3.6 GM/DL (3.2-5.2); ALBUMIN/GLOBULIN RATIO 1.16 (1.00-1.93); ALKALINE PHOSPHATASE 80 U/L (45-117); ALT/SGPT 23 U/L (12-78); ANION GAP 5 MEQ/L (8-16); AST/SGOT 16 U/L (15-37); BILIRUBIN,DIRECT < 0.1 MG/DL (0.0-0.2); BILIRUBIN,TOTAL 0.2 MG/DL (0.2-1.0); BLOOD UREA NITROGEN 11 MG/DL (7-18); CARBON DIOXIDE LEVEL 27 MEQ/L (21-32); CHLORIDE LEVEL 110 MEQ/L (98-107); CREATININE FOR GFR 0.74 MG/DL (0.55-1.02); GLOMERULAR FILTRATION RATE > 60.0 (>60); GLUCOSE, FASTING 129 MG/DL (70-105); POTASSIUM SERUM 4.1 MEQ/L (3.5-5.1); SODIUM LEVEL 142 MEQ/L (136-145); TOTAL PROTEIN 6.7 GM/DL (6.4-8.2)
[2016-12-15] MEDS ORDERED: ISOVUE-370 76% 100ML VIAL (Q9967) As Ordered ONE (23:03)
--- NOTE | 2016-12-15 23:50 | REPUSA ---
CT of the abdomen and pelvis with contrast Clinical statement: Pain. Patient status post hernia repair. Technique: Multiple axial CT images were obtained from the base of the lungs through the floor of the pelvis utilizing 5 mm axial slices after administration of nonionic intravenous contrast. Coronal an d sagittal reconstructions were also obtained. Comparison: 07/30/2016. Findings: Chest: The visualized lung bases are clear. Abdomen: At the umbilicus, postsurgical changes with a small fluid collection and subcutaneous emphys fern is noted. Small amount of free air is seen in the gallbladder fossa. No bowel is seen herniating at the site. The pancreas, kidneys, gallbladder, and adrenal glands are unremarkable. The liver is en larged measuring 21.1 cm. The spleen is enlarged, measuring 17.6 cm. The aorta is within normal limit s. There is no evidence of abdominal lymphadenopathy or ascites. Pelvis: The bowel is unremarkable, with no obstructive or inflammatory changes. The urinary bladder i s within normal limits. The other pelvic structures appear grossly intact. There is no evidence of pe lvic lymphadenopathy. There is a trace amount of free fluid in the cul-de-sac. Bones: There are no suspicious osseous abnormalities seen. Impression: 1. Postsurgical changes as described including small amount of subcutaneous and intraperitoneal air, and small postsurgical contusion in the umbilical hernia site. No evidence of a hernia is seen at thi s time. 2. No obstructive or inflammatory bowel changes. 3. Hepatosplenomegaly.
[2016-12-16] MEDS ORDERED: OXYC1TAB23 PO (00:18)
[2016-12-16] MEDS ORDERED: COLA100C5 PO (00:18)
[2016-12-16 00:32] VITALS: BP 119/67
[2016-12-17] MEDS ORDERED: OXYC1TAB23 PO (14:23)
== END 2016-12-16 00:34 | disposition home or self-care (01) ==
LOC: M ED 21:16
DX: G89.18 Other acute postprocedural pain (principal); K59.00 Constipation, unspecified; Z98.890 Other specified postprocedural states; R11.0 Nausea; H92.03 Otalgia, bilateral; F17.210 Nicotine dependence, cigarettes, uncomplicated; Z88.0 Allergy status to penicillin
CPT/HCPCS: 74177; 80048; 80076; 81025; 85025; 85610; 85730; 96374; 96375; 99283; J2405; Q9967

== ENCOUNTER 2017-01-04 08:44 | Emergency (ER) | payer BC, OTHER, MEDICAID ==
[~2017-01-04] VITALS: Ht 160 cm; Wt 73.2 kg
[~2017-01-04 08:44] MED LIST changes: +COLA100C5 PO; +OXYC1TAB23 PO
[2017-01-04] MEDS ORDERED: ONDANSETRON 4 MG ORAL DISINTEGRATING TAB (S0181) PO ONE (09:15)
[2017-01-04] MEDS ORDERED: MICOCRE PV (10:20)
[2017-01-04] MEDS ORDERED: FLAG500T PO (10:25)
[2017-01-04 10:33] VITALS: BP 128/72
== END 2017-01-04 10:49 | disposition home or self-care (01) ==
LOC: M ED 08:44
DX: N76.0 Acute vaginitis (principal); R10.2 Pelvic and perineal pain; Z88.0 Allergy status to penicillin

== ENCOUNTER → 2017-01-24 | Outpatient (REF) | payer OTHER, MEDICAID ==
[~2017-01-24] MED LIST changes: +DEBR6.5S4 AU; +HYDR-3363; +HYDR-3363 PO; +MICOCRE PV; +NAPR500T3; +PARO20TA3 PO; +PRED20TA; +TRAM50TA2 PO; +TRAZ-136 PO; +TRAZ50TA11 PO
[2017-02-12 11:57] LABS: CALCIUM OXALATE CRYSTALS SMALL
[2017-02-12 12:00] LABS: MICROSCOPIC INDICATED? NO (NO)
== END ==
LOC: M LAB REF 17:10
PROVIDERS: ATTEND Physician Assistant Medical
DX: R30.0 Dysuria (principal); Z53.9 Procedure and treatment not carried out, unspecified reason

== ENCOUNTER 2017-01-29 22:53 | Emergency (ER) | payer BC, OTHER, MEDICAID ==
[~2017-01-29] VITALS: Ht 160 cm; Wt 72.7 kg
[~2017-01-29 22:53] MED LIST changes: -DEBR6.5S4 AU; -HYDR-3363; -HYDR-3363 PO; -NAPR500T3; -PARO20TA3 PO; -PRED20TA; -TRAM50TA2 PO; -TRAZ-136 PO; -TRAZ50TA11 PO
[2017-01-30] MEDS ORDERED: NS 1,000 ML IV ONE (00:30)
[2017-01-30] MEDS ORDERED: MORPHINE 4 MG/ML 1ML SYRINGE IV ONE (01:00)
[2017-01-30 01:03] LABS: CONTROL LINE HCG INT CTR LINE PRESENT
[2017-01-30 01:10] LABS: ALBUMIN 3.6 GM/DL (3.2-5.2); ALBUMIN/GLOBULIN RATIO 0.95 (1.00-1.93); ALKALINE PHOSPHATASE 63 U/L (45-117); ALT/SGPT 16 U/L (12-78); ANION GAP 6 MEQ/L (8-16); AST/SGOT 10 U/L (15-37); BILIRUBIN,DIRECT < 0.1 MG/DL (0.0-0.2); BILIRUBIN,TOTAL 0.4 MG/DL (0.2-1.0); BLOOD UREA NITROGEN 14 MG/DL (7-18); CALCIUM LEVEL 8.7 MG/DL (8.5-10.1); CARBON DIOXIDE LEVEL 29 MEQ/L (21-32); CHLORIDE LEVEL 107 MEQ/L (98-107); CREATININE FOR GFR 0.74 MG/DL (0.55-1.02); GLOMERULAR FILTRATION RATE > 60.0 (>60); GLUCOSE, FASTING 84 MG/DL (70-105); POTASSIUM SERUM 3.5 MEQ/L (3.5-5.1); SODIUM LEVEL 142 MEQ/L (136-145); TOTAL PROTEIN 7.4 GM/DL (6.4-8.2)
[2017-01-30 01:27] LABS: BASO # 0.1 K/mm3 (0.0-0.2); BASO % 0.9 % (0.0-1.0); EOS # 0.2 K/mm3 (0.0-0.50); EOS % 3.2 % (0.0-3.0); LARGE UNSTAINED CELL # 0.2 K/mm3 (0.0-0.4); LARGE UNSTAINED CELL % 2.6 % (0.0-4.0); LYMPH # 2.2 K/mm3 (1.5-6.5); LYMPH % 30.9 % (24.0-44.0); MEAN CORPUSCULAR HEMOGLOBIN 31.1 pg (27.0-33.0); MEAN CORPUSCULAR HGB CONC 35.3 g/dl (32.0-36.5); MEAN CORPUSCULAR VOLUME 88.2 fl (80.0-96.0); MONO # 0.5 K/mm3 (0.0-0.8); NEUTROPHILS % 55.4 % (36.0-66.0); PLATELET COUNT, AUTOMATED 221 k/mm3 (150-450); RED CELL DISTRIBUTION WIDTH 13.8 % (11.5-14.5); WHITE BLOOD COUNT 7.3 K/mm3 (4.0-10.0)
[2017-01-30 02:37] VITALS: BP 108/62
[2017-01-30] MEDS ORDERED: TRAM50TA2 PO (02:56)
[2017-01-30] MEDS ORDERED: NAPR500T3 PO (02:56)
[2017-01-30] MEDS ORDERED: KETOROLAC 30 MG/ML VIAL (J1885) IV ONE (03:00)
[2017-01-30] MEDS ORDERED: traMADol 50 MG TAB (BULK 4 TAB ED) PO ONE (03:00)
== END 2017-01-30 03:23 | disposition home or self-care (01) ==
LOC: M ED 22:53
DX: M54.2 Cervicalgia (principal); M54.30 Sciatica, unspecified side; G89.29 Other chronic pain; R10.9 Unspecified abdominal pain; F17.200 Nicotine dependence, unspecified, uncomplicated; F10.10 Alcohol abuse, uncomplicated; Z88.0 Allergy status to penicillin
CPT/HCPCS: 80048; 80076; 81001; 83690; 84703; 85025; 87086; 87210; 87491; 87591; 96361; 96374; 96375; 99284; G0480; J1885

== ENCOUNTER 2017-02-08 11:50 | Emergency (ER) | payer BC, OTHER, MEDICAID ==
[~2017-02-08] VITALS: Ht 160 cm; Wt 72.7 kg
[~2017-02-08 11:50] MED LIST changes: +TRAM50TA2 PO
[2017-02-08] MEDS ORDERED: CIPR-249 PO (12:00)
[2017-02-08] MEDS ORDERED: DEBR6.5S4 AU (13:56)
[2017-02-08 14:05] VITALS: BP 120/75
== END 2017-02-08 14:12 | disposition home or self-care (01) ==
LOC: M ED 11:50
DX: H61.23 Impacted cerumen, bilateral (principal); H66.93 Otitis media, unspecified, bilateral; Z87.440 Personal history of urinary (tract) infections; F32.9 Major depressive disorder, single episode, unspecified; F41.9 Anxiety disorder, unspecified; F17.200 Nicotine dependence, unspecified, uncomplicated; Z88.0 Allergy status to penicillin

== ENCOUNTER 2017-03-01 17:07 | Emergency (ER) | payer BC, OTHER, MEDICAID ==
[~2017-03-01] VITALS: Ht 160 cm; Wt 75.0 kg
[2017-03-01 17:07] VITALS: BP 159/83
[~2017-03-01 17:07] MED LIST changes: +DEBR6.5S4 AU
[2017-03-01] MEDS ORDERED: HYDR-3363 PO (19:58)
[2017-03-01] MEDS ORDERED: hydrOXYzine 25 MG TAB PO ONE (20:00)
== END 2017-03-01 20:24 | disposition home or self-care (01) ==
LOC: M ED 17:07
DX: F41.9 Anxiety disorder, unspecified (principal); F32.9 Major depressive disorder, single episode, unspecified; F17.200 Nicotine dependence, unspecified, uncomplicated; Z88.0 Allergy status to penicillin

== ENCOUNTER 2017-03-14 14:28 | Emergency (ER) | payer BC, OTHER, MEDICAID ==
[~2017-03-14] VITALS: Ht 160 cm; Wt 75.0 kg
[~2017-03-14 14:28] MED LIST changes: +HYDR-3363 PO
[2017-03-14 16:27] VITALS: BP 128/78
== END 2017-03-14 16:28 | disposition home or self-care (01) ==
LOC: M ED 14:28
DX: F19.10 Other psychoactive substance abuse, uncomplicated (principal); F41.9 Anxiety disorder, unspecified; Z88.0 Allergy status to penicillin

== ENCOUNTER → 2017-03-19 | Outpatient (REF) | payer OTHER, MEDICAID ==
[~2017-03-19] MED LIST changes: +HYDR-3363; +NAPR500T3; +PARO20TA3 PO; +PRED20TA; +TRAZ-136 PO; +TRAZ50TA11 PO
== END ==
LOC: M LAB REF 14:48
PROVIDERS: ATTEND Physician Assistant
DX: J02.9 Acute pharyngitis, unspecified (principal)

== ENCOUNTER 2017-03-21 13:00 | Emergency (ER) | payer BC, OTHER, MEDICAID ==
[~2017-03-21] VITALS: Ht 157.5 cm; Wt 77.3 kg
[~2017-03-21 13:00] MED LIST changes: -HYDR-3363; -NAPR500T3; -PARO20TA3 PO; -PRED20TA; -TRAZ-136 PO; -TRAZ50TA11 PO
[2017-03-21 13:02] VITALS: BP 117/75
[2017-03-21] MEDS ORDERED: NAPR500T3 (13:23)
[2017-03-21] MEDS ORDERED: PRED20TA (13:23)
== END 2017-03-21 14:25 | disposition left against medical advice (07) ==
LOC: M ED 13:00
DX: F11.23 Opioid dependence with withdrawal (principal); Z53.21 Procedure and treatment not carried out due to patient leaving prior to being seen by health care provider

== ENCOUNTER 2017-03-24 00:14 | Emergency (ER) | payer BC, OTHER, MEDICAID ==
[~2017-03-24] VITALS: Ht 157.5 cm; Wt 77.3 kg
[~2017-03-24 00:14] MED LIST changes: +NAPR500T3; +PRED20TA
[2017-03-24] MEDS ORDERED: HYDR-3363 (00:23)
[2017-03-24] MEDS ORDERED: TRAZ-136 PO (00:23)
[2017-03-24] MEDS ORDERED: PARO20TA3 PO (00:23)
[2017-03-24] MEDS ORDERED: CEFD1CAP8 PO (01:50)
[2017-03-24 01:58] VITALS: BP 153/85
[2017-03-24] MEDS ORDERED: CEFDINIR 300 MG CAP (OMNICEF) PO ONE (02:00)
== END 2017-03-24 02:02 | disposition home or self-care (01) ==
LOC: M ED 00:14
DX: J01.00 Acute maxillary sinusitis, unspecified (principal); F17.200 Nicotine dependence, unspecified, uncomplicated; Z87.59 Personal history of other complications of pregnancy, childbirth and the puerperium; Z87.440 Personal history of urinary (tract) infections; N80.9 Endometriosis, unspecified; N83.299 Other ovarian cyst, unspecified side; F41.9 Anxiety disorder, unspecified; F32.9 Major depressive disorder, single episode, unspecified; F12.10 Cannabis abuse, uncomplicated; F10.10 Alcohol abuse, uncomplicated; Z79.899 Other long term (current) drug therapy; Z88.0 Allergy status to penicillin

== ENCOUNTER 2017-03-26 20:46 | Emergency (ER) | payer MEDICAID, OTHER ==
[~2017-03-26] VITALS: Ht 160 cm; Wt 77.3 kg
[~2017-03-26 20:46] MED LIST changes: +HYDR-3363; +PARO20TA3 PO; +TRAZ-136 PO
[2017-03-26] MEDS ORDERED: LIDOCAINE VISCOUS 2% SOLN 15ML UDC SS ONE (22:45)
[2017-03-26] MEDS ORDERED: NS 1,000 ML IV ONE (22:45)
[2017-03-26] MEDS ORDERED: KETOROLAC 30 MG/ML VIAL (J1885) IV ONE (22:45)
[2017-03-26 23:10] LABS: BASO # 0.1 10^3/uL (0.0-0.2); BASO % 0.4 % (0.0-1.0); EOS # 0.3 10^3/uL (0.0-0.50); EOS % 1.8 % (0.0-3.0); IMMATURE GRANULOCYTE % 1.2 % (0-0); LYMPH # 3.9 10^3/uL (1.5-6.5); LYMPH % 23.8 % (24.0-44.0); MEAN CORPUSCULAR HEMOGLOBIN 30.7 pg (27.0-33.0); MEAN CORPUSCULAR VOLUME 90.4 fl (80.0-96.0); MONO % 6.2 % (0.0-5.0); NEUTROPHILS # 10.8 10^3/uL (1.8-7.7); NEUTROPHILS % 66.6 % (36.0-66.0); PLATELET COUNT, AUTOMATED 334 10^3/uL (150-450); RED CELL DISTRIBUTION WIDTH 12.6 % (11.5-14.5); WHITE BLOOD COUNT 16.2 10^3/uL (4.0-10.0)
[2017-03-26 23:33] LABS: CONTROL LINE MONO INT CTR LINE PRESENT
[2017-03-26 23:36] LABS: ANION GAP 5 MEQ/L (8-16); BLOOD UREA NITROGEN 12 MG/DL (7-18); CARBON DIOXIDE LEVEL 32 MEQ/L (21-32); CHLORIDE LEVEL 103 MEQ/L (98-107); GLOMERULAR FILTRATION RATE > 60.0 (>60); GLUCOSE, FASTING 85 MG/DL (70-105); POTASSIUM SERUM 4.3 MEQ/L (3.5-5.1); SODIUM LEVEL 140 MEQ/L (136-145)
[2017-03-27] MEDS ORDERED: ISOVUE-370 76% 100ML VIAL (Q9967) As Ordered ONE (00:02)
--- NOTE | 2017-03-27 00:50 | REPUSA ---
CLINICAL HISTORY: Pain and swelling. TECHNIQUE: Multiple axial CT images were obtained through the neck with IV contrast material. MPR cor onal and sagittal sequences were obtained. COMMENTS: Moderate hypertrophy of adenoids. Moderate hypertrophy of the palatine tonsils. Mildly enlarged bilateral cervical lymph nodes the largest measuring 1.5 cm. The oropharyngeal soft tissues are normal and bilaterally symmetric. The piriform sinuses are normal. There is no supra or infraglottic laryngeal mass. The proximal trachea is normal. There is no paravertebral soft tissue mass. The salivary glands are normal. The paravertebral soft tissue space is normal. Limited images through the posterior fossa demonstrate no evidence for tonsilar herniation. Evaluation of the visualized lung apices reveals no evidence for abnormality. IMPRESSION: Hypertrophy of the adenoids. Hypertrophy of the palatine tonsils. Mildly enlarged bilateral cervical lymph nodes. No drainable abscess formation. Thank you for your kind referral of this patient.
[2017-03-27 01:08] VITALS: BP 104/64
[2017-03-28] MEDS ORDERED: PARO20TA3 PO (09:31)
[2017-03-28] MEDS ORDERED: TRAZ50TA11 PO (09:31)
== END 2017-03-27 01:10 | disposition home or self-care (01) ==
LOC: M ED 20:46
DX: R59.1 Generalized enlarged lymph nodes (principal); J35.2 Hypertrophy of adenoids; J35.1 Hypertrophy of tonsils; F41.9 Anxiety disorder, unspecified; F11.10 Opioid abuse, uncomplicated; Z79.899 Other long term (current) drug therapy; Z88.0 Allergy status to penicillin
CPT/HCPCS: 70491; 80048; 81025; 85025; 86308; 96361; 96374; 99283; J1885; Q9967

== ENCOUNTER 2017-03-28 09:20 | Emergency (ER) | payer OTHER, MEDICAID ==
[~2017-03-28] VITALS: Ht 157.5 cm; Wt 77.3 kg
[2017-03-28 09:28] VITALS: BP 116/65
[2017-03-28] MEDS ORDERED: PARO20TA3 PO (09:31)
[2017-03-28] MEDS ORDERED: TRAZ50TA11 PO (09:31)
[2017-03-28] MEDS ORDERED: KETOROLAC 60 MG/2 ML VIAL (J1885) IM ONE (09:45)
--- NOTE | 2017-03-28 10:52 | REP ---
RIGHT KNEE, FOUR VIEWS: HISTORY: Trauma. There is no acute fracture or dislocation. The joint spaces are normal in appearance. IMPRESSION: There is no acute fracture or dislocation. Signed by Uday Soto MD 03/28/2017 11:00 A
== END 2017-03-28 10:54 | disposition home or self-care (01) ==
LOC: M ED 09:20
DX: S80.01XA Contusion of right knee, initial encounter (principal); V43.52XA Car driver injured in collision with other type car in traffic accident, initial encounter; Y92.410 Unspecified street and highway as the place of occurrence of the external cause; Y93.89 Activity, other specified; Y99.9 Unspecified external cause status; Z79.899 Other long term (current) drug therapy; Z88.0 Allergy status to penicillin
CPT/HCPCS: 73564; 96374; 99283; J1885

== ENCOUNTER 2017-04-12 09:30 | Outpatient (RCR) | payer OTHER, MEDICAID ==
[~2017-04-12 09:30] MED LIST changes: +TRAZ50TA11 PO
== END 2017-05-09 ==
LOC: M OUTALCOH 09:30
PROVIDERS: ATTEND Psychiatry & Neurology Psychiatry
DX: F10.20 Alcohol dependence, uncomplicated (principal); F11.20 Opioid dependence, uncomplicated; F12.20 Cannabis dependence, uncomplicated; F17.200 Nicotine dependence, unspecified, uncomplicated

== ENCOUNTER → 2017-04-25 | Outpatient (REF) | payer OTHER, MEDICAID | LOC: M LAB REF 13:27 | PROVIDERS: ATTEND Physician Assistant Medical | DX: N39.0 Urinary tract infection, site not specified (principal) ==

== ENCOUNTER → 2017-06-25 | Outpatient (REF) | payer OTHER, MEDICAID | LOC: M LAB REF 13:40 | DX: R05 Cough (principal); R50.9 Fever, unspecified ==

== ENCOUNTER 2017-07-19 23:03 | Emergency (ER) | payer OTHER, MEDICAID | END 2017-07-20 01:07 | disposition left against medical advice (07) | LOC: M ED 23:03 | DX: R05 Cough (principal); Z53.21 Procedure and treatment not carried out due to patient leaving prior to being seen by health care provider ==

== ENCOUNTER → 2017-07-19 | Outpatient (REF) | payer OTHER, MEDICAID ==
[2017-07-19 20:23] LABS: INFLUENZA A AMPLIFICATION NEGATIVE (NEGATIVE); INFLUENZA B AMPLIFICATION NEGATIVE (NEGATIVE); RSV AMPLIFICATION NEGATIVE (NEGATIVE)
== END ==
LOC: M LAB REF 19:03
DX: J11.1 Influenza due to unidentified influenza virus with other respiratory manifestations (principal)

== ENCOUNTER 2017-07-21 09:08 | Emergency (ER) | payer BC, OTHER, MEDICAID ==
[2017-07-21 09:45] LABS: BASO # 0.1 10^3/uL (0.0-0.2); BASO % 0.6 % (0.0-1.0); EOS # 0.2 10^3/uL (0.0-0.50); EOS % 2.2 % (0.0-3.0); HEMATOCRIT 44.2 % (36.0-47.0); HEMOGLOBIN 14.7 g/dl (12.0-16.0); IMMATURE GRANULOCYTE % 0.3 % (0-3.0); LYMPH # 1.6 10^3/uL (1.5-6.5); LYMPH % 20.8 % (24.0-44.0); MEAN CORPUSCULAR HEMOGLOBIN 30.8 pg (27.0-33.0); MEAN CORPUSCULAR HGB CONC 33.3 g/dl (32.0-36.5); MEAN CORPUSCULAR VOLUME 92.7 fl (80.0-96.0); MONO # 0.9 10^3/uL (0.0-0.8); MONO % 11.2 % (0.0-5.0); NEUTROPHILS % 64.9 % (36.0-66.0); PLATELET COUNT, AUTOMATED 250 10^3/uL (150-450); RED BLOOD COUNT 4.77 10^6/uL (4.00-5.40); RED CELL DISTRIBUTION WIDTH 12.2 % (11.5-14.5); WHITE BLOOD COUNT 7.7 10^3/uL (4.0-10.0)
[2017-07-21 10:17] LABS: INFLUENZA A AMPLIFICATION NEGATIVE (NEGATIVE); INFLUENZA B AMPLIFICATION NEGATIVE (NEGATIVE); RSV AMPLIFICATION NEGATIVE (NEGATIVE)
[2017-07-21 10:25] LABS: ALBUMIN 4.1 GM/DL (3.2-5.2); ALBUMIN/GLOBULIN RATIO 1.24 (1.00-1.93); ALKALINE PHOSPHATASE 69 U/L (45-117); ALT/SGPT 15 U/L (12-78); ANION GAP 6 MEQ/L (8-16); AST/SGOT 18 U/L (7-37); BILIRUBIN,TOTAL 0.3 MG/DL (0.2-1.0); BLOOD UREA NITROGEN 8 MG/DL (7-18); CALCIUM LEVEL 8.7 MG/DL (8.5-10.1); CARBON DIOXIDE LEVEL 28 MEQ/L (21-32); CHLORIDE LEVEL 107 MEQ/L (98-107); GLOMERULAR FILTRATION RATE > 60.0 (>60); GLUCOSE, FASTING 93 MG/DL (70-100); POTASSIUM SERUM 4.7 MEQ/L (3.5-5.1); SODIUM LEVEL 141 MEQ/L (136-145); TOTAL PROTEIN 7.4 GM/DL (6.4-8.2)
== END 2017-07-21 11:08 | disposition home or self-care (01) ==
LOC: M ED 09:08
DX: J20.9 Acute bronchitis, unspecified (principal); F17.200 Nicotine dependence, unspecified, uncomplicated; N80.9 Endometriosis, unspecified; F41.9 Anxiety disorder, unspecified; F32.9 Major depressive disorder, single episode, unspecified; F19.10 Other psychoactive substance abuse, uncomplicated; F12.10 Cannabis abuse, uncomplicated; F10.10 Alcohol abuse, uncomplicated; Z79.899 Other long term (current) drug therapy; Z88.0 Allergy status to penicillin
CPT/HCPCS: 71046

== ENCOUNTER 2017-08-01 18:06 | Emergency (ER) | payer BC, OTHER, MEDICAID ==
[2017-08-01 19:06] LABS: KETONE, URINE AUTO RFX NEGATIVE (NEGATIVE); LEUKOCYTE ESTERASE UR AUTO RFX NEGATIVE (NEGATIVE); MUCUS, URINE RFX SMALL (NEGATIVE); NITRITE, URINE AUTO RFX NEGATIVE (NEGATIVE); RBC, URINE AUTO RFX 2 /HPF (0-3); SPECIFIC GRAVITY UR AUTO RFX 1.027 (1.002-1.035); SQUAM EPITHELIAL CELL UR AURFX 10 /HPF (0-6); WBC, URINE AUTO RFX 1 /HPF (0-3)
[2017-08-01] MEDS: ONDANSETRON 4 MG ORAL DISINTEGRATING TAB (S0181) PO (19:39)
[2017-08-01] MEDS: IBUPROFEN 800 MG TAB PO (19:40)
[2017-08-01 20:03] LABS: BASO % 0.3 % (0.0-1.0); EOS # 0.3 10^3/uL (0.0-0.50); EOS % 2.3 % (0.0-3.0); HEMATOCRIT 42.2 % (36.0-47.0); HEMOGLOBIN 14.6 g/dl (12.0-16.0); IMMATURE GRANULOCYTE % 0.5 % (0-3.0); LYMPH # 3.4 10^3/uL (1.5-6.5); LYMPH % 26.7 % (24.0-44.0); MEAN CORPUSCULAR HEMOGLOBIN 31.3 pg (27.0-33.0); MEAN CORPUSCULAR HGB CONC 34.6 g/dl (32.0-36.5); MEAN CORPUSCULAR VOLUME 90.4 fl (80.0-96.0); MONO # 0.7 10^3/uL (0.0-0.8); MONO % 5.4 % (0.0-5.0); NEUTROPHILS # 8.4 10^3/uL (1.8-7.7); NEUTROPHILS % 64.8 % (36.0-66.0); PLATELET COUNT, AUTOMATED 319 10^3/uL (150-450); RED BLOOD COUNT 4.67 10^6/uL (4.00-5.40); RED CELL DISTRIBUTION WIDTH 12.1 % (11.5-14.5); WHITE BLOOD COUNT 12.9 10^3/uL (4.0-10.0)
[2017-08-01 20:30] LABS: ALBUMIN 3.9 GM/DL (3.2-5.2); ALBUMIN/GLOBULIN RATIO 1.22 (1.00-1.93); ALKALINE PHOSPHATASE 70 U/L (45-117); ALT/SGPT 20 U/L (12-78); ANION GAP 8 MEQ/L (8-16); AST/SGOT 14 U/L (7-37); BILIRUBIN,DIRECT < 0.1 MG/DL (0.0-0.2); BILIRUBIN,TOTAL 0.4 MG/DL (0.2-1.0); BLOOD UREA NITROGEN 13 MG/DL (7-18); CALCIUM LEVEL 8.3 MG/DL (8.5-10.1); CARBON DIOXIDE LEVEL 26 MEQ/L (21-32); CHLORIDE LEVEL 106 MEQ/L (98-107); CREATININE FOR GFR 0.62 MG/DL (0.55-1.30); GLOMERULAR FILTRATION RATE > 60.0 (>60); GLUCOSE, FASTING 88 MG/DL (70-100); POTASSIUM SERUM 4.2 MEQ/L (3.5-5.1); SODIUM LEVEL 140 MEQ/L (136-145); TOTAL PROTEIN 7.1 GM/DL (6.4-8.2)
[2017-08-01] MEDS: cefTRIAXone SOD 250 MG VIAL (J0696) IM (21:00)
[2017-08-01] MEDS: DOXYCYCLINE HYCLATE 100 MG TAB PO (21:00)
[2017-08-01 21:46] LABS: CHLAMYDIA DNA AMPLIFICATION NEGATIVE (NEGATIVE); GC DNA AMPLIFICATION NEGATIVE (NEGATIVE)
== END 2017-08-01 21:45 | disposition home or self-care (01) ==
LOC: M ED 18:06
DX: N73.9 Female pelvic inflammatory disease, unspecified (principal); F17.210 Nicotine dependence, cigarettes, uncomplicated; F43.10 Post-traumatic stress disorder, unspecified; F33.9 Major depressive disorder, recurrent, unspecified; F41.9 Anxiety disorder, unspecified; Z79.899 Other long term (current) drug therapy; Z88.0 Allergy status to penicillin; Z86.69 Personal history of other diseases of the nervous system and sense organs; Z98.890 Other specified postprocedural states; Z87.42 Personal history of other diseases of the female genital tract; Z87.448 Personal history of other diseases of urinary system
CPT/HCPCS: J0696

== ENCOUNTER → 2017-08-06 | Outpatient (REF) | payer OTHER, MEDICAID ==
[2017-08-06 20:25] LABS: CONTROL LINE UCG INT CTR LINE PRESENT; URINE PREG TEST NEGATIVE (NEGATIVE)
[2017-08-06 21:11] LABS: APPEARANCE, URINE HAZY (CLEAR); BACTERIA, URINE AUTO NEGATIVE (NEGATIVE); BILIRUBIN, URINE AUTO NEGATIVE (NEGATIVE); BLOOD, URINE BLOOD 3+ (NEGATIVE); COLOR, URINE YELLOW (YELLOW); GLUCOSE, URINE (UA) AUTO NEGATIVE (NEGATIVE); KETONE, URINE AUTO NEGATIVE (NEGATIVE); LEUKOCYTE ESTERASE, URINE AUTO NEGATIVE (NEGATIVE); MUCUS, URINE SMALL (NEGATIVE); NITRITE, URINE AUTO NEGATIVE (NEGATIVE); PROTEIN, URINE AUTO NEGATIVE (NEGATIVE); RBC, URINE AUTO 158 /HPF (0-3); SQUAMOUS EPITHELIAL CELL UR AU 2 /HPF (0-6); UROBILINOGEN, URINE AUTO 0.2 mg/dL (0.0-2.0); WBC, URINE AUTO 1 /HPF (0-3)
== END ==
LOC: M LAB REF 17:15
DX: N39.46 Mixed incontinence (principal); N91.1 Secondary amenorrhea
CPT/HCPCS: 84703

== ENCOUNTER → 2017-08-22 | Outpatient (REF) | payer OTHER, MEDICAID | LOC: M LAB REF 18:44 | DX: Z12.4 Encounter for screening for malignant neoplasm of cervix (principal); R85.612 Low grade squamous intraepithelial lesion on cytologic smear of anus (LGSIL) ==

== ENCOUNTER 2017-09-10 13:15 | Emergency (ER) | payer BC, OTHER, MEDICAID | END 2017-09-10 17:17 | disposition left against medical advice (07) | LOC: M ED 13:15 | DX: R10.9 Unspecified abdominal pain (principal); Z53.21 Procedure and treatment not carried out due to patient leaving prior to being seen by health care provider ==

== ENCOUNTER → 2017-10-16 | Outpatient (CLI) | payer BC, OTHER, MEDICAID ==
[~2017-10-16] MED LIST changes: -BENA25CA4 PO; -BUPR15TAXL PO; -CEFD1CAP8 PO; -CIPR-249 PO; -COLA100C5 PO; -DEBR6.5S4 AU; -FLAG500T PO; -HYDR-3363; -HYDR-3363 PO; -IBUP-1022 PO; -IBUP80TA PO; +ISOVUE-370 76% 100ML VIAL (Q9967) As Ordered; -KETO10TAB PO; -LABE20TAB PO; -LIDO1SOL7 MT; -LOTRCRE TOP; -MICOCRE PV; -MIRA3350 PO; -NAPR500T3; -NAPR500T3 PO; -NORA0.35 PO; -NORC1TAB4 PO; -OXYC1TAB23 PO; -PARO20TA3 PO; -PERC5TAB PO; -PRED20TA; -PREN27TA3 PO; -STUACAP PO; -TRAM50TA2 PO; -TRAZ-136 PO; -TRAZ50TA11 PO; -TYLE325T5 PO; -ZOLO50TA PO
== END ==
LOC: M RADPRO 12:01
DX: N97.9 Female infertility, unspecified (principal)
CPT/HCPCS: 58340

== ENCOUNTER 2017-11-05 12:13 | Emergency (ER) | payer BC, OTHER, MEDICAID | END 2017-11-05 12:56 | disposition left against medical advice (07) | LOC: M ED 12:13 | DX: O20.0 Threatened abortion (principal); Z53.21 Procedure and treatment not carried out due to patient leaving prior to being seen by health care provider ==

== ENCOUNTER → 2017-11-07 | Outpatient (CLI) | payer BC, OTHER, MEDICAID ==
[2017-11-07 18:50] LABS: FOLLICLE STIMULATING HORMONE 5.9 mIU/mL
== END ==
LOC: M SMT 13:07
DX: N97.9 Female infertility, unspecified (principal)
CPT/HCPCS: 83001

== ENCOUNTER → 2018-01-09 | Outpatient (REF) | payer OTHER, MEDICAID | LOC: M SFHCLERA 18:06 | DX: T14.8XXA Other injury of unspecified body region, initial encounter (principal); W18.30XA Fall on same level, unspecified, initial encounter; Y92.009 Unspecified place in unspecified non-institutional (private) residence as the place of occurrence of the external cause ==

== ENCOUNTER → 2018-01-15 | Outpatient (REF) | payer OTHER, MEDICAID | LOC: M LAB REF 17:07 | DX: R30.0 Dysuria (principal) ==

== ENCOUNTER → 2018-02-02 | Outpatient (REF) | payer OTHER, MEDICAID ==
[2018-02-02 21:54] LABS: APPEARANCE, URINE CLEAR (CLEAR); BACTERIA, URINE AUTO NEGATIVE (NEGATIVE); BILIRUBIN, URINE AUTO NEGATIVE (NEGATIVE); BLOOD, URINE BLOOD 2+ (NEGATIVE); COLOR, URINE STRAW (YELLOW); GLUCOSE, URINE (UA) AUTO NEGATIVE (NEGATIVE); KETONE, URINE AUTO NEGATIVE (NEGATIVE); LEUKOCYTE ESTERASE, URINE AUTO NEGATIVE (NEGATIVE); NITRITE, URINE AUTO NEGATIVE (NEGATIVE); PROTEIN, URINE AUTO NEGATIVE (NEGATIVE); RBC, URINE AUTO 1 /HPF (0-3); SPECIFIC GRAVITY URINE AUTO 1.002 (1.002-1.035); SQUAMOUS EPITHELIAL CELL UR AU 0 /HPF (0-6); UROBILINOGEN, URINE AUTO 0.2 mg/dL (0.0-2.0); WBC, URINE AUTO 1 /HPF (0-3)
== END ==
LOC: M LAB REF 21:44
DX: N39.0 Urinary tract infection, site not specified (principal)

== ENCOUNTER → 2018-02-11 | Outpatient (CLI) | payer BC, OTHER, MEDICAID ==
[2018-02-11 19:07] LABS: HEMATOCRIT 43.3 % (36.0-47.0); HEMOGLOBIN 14.9 g/dl (12.0-15.5); MEAN CORPUSCULAR HEMOGLOBIN 32.3 pg (27.0-33.0); MEAN CORPUSCULAR HGB CONC 34.4 g/dl (32.0-36.5); MEAN CORPUSCULAR VOLUME 93.9 fl (80.0-96.0); PLATELET COUNT, AUTOMATED 290 10^3/uL (150-450); RED BLOOD COUNT 4.61 10^6/uL (4.00-5.40); RED CELL DISTRIBUTION WIDTH 12.3 % (11.5-14.5); WHITE BLOOD COUNT 10.2 10^3/uL (4.0-10.0)
[2018-02-11 19:34] LABS: ALBUMIN 4.2 GM/DL (3.2-5.2); ALBUMIN/GLOBULIN RATIO 1.31 (1.00-1.93); ALKALINE PHOSPHATASE 55 U/L (45-117); ALT/SGPT 16 U/L (12-78); ANION GAP 8 MEQ/L (8-16); AST/SGOT 12 U/L (7-37); BILIRUBIN,TOTAL 0.4 MG/DL (0.2-1.0); BLOOD UREA NITROGEN 8 MG/DL (7-18); CALCIUM LEVEL 9.3 MG/DL (8.5-10.1); CARBON DIOXIDE LEVEL 26 MEQ/L (21-32); CHLORIDE LEVEL 109 MEQ/L (98-107); CREATININE FOR GFR 0.84 MG/DL (0.55-1.30); FREE T4 1.11 NG/DL (0.76-1.46); GLOMERULAR FILTRATION RATE > 60.0 (>60); GLUCOSE, FASTING 78 MG/DL (70-100); POTASSIUM SERUM 4.1 MEQ/L (3.5-5.1); SODIUM LEVEL 143 MEQ/L (136-145); TOTAL PROTEIN 7.4 GM/DL (6.4-8.2)
== END ==
LOC: M LAB 18:23
DX: Z00.00 Encounter for general adult medical examination without abnormal findings (principal); M54.5 Low back pain
CPT/HCPCS: 72080

== ENCOUNTER 2018-02-19 12:01 | Emergency (ER) | payer BC, OTHER, MEDICAID ==
[2018-02-19] MEDS: NAPROXEN 250 MG TAB PO (14:55)
== END 2018-02-19 14:57 | disposition home or self-care (01) ==
LOC: M ED 12:01
DX: G89.29 Other chronic pain (principal); M54.9 Dorsalgia, unspecified; M62.830 Muscle spasm of back; Z72.0 Tobacco use; Z79.899 Other long term (current) drug therapy; Z88.0 Allergy status to penicillin
CPT/HCPCS: 99282

== ENCOUNTER → 2018-02-22 | Outpatient (CLI) | payer BC, OTHER, MEDICAID | LOC: M RAD 12:47 | DX: S33.5XXD Sprain of ligaments of lumbar spine, subsequent encounter (principal); X58.XXXD Exposure to other specified factors, subsequent encounter; Y92.9 Unspecified place or not applicable | CPT/HCPCS: 72148 ==

== ENCOUNTER → 2018-02-23 | Outpatient (REF) | payer OTHER, MEDICAID | LOC: M LAB REF 09:30 | DX: J02.0 Streptococcal pharyngitis (principal) ==

== ENCOUNTER 2018-04-02 13:23 | Emergency (ER) | payer BC, OTHER, MEDICAID ==
[2018-04-02 15:05] LABS: HEMATOCRIT 40.4 % (36.0-47.0); HEMOGLOBIN 13.7 g/dl (12.0-15.5); MEAN CORPUSCULAR HEMOGLOBIN 31.9 pg (27.0-33.0); MEAN CORPUSCULAR HGB CONC 33.9 g/dl (32.0-36.5); PLATELET COUNT, AUTOMATED 253 10^3/uL (150-450); RED CELL DISTRIBUTION WIDTH 12.4 % (11.5-14.5); WHITE BLOOD COUNT 12.3 10^3/uL (4.0-10.0)
[2018-04-02 15:30] LABS: ANION GAP 7 MEQ/L (8-16); BLOOD UREA NITROGEN 19 MG/DL (7-18); CALCIUM LEVEL 8.8 MG/DL (8.5-10.1); CARBON DIOXIDE LEVEL 28 MEQ/L (21-32); CHLORIDE LEVEL 107 MEQ/L (98-107); CREATININE FOR GFR 0.68 MG/DL (0.55-1.30); GLOMERULAR FILTRATION RATE > 60.0 (>60); GLUCOSE, FASTING 89 MG/DL (70-100); POTASSIUM SERUM 4.1 MEQ/L (3.5-5.1); SODIUM LEVEL 142 MEQ/L (136-145)
[2018-04-02] MEDS: KETOROLAC 30 MG/ML VIAL (J1885) IV (16:00)
[2018-04-02 16:46] LABS: D-DIMER QUANT 1160.1 ng/ml (<500)
[2018-04-02] MEDS ORDERED: ISOVUE-370 76% 100ML VIAL (Q9967) As Ordered (16:55)
[2018-04-02] MEDS: MORPHINE 2 MG/ML 1ML SYRINGE (J2270) IV (16:56)
== END 2018-04-02 17:55 | disposition home or self-care (01) ==
LOC: M ED 13:23
DX: J06.9 Acute upper respiratory infection, unspecified (principal); R07.89 Other chest pain; R06.9 Unspecified abnormalities of breathing; M54.9 Dorsalgia, unspecified; F41.9 Anxiety disorder, unspecified; F32.9 Major depressive disorder, single episode, unspecified; F43.10 Post-traumatic stress disorder, unspecified; Z72.0 Tobacco use; Z79.899 Other long term (current) drug therapy; Z88.0 Allergy status to penicillin
CPT/HCPCS: Q9967

== ENCOUNTER 2018-05-16 16:43 | Emergency (ER) | payer BC, OTHER, MEDICAID ==
[2018-05-16] MEDS: NS 1,000 ML IV (17:35)
[2018-05-16 17:36] LABS: AMORPHOUS SEDIMENT RFX MODERATE (NEGATIVE); KETONE, URINE AUTO RFX NEGATIVE (NEGATIVE); LEUKOCYTE ESTERASE UR AUTO RFX NEGATIVE (NEGATIVE); MUCUS, URINE RFX SMALL (NEGATIVE); NITRITE, URINE AUTO RFX NEGATIVE (NEGATIVE); RBC, URINE AUTO RFX 1 /HPF (0-3); SPECIFIC GRAVITY UR AUTO RFX 1.018 (1.002-1.035); SQUAM EPITHELIAL CELL UR AURFX 1 /HPF (0-6); WBC, URINE AUTO RFX 0 /HPF (0-3)
[2018-05-16 17:43] LABS: BASO % 0.5 % (0.0-1.0); EOS # 0.3 10^3/uL (0.0-0.50); EOS % 3.1 % (0.0-3.0); HEMOGLOBIN 14.3 g/dl (12.0-15.5); IMMATURE GRANULOCYTE % 0.6 % (0-3.0); LYMPH # 2.3 10^3/uL (1.5-6.5); LYMPH % 29.2 % (24.0-44.0); MEAN CORPUSCULAR HEMOGLOBIN 31.6 pg (27.0-33.0); MEAN CORPUSCULAR HGB CONC 33.3 g/dl (32.0-36.5); MEAN CORPUSCULAR VOLUME 94.9 fl (80.0-96.0); MONO # 0.6 10^3/uL (0.0-0.8); MONO % 6.9 % (0.0-5.0); NEUTROPHILS # 4.8 10^3/uL (1.8-7.7); NEUTROPHILS % 59.7 % (36.0-66.0); PLATELET COUNT, AUTOMATED 240 10^3/uL (150-450); RED BLOOD COUNT 4.53 10^6/uL (4.00-5.40); RED CELL DISTRIBUTION WIDTH 12.2 % (11.5-14.5)
[2018-05-16 17:59] LABS: INFLUENZA A AMPLIFICATION NEGATIVE (NEGATIVE); INFLUENZA B AMPLIFICATION NEGATIVE (NEGATIVE)
[2018-05-16 18:00] LABS: INR 0.95; PROTHROMBIN TIME 12.8 SECONDS (12.1-14.4)
[2018-05-16 18:01] LABS: PARTIAL THROMBOPLASTIN TIME 31.6 SECONDS (25.4-37.6)
[2018-05-16 18:04] LABS: D-DIMER QUANT 272.22 ng/ml (<500)
[2018-05-16 18:17] LABS: CONTROL LINE HCG INT CTR LINE PRESENT; CONTROL LINE MONO INT CTR LINE PRESENT; HCG, SERUM QUALITATIVE NEGATIVE (NEGATIVE); MONO SCRN NEGATIVE (NEGATIVE)
[2018-05-16] MEDS: ACETAMINOPHEN TAB 650MG DOSE (2X325MG) PO (18:17)
[2018-05-16 18:19] LABS: ALBUMIN 3.6 GM/DL (3.2-5.2); ALBUMIN/GLOBULIN RATIO 1.03 (1.00-1.93); ALKALINE PHOSPHATASE 61 U/L (45-117); ALT/SGPT 15 U/L (12-78); ANION GAP 9 MEQ/L (8-16); AST/SGOT 8 U/L (7-37); BILIRUBIN,DIRECT < 0.1 MG/DL (0.0-0.2); BILIRUBIN,TOTAL 0.3 MG/DL (0.2-1.0); BLOOD UREA NITROGEN 12 MG/DL (7-18); CALCIUM LEVEL 8.2 MG/DL (8.5-10.1); CARBON DIOXIDE LEVEL 28 MEQ/L (21-32); CHLORIDE LEVEL 107 MEQ/L (98-107); CK-MB VALUE MASS < 1.0 NG/ML (<3.6); CPK CREATINE PHOSPHOKINASE 23 U/L (26-192); CREATININE FOR GFR 0.69 MG/DL (0.55-1.30); FREE T4 0.87 NG/DL (0.76-1.46); GLOMERULAR FILTRATION RATE > 60.0 (>60); GLUCOSE, FASTING 81 MG/DL (70-100); MAGNESIUM LEVEL 2.1 MG/DL (1.8-2.4); MB/CK RELATIVE INDEX 4.35 (< OR =4); POTASSIUM SERUM 4.4 MEQ/L (3.5-5.1); SODIUM LEVEL 144 MEQ/L (136-145); TOTAL PROTEIN 7.1 GM/DL (6.4-8.2); TROPONIN I < 0.02 NG/ML (< 0.10)
[2018-05-16] MEDS: KETOROLAC 30 MG/ML VIAL (J1885) IV (18:34)
== END 2018-05-16 19:32 | disposition home or self-care (01) ==
LOC: M ED 16:43
DX: E86.0 Dehydration (principal); J06.9 Acute upper respiratory infection, unspecified; E28.2 Polycystic ovarian syndrome
CPT/HCPCS: J1885

== ENCOUNTER 2018-06-26 02:39 | Emergency (ER) | payer BC, OTHER, MEDICAID ==
[~2018-06-26] VITALS: Ht 157.5 cm; Wt 75.5 kg
[~2018-06-26 02:39] MED LIST changes: +BENA25CA4 PO; +BUPR15TAXL PO; +CEFD1CAP8 PO; +CEPA5.4L2 MT; +CIPR-249 PO; +CLON-412; +COLA100C5 PO; +CYCL10TA PO; +DEBR6.5S4 AU; +DOXY100C37 PO; +DOXY150C PO; +FLAG500T PO; +FLON1SPR NARES; +HYDR-3363; +HYDR-3363 PO; +HYDR-643; +IBUP-1022 PO; +IBUP80TA PO; -ISOVUE-370 76% 100ML VIAL (Q9967) As Ordered; +KETO10TAB PO; +LABE20TAB PO; +LEXA5TAB13; +LIDO1SOL7 MT; +LORA-243; +LOTRCRE TOP; +MICOCRE PV; +MIRA3350 PO; +MUCI600T37 PO; +NAPR-50 PO; +NAPR-885; +NAPR-885 PO; +NORA0.35 PO; +NORC1TAB4 PO; +OXYC1TAB23 PO; +PARO20TA3 PO; +PERC5TAB PO; +PRAZ2CAP PO; +PRED20TA; +PRED20TA PO; +PREN27TA3 PO; +PROAAER10 INH; +SALI0.6528; +STUACAP PO; +TESS100C PO; +TIZA4CAP; +TRAM50TA2 PO; +TRAZ-160 PO; +TRAZ-163; +TRAZ-163 PO; +TYLE325T5 PO; +VENTAER; +WELLTAB38 PO; +ZOFR4TAB14 PO; +ZOLO50TA PO
[2018-06-26] MEDS ORDERED: MORPHINE 2 MG/ML 1ML SYRINGE (J2270) IV ONE (03:15)
[2018-06-26] MEDS ORDERED: ONDANSETRON 4MG/2ML VIAL (J2405) IV ONE (03:15)
[2018-06-26 03:26] LABS: BASO # 0.1 10^3/uL (0.0-0.2); BASO % 0.4 % (0.0-1.0); EOS # 0.3 10^3/uL (0.0-0.50); EOS % 2.4 % (0.0-3.0); HEMATOCRIT 38.6 % (36.0-47.0); HEMOGLOBIN 13.2 g/dl (12.0-15.5); LYMPH # 3.2 10^3/uL (1.5-6.5); LYMPH % 27.4 % (24.0-44.0); MEAN CORPUSCULAR HEMOGLOBIN 31.7 pg (27.0-33.0); MEAN CORPUSCULAR HGB CONC 34.2 g/dl (32.0-36.5); MEAN CORPUSCULAR VOLUME 92.8 fl (80.0-96.0); MONO # 0.7 10^3/uL (0.0-0.8); NEUTROPHILS # 7.4 10^3/uL (1.8-7.7); NEUTROPHILS % 63.4 % (36.0-66.0); PLATELET COUNT, AUTOMATED 244 10^3/uL (150-450); RED BLOOD COUNT 4.16 10^6/uL (4.00-5.40); WHITE BLOOD COUNT 11.7 10^3/uL (4.0-10.0)
[2018-06-26 04:30] VITALS: BP 119/77
[2018-06-26] MEDS ORDERED: FLAG500T PO (04:39)
[2018-06-26] MEDS ORDERED: metroNIDAZOLE (FLAGYL) 500 MG TAB PO ONE (04:45)
[2018-06-26] MEDS ORDERED: ACETAMINOPHEN 325 MG TAB PO ONE (04:45)
[2018-06-26 04:47] LABS: CHLAMYDIA DNA AMPLIFICATION NEGATIVE (NEGATIVE); GC DNA AMPLIFICATION NEGATIVE (NEGATIVE)
--- NOTE | 2018-06-26 05:05 | REPVR ---
EXAM: US , Transvaginal EXAM DATE/TIME: 06/26/2018 4:22 AM CLINICAL HISTORY: 23 years old, female; Pain; complicated by abdominal or pelvic pain; Lower; First trimester; Gestational age or lmp: 4; ; Additional info: Abd pain, vaginal bleeding TECHNIQUE: Real-time transvaginal obstetrical ultrasound of the maternal pelvis and a first trimester with image documentation. Transvaginal imaging was used for better evaluation of the fetus and adnexa. COMPARISON: US OBS FOLL UP OR REPEAT EACH GES 07/16/2013 11:03 AM FINDINGS: GESTATION: Gestation: There is a very small anechoic structure in the fundus which measures 0.2 x 0.3 x 0.3 cm, and may represent an early gestational sac. There is a suggestion of a decidual reaction around it. No yolk sac or pole are identified. Heart rate: No pole identified. Placenta: Not applicable. BIOMETRY: Estimated gestational age: The mean sac diameter corresponds with a less than 5 weeks gestation. MATERNAL: Uterus: The uterus is retroverted and measures 7.7 x 5.1 x 6.3 cm. There are no masses within the uterus. Right adnexa: The right ovary appears normal and measures 3.3 x 2.0 x 1.9 cm. Blood flow is seen within the right ovary on color or pulsed Doppler. Left adnexa: The left ovary measures 5.1 x 2.8 x 3.2 cm. There is a heterogeneous echogenicity area within the left ovary measuring 2.6 x 2.3 x 2.5 cm which may represent a hemorrhagic corpus luteum. Normal arterial and venous blood flow are seen in the left ovary on color and pulsed Doppler. The peak systolic velocity is 9.0 cm/s. Cul-de-sac: There is a trace of free fluid in the left adnexa and posterior to the uterus. IMPRESSION: 1. Small anechoic area in the endometrium at the fundus, which may represent an early gestational sac, less than 5 weeks gestation. No pole or yolk sac are visible. Followup with serial beta hCG levels is recommended with repeat ultrasound as needed. 2. A trace of free fluid. No suspicious adnexal findings. Electronically signed by: Felipa Aponte On 06/26/2018 05:04:33 AM
== END 2018-06-26 05:05 | disposition home or self-care (01) ==
LOC: M ED 04:46
DX: O20.0 Threatened abortion (principal); O23.599 Infection of other part of genital tract in pregnancy, unspecified trimester; Z79.899 Other long term (current) drug therapy; Z88.0 Allergy status to penicillin; Z88.8 Allergy status to other drugs, medicaments and biological substances
CPT/HCPCS: 76801; 84702; 85025; 86850; 86870; 86900; 86901; 87210; 87491; 87591; 96374; 96375; 99284; J2270; J2405

== ENCOUNTER → 2018-06-28 | Outpatient (CLI) | payer BC, OTHER, MEDICAID | LOC: M WUC 08:53 | PROVIDERS: ATTEND Specialist | DX: N91.1 Secondary amenorrhea (principal) ==

== ENCOUNTER → 2018-06-30 | Outpatient (CLI) | payer BC, OTHER, MEDICAID ==
--- NOTE | 2018-06-30 16:26 | REP ---
Focused bilateral breast sonography: History: Palpable lumps bilaterally, one in each side times 1 week. The patient reports early . Findings: The patient a reports that the palpable lump in the right breast is at 11 o'clock. Scanning was performed here as well as at 7 o'clock per the clinician's order. On the left breast, the patient points out the lump at 2 o'clock and this area is scanned along with the 9-11 o'clock position as per the physician's order for the left breast. Heterogeneous fibroglandular background echotexture is seen bilaterally. No suspicious sonographic abnormality is observed on either side. Impression: BIRADS category one negative findings. Heterogeneous fibroglandular background echotexture is seen. Clinical follow-up is advised. BI-RADS/ACR category 1 mammogram. Negative. Routine annual screening mammography (for women over age 40). Electronically Signed by Pablo Michelle MD 06/30/2018 06:14 P
== END ==
LOC: M RAD 15:11
PROVIDERS: ATTEND Physician Assistant
DX: R92.2 Inconclusive mammogram (principal)

== ENCOUNTER → 2018-08-07 | Outpatient (CLI) | payer OTHER, BC, MEDICAID ==
[2018-08-07 20:03] LABS: BASO # 0.1 10^3/uL (0.0-0.2); BASO % 0.5 % (0.0-1.0); EOS # 0.1 10^3/uL (0.0-0.50); HEMATOCRIT 38.2 % (36.0-47.0); HEMOGLOBIN 13.3 g/dl (12.0-15.5); LYMPH # 2.5 10^3/uL (1.5-6.5); LYMPH % 18.9 % (24.0-44.0); MEAN CORPUSCULAR HEMOGLOBIN 31.7 pg (27.0-33.0); MEAN CORPUSCULAR HGB CONC 34.8 g/dl (32.0-36.5); MEAN CORPUSCULAR VOLUME 91.2 fl (80.0-96.0); MONO # 0.8 10^3/uL (0.0-0.8); MONO % 5.9 % (0.0-5.0); NEUTROPHILS # 9.7 10^3/uL (1.8-7.7); NEUTROPHILS % 73.4 % (36.0-66.0); PLATELET COUNT, AUTOMATED 266 10^3/uL (150-450); RED BLOOD COUNT 4.19 10^6/uL (4.00-5.40); WHITE BLOOD COUNT 13.2 10^3/uL (4.0-10.0)
[2018-08-07 22:18] LABS: CHLAMYDIA DNA AMPLIFICATION NEGATIVE (NEGATIVE); GC DNA AMPLIFICATION NEGATIVE (NEGATIVE)
[2018-08-08 10:27] LABS: HEPATITIS C VIRUS ABY INDEX < 0.0 INDEX (<0.8); HIV 1&2 SCREEN CENTAUR NEGATIVE (NEGATIVE); RUBELLA IgG QUALITATIVE IMMUNE (IMMUNE)
== END ==
LOC: M WUC 15:46
PROVIDERS: ATTEND Obstetrics & Gynecology
DX: Z36.89 Encounter for other specified antenatal screening (principal)

== ENCOUNTER 2018-08-15 23:37 | Emergency (ER) | payer BC, OTHER, MEDICAID ==
[~2018-08-15] VITALS: Ht 157.5 cm; Wt 75.0 kg
[2018-08-15 23:37] VITALS: BP 127/60
[2018-08-15] MEDS ORDERED: WELLTAB38 PO (23:40)
[2018-08-15] MEDS ORDERED: ASPI1TAB PO (23:40)
[2018-08-15] MEDS ORDERED: LORazepam 2 MG/ML VIAL (J2060) IV STA (23:56)
[2018-08-16] MEDS ORDERED: NS 1,000 ML IV ONE
[2018-08-16 00:16] LABS: BASO % 0.3 % (0.0-1.0); EOS # 0.2 10^3/uL (0.0-0.50); EOS % 1.7 % (0.0-3.0); HEMATOCRIT 38.2 % (36.0-47.0); HEMOGLOBIN 13.1 g/dl (12.0-15.5); LYMPH # 2.9 10^3/uL (1.5-6.5); LYMPH % 23.6 % (24.0-44.0); MEAN CORPUSCULAR HEMOGLOBIN 31.6 pg (27.0-33.0); MEAN CORPUSCULAR HGB CONC 34.3 g/dl (32.0-36.5); MONO # 0.7 10^3/uL (0.0-0.8); MONO % 5.3 % (0.0-5.0); NEUTROPHILS # 8.5 10^3/uL (1.8-7.7); NEUTROPHILS % 68.7 % (36.0-66.0); PLATELET COUNT, AUTOMATED 240 10^3/uL (150-450); RED BLOOD COUNT 4.15 10^6/uL (4.00-5.40); WHITE BLOOD COUNT 12.3 10^3/uL (4.0-10.0)
[2018-08-16 00:34] LABS: ALBUMIN 3.3 GM/DL (3.2-5.2); ALT/SGPT 18 U/L (12-78); BILIRUBIN,DIRECT < 0.1 MG/DL (0.0-0.2); BILIRUBIN,TOTAL 0.2 MG/DL (0.2-1.0); BLOOD UREA NITROGEN 9 MG/DL (7-18); CALCIUM LEVEL 8.1 MG/DL (8.5-10.1); CARBON DIOXIDE LEVEL 25 MEQ/L (21-32); CHLORIDE LEVEL 109 MEQ/L (98-107); GLOMERULAR FILTRATION RATE > 60.0 (>60); GLUCOSE, FASTING 79 MG/DL (70-100); LIPASE 184 U/L (73-393); POTASSIUM SERUM 3.8 MEQ/L (3.5-5.1); SODIUM LEVEL 141 MEQ/L (136-145); TOTAL PROTEIN 6.5 GM/DL (6.4-8.2)
[2018-08-16] MEDS ORDERED: diphenhydrAMINE INJ 50MG/ML VIAL (J1200) IV ONE (01:45)
[2018-08-16] MEDS ORDERED: ACETAMINOPHEN TAB 650MG DOSE (2X325MG) PO ONE (01:45)
[2018-08-16] MEDS ORDERED: METOCLOPRAMIDE INJ 10MG/2ML VIAL (J2765) IV ONE (01:45)
--- NOTE | 2018-08-16 01:55 | REPVR ---
EXAM: US First Trimester, Transabdominal and US Duplex Artery and Vein, Ovaries, Complete EXAM DATE/TIME: 08/16/2018 12:58 AM CLINICAL HISTORY: 23 years old, female; Pain; Other: Cramping; Gestational age or lmp: 12w 6d; ; Additional info: , abd pain TECHNIQUE: Real-time transabdominal obstetrical ultrasound of the maternal pelvis and a first trimester , less than 14 weeks 0 days, with image documentation. Real-time duplex ultrasound scan of the arterial and venous flow of the ovaries with B-mode, color Doppler flow and spectral waveform analysis, complete duplex. COMPARISON: No relevant prior studies available. FINDINGS: GESTATION: Gestation: Single viable intrauterine gestation. Heart rate: heart rate is 150 beats per minute. Placenta: Posterior placenta. Amniotic fluid: Amniotic and chorionic fluid are normal for gestational age. BIOMETRY: Estimated gestational age: Sonographically estimated gestational age is 12 weeks 3 days. [place]-Rump length: [place] rump length of the pole is 6 centimeters. Estimated due date: Estimated date of delivery is 02/25/2019. MATERNAL: Uterus: Unremarkable. Cervix: Unremarkable. Right adnexa: Right ovary is obscured by bowel gas. Left adnexa: Left ovary measures 3.6 x 2.4 x 2.5 cm. Normal arterial and venous waveforms. Intraperitoneal: No intraperitoneal free fluid. IMPRESSION: Single viable intrauterine gestation 12 weeks 3 days of age. Electronically signed by: Evans Higuera On 08/16/2018 01:54:28 AM
[2018-08-16 03:34] LABS: CHLAMYDIA DNA AMPLIFICATION NEGATIVE (NEGATIVE); GC DNA AMPLIFICATION NEGATIVE (NEGATIVE)
== END 2018-08-16 05:05 | disposition home or self-care (01) ==
LOC: M ED 23:37
DX: O99.341 Other mental disorders complicating pregnancy, first trimester (principal); O99.331 Smoking (tobacco) complicating pregnancy, first trimester; Z87.59 Personal history of other complications of pregnancy, childbirth and the puerperium; Z3A.12 12 weeks gestation of pregnancy; Z79.82 Long term (current) use of aspirin; Z79.899 Other long term (current) drug therapy; Z88.0 Allergy status to penicillin; Z91.89 Other specified personal risk factors, not elsewhere classified
CPT/HCPCS: 76801; 80048; 80076; 81001; 83690; 85025; 87491; 87591; 93976; 96361; 96374; 96375; 99283; J1200; J2060; J2765

== ENCOUNTER 2018-09-22 11:43 | Emergency (ER) | payer BC, OTHER, MEDICAID ==
[~2018-09-22] VITALS: Ht 157.5 cm; Wt 76.8 kg
[~2018-09-22 11:43] MED LIST changes: +ASPI81TA26 PO; -BUPR15TAXL PO; +BUPR1TAB43 PO; +LABE200T13 PO; -LABE20TAB PO; -LIDO1SOL7 MT; +LIDO1SOL8 MT; -NAPR-50 PO; +NAPR-837 PO; -NORC1TAB4 PO; +NORC1TAB7 PO
[2018-09-22] MEDS ORDERED: ACETAMINOPHEN 325 MG TAB PO ONE (12:30)
[2018-09-22 12:47] LABS: BASO % 0.4 % (0.0-1.0); EOS # 0.2 10^3/uL (0.0-0.50); EOS % 1.7 % (0.0-3.0); HEMATOCRIT 34.5 % (36.0-47.0); HEMOGLOBIN 11.7 g/dl (12.0-15.5); LYMPH # 1.6 10^3/uL (1.5-6.5); LYMPH % 15.7 % (24.0-44.0); MEAN CORPUSCULAR HEMOGLOBIN 31.6 pg (27.0-33.0); MEAN CORPUSCULAR HGB CONC 33.9 g/dl (32.0-36.5); MEAN CORPUSCULAR VOLUME 93.2 fl (80.0-96.0); MONO # 0.7 10^3/uL (0.0-0.8); MONO % 7.1 % (0.0-5.0); NEUTROPHILS # 7.7 10^3/uL (1.8-7.7); NEUTROPHILS % 74.4 % (36.0-66.0); PLATELET COUNT, AUTOMATED 194 10^3/uL (150-450); WHITE BLOOD COUNT 10.4 10^3/uL (4.0-10.0)
[2018-09-22 12:53] LABS: BLOOD UREA NITROGEN 11 MG/DL (7-18); CALCIUM LEVEL 8.2 MG/DL (8.5-10.1); CARBON DIOXIDE LEVEL 25 MEQ/L (21-32); CHLORIDE LEVEL 108 MEQ/L (98-107); CREATININE FOR GFR 0.56 MG/DL (0.55-1.30); GLOMERULAR FILTRATION RATE > 60.0 (>60); GLUCOSE, FASTING 99 MG/DL (70-100); POTASSIUM SERUM 3.7 MEQ/L (3.5-5.1); SODIUM LEVEL 139 MEQ/L (136-145)
[2018-09-22 13:44] VITALS: BP 98/53
--- NOTE | 2018-09-23 21:15 | ECGEPIP ---
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
== END 2018-09-22 13:50 | disposition home or self-care (01) ==
LOC: M ED 11:43
DX: O99.89 Other specified diseases and conditions complicating pregnancy, childbirth and the puerperium (principal); R55 Syncope and collapse; O99.512 Diseases of the respiratory system complicating pregnancy, second trimester; J45.909 Unspecified asthma, uncomplicated; Z79.82 Long term (current) use of aspirin; Z88.0 Allergy status to penicillin; Z3A.17 17 weeks gestation of pregnancy; F17.210 Nicotine dependence, cigarettes, uncomplicated

== ENCOUNTER 2018-10-05 22:41 | Emergency (ER) | payer BC, OTHER, MEDICAID ==
[~2018-10-05] VITALS: Ht 157.5 cm; Wt 76.8 kg
[2018-10-06 00:45] LABS: INFLUENZA A AMPLIFICATION NEGATIVE (NEGATIVE); INFLUENZA B AMPLIFICATION NEGATIVE (NEGATIVE)
[2018-10-06] MEDS ORDERED: CEPH500C PO (01:12)
[2018-10-06 01:27] VITALS: BP 123/82
== END 2018-10-06 01:29 | disposition home or self-care (01) ==
LOC: M ED 22:41
DX: N39.0 Urinary tract infection, site not specified (principal); J06.9 Acute upper respiratory infection, unspecified; I10 Essential (primary) hypertension; N80.9 Endometriosis, unspecified; Z79.82 Long term (current) use of aspirin; Z88.0 Allergy status to penicillin; F17.210 Nicotine dependence, cigarettes, uncomplicated

== ENCOUNTER → 2018-10-10 | Outpatient (CLI) | payer BC, OTHER, MEDICAID ==
[~2018-10-10] MED LIST changes: +CEPH500C PO
--- NOTE | 2018-10-10 17:04 | REP ---
HISTORY: anatomy. PERTINENT PRIORS: None. Multiple ultrasonographic images of the gravid uterus show a single living intrauterine gestation in the silvina breech presentation. Doppler interrogation of the heart shows a heart rate of 136 beats per minute. The placenta is posterior and not low lying. The subjective amniotic fluid volume is within normal limits. The cervix measures 3.5 cm in length and is closed. Evaluation of the maternal adnexal spaces showed no abnormalities. The structures visualized as unremarkable are as follows. Thalami, cavum septum pellucidum, cerebral ventricles, cisterna magna, spine, kidneys, stomach, four chamber heart, ventricular outflow tract, cord insertion, three vessel umbilical cord, upper and lower extremities, urinary bladder, and upper lip. BPD 4.4 cm = 19 weeks 2 days HC 16.8 cm = 19 weeks 3 days AC 14.6 cm = 19 weeks 6 days FL 3.1 cm = 19 weeks 5 days The estimated weight is 312 grams which is at the 30th percentile for 20 week 2 day gestational age. IMPRESSION: Single living intrauterine gestation as described above with an estimated gestational age of 19 weeks 3 days via composite criteria with an estimated date of delivery of 03/03/2019 by today's exam. No anomalies were detected. Electronically Signed by Augustin Roque DO 10/10/2018 05:13 P
== END ==
LOC: M RAD 09:15
PROVIDERS: ATTEND Obstetrics & Gynecology
DX: Z34.82 Encounter for supervision of other normal pregnancy, second trimester (principal); Z3A.19 19 weeks gestation of pregnancy

== ENCOUNTER 2018-10-23 05:04 | Outpatient (CLI) | payer BC, OTHER, MEDICAID ==
[~2018-10-23] VITALS: Ht 157.5 cm; Wt 76.8 kg
[2018-10-23 05:16] VITALS: BP 117/59
[2018-10-23] MEDS ORDERED: diphenhydrAMINE INJ 50MG/ML VIAL (J1200) IM ONE (06:45)
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
[2018-10-23] MEDS ORDERED: diphenhydrAMINE 25 MG CAP PO ONE (08:45)
== END 2018-10-23 09:25 | disposition home or self-care (01) ==
LOC: M LDO 05:04
PROVIDERS: ATTEND Advanced Practice Midwife
DX: O26.852 Spotting complicating pregnancy, second trimester (principal); O26.892 Other specified pregnancy related conditions, second trimester; R10.30 Lower abdominal pain, unspecified; O99.342 Other mental disorders complicating pregnancy, second trimester; F41.9 Anxiety disorder, unspecified; Z3A.21 21 weeks gestation of pregnancy
CPT/HCPCS: G0378; G0463

== ENCOUNTER 2018-10-25 16:00 | Outpatient (CLI) | payer BC, OTHER, MEDICAID ==
[~2018-10-25] VITALS: Ht 157.5 cm; Wt 75.9 kg
[2018-10-25 16:13] VITALS: BP 114/57
[2018-10-25] MEDS ORDERED: MAPA500T2 PO (16:27)
[2018-10-25] MEDS ORDERED: ACETAMINOPHEN 500 MG TAB PO ONE (17:00)
== END 2018-10-25 17:08 | disposition home or self-care (01) ==
LOC: M LDO 16:00
PROVIDERS: ATTEND Specialist
DX: O26.892 Other specified pregnancy related conditions, second trimester (principal); R10.2 Pelvic and perineal pain; O47.00 False labor before 37 completed weeks of gestation, unspecified trimester; Z3A.21 21 weeks gestation of pregnancy
CPT/HCPCS: 76815; G0378; G0463

== ENCOUNTER → 2018-11-20 | Outpatient (REF) | payer OTHER ==
[~2018-11-20] MED LIST changes: +MAPA500T2 PO; -TRAZ-160 PO; +TRAZ-252 PO; +ZITH1POW PO
[2018-11-20 23:29] LABS: CHLAMYDIA DNA AMPLIFICATION POSITIVE (NEGATIVE); GC DNA AMPLIFICATION NEGATIVE (NEGATIVE)
== END ==
LOC: M LAB REF 10:42
PROVIDERS: ATTEND Physician Assistant
DX: N39.0 Urinary tract infection, site not specified (principal)

== ENCOUNTER 2018-11-29 23:15 | Outpatient (CLI) | payer BC, OTHER, MEDICAID ==
[~2018-11-29] VITALS: Ht 157.5 cm; Wt 78.7 kg
[2018-11-29 23:45] VITALS: BP 102/51
--- NOTE | 2018-11-30 01:50 | NUR ---
L&D Triage Note: S: 23yo at 27wks presents with abd discomfort and vaginal d/c. Reports movement, No LOF or vaginal bleeding. Was recent treated 11/24/18 for Chlamydia. O: vss, AF cat 1 tracing, gen: well appearing abd: soft, gravid, nttp Urine dip: unremarkable A/P: 23yo at 27wks with Chlamydia infection, treated -plan fo rTOC at next OB appt -home with PTL precautions and FKCs -f/u at next OB appt Kamila Fernandez MD
== END 2018-11-30 01:15 | disposition home or self-care (01) ==
LOC: M LDO 23:15
PROVIDERS: ATTEND Obstetrics & Gynecology
DX: O26.893 Other specified pregnancy related conditions, third trimester (principal); R10.30 Lower abdominal pain, unspecified; N89.8 Other specified noninflammatory disorders of vagina; Z3A.27 27 weeks gestation of pregnancy
CPT/HCPCS: G0378; G0463

== ENCOUNTER 2018-12-11 14:12 | Emergency (ER) | payer BC, OTHER, MEDICAID ==
[2018-12-11 14:25] VITALS: BP 120/73
[2018-12-11] MEDS ORDERED: NS 1,000 ML IV ONE (14:30)
[2018-12-11 14:41] LABS: BASO % 0.3 % (0.0-1.0); EOS # 0.2 10^3/uL (0.0-0.50); HEMOGLOBIN 9.9 g/dl (12.0-15.5); LYMPH # 1.5 10^3/uL (1.5-6.5); LYMPH % 13.5 % (24.0-44.0); MEAN CORPUSCULAR HEMOGLOBIN 33.6 pg (27.0-33.0); MEAN CORPUSCULAR HGB CONC 34.1 g/dl (32.0-36.5); MEAN CORPUSCULAR VOLUME 98.3 fl (80.0-96.0); MONO # 0.9 10^3/uL (0.0-0.8); MONO % 8.1 % (0.0-5.0); NEUTROPHILS # 8.4 10^3/uL (1.8-7.7); NEUTROPHILS % 75.2 % (36.0-66.0); PLATELET COUNT, AUTOMATED 179 10^3/uL (150-450); RED BLOOD COUNT 2.95 10^6/uL (4.00-5.40); WHITE BLOOD COUNT 11.2 10^3/uL (4.0-10.0)
[2018-12-11 15:21] LABS: BLOOD UREA NITROGEN 14 MG/DL (7-18); CALCIUM LEVEL 8.4 MG/DL (8.5-10.1); CARBON DIOXIDE LEVEL 25 MEQ/L (21-32); CHLORIDE LEVEL 108 MEQ/L (98-107); CREATININE FOR GFR 0.62 MG/DL (0.55-1.30); GLOMERULAR FILTRATION RATE > 60.0 (>60); GLUCOSE, FASTING 88 MG/DL (70-100); SODIUM LEVEL 141 MEQ/L (136-145)
[2018-12-11] MEDS ORDERED: ASPI81CH33 PO (15:36)
--- NOTE | 2018-12-11 15:56 | ECGEPIP ---
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
== END 2018-12-11 15:07 | disposition home or self-care (01) ==
LOC: M ED 14:12 → EDBD 14:12 → M ED 15:07
DX: O99.89 Other specified diseases and conditions complicating pregnancy, childbirth and the puerperium (principal); R55 Syncope and collapse; Z3A.29 29 weeks gestation of pregnancy; Z72.0 Tobacco use; Z79.82 Long term (current) use of aspirin; Z88.0 Allergy status to penicillin; Z91.89 Other specified personal risk factors, not elsewhere classified

== ENCOUNTER 2018-12-11 15:20 | Outpatient (CLI) | payer BC, OTHER, MEDICAID ==
[~2018-12-11] VITALS: Ht 158.8 cm; Wt 81.6 kg
[2018-12-11 15:24] VITALS: BP 110/64
[2018-12-11] MEDS ORDERED: ASPI81CH33 PO (15:36)
== END 2018-12-11 16:56 | disposition home or self-care (01) ==
LOC: M LDO 15:20
PROVIDERS: ATTEND Obstetrics & Gynecology
DX: O26.893 Other specified pregnancy related conditions, third trimester (principal); R55 Syncope and collapse; Z3A.28 28 weeks gestation of pregnancy
CPT/HCPCS: G0378; G0463

== ENCOUNTER → 2018-12-16 | Outpatient (CLI) | payer BC, OTHER, MEDICAID ==
[~2018-12-16] MED LIST changes: +ASPI81CH33 PO
[2018-12-16 14:27] LABS: HEMOGLOBIN 11.3 g/dl (12.0-15.5); MEAN CORPUSCULAR HEMOGLOBIN 33.3 pg (27.0-33.0); MEAN CORPUSCULAR HGB CONC 34.2 g/dl (32.0-36.5); MEAN CORPUSCULAR VOLUME 97.3 fl (80.0-96.0); PLATELET COUNT, AUTOMATED 207 10^3/uL (150-450); RED BLOOD COUNT 3.39 10^6/uL (4.00-5.40); WHITE BLOOD COUNT 12.7 10^3/uL (4.0-10.0)
== END ==
LOC: M LAB 13:01
PROVIDERS: ATTEND Advanced Practice Midwife
DX: Z34.82 Encounter for supervision of other normal pregnancy, second trimester (principal); Z3A.00 Weeks of gestation of pregnancy not specified

== ENCOUNTER → 2018-12-18 | Outpatient (REF) | payer OTHER, MEDICAID ==
[2018-12-18 17:00] LABS: CHLAMYDIA DNA AMPLIFICATION NEGATIVE (NEGATIVE); GC DNA AMPLIFICATION NEGATIVE (NEGATIVE)
== END ==
LOC: M LAB REF 13:16
PROVIDERS: ATTEND Advanced Practice Midwife
DX: Z34.82 Encounter for supervision of other normal pregnancy, second trimester (principal)

== ENCOUNTER 2019-01-01 03:54 | Outpatient (CLI) | payer OTHER, BC, MEDICAID ==
[~2019-01-01] VITALS: Ht 157.5 cm; Wt 83.6 kg
[2019-01-01 04:19] VITALS: BP 98/57
[2019-01-01] MEDS ORDERED: ACETAMINOPHEN 500 MG TAB As Ordered ONE (05:59)
[2019-01-01] MEDS ORDERED: ACETAMINOPHEN 500 MG TAB PO ONE (06:00)
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
== END 2019-01-01 06:05 | disposition other institution (70) ==
LOC: M LDO 03:54
PROVIDERS: ATTEND Advanced Practice Midwife
DX: O9A.213 Injury, poisoning and certain other consequences of external causes complicating pregnancy, third trimester (principal); S50.11XA Contusion of right forearm, initial encounter; W18.2XXA Fall in (into) shower or empty bathtub, initial encounter; Y92.9 Unspecified place or not applicable; R51 Headache; Z3A.31 31 weeks gestation of pregnancy; Z88.0 Allergy status to penicillin
CPT/HCPCS: 59025; G0378; G0463

== ENCOUNTER 2019-01-01 06:13 | Emergency (ER) | payer BC, OTHER, MEDICAID ==
[~2019-01-01] VITALS: Ht 157.5 cm; Wt 83.6 kg
--- NOTE | 2019-01-01 07:22 | REP ---
Clinical: Trauma. Technique: AP and lateral views of the right forearm. Findings: No acute fracture or dislocation. Skeletal structures, joint spaces, and surrounding soft tissues are normal. No subcutaneous emphysema or radiodense foreign body. Impression: Normal right forearm radiographs. Electronically Signed by Omer Wyman MD 01/01/2019 07:14 A
[2019-01-01 07:56] VITALS: BP 101/59
== END 2019-01-01 08:21 | disposition home or self-care (01) ==
LOC: M ED 06:13
DX: S50.11XA Contusion of right forearm, initial encounter (principal); W22.8XXA Striking against or struck by other objects, initial encounter; Y92.018 Other place in single-family (private) house as the place of occurrence of the external cause; Z88.0 Allergy status to penicillin; Z91.048 Other nonmedicinal substance allergy status; F17.210 Nicotine dependence, cigarettes, uncomplicated

== ENCOUNTER → 2019-01-02 | Outpatient (CLI) | payer BC, OTHER, MEDICAID ==
[~2019-01-02] MED LIST changes: +ACET-683 PO
== END ==
LOC: M LAB 09:05
PROVIDERS: ATTEND Advanced Practice Midwife
DX: Z34.82 Encounter for supervision of other normal pregnancy, second trimester (principal); Z3A.00 Weeks of gestation of pregnancy not specified

== ENCOUNTER 2019-01-13 11:57 | Outpatient (CLI) | payer BC, OTHER, MEDICAID ==
[~2019-01-13] VITALS: Ht 157.5 cm; Wt 85.1 kg
[~2019-01-13 11:57] MED LIST changes: -ACET-683 PO
[2019-01-13 12:11] VITALS: BP 110/58
[2019-01-13] MEDS ORDERED: ACET-683 PO (12:22)
[2019-01-13] MEDS ORDERED: ACETAMINOPHEN 500 MG TAB PO ONE (13:00)
[2019-01-13 14:34] VITALS: BP 128/62
--- NOTE | 2019-01-13 17:50 | IPN ---
DATE: 01/13/2019 23-year-old, 3, para 1-0-1-1 female at 33-2/7 weeks gestation by last menstrual period (LMP) consistent with a 9 week ultrasound, estimated date of confinement (EDC) 03/01/2019, presents with lower pelvic pressure for 1 day. She also has low back pain. The pain has been on and off. It has affected her ability to function. She denies vaginal bleeding. There is good movement. She is concerned about the possibility of early delivery given history of premature delivery. OBJECTIVE: Blood pressure 110/58, pulse 111, respiratory rate 20, afebrile. She is in no apparent distress. Head and neck exam: Normal. Lungs: Clear. Heart: Regular rate and rhythm. Abdomen: Nontender to palpation, gravid. heart tones: Category 1. Contractions: Irregular and rare. Uterus is soft. She has no costovertebral angle (CVA) tenderness. ASSESSMENT: 23-year-old, 3, para 1 female at 33-2/7 weeks gestation with pelvic pressure and low back pain of . The patient was given Tylenol to help with relief of pain. The rest she obtained while in triage eased her pain. She was deemed stable for discharge. Patient encouraged to drink fluids, rest, and take Tylenol scheduled for pain.
== END 2019-01-13 14:30 | disposition home or self-care (01) ==
LOC: M LDO 11:57 → M LDI 11:57 → M LDO 14:30
PROVIDERS: ATTEND Specialist
DX: O47.03 False labor before 37 completed weeks of gestation, third trimester (principal); Z3A.33 33 weeks gestation of pregnancy
CPT/HCPCS: 59025; G0378; G0463

== ENCOUNTER → 2019-01-30 | Outpatient (REF) | payer OTHER, MEDICAID ==
[~2019-01-30] MED LIST changes: +ACET-683 PO
== END ==
LOC: M LAB REF 16:59
PROVIDERS: ATTEND Advanced Practice Midwife
DX: O34.211 Maternal care for low transverse scar from previous cesarean delivery (principal)

== ENCOUNTER 2019-02-03 14:05 | Outpatient (CLI) | payer BC, OTHER, MEDICAID ==
[~2019-02-03] VITALS: Ht 158.8 cm; Wt 87.1 kg
[~2019-02-03 14:05] MED LIST changes: -TRAZ-163; -TRAZ-163 PO; +TRAZ-257; +TRAZ-257 PO
[2019-02-03 14:26] VITALS: BP 129/79
[2019-02-04] MEDS ORDERED: CYCL10TA PO (16:01)
== END 2019-02-03 16:16 | disposition home or self-care (01) ==
LOC: M LDO 14:05
PROVIDERS: ATTEND Obstetrics & Gynecology
DX: O26.893 Other specified pregnancy related conditions, third trimester (principal); R10.9 Unspecified abdominal pain; O47.03 False labor before 37 completed weeks of gestation, third trimester; Z3A.36 36 weeks gestation of pregnancy
CPT/HCPCS: 59025; G0378; G0463

== ENCOUNTER 2019-02-04 15:35 | Outpatient (CLI) | payer BC, OTHER, MEDICAID ==
[~2019-02-04] VITALS: Ht 157.5 cm; Wt 87.2 kg
[~2019-02-04 15:35] MED LIST changes: +TRAZ-163; +TRAZ-163 PO; -TRAZ-257; -TRAZ-257 PO
[2019-02-04 15:54] VITALS: BP 130/69
[2019-02-04] MEDS ORDERED: CYCL10TA PO (16:01)
[2019-02-04 16:31] VITALS: BP 130/74
--- NOTE | 2019-02-04 20:56 | IPNPDOC ---
Text Note Date of Service The patient was seen on 02/04/19. NOTE Subjective: Patient is a 23-year-old female who is a at 36.3 weeks gestation with an PATO 03/01/19. She initiated care in her first trimester with [facility]. Her has been complicated by a history of eclampsia with her last and a prior section. She was seen in the office today and was sent over to L&D for an audible deceleration. She reports occasional contr actions and active movement. She denies leaking of fluid or vaginal bleeding. Objective: VS: see below. FHR 135, moderate variability, positive accelerations. Contractions every 2-5 minutes. Fetus is very active as heard audible on monitor and palpated. Limited transabdominal ultrasound done at the bedside confirming cephalic presentation and noted multiple pockets of greater than 3 cm of fluid with MVP 3.57 cm. Active movement noted on sono. Assessment: IUP at 36.3 weeks gestation, Category I FHR tracing Plan: Strip was reviewed with Dr. Bryan. His recommendation is for patient to be discharged to home. Probable audible arrhythmia-heart block noted. Patient discharged to home. She is to continue routine OB care. Reviewed access to care, kick count, labor signs, and danger signs to report. VS,Fishbone, I+O VS, Fishbone, I+O Vital Signs Date Time Temp Pulse Resp B/P (MAP) Pulse Ox O2 Delivery O2 Flow Rate FiO2 02/04/19 16:31 97.7 98 18 130/74 (92) ELADIO WALTER CNM Feb 04, 2019 20:56
== END 2019-02-04 16:47 | disposition home or self-care (01) ==
LOC: M LDO 15:35
PROVIDERS: ATTEND Advanced Practice Midwife
DX: O36.8930 Maternal care for other specified fetal problems, third trimester, not applicable or unspecified (principal); O47.03 False labor before 37 completed weeks of gestation, third trimester; Z3A.36 36 weeks gestation of pregnancy
CPT/HCPCS: 59025; 76815; G0378; G0463

== ENCOUNTER 2019-02-11 02:30 | Outpatient (CLI) | payer BC, OTHER, MEDICAID ==
[~2019-02-11] VITALS: Ht 157.5 cm; Wt 87.6 kg
[2019-02-11 02:47] VITALS: BP 115/68
[2019-02-11] MEDS ORDERED: hydrOXYzine 50 MG TAB PO STA (03:29)
[2019-02-11] MEDS ORDERED: ACETAMINOPHEN 500 MG TAB PO ONE (03:30)
[2019-02-11 04:35] VITALS: BP 112/62
[2019-02-11 06:57] VITALS: BP 116/69
--- NOTE | 2019-02-11 14:06 | IPN ---
DATE OF VISIT: 02/11/2019 HISTORY OF PRESENT ILLNESS: The patient is a 23-year-old female who is a 3, para 0-1-1-1, at 37 weeks and 3 days gestation with an expected date of delivery (PATO) of 03/01/2019, based off of her last menstrual cycle and consistent with her first trimester ultrasound. The patient initiated care in her first trimester with [facility]. Her has been complicated by a history of eclampsia with her last baby and a prior section. Her has also been complicated by history of post traumatic stress disorder (PTSD), anxiety and depression. The patient reports to labor and delivery with complaints of severe abdominal pain and pressure that is suprapubic that started at 11:00 p.m. last night. She reports this pain started after her and her boyfriend broke up. The patient denies contractions, vaginal bleeding or leaking of fluid. She reports active movement. The patient reports the pain is constant. PAST MEDICAL HISTORY: PTSD, anxiety, depression, asthma, and abnormal Pap smears. SURGICAL HISTORY: Two laparoscopic surgeries due to endometriosis, one section, two hernia repairs. FAMILY HISTORY: The patient is adopted, so unknown family history. SOCIAL HISTORY: The patient is single. Father of the baby is not involved. She does have a boyfriend that lives in [facility]. She is a smoker. She denies any history of alcohol abuse or current alcohol use during . 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 The patient does have a history of Chlamydia and HPV in the past. PAST PREGNANCIES: August 2013: At 35 weeks 1 day gestation, she was induced and had a primary section of a living female weighing 5 pounds 2 ounces due to severe preeclampsia with an eclamptic seizure. April 2018: She had a spontaneous miscarriage. OBJECTIVE: Vital Signs: Blood pressure 115/68. Heart rate 125 with a repeat of 100. Respiratory rate 20. SpO2 is 97%. Temperature 98.1. heart rate is 125 beats per minute with moderate variability, positive accelerations and no decelerations. Contractions are every 2-6 minutes when she first arrived and are now every 7 minutes. Initial vaginal exam was 1 cm dilated, 80% effaced, -2 station, anterior, soft, and no show, which is no change from her prior exam from 02/04/2019. A recheck after patient has been here for four hours showed the patient is 1 cm dilated, 80% effaced, -1 station, anterior, soft, and no show. The patient was alert and oriented upon arrival and after given dose of Vistaril she is sleeping, but is easy to awake. Respiratory: Regular rate with no use of accessory muscles. Abdomen: Gravid. Soft to palpation. Fetus is cephalic based on Christo maneuver and vaginal exam. Lower Extremities: Generalized edema with no pitting. No clonus noted. ASSESSMENT: Intrauterine at 37 weeks 3 days gestation, suprapubic pressure, category 1 heart rate tracing, not in active labor. PLAN: The patient given Tylenol 1000 mg and 100 mg of Vistaril to help with her anxiety and to help her with sleep. The patient is sleeping well with Vistaril and Tylenol. The patient does not desire to go to her appointment today and desires to sign all of her section consents today in the hospital with Dr. Fernandez. When patient is more awake, she can be discharged to home. She is to followup with her routine care next week. Labor signs were discussed, kick counts and danger signs. The patient is to call with any changes.
== END 2019-02-11 08:55 | disposition home or self-care (01) ==
LOC: M LDO 02:30
PROVIDERS: ATTEND Advanced Practice Midwife
DX: O26.893 Other specified pregnancy related conditions, third trimester (principal); R10.9 Unspecified abdominal pain; O47.1 False labor at or after 37 completed weeks of gestation; Z3A.37 37 weeks gestation of pregnancy
CPT/HCPCS: 59025; G0378; G0463

== ENCOUNTER 2019-02-13 19:09 | Outpatient (CLI) | payer BC, OTHER, MEDICAID ==
[~2019-02-13] VITALS: Ht 157.5 cm; Wt 85.0 kg
[2019-02-13 19:26] VITALS: BP 129/70
--- NOTE | 2019-02-13 21:14 | IPNPDOC ---
Text Note Date of Service The patient was seen on 02/13/19. NOTE Subjective: This is a 23-year-old at 37.5 weeks estimated gestational age by last menstrual period of 05/25/2018, confirmed by first trimester ultrasound, with an estimated date of delivery of 03/01/2019. She is presenting to labor and delivery complaining of consistent cramping all day, as well as excessive mucus discharge. She also states that she has not been able to take her medications while she has been . She used to be on Lexapro and hydroxyzine, as well as clonidine and trazodone. She is feeling overwhelmed, depressed. She hasn't eaten in 5 days. She has been sleeping for the last 4 days. She has not seen her counselor at [facility] recently because she doesn't have transportation to get to her appointments or to go grocery shopping. Objective: Vitals: Temperature 97.9, pulse 96, respiratory rate 18, blood pressure 129/70 Gen.: Tearful and visibly upset Psych: Flattened affect Sterile speculum exam: Large amount of cervical mucus, dry vaginal mucosa, no pooling, nitrazine negative, ferning negative, Valsalva negative Sterile vaginal exam: 80/-2, unchanged from office visit from 02/04/2019 monitor: 145 bpm, moderate variability, accelerations, no decelerations, category 1 tracing [place]: No contractions Assessment/Plan: 23-year-old 0111 at 37.5 weeks estimated gestational age, not in active labor -Discharge to home, follow-up appointment this week in the office -Information for the [facility] /peroneal genetic counsellor was given to the patient, along with information for the [facility] statewide helpline through the [facility] -Restart Lexapro 5 mg daily and hydroxyzine 10 mg every 8 hours when necessary VS,Fishbone, I+O VS, Fishbone, I+O Vital Signs Date Time Temp Pulse Resp B/P (MAP) Pulse Ox O2 Delivery O2 Flow Rate FiO2 02/13/19 19:26 97.9 96 18 129/70 (89) GME ATTESTATION GME ATTESTATION My faculty preceptor for this patient encounter was physically present during the encounter and was fully available. All aspects of the patient interview, examination, medical decision making process, and medical care plan development were reviewed and approved by the faculty preceptor. The faculty preceptor is aware and concurs with the plan as stated in the body of this note and will attest to such by his/her cosignature. JULI YUAN DO Feb 13, 2019 21:14
== END 2019-02-13 21:00 | disposition home or self-care (01) ==
LOC: M LDO 19:09
PROVIDERS: ATTEND Advanced Practice Midwife
DX: O26.893 Other specified pregnancy related conditions, third trimester (principal); N88.8 Other specified noninflammatory disorders of cervix uteri; R10.9 Unspecified abdominal pain; O99.343 Other mental disorders complicating pregnancy, third trimester; F32.9 Major depressive disorder, single episode, unspecified; Z3A.37 37 weeks gestation of pregnancy
CPT/HCPCS: 59025; G0378; G0463

== ENCOUNTER 2019-02-13 23:11 | Inpatient (IN) | payer BC, OTHER, MEDICAID ==
[~2019-02-13] VITALS: Ht 157.5 cm; Wt 87.0 kg
[2019-02-13] MEDS ORDERED: LR 1,000 ML IV SCH (23:25)
[2019-02-13] MEDS ORDERED: LACTATED RINGER'S 1000 ML IV STA (23:25)
[2019-02-13] MEDS ORDERED: BICITRA 30ML SOLN UDC PO ONE (23:30)
[2019-02-13] MEDS ORDERED: AZITHROMYCIN INJ 500 MG, VIAL MATE ADAPTER 1 EACH in D5W 250 ML IV ONE (23:30)
[2019-02-13 23:50] LABS: HEMATOCRIT 31.1 % (36.0-47.0); HEMOGLOBIN 10.6 g/dl (12.0-15.5); MEAN CORPUSCULAR HEMOGLOBIN 31.6 pg (27.0-33.0); MEAN CORPUSCULAR HGB CONC 34.1 g/dl (32.0-36.5); MEAN CORPUSCULAR VOLUME 92.8 fl (80.0-96.0); PLATELET COUNT, AUTOMATED 242 10^3/uL (150-450); RED BLOOD COUNT 3.35 10^6/uL (4.00-5.40); WHITE BLOOD COUNT 16.4 10^3/uL (4.0-10.0)
[2019-02-14] VITALS (9 sets, daily range): BP systolic 102–129; BP diastolic 55–73
[2019-02-14] MEDS ORDERED: diphenhydrAMINE INJ 50MG/ML VIAL (J1200) IV PRN (00:15)
[2019-02-14] MEDS ORDERED: NALOXONE INJ 0.4 MG/1 ML VIAL (J2310) IV PRN ×2 (00:15)
[2019-02-14] MEDS ORDERED: METOCLOPRAMIDE INJ 10MG/2ML VIAL (J2765) IV PRN (00:15)
[2019-02-14] MEDS ORDERED: ONDANSETRON 4MG/2ML VIAL (J2405) IV PRN ×3 (00:15→01:30)
[2019-02-14] MEDS ORDERED: NALBUPHINE HCL 10 MG/ML AMP (J2300) IV PRN (00:15)
--- NOTE | 2019-02-14 00:16 | HPE ---
DATE OF ADMISSION: 02/13/2019 CHIEF COMPLAINT: Leakage of fluids and contractions. HISTORY OF PRESENT ILLNESS: This is a 23-year-old (G) 3, para (P) 0-1-1-1 at 37 weeks 5 days estimated gestational age by last menstrual period of 05/25/2018, confirmed by first trimester ultrasound, with an estimated date of delivery of 03/01/2019. She is presenting to labor and delivery complaining of consistent contractions every 2-3 minutes as well as leakage of fluid. She was brought in by ambulance. She is not able to tell whether or not baby is moving. She denies any recent intercourse. The contractions started right after she went to bed. care was initiated at [facility] in the first trimester, and she has been consistent with her care. Labs: Blood type O+, antibody screen positive for a anti-Javier, Rubella immune, VDRL nonreactive, hepatitis B surface antigen negative, HIV negative, hepatitis C nonreactive, chlamydia negative, gonorrhea negative. GBS negative. Diabetes screen 144, 3-hour GTT showed blood sugars at 83, 178, 138, and 41. Obstetrical ultrasound showed single intrauterine with posterior placenta. OBSTETRICAL HISTORY: 1. August 2013: The patient was induced for labor for severe preeclampsia at 35 weeks 1 day estimated gestational age and was delivered via section. She delivered a 5 pound 2 ounce female. 2. April 2018: A miscarriage at 4 weeks estimated gestational age. 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 MEDICATIONS: None SURGICAL HISTORY: Laparoscopy 2 for endometriosis, previous section, 2 herniorrhaphies ALLERGIES: Amoxicillin Social: Patient lives alone. She denies alcohol or drug use, she states she is to be addicted to opioids but has been clean. She smokes 6 cigarettes a day. Physical exam: Vitals: Temperature 97.3, blood pressure 147/97, pulse 91 Abdomen: Gravid Sterile vaginal exam: /-2 monitor: 145 BPM, moderate variability, accelerations, no decelerations, category [address]: Contractions every 2-4 minutes Assessment/Plan: 23-year-old at 37 weeks 5 days estimated gestational age in latent labor 1. Admit to labor and delivery with routine labs and orders 2. History of prior section, has been consented and desires repeat section. Dr. Fernandez made aware, will proceed with tonight. [facility]
[2019-02-14] MEDS ORDERED: ONDANSETRON 4MG/2ML VIAL (J2405) As Ordered ONE (00:17)
[2019-02-14] MEDS ORDERED: MORPHINE PRES-FREE INJ 10 MG/10 ML VIAL (J2274) As Ordered ONE (00:17)
[2019-02-14] MEDS ORDERED: BUPIVACAINE/DEXTROSE 0.75% 2 ML AMP As Ordered ONE (00:17)
[2019-02-14] MEDS ORDERED: OXYTOCIN INJ 10 UNITS/ML VIAL (J2590) As Ordered ONE (00:17)
[2019-02-14] MEDS ORDERED: KETOROLAC 60 MG/2 ML VIAL (J1885) As Ordered ONE (00:17)
[2019-02-14] MEDS ORDERED: dexameTHASONE 4 MG/ML 1ML VIAL (J1100) As Ordered ONE (00:35)
[2019-02-14] MEDS ORDERED: fentaNYL 100 MCG/2 ML INJECTION (J3010) As Ordered ONE (00:44)
[2019-02-14] MEDS ORDERED: PROPOFOL 200 MG/20 ML VIAL As Ordered ONE (00:44)
[2019-02-14] MEDS ORDERED: PERCOCET 5MG/325MG TAB PO PRN (01:00)
[2019-02-14] MEDS ORDERED: fentaNYL 100 MCG/2 ML INJECTION (J3010) IV PRN (01:00)
[2019-02-14] MEDS ORDERED: LR 1,000 ML IV SCH ×2 (01:00→01:18)
[2019-02-14] MEDS ORDERED: MEPERIDINE INJ 25 MG/ML VIAL (J2175) IV PRN (01:00)
[2019-02-14] MEDS ORDERED: OXYTOCIN DRIP 30 UNITS in APPROPRIATE DILUENT 1 EA IV SCH (01:18)
[2019-02-14] MEDS ORDERED: RHOGAM 300 MCG (1500 IU) INJ (J2790) IM SCH (01:30)
[2019-02-14] MEDS ORDERED: MEASLES,MUMPS,RUBELLA VACCINE INJ (MMR-II) (90707) SC SCH (01:30)
[2019-02-14] MEDS ORDERED: MOM 30ML SUSPENSION UDC PO PRN (01:30)
[2019-02-14] MEDS ORDERED: OXYTOCIN 30 UNITS IN 0.9% NaCl 500ML IV BAG (J2590) As Ordered ONE (02:12)
[2019-02-14] MEDS: KETOROLAC 30 MG/ML VIAL (J1885) IV SCH ×2 (08:00→14:54)
--- NOTE | 2019-02-14 08:31 | RO ---
DATE OF PROCEDURE: 02/14/2019 PREOPERATIVE DIAGNOSES: 1. Spontaneous rupture of membranes. 2. History of primary section for repeat. POSTOPERATIVE DIAGNOSES: 1. Spontaneous rupture of membranes. 2. History of primary section for repeat. PROCEDURE PERFORMED: Repeat section. SURGEON: Kamila Fernandez MD LEGISLATIVE DIRECTOR: Beverly Millard DO, PGY-3 ANESTHESIA: Spinal. ESTIMATED BLOOD LOSS: 500 mL. IV FLUIDS: 1400 ounces of lactated Ringer solution. URINE OUTPUT: 100 mL. PREOPERATIVE ANTIBIOTICS: 2 grams of Ancef and 500 mg of azithromycin. OPERATIVE FINDINGS: Live born female infant, scores 7 and 8, weight was 2740 grams, 6 pounds 1 ounce. SPECIMENS: None. DESCRIPTION OF OPERATION: After informed consent was obtained and written consent was reviewed, the patient brought to the operating room where spinal anesthesia was placed. She was then placed in supine position with left lateral tilt. Garner catheter was placed and set to gravity. She was then prepped and draped in normal sterile fashion. A time out in the operating room was then performed identifying the patient, procedure be performed as well as drug allergies. Anesthesia was tested and deemed to be adequate. A Pfannenstiel skin incision was then made along the previous skin incision and this was carried down to the lying rectus fascia. The fascia was scored and this incision was extended bilaterally. The fascia was then dissected off the underlying rectus muscles both superiorly and inferiorly. The rectus muscle was then in the midline. The peritoneum was then entered sharply. Mobius retractor was then placed. The vesicouterine peritoneum was then tented and excised to create a bladder flap. Curvilinear incision was then made in the lower uterine segment. This incision was extended and head was brought to level of the incision atraumatically along with delivery of shoulders and corpus. Cord was clamped times two and was cut and infant was taken over to the warmer with good cry. Placenta was then delivered grossly intact. The uterus then exteriorized, cleared of all clots and debris. Uterine incision was then closed in two layers using 0 Vicryl first in a running locking fashion followed by second layer for imbrication in a running nonlocking fashion. The abdomen was then suctioned. The uterus was returned and the patient's abdomen was reinspected and noted be hemostatic. The anterior peritoneum was then re-approximated with 3-0 Vicryl. Rectus muscles re-approximated with 3-0 Vicryl. The fascia was then closed with 0 Vicryl in a running nonlocking fashion. The subcutaneous tissue was then irrigated and suctioned. Subcutaneous tissue was re-approximated 3-0 Vicryl. Several subdermal stitches were placed with 3-0 Vicryl and the skin was closed with 4-0 Monocryl in subcuticular fashion. Incision was then clean and dry and was dressed. The patient was then taken to recovery in stable condition. Counts were correct.
[2019-02-14] MEDS: DOCUSATE SODIUM 100 MG CAP PO SCH ×2 (10:40→21:28)
[2019-02-14] MEDS: PRENATAL VITAMINS CHEWABLE TABLET PO SCH (10:40)
[2019-02-14] MEDS: IBUPROFEN 800 MG TAB PO SCH (17:09)
[2019-02-15] MEDS: IBUPROFEN 800 MG TAB PO SCH ×3 (00:28→17:29)
[2019-02-15] MEDS: PERCOCET 5MG/325MG TAB PO PRN ×5 (01:16→23:51)
[2019-02-15 02:09] VITALS: BP 103/58
[2019-02-15] MEDS ORDERED: IBUPROFEN 800 MG TAB PO SCH (03:30)
[2019-02-15 06:27] VITALS: BP 116/70
[2019-02-15 07:28] LABS: HEMATOCRIT 27.7 % (36.0-47.0); HEMOGLOBIN 9.1 g/dl (12.0-15.5); MEAN CORPUSCULAR HEMOGLOBIN 31.3 pg (27.0-33.0); MEAN CORPUSCULAR HGB CONC 32.9 g/dl (32.0-36.5); MEAN CORPUSCULAR VOLUME 95.2 fl (80.0-96.0); PLATELET COUNT, AUTOMATED 200 10^3/uL (150-450); RED BLOOD COUNT 2.91 10^6/uL (4.00-5.40); WHITE BLOOD COUNT 13.7 10^3/uL (4.0-10.0)
[2019-02-15 10:00] VITALS: BP 92/53
[2019-02-15] MEDS: PRENATAL VITAMINS CHEWABLE TABLET PO SCH (10:34)
[2019-02-15] MEDS: DOCUSATE SODIUM 100 MG CAP PO SCH ×2 (10:34→22:04)
[2019-02-15 14:00] VITALS: BP 123/76
[2019-02-15 18:00] VITALS: BP 135/84
[2019-02-15 22:00] VITALS: BP 120/78
[2019-02-16 02:00] VITALS: BP 111/55
[2019-02-16] MEDS: IBUPROFEN 800 MG TAB PO SCH ×3 (05:24→22:14)
[2019-02-16 06:00] VITALS: BP 121/69
--- NOTE | 2019-02-16 09:40 | DS.PDOC ---
Discharge Summary General Date of Admission Feb 13, 2019 at 23:23 Date of Discharge 02/18/2019 Attending Physician: DYLAN GREEN MD. Discharge Summary PROCEDURES PERFORMED DURING STAY: repeat section. ADMITTING DIAGNOSES: 1. active labor 2. repeat section. Day 2 COMPLICATIONS/CHIEF COMPLAINT: Labor Check. HISTORY OF PRESENT ILLNESS: . HOSPITAL COURSE: uncomplicated. Awaiting PFS consult prior to discharge. Patient may be discharge pending PFS recommendations. ALLERGIES: Please see below. PHYSICAL EXAMINATION ON DISCHARGE: VITAL SIGNS: Please see below. GENERAL: A+Ox3 RESPIRATORY EXAMINATION: regular rate ABDOMINAL EXAMINATION: Fundus firm. Dressing intact. EXTREMITIES: 1+ pitting edema. No clonus. SKIN: warm, dry, no rashes or lesions. LABORATORY DATA: Please see below. ACTIVITY: As tolerated DIET: regular Plan: 1. Continue with supportive nursing care. 2. Consider discharge today if PFS allows for discharge of baby. If not discharge tomorrow. Vital Signs/I&Os Vital Signs Date Time Temp Pulse Resp B/P (MAP) Pulse Ox O2 Delivery O2 Flow Rate FiO2 02/16/19 06:00 98.4 85 18 121/69 (86) 02/15/19 22:00 98 Laboratory Data CBC/BMP Item Value Date Time White Blood Count 13.7 10^3/uL H 02/15/19 0654 Red Blood Count 2.91 10^6/uL L 02/15/19 0654 Hemoglobin 9.1 g/dl L 02/15/19 0654 Hematocrit 27.7 % L 02/15/19 0654 Mean Corpuscular Volume 95.2 fl 02/15/19 0654 Mean Corpuscular Hemoglobin 31.3 pg 02/15/19 0654 Mean Corpuscular Hemoglobin Concent 32.9 g/dl 02/15/19 0654 Red Cell Distribution Width 12.9 % 02/15/19 0654 Platelet Count 200 10^3/uL 02/15/19 0654 Discharge Medications Scheduled PRN Ibuprofen (Ibuprofen) 800 Mg Tablet, 800 MG PO Q8HP PRN for PAIN Oxycodone/Acetaminophen (Oxycodone-Acetaminophen 5-325) 1 Each Tablet, 1 TAB PO Q4HP PRN for PAIN SCALE 6-10 Allergies Coded Allergies: amoxicillin (Verified Allergy, Intermediate, RASH AND HIGH FEVER, NAUSEA, 02/10/19) ELADIO WALTER CNM Feb 16, 2019 09:40
[2019-02-16] MEDS ORDERED: PERCOCET PO (09:42)
[2019-02-16] MEDS ORDERED: IBUP80TA PO (09:42)
[2019-02-16] MEDS: PERCOCET 5MG/325MG TAB PO PRN ×2 (10:01→21:19)
[2019-02-16] MEDS: PRENATAL VITAMINS CHEWABLE TABLET PO SCH (10:01)
[2019-02-16] MEDS: DOCUSATE SODIUM 100 MG CAP PO SCH ×2 (10:02→21:19)
[2019-02-16 17:45] VITALS: BP 131/75
[2019-02-17] MEDS: IBUPROFEN 800 MG TAB PO SCH (05:27)
[2019-02-17 06:00] VITALS: BP 114/72
--- NOTE | 2019-02-17 08:11 | DSES ---
DATE OF ADMISSION: 02/13/2019 DATE OF DISCHARGE: 02/17/2019 DISCHARGE DIAGNOSIS: Spontaneous rupture of membranes with history of prior section. PROCEDURES PERFORMED WHILE IN HOSPITAL: 1. Repeat section. 2. Spinal anesthesia. HISTORY OF PRESENT ILLNESS: Ms. Adam is a 23-year-old, 2, para 1, who presented with spontaneous rupture of membranes at 37+ weeks. She had a history of a prior section and desired elective repeat section. She underwent uncomplicated section productive of a live born female infant, score 7 and 8. Weight was 2740 grams (6 pounds 1 ounce). Estimated blood loss was 500 mL. Ms. Adam did well postoperatively and by postoperative day #3 had met all discharge criteria. She was discharged home in stable condition. PHYSICAL EXAMINATION: On day of discharge, her vital signs are stable. She is afebrile. General appearance: Well appearing, no acute distress. Her abdomen was soft, appropriately tender. Fundus was firm below umbilicus. Her Incision was dressed. Extremities: Negative for calf tenderness. DISCHARGE INSTRUCTIONS: 1. She was instructed to remain on pelvic rest for 6 weeks. 2. To remove her dressing in 5-7 days. 3. Report severe pain, heavy vaginal bleeding, fever or incisional issues. DISCHARGE MEDICATIONS: - ibuprofen - Percocet edited: 02/18/2019 0746 tkf JOVANNY
[2019-02-17] MEDS: DOCUSATE SODIUM 100 MG CAP PO SCH (11:43)
[2019-02-17] MEDS: PRENATAL VITAMINS CHEWABLE TABLET PO SCH (11:43)
== END 2019-02-17 13:34 | disposition home or self-care (01) | DRG 540 ==
LOC: M LDO 23:11 → M LDI 23:23 → M OBS 02-14 02:54
PROVIDERS: ADMIT Advanced Practice Midwife; ATTEND Obstetrics & Gynecology
PROC: 10D00Z1 Extraction of Products of Conception, Low, Open Approach (ICD-10-PCS; principal; 2019-02-14 00:26)
DX: O34.211 Maternal care for low transverse scar from previous cesarean delivery (principal); F17.210 Nicotine dependence, cigarettes, uncomplicated; Z3A.37 37 weeks gestation of pregnancy; Z37.0 Single live birth; O99.334 Smoking (tobacco) complicating childbirth; O75.82 Onset (spontaneous) of labor after 37 completed weeks of gestation but before 39 completed weeks gestation, with delivery by (planned) cesarean section

== ENCOUNTER → 2019-04-30 | Outpatient (REF) | payer OTHER ==
[~2019-04-30] MED LIST changes: +PERCOCET PO
[2019-04-30 18:36] LABS: CHLAMYDIA DNA AMPLIFICATION NEGATIVE (NEGATIVE); GC DNA AMPLIFICATION NEGATIVE (NEGATIVE)
== END ==
LOC: M LAB REF 16:34
PROVIDERS: ATTEND Physician Assistant
DX: R30.0 Dysuria (principal)

== ENCOUNTER 2019-08-02 11:09 | Emergency (ER) | payer BC, OTHER, MEDICAID ==
[~2019-08-02] VITALS: Ht 160 cm; Wt 76.3 kg
[~2019-08-02 11:09] MED LIST changes: -LIDO1SOL8 MT; +LIDO2SOL17 MT; -TRAZ-163; -TRAZ-163 PO; +TRAZ-257; +TRAZ-257 PO
[2019-08-02 12:10] LABS: INFLUENZA A AMPLIFICATION NEGATIVE (NEGATIVE); INFLUENZA B AMPLIFICATION POSITIVE (NEGATIVE)
[2019-08-02] MEDS ORDERED: NS 1,000 ML IV ONE (12:15)
[2019-08-02 12:26] LABS: BASO % 0.3 % (0.0-1.0); EOS # 0.1 10^3/uL (0.0-0.5); EOS % 1.4 % (0.0-3.0); HEMATOCRIT 40.6 % (36.0-47.0); HEMOGLOBIN 13.2 g/dl (12.0-15.5); LYMPH # 1.2 10^3/uL (1.5-5.0); LYMPH % 31.7 % (24.0-44.0); MEAN CORPUSCULAR HEMOGLOBIN 29.7 pg (27.0-33.0); MEAN CORPUSCULAR HGB CONC 32.5 g/dl (32.0-36.5); MEAN CORPUSCULAR VOLUME 91.4 fl (80.0-96.0); MONO # 0.4 10^3/uL (0.0-0.8); NEUTROPHILS % 55.3 % (36.0-66.0); PLATELET COUNT, AUTOMATED 179 10^3/uL (150-450); RED BLOOD COUNT 4.44 10^6/uL (4.00-5.40); WHITE BLOOD COUNT 3.6 10^3/uL (4.0-10.0)
[2019-08-02 12:55] LABS: ALBUMIN 3.6 GM/DL (3.2-5.2); ALT/SGPT 56 U/L (12-78); BILIRUBIN,DIRECT < 0.1 MG/DL (0.0-0.2); BILIRUBIN,TOTAL 0.3 MG/DL (0.2-1.0); BLOOD UREA NITROGEN 11 MG/DL (7-18); CALCIUM LEVEL 8.5 MG/DL (8.5-10.1); CARBON DIOXIDE LEVEL 27 MEQ/L (21-32); CHLORIDE LEVEL 109 MEQ/L (98-107); CREATININE FOR GFR 0.71 MG/DL (0.55-1.30); GLOMERULAR FILTRATION RATE > 60.0 (>60); GLUCOSE, FASTING 79 MG/DL (70-100); POTASSIUM SERUM 3.8 MEQ/L (3.5-5.1); SODIUM LEVEL 140 MEQ/L (136-145); TOTAL PROTEIN 7.3 GM/DL (6.4-8.2)
[2019-08-02 12:58] LABS: HCG, SERUM QUALITATIVE NEGATIVE (NEGATIVE)
--- NOTE | 2019-08-02 13:15 | REP ---
PA and lateral chest: Comparison is 07/17/2017. The lung dial are clear. The cardiac size is normal. The troy, mediastinum, and skeletal structures are unremarkable. Impression: Negative PA and lateral chest. There is no interval change. Electronically Signed by Eric Hart MD 08/02/2019 01:06 P
[2019-08-02 13:51] VITALS: BP 120/72
--- NOTE | 2019-08-02 20:58 | ECGEPIP ---
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
== END 2019-08-02 13:55 | disposition home or self-care (01) ==
LOC: M ED 11:09
DX: J10.1 Influenza due to other identified influenza virus with other respiratory manifestations (principal); J45.909 Unspecified asthma, uncomplicated; E28.2 Polycystic ovarian syndrome; F41.9 Anxiety disorder, unspecified; F32.9 Major depressive disorder, single episode, unspecified; Z88.0 Allergy status to penicillin

== ENCOUNTER → 2019-08-17 | Outpatient (REF) | payer BC, MEDICAID ==
[2019-08-17 20:38] LABS: APPEARANCE, URINE CLEAR (CLEAR); BACTERIA, URINE AUTO NEGATIVE (NEGATIVE); BILIRUBIN, URINE AUTO NEGATIVE (NEGATIVE); BLOOD, URINE BLOOD NEGATIVE (NEGATIVE); COLOR, URINE YELLOW (YELLOW); GLUCOSE, URINE (UA) AUTO NEGATIVE (NEGATIVE); KETONE, URINE AUTO NEGATIVE (NEGATIVE); LEUKOCYTE ESTERASE, URINE AUTO NEGATIVE (NEGATIVE); MUCUS, URINE SMALL (NEGATIVE); NITRITE, URINE AUTO NEGATIVE (NEGATIVE); PROTEIN, URINE AUTO NEGATIVE (NEGATIVE); RBC, URINE AUTO 0 /HPF (0-3); SPECIFIC GRAVITY URINE AUTO 1.023 (1.002-1.035); SQUAMOUS EPITHELIAL CELL UR AU 2 /HPF (0-6); UROBILINOGEN, URINE AUTO 0.2 mg/dL (0.0-2.0); WBC, URINE AUTO 0 /HPF (0-3)
[2019-08-17 22:10] LABS: CHLAMYDIA DNA AMPLIFICATION NEGATIVE (NEGATIVE); GC DNA AMPLIFICATION NEGATIVE (NEGATIVE)
== END ==
LOC: M LAB REF 20:22
PROVIDERS: ATTEND Physician Assistant Medical
DX: N39.0 Urinary tract infection, site not specified (principal)

== ENCOUNTER → 2019-10-05 | Outpatient (REF) | payer OTHER, MEDICAID ==
[~2019-10-05] MED LIST changes: +CYCL-707 PO; -CYCL10TA PO
== END ==
LOC: M PLALAB 11:31
PROVIDERS: ATTEND Obstetrics & Gynecology
DX: N92.0 Excessive and frequent menstruation with regular cycle (principal)

== ENCOUNTER → 2019-10-20 | Outpatient (CLI) | payer BC, MEDICAID ==
--- NOTE | 2019-10-21 03:38 | REP ---
Clinical: Abnormal menstrual cycles . Technique: Transabdominal pelvic ultrasound followed by transvaginal examination for better evaluation of the endometrium and adnexa with color Doppler evaluation of the ovaries. Findings: Bladder is unremarkable and measures under distended . Heterogeneous retroverted uterus measures 7.3 x 5.1 x 5.9 cm . The endometrial complex measures 11 mm thickness. No discrete uterine or endometrial abnormalities are appreciated. Bilateral ovaries are normal in appearance and vascularity without evidence for torsion. Right ovary measures 4.7 x 2.4 x 2.2 cm with 2.5 cm presumed physiologic cyst ; R I = 0.47 . Left ovary measures 3.4 x 1.9 x 2.0 cm ; R I = 0.61 . Small amount of free fluid in the pelvis is nonspecific and possibly physiologic . Impression: 1. 2.5 cm right ovarian cyst likely physiologic. Consider reevaluation and 4-6 weeks to evaluate for resolution.
== END ==
LOC: M WHC 10:02
PROVIDERS: ATTEND Obstetrics & Gynecology
DX: N83.201 Unspecified ovarian cyst, right side (principal)

== ENCOUNTER 2019-11-23 15:49 | Emergency (ER) | payer BC, OTHER, MEDICAID ==
[~2019-11-23] VITALS: Ht 157.5 cm; Wt 73.3 kg
[2019-11-23] MEDS ORDERED: NS 1,000 ML IV ONE (17:15)
[2019-11-23 17:48] LABS: BASO % 0.4 % (0.0-1.0); EOS # 0.2 10^3/uL (0.0-0.5); EOS % 1.9 % (0.0-3.0); LYMPH # 2.3 10^3/uL (1.5-5.0); LYMPH % 24.3 % (24.0-44.0); MEAN CORPUSCULAR HEMOGLOBIN 30.5 pg (27.0-33.0); MEAN CORPUSCULAR HGB CONC 32.6 g/dl (32.0-36.5); MEAN CORPUSCULAR VOLUME 93.7 fl (80.0-96.0); MONO # 0.6 10^3/uL (0.0-0.8); MONO % 5.8 % (0.0-5.0); NEUTROPHILS # 6.4 10^3/uL (1.5-8.5); NEUTROPHILS % 67.2 % (36.0-66.0); PLATELET COUNT, AUTOMATED 252 10^3/uL (150-450); RED BLOOD COUNT 4.59 10^6/uL (4.00-5.40); WHITE BLOOD COUNT 9.5 10^3/uL (4.0-10.0)
[2019-11-23 18:02] LABS: INR 0.99; PROTHROMBIN TIME 12.8 SECONDS (11.8-14.0)
[2019-11-23 18:03] LABS: PARTIAL THROMBOPLASTIN TIME 31.5 SECONDS (25.0-38.4)
[2019-11-23] MEDS: GI COCKTAIL 50ML BTL(HYOSCYAMINE/MAALOX/LIDOCAINE VISCOUS)(1:3:1) PO ONE ×2 (18:04→18:10)
[2019-11-23 18:17] LABS: ALBUMIN 4.2 GM/DL (3.2-5.2); ALT/SGPT 18 U/L (12-78); BILIRUBIN,DIRECT < 0.1 MG/DL (0.0-0.2); BILIRUBIN,TOTAL 0.4 MG/DL (0.2-1.0); CK-MB VALUE MASS < 1.0 NG/ML (<3.6); CPK CREATINE PHOSPHOKINASE 36 U/L (26-192); LIPASE 146 U/L (73-393); MB/CK RELATIVE INDEX 2.78 (< OR =4); TOTAL PROTEIN 7.5 GM/DL (6.4-8.2); TROPONIN I < 0.02 NG/ML (< 0.10)
--- NOTE | 2019-11-23 18:19 | REP ---
Chest x-ray: Two views. History: Chest pain . Comparison study: August 02, 2019 . Findings: The lungs are well inflated and free of infiltrate. The pleural angles are sharp. The heart size is normal. Pulmonary vasculature is not increased. No significant bony abnormality is seen. Impression: Negative chest x-ray. Electronically Signed by Pablo Michelle MD 11/23/2019 06:11 P
[2019-11-23 18:22] LABS: D-DIMER QUANT < 270 ng/ml (<500)
[2019-11-23 18:39] VITALS: BP 115/75
--- NOTE | 2019-11-23 21:49 | ECGEPIP ---
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 Order Number: [id number] Reading MD: Kenny Matson Measurements Intervals [place] Rate: 70 P: 32 [place]: 127 QRS: 48 QRSD: 85 T: 39 QT: 370 QTc: 401 Interpretive Statements SINUS RHYTHM WITH SINUS ARRHYTHMIA POOR R WAVE PROGRESSION SIMILAR TO 08/02/19 Electronically Signed on 11-23-2019 21:49:07 EDT by Kenny Matson
== END 2019-11-23 18:45 | disposition home or self-care (01) ==
LOC: M ED 15:49
DX: R07.9 Chest pain, unspecified (principal); F41.9 Anxiety disorder, unspecified; N80.9 Endometriosis, unspecified; F17.200 Nicotine dependence, unspecified, uncomplicated; Z88.0 Allergy status to penicillin

== ENCOUNTER 2020-01-06 08:35 | Emergency (ER) | payer BC, OTHER, MEDICAID ==
[2020-01-06] MEDS ORDERED: LIDOCAINE 5% (LIDODERM) PATCH As Ordered ONE (09:15)
[2020-02-14 09:17] LABS: BASO # 0.1 10^3/uL (0.0-0.2); BASO % 0.7 % (0.0-1.0); EOS # 0.4 10^3/uL (0.0-0.5); EOS % 6.1 % (0.0-3.0); HEMOGLOBIN 14.1 g/dl (12.0-15.5); LYMPH # 2.2 10^3/uL (1.5-5.0); LYMPH % 32.2 % (24.0-44.0); MEAN CORPUSCULAR HEMOGLOBIN 30.5 pg (27.0-33.0); MEAN CORPUSCULAR HGB CONC 32.8 g/dl (32.0-36.5); MEAN CORPUSCULAR VOLUME 92.9 fl (80.0-96.0); MONO # 0.6 10^3/uL (0.0-0.8); NEUTROPHILS # 3.5 10^3/uL (1.5-8.5); NEUTROPHILS % 51.6 % (36.0-66.0); PLATELET COUNT, AUTOMATED 204 10^3/uL (150-450); RED BLOOD COUNT 4.63 10^6/uL (4.00-5.40); WHITE BLOOD COUNT 6.8 10^3/uL (4.0-10.0)
[2020-02-15 21:13] LABS: BLOOD UREA NITROGEN 12 MG/DL (7-18); CALCIUM LEVEL 8.7 MG/DL (8.5-10.1); CARBON DIOXIDE LEVEL 25 MEQ/L (21-32); CHLORIDE LEVEL 109 MEQ/L (98-107); CREATININE FOR GFR 0.75 MG/DL (0.55-1.30); GLOMERULAR FILTRATION RATE > 60.0 (>60); GLUCOSE, FASTING 73 MG/DL (70-100); POTASSIUM SERUM 4.3 MEQ/L (3.5-5.1); SODIUM LEVEL 141 MEQ/L (136-145)
[2020-02-15 21:26] LABS: HCG, SERUM QUALITATIVE NEGATIVE (NEGATIVE)
== END 2020-01-06 11:02 | disposition left against medical advice (07) ==
LOC: M ED 08:35
DX: M54.9 Dorsalgia, unspecified (principal); R51 Headache; F17.200 Nicotine dependence, unspecified, uncomplicated; Z88.0 Allergy status to penicillin

== ENCOUNTER 2020-01-09 13:56 | Emergency (ER) | payer BC, MEDICAID | END 2020-01-09 16:30 | disposition home or self-care (01) | LOC: M ED 13:56 | DX: M54.40 Lumbago with sciatica, unspecified side (principal); H61.21 Impacted cerumen, right ear; H66.41 Suppurative otitis media, unspecified, right ear; Z88.0 Allergy status to penicillin ==

== ENCOUNTER 2020-03-23 17:11 | Emergency (ER) | payer BC, MEDICAID, OTHER ==
[~2020-03-23] VITALS: Ht 157.5 cm; Wt 70.7 kg
[2020-03-23] MEDS ORDERED: NS 1,000 ML IV ONE (19:15)
[2020-03-23] MEDS ORDERED: ONDANSETRON 4MG/2ML VIAL IV ONE (19:15)
[2020-03-23] MEDS ORDERED: KETOROLAC 30 MG/ML 1ML VIAL IV ONE (19:15)
[2020-03-23 19:28] LABS: BASO % 0.4 % (0.0-1.0); EOS # 0.1 10^3/uL (0.0-0.5); EOS % 1.2 % (0.0-3.0); HEMATOCRIT 40.6 % (36.0-47.0); HEMOGLOBIN 13.4 g/dl (12.0-15.5); LYMPH # 2.2 10^3/uL (1.5-5.0); LYMPH % 24.4 % (24.0-44.0); MEAN CORPUSCULAR HEMOGLOBIN 30.7 pg (27.0-33.0); MEAN CORPUSCULAR VOLUME 93.1 fl (80.0-96.0); MONO # 0.5 10^3/uL (0.0-0.8); MONO % 5.9 % (0.0-5.0); NEUTROPHILS # 6.2 10^3/uL (1.5-8.5); NEUTROPHILS % 67.9 % (36.0-66.0); PLATELET COUNT, AUTOMATED 259 10^3/uL (150-450); RED BLOOD COUNT 4.36 10^6/uL (4.00-5.40); WHITE BLOOD COUNT 9.1 10^3/uL (4.0-10.0)
[2020-03-23 19:54] LABS: ALBUMIN 3.8 GM/DL (3.2-5.2); BILIRUBIN,DIRECT 0.2 MG/DL (0.0-0.2); BILIRUBIN,TOTAL 0.5 MG/DL (0.2-1.0); TOTAL PROTEIN 6.9 GM/DL (6.4-8.2)
[2020-03-23 20:49] VITALS: BP 118/75
[2020-05-24] MEDS ORDERED: NICO21PAT TD (09:24)
[2020-05-24] MEDS ORDERED: SERT50TA29 PO (09:24)
[2020-05-24] MEDS ORDERED: HYDR-3363 PO (09:24)
== END 2020-03-23 20:50 | disposition home or self-care (01) ==
LOC: M ED 17:11
DX: R10.9 Unspecified abdominal pain (principal); R19.7 Diarrhea, unspecified; F41.9 Anxiety disorder, unspecified; N80.9 Endometriosis, unspecified; F17.200 Nicotine dependence, unspecified, uncomplicated
CPT/HCPCS: 80047; 80076; 83690; 84702; 85025; 96361; 96374; 96375; 99284; J1885; J2405

== ENCOUNTER 2020-04-16 18:06 | Emergency (ER) | payer MEDICAID ==
[~2020-04-16] VITALS: Ht 157.5 cm; Wt 69.6 kg
[2020-04-16] MEDS ORDERED: LIDOCAINE 1% SDV 5ML VIAL DILUENT ONE (19:45)
[2020-04-16] MEDS ORDERED: metroNIDAZOLE (FLAGYL) 500MG TABLET PO ONE (19:45)
[2020-04-16] MEDS ORDERED: cefTRIAXone SOD 250MG VIAL (J0696 PER 250MG) IM ONE (19:45)
[2020-04-16] MEDS ORDERED: AZITHROMYCIN 250MG TABLET PO ONE (19:45)
[2020-04-16] MEDS ORDERED: MACR100C43 PO (19:54)
[2020-04-16] MEDS ORDERED: FLAG500T PO (19:54)
[2020-04-16 20:04] VITALS: BP 107/61
[2020-04-16 20:55] LABS: CHLAMYDIA DNA AMPLIFICATION NEGATIVE (NEGATIVE); GC DNA AMPLIFICATION NEGATIVE (NEGATIVE)
[2020-04-18 11:28] LABS: HEPATITIS B SURFACE ANTIBODY NEGATIVE (POSITIVE); HEPATITIS B SURFACE ANTIGEN NEGATIVE (NEGATIVE); HEPATITIS C VIRUS ABY INDEX 0.1 INDEX (<0.8); HIV 1&2 SCREEN CENTAUR NEGATIVE (NEGATIVE)
== END 2020-04-16 20:08 | disposition home or self-care (01) ==
LOC: M ED 18:06
DX: N39.0 Urinary tract infection, site not specified (principal); N89.8 Other specified noninflammatory disorders of vagina; Z20.2 Contact with and (suspected) exposure to infections with a predominantly sexual mode of transmission; F17.218 Nicotine dependence, cigarettes, with other nicotine-induced disorders; Z88.0 Allergy status to penicillin
CPT/HCPCS: 36415; 81001; 84702; 86706; 86780; 86803; 87086; 87210; 87340; 87389; 87661; 96372; 99284; J0696

== ENCOUNTER → 2020-05-09 | Outpatient (REF) | payer MEDICAID ==
[~2020-05-09] MED LIST changes: +MACR100C43 PO
== END ==
LOC: M PLALAB 09:42
PROVIDERS: ATTEND Obstetrics & Gynecology
DX: N97.0 Female infertility associated with anovulation (principal); Z20.2 Contact with and (suspected) exposure to infections with a predominantly sexual mode of transmission

== ENCOUNTER 2020-05-18 18:27 | Emergency (ER) | payer MEDICAID ==
[~2020-05-18] VITALS: Ht 157.5 cm; Wt 68.2 kg
[2020-05-18] MEDS ORDERED: hydrOXYzine 25 MG TAB PO ONE (19:00)
[2020-05-18 19:06] LABS: BASO % 0.3 % (0.0-1.0); EOS # 0.2 10^3/uL (0.0-0.5); EOS % 1.8 % (0.0-3.0); HEMATOCRIT 40.4 % (36.0-47.0); HEMOGLOBIN 13.1 g/dl (12.0-15.5); LYMPH # 2.3 10^3/uL (1.5-5.0); LYMPH % 26.2 % (24.0-44.0); MEAN CORPUSCULAR HEMOGLOBIN 30.5 pg (27.0-33.0); MEAN CORPUSCULAR HGB CONC 32.4 g/dl (32.0-36.5); MEAN CORPUSCULAR VOLUME 94.2 fl (80.0-96.0); MONO # 0.5 10^3/uL (0.0-0.8); MONO % 5.3 % (0.0-5.0); NEUTROPHILS # 5.7 10^3/uL (1.5-8.5); NEUTROPHILS % 66.2 % (36.0-66.0); PLATELET COUNT, AUTOMATED 243 10^3/uL (150-450); RED BLOOD COUNT 4.29 10^6/uL (4.00-5.40); WHITE BLOOD COUNT 8.7 10^3/uL (4.0-10.0)
[2020-05-18 19:36] LABS: HCG, SERUM QUALITATIVE NEGATIVE (NEGATIVE)
[2020-05-18 19:38] LABS: BLOOD UREA NITROGEN 10 MG/DL (7-18); CALCIUM LEVEL 8.5 MG/DL (8.5-10.1); CARBON DIOXIDE LEVEL 26 MEQ/L (21-32); CHLORIDE LEVEL 111 MEQ/L (98-107); CK-MB VALUE MASS < 1.0 NG/ML (<3.6); CPK CREATINE PHOSPHOKINASE 35 U/L (26-192); CREATININE FOR GFR 0.73 MG/DL (0.55-1.30); GLOMERULAR FILTRATION RATE > 60.0 (>60); GLUCOSE, FASTING 79 MG/DL (70-100); MB/CK RELATIVE INDEX 2.86 (< OR =4); POTASSIUM SERUM 3.8 MEQ/L (3.5-5.1); SODIUM LEVEL 141 MEQ/L (136-145); THYROID STIMULATING HORMONE 0.771 uIU/ML (0.358-3.740); TROPONIN I < 0.02 NG/ML (< 0.10)
--- NOTE | 2020-05-18 20:04 | REP ---
INDICATION: CHEST PAIN. COMPARISON: PA and lateral chest dated 11/23/2019. TECHNIQUE: Single AP view of the chest performed portably with the patient upright. FINDINGS: The lung dial are clear. Cardiac size is normal. The troy, mediastinum and skeletal structures are unremarkable. IMPRESSION: Essentially negative portable chest. There is no interval change. <Electronically signed by Eric Hart > 05/18/201999
[2020-05-18] MEDS ORDERED: HYDR1CAP25 PO (20:57)
[2020-05-18 21:00] VITALS: BP 132/80
--- NOTE | 2020-05-18 21:02 | ECGEPIP ---
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
== END 2020-05-18 21:29 | disposition home or self-care (01) ==
LOC: M ED 18:27 → EDBD 18:27 → M ED 21:29
DX: F43.0 Acute stress reaction (principal); J45.909 Unspecified asthma, uncomplicated; E28.2 Polycystic ovarian syndrome; N80.9 Endometriosis, unspecified; F41.9 Anxiety disorder, unspecified; F32.9 Major depressive disorder, single episode, unspecified; Z79.899 Other long term (current) drug therapy; Z88.0 Allergy status to penicillin

== ENCOUNTER → 2020-06-16 | Outpatient (REF) | payer MEDICAID ==
[~2020-06-16] MED LIST changes: +HYDR1CAP25 PO; +NICO21PAT TD; +SERT50TA29 PO
[2020-06-16 13:09] LABS: APPEARANCE, URINE CLOUDY (CLEAR); BACTERIA, URINE AUTO 2+ (NEGATIVE); BILIRUBIN, URINE AUTO NEGATIVE (NEGATIVE); BLOOD, URINE BLOOD 3+ (NEGATIVE); COLOR, URINE YELLOW (YELLOW); GLUCOSE, URINE (UA) AUTO NEGATIVE (NEGATIVE); KETONE, URINE AUTO NEGATIVE (NEGATIVE); LEUKOCYTE ESTERASE, URINE AUTO 3+ (NEGATIVE); MUCUS, URINE SMALL (NEGATIVE); NITRITE, URINE AUTO NEGATIVE (NEGATIVE); PROTEIN, URINE AUTO 2+ mg/dL (NEGATIVE); RBC, URINE AUTO TNTC /HPF (0-3); SPECIFIC GRAVITY URINE AUTO 1.021 (1.002-1.035); SQUAMOUS EPITHELIAL CELL UR AU 0 /HPF (0-6); UROBILINOGEN, URINE AUTO 0.2 mg/dL (0.0-2.0); WBC, URINE AUTO TNTC /HPF (0-3)
== END ==
LOC: M LAB REF 12:26
PROVIDERS: ATTEND Physician Assistant
DX: N39.0 Urinary tract infection, site not specified (principal)

== ENCOUNTER 2020-06-22 16:52 | Emergency (ER) | payer OTHER, MEDICAID ==
[~2020-06-22] VITALS: Ht 157.5 cm; Wt 69.3 kg
--- OUTSIDE RECORDS SUMMARY | 2020-06-22 16:58 | CCD ---
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 tendon(s) at lower leg level, right leg, initial encounter (XQP09-W93.901A)Insomnia due to medical condition (ICD10- G47.01)Passive smoke exposure (ICD-V15.89) (IEH41-D65.22)Painful rectal bleeding (ICD-569.3) (OYE29-U61.5)Amenorrhea (ICD-626.0) (YLE60-G71.2)Ovarian cyst (ICD- 620.2) (CRH88-Q75.20)Hyperlipidemia (ICD-272.4) (QKE42-G17.5)Bacterial vaginosis (ICD-616.10) (UZQ09-L05.0)Preventative health care (ICD-V70.0) (ICD10- Z00.00)General Adult Medical Exam WITH Abnormal Findings (over 18) (ICD-V70.0) (RHV72-F08.01)Abdominal pain, suprapubic (ICD-789.09) (DYF96-D87.30)ANXIETY DISORDER, GENERALIZED (ICD-300.02) (IIT93-L23.1)Depression, major, moderate (ICD-296.22) (BZR69-C33.1)Tobacco use (ICD-305.1) (JTF97-I16.0)Problem list reviewed during this update.Current Medications: MINOCYCLINE HCL 100 MG ORAL TABLET (MINOCYCLINE HCL) One tablet by mouth every day; Route: ORALRETIN-A MICRO 0.04 % EXTERNAL GEL (TRETINOIN MICROSPHERE) Apply to facial acne once daily.; Route: EXTERNALCHANTIX STARTING MONTH KATHYA 0.5 MG X 11 & 1 MG X 42 ORAL TABLET (VARENICLINE TARTRATE) UAD; Route: ORALCLONIDINE HCL 0.1 MG ORAL TABLET (CLONIDINE HCL) 1 tab daily; Route: ORALPRAZOSIN HCL 2 MG ORAL CAPSULE (PRAZOSIN HCL) 1 tab at HS; Route: ORALWELLBUTRIN SR 150 MG ORAL TABLET EXTENDED RELEASE 12 HOUR (BUPROPION HCL) 1 tab daily; Route: ORALTRAZODONE HCL 100 MG ORAL TABLET (TRAZODONE HCL) One po qHS; Route: ORALMedication list reviewed during this update.Current Allergies: AMOXICILLIN (AMOXICILLIN) (Critical)Allergy list reviewed during this update. Dental Chart: Procedures:Type - CDT Code - Description B - (D0220) Intraoral, periapical, first radiographic image on Tooth # 2 (Performed by Carmina Shane DDS) B - (D0140) Limited oral evaluation - problem focused on Tooth # 2 (Performed by Carmina Shane DDS) B - (D0230) Intraoral, periapical, each additional radiographic image on Tooth # 31 (Performed by Carmina Shane DDS) Chart Notes:eulalia (Jan 14 2020 10:55AM): Additional PPE requirements due to COVID-19 in the dental setting, N95, surgical mask, hair covering, gown and shield.S: CC:" i know i have cavities and theyve gotten worse, extreme pain on right right side top and bottom it woke me up, its very sensitive i cant even touch it, its really bad today i wanted to go to the ER. Pain in my ear and its giving me headaches."O: RMHx (-) HPI:a couple days PL:10 BP:113/76 P:78 . # 2 buccal has huge decay and very sensitive to air. # 1 and 32 impacted , was referred for exo 2 years ago. Pt. did not follow up. Blame the clinic that we dont call her for appointment. No swelling noted.A: CLAIRE recommends Extraction of #1, #16, #17, #32 and fillings. DX: decay # 2, Impacted wisdom teeth.P: Referral to OS for extraction of wisdom teeth and fillings scehduled. pt canceled last appointment .Referral was [facility] in 2018 and pt never went for extractions. Cavit placed on #2. PA #2 and #31. Informed Pt about new pain management policy of the clinic regarding about narcotic,told pt to alternate Ibuprophen 600- 800mg and tylenol 500mg every 4 to 6 hrs for pain when needed. Assisted By: YAMIL NV: Fill # 2Dille Carmina RANGEL by eulalia (01/14/2020 10:54 AM): Tooth Notes and Watches:- Tooth 2 Note: Referred to OS for extractionCarmina Shane DDS by axel (01/14/2020 10:49 AM): Assessment & Plan Medications:MINOCYCLINE HCL 100 MG ORAL TABLETRETIN-A MICRO 0.04 % EXTERNAL GELCHANTIX STARTING MONTH KATHYA 0.5 MG X 11 & 1 MG X 42 ORAL TABLETCLONIDINE HCL 0.1 MG ORAL TABLETPRAZOSIN HCL 2 MG ORAL CAPSULEWELLBUTRIN SR 150 MG ORAL TABLET EXTENDED RELEASE 12 HOURTRAZODONE HCL 100 MG ORAL TABLETAllergies:AMOXICILLIN (AMOXICILLIN) (Critical) Name Value Range Interpretation Code Description Data Sophia rce(s) Supporting Document(s) ID Date Data Source [id number] 01/07/2020 12:00:00 AM EDT [facility] Kristin MIRANDA Patient Name: ADAM [id number] [facility] Date of : 1995[place] [address] Date of Exam: 01/07/2020PH#: Fax: [phone] EXAM: CERVICAL SPINE COMPLETE XRAYCLINICAL INFORMATION: Pain and stiffness.Nine views. These images were obtained using digital radiography.There is no compression fracture or malalignment. There is no prevertebralsoft tissue swelling. There is mild reversal of the normal cervicallordosis. This could indicate spasm. Disc spaces are well preserved.Neural foramina radiographically appear unremarkable.IMPRESSION:Mild reversal of the normal cervical lordosis may indicate spasm.Otherwise, unremarkable study.ALICIA Wilson/Yecenia you for referring BRUNILDA TERRY to our office. Electronically Signed - LES FLOWERS MD 01/07/20 16:35 Name Value Range Interpretation Code Description Data Sophia rce(s) Supporting Document(s) ID Date Data Source [id number] 08/06/2019 12:31:37 PM [facility] Patient History Medical History:Chronic UTIsAnxietyDepressionSeizures while in laborcysts on ovariessubstance substancePTSDPanic attacksSurgical History: sectionendometriosisumbilical hernia x2 Social/Personal History: Smoking Status: current every day smokerDo you vape? NoCurrent Problems: Teeth extraction (ICD-525.10) (KHD50-R41.499)Acne vulgaris (ICD-706.1) (EGR93-F92.0)Chronic pelvic pain of female (ICD-625.9) (AZV96-C37.2)Secondary amenorrhea (MXH04-Y57.1)Cough - urge incontinence of urine (ICD-788.31) (ICD10- N39.46)Female infertility associated with anovulation (EKM05-Z85.0)Acute viral bronchitis (ICD-466.0) (TKB15-T59.8)Unspecified injury of unspecified muscle(s) and tendon(s) at lower leg level, right leg, initial encounter (ICD10- S86.901A)Insomnia due to medical condition (ILL07-C68.01)Passive smoke exposure (ICD-V15.89) (HSA76-J70.22)Painful rectal bleeding (ICD-569.3) (ICD10- K62.5)Amenorrhea (ICD-626.0) (GGX27-Y73.2)Ovarian cyst (ICD-620.2) (ICD10- N83.20)Hyperlipidemia (ICD-272.4) (JEE27-C52.5)Bacterial vaginosis (ICD-616.10) (SOD64-I96.0)Preventative health care (ICD-V70.0) (SWO08-M81.00)General Adult Medical Exam WITH Abnormal Findings (over 18) (ICD-V70.0) (GFV74-W91.01)A bdominal pain, suprapubic (ICD-789.09) (TZR32-C59.30)ANXIETY DISORDER, GENERALIZED (ICD-300.02) (BPU56-B18.1)Depression, major, moderate (ICD-296.22) (URL35-A79.1)Tobacco use (ICD-305.1) (LGL51-F19.0)Current Medications: MINOCYCLINE HCL 100 MG ORAL TABLET (MINOCYCLINE HCL) One tablet by mouth every day; Route: ORALRETIN-A MICRO 0.04 % EXTERNAL GEL (TRETINOIN MICROSPHERE) Apply to facial acne once daily.; Route: EXTERNALCHANTIX STARTING MONTH KATHYA 0.5 MG X 11 & 1 MG X 42 ORAL TABLET (VARENICLINE TARTRATE) UAD; Route: ORALCLONIDINE HCL 0.1 MG ORAL TABLET (CLONIDINE HCL) 1 tab daily; Route: ORALPRAZOSIN HCL 2 MG ORAL CAPSULE (PRAZOSIN HCL) 1 tab at HS; Route: ORALWELLBUTRIN SR 150 MG ORAL TABLET EXTENDED RELEASE 12 HOUR (BUPROPION HCL) 1 tab daily; Route: ORALTRAZODONE HCL 100 MG ORAL TABLET (TRAZODONE HCL) One po qHS; Route: ORALCurrent Allergies: AMOXICILLIN (AMOXICILLIN) (Critical)Past Medical History:(reviewed - no changes required) Chronic UTIsAnxietyDepressionSeizures while in laborcysts on ovariessubstance substancePTSDPanic attacks Dental Chart: Procedures:Type - CDT Code - Description B - (D0274) Bitewings, 4 radiographic images (Performed by Helena Ramirez RDH) B - (D0150) Comprehensive oral evaluation - new or established patient (Performed by Carmina Shane DDS) B - (D0230) Intraoral, periapical, each additional radiographic image on Tooth # 11 on Tooth Surface D (Performed by Helena Ramirez RDH) B - (D0220) Intraoral, periapical, first radiographic image on Tooth # 6 on Tooth Surface I (Performed by Helena Ramirez RDH) B - (D0230) Intraoral, periapical, e ach additional radiographic image on Tooth # 8 on Tooth Surface F (Performed by Helena Ramirez RDH) Treatments:Type - CDT Code - Description T - (D7140) Extraction, erupted tooth or exposed root (elevation and/or forceps removal) on Tooth # 32 (Performed by Helena Ramirez RDH) T - (D2150) Amalgam, 2 surfaces, primary or permanent on Tooth # 28 on Tooth Surface DO (Performed by Helena Ramirez RDH) T - (D2160) Amalgam, 3 surfaces, primary or permanent on Tooth # 15 on Tooth Surface MOB (Performed by James ALMENDAREZHelena) T - (D7140) Extraction, erupted tooth or exposed root (elevation and/or forceps removal) on Tooth # 1 (Performed by Helena Ramirez RDH) T - (D2161) Amalgam, 4 or more surfaces, primary or permanent on Tooth # 2 on Tooth Surface DBOM (Performed by Helena Ramirez RDH) T - (D2160) Amalgam, 3 surfaces, primary or permanent on Tooth # 4 on Tooth Surface DMO (Performed by Helena Ramirez RDH) T - (D2160) Amalgam, 3 surfaces, primary or permanent on Tooth # 13 on Tooth Surface DOM (Performed by James ALMENDAREZHelena) T - (D2160) Amalgam, 3 surfaces, primary or permanent on Tooth # 29 on Tooth Surface OMD (Performed by Helena Ramirez RDH) T - (D2150) Amalgam, 2 surfaces, primary or permanent on Tooth # 12 on Tooth Surface DO (Performed by Helena Ramirez RDH) T - (D2150) Amalgam, 2 surfaces, primary or permanent on Tooth # 21 on Tooth Surface OD (Performed by James ALMENDAREZHelena) T - (D2331) Resin, 2 surfaces, anterior on Tooth # 11 on Tooth Surface DL (Performed by James ALMENDAREZHelena) T - (D2160) Amalgam, 3 surfaces, primary or permanent on Tooth # 3 on Tooth Surface ODM (Performed by Helena Ramirez RDH) T - (D7140) Extraction, erupted tooth or exposed root (elevation and/or forceps removal) on Tooth # 16 (Performed by Helena Ramirez RDH) T - (D2160) Amalgam, 3 surfaces, primary or permanent on Tooth # 20 on Tooth Surface MOD (Performed by Helena Ramirez RDH) T - (D2160) Amalgam, 3 surfaces, primary or permanent on Tooth # 14 on Tooth Surface DOM (Performed by James ALMENDAREZHelena) T - (D2161) Amalgam, 4 or more surfaces, primary or permanent on Tooth # 19 on Tooth Surface MODB (Performed by Helena Ramirez RDH) T - (D7140) Extraction, erupted tooth or exposed root (elevation and/or forceps removal) on Tooth # 17 (Performed by James ALMENDAREZHelena) T - (D2150) Amalgam, 2 surfaces, primary or permanent on Tooth # 31 on Tooth Surface MO (Performed by Helena Ramirez RDH) T - (D2161) Amalgam, 4 or more surfaces, primary or permanent on Tooth # 30 on Tooth Surface DBOM (Performed by Helena Ramirez RDH) Existing:Type - CDT Code - Description[E] Decay On #11 Surface DL, #12 Surface OD, #13 Surface MOD, #14 S urface MOD, #15 Surface MOB, #19 Surface MODB, #2 Surface DOMB, #20 Surface MOD, #21 Surface OD, #28 Surface DO, #29 Surface DOM, #3 Surface DOM, #30 Surface DOMB, #31 Surface OM, #4 Surface DOM Chart Notes:beau (Aug 06 2019 1:21PM): "I don't have any pain, but I do have issues." I was suppose to get my wisdom teeth taken out. I don't think I went because I was . I pulled off my retainer () with tweezers because it was bothering my tongue and wanted it replaced. Inst pt we do not replace retainers and that her insurance would not cover replaing it and that she would have to pay out of pocket. OH- [id number], 3PA's- 6,8 and 11Pt states she is brushing bid, but does not floss. Stressed TB technique bid and flossing QD. Biofilm generalized. Numerous areas of decay present. Tissue was not probed due to baby fussing. Med Hx reviewed with pt- no meds at present and denies any health concerns. Referral to OS for wisdom teeth consult. N/V-Fillings (enc pt to call in for cancellation appts if she is free)/ prophy.Pt arrived with her baby who kept fussing and mother kept getting up to pick her up. Inst mom that she will need to find a sitter for fillings/prophy and probings as she will be in the chair for an hour. Helena Ramirez RDH by beau (08/06/2019 1:18 PM): ; eulalia (Aug 06 2019 1:30PM): [facility](- ). CC: none. Reviewed Xrays. Exam: rampant caries detected. OCS: WNL, IO/ EO c ompleted, No significant hard findings upon clinical exam Pt was cooperative. Hygienist inform mom to fing a sitter to her child when she comes for her dental appts. OHI givenReferral: wisdom teeth for exoNV:Helena Bertrand RDH by eulalia (08/06/2019 1:30 PM): Tooth Notes and Watches: Assessment & Plan Medications:MINOCYCLINE HCL 100 MG ORAL TABLETRETIN-A MICRO 0.04 % EXTERNAL GELCHANTIX STARTING MONTH KATHYA 0.5 MG X 11 & 1 MG X 42 ORAL TABLETCLONIDINE HCL 0.1 MG ORAL TABLETPRAZOSIN HCL 2 MG ORAL CAPSULEWELLBUTRIN SR 150 MG ORAL TABLET EXTENDED RELEASE 12 HOURTRAZODONE HCL 100 MG ORAL TABLETAllergies:AMOXICILLIN (AMOXICILLIN) (Critical)Orders:Oral Surgery Referral [[id number]] Clinical Visit Summary Declined Name Value Range Interpretation Code Description Data Sophia rce(s) Supporting Document(s) Procedure Social History Code Duration Value Status Description Data Source(s ) Smoking 04/28/2020 12:00:00 AM EST Current Smoker completed Curre nt Smoker eCW1 ([facility]) Smoking 04/28/2020 12:00:00 AM EST Current Smoker completed Curre nt Smoker eCW1 ([facility]) Smoking 10/23/2019 12:00:00 AM EDT Current Smoker completed Curre nt Smoker eCW1 ([facility]) Vital Signs ID Date Data Source UNK Name Value Range Interpretation Code Description Data Source(s) Diastolic blood pressure 72 mm[Hg] 72 mm[Hg] [facility] ([facility]) Systolic blood pressure 126 mm[Hg] 126 mm[Hg] e 1 ([facility]) Body mass index (BMI) [Ratio] 26.5 kg/m2 26.5 k g/m2 [facility] ([facility]) Body height 63.5 [in_i] 63.5 [in_i] [facility] ([facility]) Body weight 152 [lb_av] 152 [lb_av] [facility] ([facility]) Systolic blood pressure 124 mm[Hg] 124 mm[Hg] e [facility] ([facility]) Body mass index (BMI) [Ratio] 28.59 kg/m2 28.59 kg/m2 eCW1 ([facility]) Body height 63.5 [in_us] 63.5 [in_us] eCW1 ([facility]) Body weight Measured 164 [lb_av] 164 [lb_av] eC W1 ([facility]) Diastolic blood pressure 74 mm[Hg] 74 mm[Hg] eCW1 ([facility]) Diastolic blood pressure 63 mm[Hg] 63 mm[Hg] eCW1 ([facility]) Systolic blood pressure 116 mm[Hg] 116 mm[Hg] e CW1 ([facility]) Body temperature 98.2 [degF] 98.2 [degF] eCW1 ( [facility]) Respiratory rate 18 /min 18 /min eCW1 ([facility]) Heart rate 110 /min 110 /min eCW1 ([facility]) Body mass index (BMI) [Ratio] 29.12 kg/m2 29.12 kg/m2 eCW1 ([facility]) Body height 63.5 [in_us] 63.5 [in_us] eCW1 ([facility]) Body weight Measured 167 [lb_av] 167 [lb_av] eC W1 ([facility]) Patient Treatment Plan of Care Planned Activity Planned Date Details Description Data Source (s) Clomiphene Citrate 50 MG Oral Tablet 04/28/2020 12:00:00 AM EST eCW1 ([facility]) Clomiphene Citrate 50 MG Oral Tablet 04/28/2020 12:00:00 AM EST eCW1 ([facility]) Ortho Tri-Cyclen Lo 0.18/0.215/0.25 MG-25 MCG 05/25/2019 12:00:00 A M EST eCW1 ([facility]) Spironolactone 25 MG Oral Tablet 05/25/2019 12:00:00 AM EST eCW1 ([facility])
--- OUTSIDE RECORDS SUMMARY | 2020-06-22 16:58 | CCD ---
Author Author [facility] Organization [facility] Address Unknown Phone Unavailable Care Team Providers Care Patient Case Coordinator Name Role Phone Kamila Fernandez Unavailable PROBLEMS Type Condition ICD9-CM Code LNK01-RR Code Onset Dates Condition S tatus SNOMED Code Notes Problem PTSD (post-traumatic stress disorder) F43.10 Ac tive 17481697 Problem Body mass index (BMI) of 30.0-30.9 in adult Z68.30 Active 137973530 Problem Current episode of major dep ressive disorder without prior episode, unspecified depression episode severity F32.9 Active 80502081 Problem Depression, unspecified depression type F32.9 Active 82466952 Problem Anxiety F41.9 Active 74579689 Problem Tobacco use Z72.0 Active 979340357 Problem Other obesity due to excess calories E66.09 Act sagrario [id number] ALLERGIES Allergen (clinical drug ingredient) Drug/Non Drug Allergy do cumented on EMR Reaction Allergy Type Onset Date Status amoxicillin Amoxicillin([facility] Code:[address]-07) Unknown Drug Aller gy Active ENCOUNTERS from 1995 to 2020-05-18 Encounter Location Date Provider Diagnosis [facility] [place] [address] Apr, Kamila Fernandez Anovulation N97.0 an d Contact with and (suspected) exposure to infections with a predominantly sexual mode of transmission Z20.2 IMMUNIZATIONS Vaccine Route Administration Date Status Depo-Medrol 40mg (Methylpredisolone Acetate) IM Intramuscular Se 2017 Administered TDAP 0.5mL (Boostrix) Unknown Jul 15, 2013 Administer ed Influenza (6mo & up) Fluzone Unknown Jul 28, 2014 Ref used Influenza (6mo & up) Fluzone Unknown May 25, 2014 Ref used SOCIAL HISTORY Tobacco Use: Social History Observation Description Date Details (start date - stop date) Current Smoker Sex Assigned At : Social History Observation Description Sex Assigned At Unknown Education: Question Answer Notes Level of Education: High School Language: Question Answer Notes Languages spoken: Maltese Advent: Question Answer Notes Advent 08 [employer] Sexual Hx: Question Answer Notes Had sex in the last 12 months (vaginal, oral, or anal)? Yes Have you ever had an STD? No with Men only Use protection? No Alcohol Screening: Question Answer Notes Did you have a drink containing alcohol in the past year? Ye s Points 1 Interpretation Negative How often did you have six or more drinks on one occas ion in the past year? Never (0 points) How many drinks did you have on a typica l day when you were drinking in the past year? 1 or 2 (0 points) How often did you have a drink containing alcohol in t he past year? Monthly or less (1 point) Tobacco Use: Question Answer Notes Are you a: current smoker Smoking Cessation Information Given 11/20/2018 Patient counseled on the dangers of tobacco use and urged to quit: 11/20/2018 How many cigarettes a day do you smoke? 11-20 Are you interested in quitting? Not ready to quit Counseled the patient on smoking effects, education provided 11/20/2018 REASON FOR REFERRAL No Information VITAL SIGNS Weight 152 lbs Apr, Height 63.5 in Apr, BMI 26.5 kg/m2 Apr, Blood pressure systolic 126 mm Hg Apr, Blood pressure diastolic 72 mm Hg Apr, MEDICATIONS Medication SIG (Take, Route, Frequency, Duration) Notes Start Da te End Date Status ClomiPHENE Citrate 50 MG 1 tablet Orally Once a day for 5 day(s) Apr, Active PROCEDURES No Information RESULTS Component Value Reference Range PROGESTERONE Reviewed date:05/17/2020 14:12:03 Interpretation: Performing Lab:[facility], [facility] [address] [facility] [address] , ,[place] [address] PROGESTERONE 4.91 REASON FOR VISIT NEEDS CLOMID 04/18/20 PHONE DISC UNABLE TO REACH PT MEDICAL (GENERAL) HISTORY Type Description Date Medical History PTSD Medical History frequent UTI Medical History Recovering narcotic addict - clean since 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 Fernandez Medical History chronic thoracolumbar muscle sprain-02/11/18 xray minimal T10-12 DSN Medical History LS spine MRI - WNL 02/2018 Medical History Severe preeclampsia c her 1s t @ 30 weeks & seizures after she was induced Medical History Alcohol Abuse in past -only 2 1/2 glasses during her this time Surgical History 08/25/2013 Surgical History Umbilical and supraumbilical hernia repa ir - Dr Yeh 12/24 Surgical History laproscopic surgery for endometriosis Surgical History 2019 Hospitalization History with childbirth and surgeries Hospitalization History problems Goals Section No Information Health Concerns No Information MEDICAL EQUIPMENT No Information MENTAL STATUS No Information FUNCTIONAL STATUS No Information ASSESSMENTS Encounter Date Diagnosis Assessment Notes Treatment Notes Treatm ent Clinical Notes Apr, Anovulation (ICD-10 - N97.0) Day 21 progesterone order she will complete will notifiy if she still anovulatory Apr, Contact with and (suspected) exposure to infections with a predominantly sexual mode of transmission (ICD-10 - Z20.2) PLAN OF TREATMENT Medication Medication Name Sig Start Date Stop Date ClomiPHENE Citrate 50 MG 1 tablet Orally Once a day for 5 day(s) Apr, Treatment Notes Assessment Notes Clinical Notes Anovulation Day 21 progesterone order she will complete will notifiy if she still anovulatory Treatment Notes Test Name Order Date CHLAMYDIA, GC & TRICH AMP 2020-05-18 CHLAMYDIA & GC DNA AMPLIFICAT 2020-05-18 Next Appt Details prn Reason: Insurance Providers Payer Name Payer Address Payer Phone Insured Name Patient Relati onship to Insured Coverage Start Date Coverage End Date MEDICAID [employer] [address] [place] [id number] BRUNILDA TERRY
--- OUTSIDE RECORDS SUMMARY | 2020-06-22 16:58 | CCD ---
Author Author [facility] Organization [facility] Address Unknown Phone Unavailable Care Team Providers Care Hand Glass Cutter Name Role Phone Darrel Kristin Unavailable PROBLEMS Type Condition ICD9-CM Code TVP35-CL Code Onset Dates Condition S tatus SNOMED Code Notes Problem PTSD (post-traumatic stress disorder) F43.10 Ac tive 45904604 Problem Body mass index (BMI) of 30.0-30.9 in adult Z68.30 Active 244238428 Problem Current episode of major dep ressive disorder without prior episode, unspecified depression episode severity F32.9 Active 45605185 Problem Depression, unspecified depression type F32.9 Active 97287544 Problem Anxiety F41.9 Active 59249112 Problem Tobacco use Z72.0 Active 401564289 Problem Other obesity due to excess calories E66.09 Act sagrario 246246940 ALLERGIES Allergen (clinical drug ingredient) Drug/Non Drug Allergy do cumented on EMR Reaction Allergy Type Onset Date Status amoxicillin Amoxicillin([facility] Code:[address]-80) Unknown Drug Aller gy Active ENCOUNTERS from 1994 to 2020-05-26 Encounter Location Date Provider Diagnosis [address] [address] May, Kristin Rojo IMMUNIZATIONS Vaccine Route Administration Date Status Depo-Medrol [...] School Language: Question Answer Notes Languages spoken: Khmer Druze: Question Answer Notes Druze 08 Mandaeism Sexual Hx: Question Answer Notes Had sex [...] REASON FOR REFERRAL No Information VITAL SIGNS No information MEDICATIONS Medication SIG (Take, Route, Frequency, Duration) Notes Start Da te End Date Status ClomiPHENE Citrate 50 MG 1 tablet Orally Once a day for 5 day(s) Apr, Active PROCEDURES No Information RESULTS No Results REASON FOR VISIT no show MEDICAL (GENERAL) HISTORY Type Description Date Medical [...] No Information FUNCTIONAL STATUS No Information ASSESSMENTS No Information PLAN OF TREATMENT Medication Medication Name Sig Start Date Stop Date ClomiPHENE Citrate 50 MG 1 tablet Orally Once a day for 5 day(s) Apr, Insurance Providers Payer Name Payer Address Payer Phone Insured Name Patient Relati onship to Insured Coverage Start Date Coverage End Date MEDICAID [employer] [address] [place] [address] BRUNILDA TERRY self
[2020-06-22] MEDS ORDERED: MORPHINE 2 MG/ML 1ML VIAL (J2270) IV ONE (19:00)
[2020-06-22] MEDS ORDERED: PANTOPRAZOLE 40MG VIAL (C9113 PER 1) IV ONE (19:00)
[2020-06-22] MEDS ORDERED: ONDANSETRON 4MG/2ML VIAL IV ONE (19:00)
[2020-06-22 19:29] LABS: HEMATOCRIT 41.4 % (36.0-47.0); HEMOGLOBIN 13.4 g/dl (12.0-15.5); MEAN CORPUSCULAR HEMOGLOBIN 30.3 pg (27.0-33.0); MEAN CORPUSCULAR HGB CONC 32.4 g/dl (32.0-36.5); MEAN CORPUSCULAR VOLUME 93.7 fl (80.0-96.0); PLATELET COUNT, AUTOMATED 276 10^3/uL (150-450); RED BLOOD COUNT 4.42 10^6/uL (4.00-5.40); WHITE BLOOD COUNT 10.8 10^3/uL (4.0-10.0)
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
[2020-06-22 19:53] LABS: BLOOD UREA NITROGEN 14 MG/DL (7-18); CARBON DIOXIDE LEVEL 27 MEQ/L (21-32); CHLORIDE LEVEL 108 MEQ/L (98-107); CREATININE FOR GFR 0.69 MG/DL (0.55-1.30); GLOMERULAR FILTRATION RATE > 60.0 (>60); GLUCOSE, FASTING 82 MG/DL (70-100); SODIUM LEVEL 140 MEQ/L (136-145)
[2020-06-22 19:58] LABS: HCG, SERUM QUALITATIVE NEGATIVE (NEGATIVE)
--- NOTE | 2020-06-22 21:26 | REPVR ---
PROCEDURE INFORMATION: Exam: US Nonobstetric Pelvis; Complete Exam date and time: 06/22/2020 8:18 PM Age: 25 years old Clinical indication: Pelvic pain; Additional info: Bleeding TECHNIQUE: Imaging protocol: Transabdominal pelvic nonobstetric ultrasound. Complete exam. Real time ultrasound with image documentation. COMPARISON: PELVIS NON-OB COMPLETE US 10/20/2019 10:16 AM FINDINGS: Uterus/cervix: Uterus measures 8.7 x 3.4 x 4.9 cm. Endometrium measures 4 mm. No uterine or endometrial masses. Normal echotexture. Small cervical nabothian cysts are noted. Right adnexa: Multiple small physiologic follicles in the right ovary. Normal ovarian blood flow. No hydrosalpinx. Left adnexa: Small physiologic follicles in the left ovary. Normal ovarian blood flow. No hydrosalpinx. Intraperitoneal space: No intraperitoneal fluid. IMPRESSION: 1. Small ovarian follicles. 2. Unremarkable pelvic ultrasound. Electronically signed by: Rm Burgess On 06/22/2020 21:26:00 PM
[2020-06-22 21:42] VITALS: BP 110/68
== END 2020-06-22 21:43 | disposition home or self-care (01) ==
LOC: M ED 16:52
DX: N93.8 Other specified abnormal uterine and vaginal bleeding (principal); N80.9 Endometriosis, unspecified; F17.200 Nicotine dependence, unspecified, uncomplicated; Z79.899 Other long term (current) drug therapy; Z88.0 Allergy status to penicillin
CPT/HCPCS: 76830; 76856; 80048; 84703; 85027; 86850; 86870; 86900; 86901; 93976; 96374; 96375; 99284; C9113; J2270; J2405

== ENCOUNTER → 2020-07-28 | Outpatient (REF) | payer MEDICAID, OTHER | LOC: M SFHCWAGY 13:30 | PROVIDERS: ATTEND Advanced Practice Midwife | DX: Z12.4 Encounter for screening for malignant neoplasm of cervix (principal) ==

== ENCOUNTER → 2020-08-02 | Outpatient (REF) | payer MEDICAID ==
[2020-08-02 18:22] LABS: HCG, SERUM QUALITATIVE NEGATIVE (NEGATIVE)
[2020-08-02 18:27] LABS: ESTRADIOL 128.8 PG/ML; PROGESTERONE 10.35 NG/ML
== END ==
LOC: M SFHCWAGY 16:59
PROVIDERS: ATTEND Advanced Practice Midwife
DX: Z31.9 Encounter for procreative management, unspecified (principal)

== ENCOUNTER → 2020-08-08 | Outpatient (CLI) | payer OTHER, MEDICAID ==
--- NOTE | 2020-08-08 12:43 | REP ---
INDICATION: MENORRHAGIA COMPARISON: 06/22/2020 TECHNIQUE: Transabdominal pelvic ultrasound followed by transvaginal examination for better evaluation of the endometrium and adnexa with color Doppler evaluation of the ovaries. FINDINGS: Bladder is collapsed. Heterogeneous retroverted uterus measures 7.6 x 4.2 x 5.8 cm. The endometrial complex measures 6.5 mm thickness. No discrete uterine or endometrial abnormalities are appreciated. Bilateral ovaries are normal in appearance and vascularity without evidence for torsion. Right ovary measures 3.1 x 2.1 x 3.4 cm; R I = 0.48. Left ovary measures 3.8 x 2.0 x 1.9 cm; R I = 0.54. Trace pelvic fluid likely physiologic. No pelvic mass. IMPRESSION: No significant or acute pelvic pathology appreciated <Electronically signed by Omer Wyman > 08/08/20 [id number]
== END ==
LOC: M WHC 11:54
PROVIDERS: ATTEND Advanced Practice Midwife
DX: N92.0 Excessive and frequent menstruation with regular cycle (principal)

== ENCOUNTER → 2020-08-29 | Outpatient (REF) | payer OTHER, MEDICAID | LOC: M SFHCWAGY 13:34 | PROVIDERS: ATTEND Nurse Practitioner Women's Health | DX: R87.612 Low grade squamous intraepithelial lesion on cytologic smear of cervix (LGSIL) (principal); Z11.3 Encounter for screening for infections with a predominantly sexual mode of transmission; Z86.19 Personal history of other infectious and parasitic diseases ==

== ENCOUNTER → 2020-09-01 | Outpatient (REF) | payer OTHER ==
[2020-09-01 15:25] LABS: HEPATITIS A ANTIBODY IGM NEGATIVE (NEGATIVE); HEPATITIS B CORE ANTIBODY IGM NEGATIVE (NEGATIVE); HEPATITIS B SURFACE ANTIGEN NEGATIVE (NEGATIVE); HEPATITIS C VIRUS ABY INDEX < 0.0 INDEX (<0.8); HIV 1&2 SCREEN CENTAUR NEGATIVE (NEGATIVE)
== END ==
LOC: M PLALAB 10:49
PROVIDERS: ATTEND Nurse Practitioner Women's Health
DX: Z11.3 Encounter for screening for infections with a predominantly sexual mode of transmission (principal)

== ENCOUNTER 2020-10-04 17:48 | Emergency (ER) | payer MEDICAID, OTHER ==
[~2020-10-04] VITALS: Ht 157.5 cm; Wt 68.2 kg
[2020-10-04 17:48] VITALS: BP 126/77
[2020-10-04] MEDS ORDERED: ORTH1TAB8 PO (17:55)
[2020-10-04 18:36] LABS: BASO % 0.3 % (0.0-1.0); EOS # 0.2 10^3/uL (0.0-0.5); EOS % 1.8 % (0.0-3.0); HEMATOCRIT 41.1 % (36.0-47.0); HEMOGLOBIN 13.7 g/dl (12.0-15.5); LYMPH # 2.1 10^3/uL (1.5-5.0); LYMPH % 18.5 % (24.0-44.0); MEAN CORPUSCULAR HEMOGLOBIN 31.2 pg (27.0-33.0); MEAN CORPUSCULAR HGB CONC 33.3 g/dl (32.0-36.5); MEAN CORPUSCULAR VOLUME 93.6 fl (80.0-96.0); MONO # 0.7 10^3/uL (0.0-0.8); MONO % 5.8 % (2.0-8.0); NEUTROPHILS # 8.2 10^3/uL (1.5-8.5); NEUTROPHILS % 73.1 % (36.0-66.0); PLATELET COUNT, AUTOMATED 264 10^3/uL (150-450); RED BLOOD COUNT 4.39 10^6/uL (4.00-5.40); WHITE BLOOD COUNT 11.2 10^3/uL (4.0-10.0)
[2020-10-04 18:56] LABS: ALBUMIN 3.7 GM/DL (3.2-5.2); ALT/SGPT 17 U/L (12-78); BILIRUBIN,DIRECT < 0.1 MG/DL (0.0-0.2); BILIRUBIN,TOTAL 0.2 MG/DL (0.2-1.0); LIPASE 182 U/L (73-393); TOTAL PROTEIN 7.3 GM/DL (6.4-8.2)
[2020-10-04] MEDS ORDERED: KETOROLAC 30 MG/ML 1ML VIAL IV ONE (19:40)
[2020-10-04 20:00] LABS: HCG, SERUM QUALITATIVE NEGATIVE (NEGATIVE)
[2020-10-04] MEDS ORDERED: ISOVUE-370 76% 100ML VIAL As Ordered ONE (20:18)
[2020-10-04 20:29] LABS: BLOOD UREA NITROGEN 14 MG/DL (7-18); CALCIUM LEVEL 8.9 MG/DL (8.5-10.1); CARBON DIOXIDE LEVEL 29 MEQ/L (21-32); CHLORIDE LEVEL 108 MEQ/L (98-107); CREATININE FOR GFR 0.72 MG/DL (0.55-1.30); GLOMERULAR FILTRATION RATE > 60.0 (>60); GLUCOSE, FASTING 89 MG/DL (70-100); SODIUM LEVEL 141 MEQ/L (136-145)
--- NOTE | 2020-10-04 21:11 | REPVR ---
PROCEDURE INFORMATION: Exam: CT Abdomen And Pelvis With Contrast Exam date and time: 10/04/2020 8:29 PM Age: 25 years old Clinical indication: Abdominal pain; Generalized TECHNIQUE: Imaging protocol: Computed tomography of the abdomen and pelvis with contrast. Radiation optimization: All CT scans at this facility use at least one of these dose optimization techniques: automated exposure control; mA and/or kV adjustment per patient size (includes targeted exams where dose is matched to clinical indication); or iterative reconstruction. Contrast material: ISOVUE 370; Contrast volume: 100 ml; Contrast route: INTRAVENOUS (IV); COMPARISON: CT ABD/PEL W/IV CONTRAST ONLY 12/15/2016 11:01 PM FINDINGS: Lungs: No suspicious mass or airspace process in the visualized lung bases. Liver: Liver appears normal with no focal abnormality. Gallbladder and bile ducts: Gallbladder is present and shows no evidence of gallstone. Pancreas: Pancreas appears normal. No focal mass or peripancreatic inflammation. Spleen: Spleen appears homogeneous without focal mass. Adrenal glands: Adrenal glands are normal in appearance. Kidneys and ureters: Kidneys appear normal, with no stone, solid mass or hydronephrosis. Stomach and bowel: No evidence of small bowel obstruction. Terminal ileum has normal appearance. No evidence of acute diverticulitis. Appendix: Normal caliber appendix is identified, with no adjacent inflammation. Intraperitoneal space: No pneumoperitoneum. Trace free fluid is present in the pelvis. Vasculature: No aortic aneurysm. Main portal and splenic veins enhance normally. Lymph nodes: No enlarged lymph nodes. Urinary bladder: Urinary bladder appears normal. Reproductive: No enlargement of the uterus or ovaries. Bones/joints: Bony structures show no acute fracture or destructive process. Soft tissues: Fat containing umbilical hernia is present. No concerning focal abnormality of the extra-abdominal and pelvic soft tissues. IMPRESSION: 1. No acute surgical or inflammatory intra-abdominal or pelvic process. 2. Small volume of dependent pelvic free fluid which could be secondary to an involuted or ruptured ovarian cyst. Uterus and ovaries do not appear enlarged. Electronically signed by: Johnathon Ashley On 10/04/2020 21:10:49 PM
== END 2020-10-04 22:17 | disposition home or self-care (01) ==
LOC: M ED 17:48
DX: N83.00 Follicular cyst of ovary, unspecified side (principal); N83.299 Other ovarian cyst, unspecified side; K42.9 Umbilical hernia without obstruction or gangrene; J45.909 Unspecified asthma, uncomplicated; F41.9 Anxiety disorder, unspecified; F32.9 Major depressive disorder, single episode, unspecified; F17.200 Nicotine dependence, unspecified, uncomplicated; Z79.899 Other long term (current) drug therapy; Z88.0 Allergy status to penicillin
CPT/HCPCS: 74177; 80047; 80048; 80076; 83690; 84703; 85025; 96374; 99283; J1885; Q9967

== ENCOUNTER 2020-11-05 08:56 | Emergency (ER) | payer OTHER ==
[~2020-11-05] VITALS: Ht 157.5 cm; Wt 70.5 kg
[~2020-11-05 08:56] MED LIST changes: +ORTH1TAB8 PO
[2020-11-05] MEDS ORDERED: LARI1TAB5 (09:16)
[2020-11-05] MEDS ORDERED: TRAZ-252 (09:16)
[2020-11-05] MEDS ORDERED: FAMO20TA5 (09:16)
[2020-11-05] MEDS ORDERED: PRAZ1CAP (09:16)
[2020-11-05] MEDS ORDERED: SPIR50TA4 (09:16)
[2020-11-05] MEDS ORDERED: PANT40TA29 (09:16)
[2020-11-05] MEDS ORDERED: METOCLOPRAMIDE 10 MG TAB PO ONE (09:25)
[2020-11-05 09:43] LABS: HEMOGLOBIN 14.1 g/dl (12.0-15.5); MEAN CORPUSCULAR HEMOGLOBIN 31.2 pg (27.0-33.0); MEAN CORPUSCULAR HGB CONC 33.6 g/dl (32.0-36.5); MEAN CORPUSCULAR VOLUME 92.9 fl (80.0-96.0); PLATELET COUNT, AUTOMATED 274 10^3/uL (150-450); RED BLOOD COUNT 4.52 10^6/uL (4.00-5.40); WHITE BLOOD COUNT 9.4 10^3/uL (4.0-10.0)
[2020-11-05 10:30] LABS: BLOOD UREA NITROGEN 11 MG/DL (7-18); CALCIUM LEVEL 9.8 MG/DL (8.5-10.1); CARBON DIOXIDE LEVEL 25 MEQ/L (21-32); CHLORIDE LEVEL 108 MEQ/L (98-107); CREATININE FOR GFR 0.72 MG/DL (0.55-1.30); GLOMERULAR FILTRATION RATE > 60.0 (>60); GLUCOSE, FASTING 79 MG/DL (70-100); HCG, SERUM QUANTITATIVE 3408 MIU/ML; POTASSIUM SERUM 4.1 MEQ/L (3.5-5.1); SODIUM LEVEL 141 MEQ/L (136-145)
[2020-11-05 10:45] VITALS: BP 137/82
== END 2020-11-05 10:47 | disposition home or self-care (01) ==
LOC: M ED 08:56
DX: O99.350 Diseases of the nervous system complicating pregnancy, unspecified trimester (principal); R51.9 Headache, unspecified; G89.29 Other chronic pain; O99.340 Other mental disorders complicating pregnancy, unspecified trimester; F43.10 Post-traumatic stress disorder, unspecified; F41.9 Anxiety disorder, unspecified; F33.9 Major depressive disorder, recurrent, unspecified; O99.320 Drug use complicating pregnancy, unspecified trimester; F11.11 Opioid abuse, in remission; O99.330 Smoking (tobacco) complicating pregnancy, unspecified trimester; F17.200 Nicotine dependence, unspecified, uncomplicated; Z3A.00 Weeks of gestation of pregnancy not specified; Z79.890 Hormone replacement therapy; Z88.0 Allergy status to penicillin; Z98.890 Other specified postprocedural states

== ENCOUNTER → 2020-11-10 | Outpatient (REF) | payer OTHER ==
[~2020-11-10] MED LIST changes: +FAMO20TA5; +LARI1TAB5; +PANT40TA29; +PRAZ1CAP; +SPIR50TA4; +TRAZ-252
== END ==
LOC: M SFHCWAGY 09:52
PROVIDERS: ATTEND Advanced Practice Midwife
DX: N76.0 Acute vaginitis (principal)

== ENCOUNTER → 2020-12-15 | Outpatient (CLI) | payer OTHER ==
[~2020-12-15] MED LIST changes: -DOXY100C37 PO; +DOXY1CAP62 PO
== END ==
LOC: M PLALAB 08:55
PROVIDERS: ATTEND Advanced Practice Midwife
DX: Z36.89 Encounter for other specified antenatal screening (principal); Z3A.00 Weeks of gestation of pregnancy not specified

== ENCOUNTER → 2021-01-20 | Outpatient (CLI) | payer OTHER ==
[2021-01-20 13:30] LABS: HEMATOCRIT 36.1 % (36.0-47.0); HEMOGLOBIN 12.2 g/dl (12.0-15.5); MEAN CORPUSCULAR HEMOGLOBIN 31.6 pg (27.0-33.0); MEAN CORPUSCULAR HGB CONC 33.8 g/dl (32.0-36.5); MEAN CORPUSCULAR VOLUME 93.5 fl (80.0-96.0); PLATELET COUNT, AUTOMATED 224 10^3/uL (150-450); RED BLOOD COUNT 3.86 10^6/uL (4.00-5.40); WHITE BLOOD COUNT 11.5 10^3/uL (4.0-10.0)
[2021-01-20 14:35] LABS: HEPATITIS C VIRUS ABY INDEX 0.1 INDEX (<0.8); HIV 1&2 SCREEN CENTAUR NEGATIVE (NEGATIVE)
[2021-01-20 14:49] LABS: GC DNA AMPLIFICATION NEGATIVE (NEGATIVE)
== END ==
LOC: M PLALAB 10:06
PROVIDERS: ATTEND Advanced Practice Midwife
DX: O34.211 Maternal care for low transverse scar from previous cesarean delivery (principal); Z3A.00 Weeks of gestation of pregnancy not specified

== ENCOUNTER 2021-01-31 11:25 | Emergency (ER) | payer OTHER ==
[~2021-01-31] VITALS: Ht 160 cm; Wt 74.4 kg
[2021-01-31 11:26] VITALS: BP 122/73
--- OUTSIDE RECORDS SUMMARY | 2021-01-31 11:31 | CCD ---
Author Author [facility] Organization [facility] Address Unknown Phone Unavailable Care Team Providers Care Robotype Operator Name Role Phone Kristin Rojo Unavailable PROBLEMS Type Condition ICD9-CM Code [id number] Code Onset Dates Condition S tatus W/U Status Risk SNOMED Code Notes Problem Tobacco use Z72.0 Active confirmed 91326856 0 Problem Other obesity due to excess calories E66.09 Act sagrario confirmed 927760328 Problem Body mass index (BMI) of 30.0-30.9 in adult Z68.30 Active confirmed 891519240 Problem PTSD (post-traumatic stress disorder) F43.10 Ac tive confirmed 85321644 Problem Supervision of other normal Z34.80 Ac tive confirm 727696562 Problem Anxiety F41.9 Active confirmed 62526731 Problem Nicotine dependence, cigarettes, uncomplicated F17 .210 Active confirmed 548970593 Problem Depression, unspecified depression type F32.9 Active confirmed 43566739 Problem Current episode of major dep ressive disorder without prior episode, unspecified depression episode severity F32.9 Active confirme d 76411484 Problem Menorrhagia N92.0 Active confirmed 72910753 8 Problem Tobacco use disorder F17.200 Active confirmed 984408798 Problem Endometriosis of pelvic peritoneum N80.3 Activ e confirmed 011011924 ALLERGIES Allergen (clinical drug ingredient) Drug/Non Drug Allergy do cumented on EMR Reaction Allergy Type Onset Date Status amoxicillin Amoxicillin([facility] Code:[address]-92) Unknown Drug Aller gy Active ENCOUNTERS from 1994 to 2020-12-12 Encounter Location Date Provider Diagnosis [address] [phone] [place] [address] Nov, Kristin Rojo Epigastric abdominal pain R1 0.13 ; Bloating R14.0 and Less than 8 weeks gestation of Z3A.01 IMMUNIZATIONS Vaccine Route Administration Date Status Depo-Medrol 40mg Methylpredisolone Acetate IM Intramuscular Feb 18, 2018 Administered TDAP 0.5mL (Boostrix) Unknown Jul 15, 2013 Administer ed Influenza 6mo & up Fluzone Unknown Jul 28, 2014 Refus ed Influenza 6mo & up Fluzone Unknown May 25, 2014 Refus ed SOCIAL HISTORY Tobacco Use: Social History Observation Description Date Details (start date - stop date) Current Smoker Sex Assigned At : Social History Observation Description Sex Assigned At Unknown Education: Question Answer Notes Level of Education: High School Language: Question Answer Notes Languages spoken: Swiss Mosque: Question Answer Notes Mosque 08 [employer] Sexual Hx: Question Answer Notes Had sex [...] FOR REFERRAL No Information VITAL SIGNS Weight 153.8 lbs Nov, Height 63.5 in Nov, BMI 26.81 kg/m2 Nov, Heart Rate 105 /min Nov, Respiratory Rate 18 /min Nov, Temperature 97.6 degrees Fahrenheit Nov, Oximetry 99% Nov, Blood pressure systolic 118 mm Hg Nov, Blood pressure diastolic 76 mm Hg Nov, MEDICATIONS Medication SIG (Take, Route, Frequency, Duration) Notes Start Da te End Date Status hydrOXYzine HCl 25 MG 1 tablet as needed Orally every 8 hrs Not-Taking Zofran 4 MG 1 tablet Orally every 6 hours as needed for nausea Nov, Not-Taking 28-0.8 MG 1 tablet Orally Once a day Active Spironolactone 50 MG 1 tablet Orally twice a day for 30 day(s) Not-Taking Omeprazole 20 MG 1 capsule 30 minutes before morning meal Orally Once a day for 30 day(s) Nov, Not-Taking Tretinoin 0.05 % 1 application in the evening to face Externally Once a day for 30 days Not-Taking Prazosin HCl 1 MG 1 capsule at bedtime Orally Once a day for 30 day(s) October, Not-Taking NexIUM 24HR 20 MG 1 capsule Orally Once a day for 30 day(s) Nov, Not-Taking Clotrimazole 1 % 1 application at bedtime Vaginal Once a day for 7 day(s) Nov, Not-Taking PROCEDURES No Information RESULTS No Results REASON FOR VISIT 6 Weeks f/u c SS MEDICAL (GENERAL) HISTORY Type Description Date Medical [...] Surgical History Umbilical and supraumbilical hernia repa yuliet - Dr Yeh 12/24 Surgical History laproscopic surgery for endometriosis Surgical History 2019 Hospitalization History with childbirth and surgeries Hospitalization History problems Goals Section No Information Health Concerns No Information MEDICAL EQUIPMENT No Information MENTAL STATUS No Information FUNCTIONAL STATUS No Information ASSESSMENTS Encounter Date Diagnosis Assessment Notes Treatment Notes Treatm ent Clinical Notes Nov, Epigastric abdominal pain (ICD-10 - R10.13) Will refer to GI Nov, Bloating (ICD-10 - R14.0) resolved Nov, Less than 8 weeks gestation of (ICD-10 - Z3A.01) Nov, Other 15" H&P, chart review PLAN OF TREATMENT Treatment Notes Assessment Notes Clinical Notes Epigastric abdominal pain Will refer to GI Bloating resolved Next Appt Details 9M c SS Reason: Provider Name:Florinda Anders, 2021-01-04 03:00:00 PM, [address] [facility], , [place], [address], Insurance Providers Payer Name Payer Address Payer Phone Insured Name Patient Relati onship to Insured Coverage Start Date Coverage End Date [facility] COMMUNITY PLAN [facility] [address] [facility] [phone] BRUNILDA TERRY self
--- OUTSIDE RECORDS SUMMARY | 2021-01-31 11:31 | CCD ---
Author Author [facility] Organization [facility] Address Unknown Phone Unavailable Care Team Providers Care Patternmaker Helper Name Role Phone Terri Fontanez Unavailable PROBLEMS Type Condition ICD9-CM Code [id number] Code Onset Dates Condition S tatus W/U Status Risk SNOMED Code Notes Problem Tobacco use Z72.0 Active confirmed 52064918 0 Problem Other obesity due to excess calories E66.09 Act sagrario confirmed 366221108 Problem Body mass index (BMI) of 30.0-30.9 in adult Z68.30 Active confirmed 640815487 Problem PTSD (post-traumatic stress disorder) F43.10 Ac tive confirmed 25873013 Problem Supervision of other normal Z34.80 Ac tive confirm 589459484 Problem Anxiety F41.9 Active confirmed 68770140 Problem Nicotine dependence, cigarettes, uncomplicated F17 .210 Active confirmed 679667793 Problem Depression, unspecified depression type F32.9 Active confirmed 66670248 Problem Current episode of major dep ressive disorder without prior episode, unspecified depression episode severity F32.9 Active confirme d 54706301 Problem Menorrhagia N92.0 Active confirmed 80172815 8 Problem Tobacco use disorder F17.200 Active confirmed 094488785 Problem Endometriosis of pelvic peritoneum N80.3 Activ e confirmed 299603555 ALLERGIES Allergen (clinical drug ingredient) Drug/Non Drug Allergy do cumented on EMR Reaction Allergy Type Onset Date Status amoxicillin Amoxicillin([facility] Code:[address]-29) Unknown Drug Aller gy Active ENCOUNTERS from 1994 to 2021-01-12 Encounter Location Date Provider Diagnosis [facility] [address] [place] [address] [place] [address] Jan, Terri Fontanez Cough R05 IMMUNIZATIONS Vaccine Route Administration Date Status Depo-Medrol [...] School Language: Question Answer Notes Languages spoken: Romansh Adventist: Question Answer Notes Adventist 08 Jew Sexual Hx: Question Answer Notes Had sex [...] Notes Start Da te End Date Status Omeprazole 20 MG 1 capsule 30 minutes before morning meal Orally Once a day for 30 day(s) Nov, Not-Taking Prazosin HCl 1 MG 1 capsule at bedtime Orally Once a day for 30 day(s) October, Not-Taking Tretinoin 0.05 % 1 application in the evening to face Externally Once a day for 30 days Not-Taking Tessalon Perles 100 MG 1 capsule as needed Orally Three time s a day for 7 days Jan, Active Zofran 4 MG 1 tablet Orally every 6 hours as needed for nausea Nov, Not-Taking hydrOXYzine HCl 25 MG 1 tablet as needed Orally every 8 hrs Not-Taking Clotrimazole 1 % 1 application at bedtime Vaginal Once a day for 7 day(s) Nov, Not-Taking Spironolactone 50 MG 1 tablet Orally twice a day for 30 day(s) Not-Taking NexIUM 24HR 20 MG 1 capsule Orally Once a day for 30 day(s) Nov, Not-Taking 28-0.8 MG 1 tablet Orally Once a day Active PROCEDURES No Information RESULTS No Results REASON FOR VISIT concerns MEDICAL (GENERAL) HISTORY Type Description Date Medical [...] Notes Treatment Notes Treatm ent Clinical Notes Jan, Cough (ICD-10 - R05) PLAN OF TREATMENT Medication Medication Name Sig Start Date Stop Date Tessalon Perles 100 MG 1 capsule as needed Orally Three time s a day for 7 days Jan, Next Appt Details Provider Name:Cassandra Cramer, 2021-02-03 10:40:00 AM, [address] [place] [address], , [place], [address], Provider Name:Kamila Fernandez, 2021-06-28 0 7:30:00 AM, [address] [facility], , [place], [address], Insurance Providers Payer Name Payer Address Payer Phone Insured Name Patient Relati onship to Insured Coverage Start Date Coverage End Date [facility] COMMUNITY PLAN [facility] [address] [facility] [address] [phone] BRUNILDA TERRY self
--- OUTSIDE RECORDS SUMMARY | 2021-01-31 11:31 | CCD ---
Author Author [facility] Organization Unknown Address [address] [address] Phone Care Team Providers Care System Administrator Name Role Phone Hever Matt PCP Allergies, Adverse Reactions, Alerts No Data in Section Problem List Concept Problem Description Status Start Date Created Date Resolv ed Date Snomed Code F33.1 Major Depressive Disorder, Recurrent episode, Moderate Active 12/23/2020 F43.12 Post-traumatic stress disorder, chronic Active 12/23/2020 F60.3 Borderline Personality Disorder Active 12/24/19 21 F11.20 Opioid Use Disorder, Moderate Active 12/23/2020 Z72.0 Tobacco Use Disorder, Mild Active 12/23/2020 Medications Rx Norm Medication Route Route Concept Start Date Stop Date Dosage Sebastian quency Duration Formula Strength Dosage Form Dosage Form Code Dosage Description Medication Id Account Npid Author First Name Author Last Name Taxonomy Code Taxonomy Desc Phone Number [phone] prazosin by mouth [id number] 10/10/2020 at bedtime 1 [place] e 8[address] [phone] Kalani Holly [id number] Psychiatric/Mental Health [phone] [id number] buspirone by mouth Z90308 11/16/2020 01/15/2021 twice a day 30 5 mg tablet [id number] Kalani Holly [id number] P sychiatric/Mental Health [id number] Social History Social History Element Description Concept Effective Date Smoking Status Unknown if ever smoked [id number] Immunizations No Data in Section Vital Signs No Data in Section Procedures Date Concept Id Description Targeted Site Concept Targeted Site Concept Type 12/23/2020 97227-08 [facility] Telemed E/M Lvl 3--Est pt CPT Patient has no history of implantable de vices Encounters Encounter Start Date End Date Encounter Type Description Diagnosis Di agnosis Desc Location Author First Name Author Last Name Npid Taxonomy Cod e Taxonomy Desc Phone Number Location Addr1 Location Addr2 Location [facility] Location Sta te Location Zip [id number] 12/23/2020 12/23/2020 94131-96 [facility] Telemed E/M Lvl 3--Est p t F33.1 Major depressive disorder, recurrent, moderate [facility] Hever [id number] Nurse Practitioner [phone] [address] [address] Plan of Treatment No Data in Section Lab Results No Data in Section Instructions No Data in Section Functional Cognitive Status No Data in Section Insurance Providers Insurance Id Policy Effective Date Policy Thru Date Company N robin [id number] 2020 [employer] Managed Kisha yeager
--- OUTSIDE RECORDS SUMMARY | 2021-01-31 11:31 | CCD ---
Author Author [facility] Organization [facility] Address Unknown Phone Unavailable Care Team Providers Care Primary School Principal Name Role Phone Cassandra Cramer Unavailable PROBLEMS Type Condition ICD9-CM Code SWJ91-PN Code Onset Dates Condition S tatus W/U Status Risk SNOMED Code Notes Problem Tobacco use Z72.0 Active confirmed 89293007 0 Problem Other obesity due to excess calories E66.09 Act sagrario confirmed 243279690 Problem Body mass index (BMI) of 30.0-30.9 in adult Z68.30 Active confirmed 433976615 Problem PTSD (post-traumatic stress disorder) F43.10 Ac tive confirmed 02338280 Problem Supervision of other normal Z34.80 Ac tive confirm 147013681 Problem Anxiety F41.9 Active confirmed 61641296 Problem Nicotine dependence, cigarettes, uncomplicated F17 .210 Active confirmed 449592636 Problem Depression, unspecified depression type F32.9 Active confirmed 86934947 Problem Current episode of major dep ressive disorder without prior episode, unspecified depression episode severity F32.9 Active confirme d 58399805 Problem Menorrhagia N92.0 Active confirmed 86534730 8 Problem Tobacco use disorder F17.200 Active confirmed 413159686 Problem Endometriosis of pelvic peritoneum N80.3 Activ e confirmed 122075904 ALLERGIES Allergen (clinical drug ingredient) Drug/Non Drug Allergy do cumented on EMR Reaction Allergy Type Onset Date Status amoxicillin Amoxicillin([facility] Code:[address]-42) Unknown Drug Aller gy Active ENCOUNTERS from 1994 to 2020-12-24 Encounter Location Date Provider Diagnosis [facility] [address] [place] [address] [place] [address] Nov, Cassandra Cramer Maternal care due to low transverse uterine scar from previous delivery O34.211 ; Mental disorder affecting in first trimester O99.341 ; PTSD (post-traumatic stress disorder) F43.10 ; 10 weeks gestation of Z3A.10 ; Nicotine dependence, cigarettes, uncomplicated F17.210 and Smoking (tobacco) complicating , first trimester O99.331 IMMUNIZATIONS Vaccine Route Administration Date Status Depo-Medrol [...] School Language: Question Answer Notes Languages spoken: Latvian Scientologist: Question Answer Notes Scientologist 08 Religion Sexual Hx: Question Answer Notes Had sex [...] Information VITAL SIGNS Weight 153.8 lbs Nov, Weight-kg 69.76 kg Nov, Height 63.5 in Nov, BMI 26.817 kg/m2 Nov, Blood pressure systolic 118 mm Hg Nov, Blood pressure diastolic 70 mm Hg Nov, MEDICATIONS Medication SIG (Take, [...] Information RESULTS No Results REASON FOR VISIT 1ST PN MEDICAL (GENERAL) HISTORY Type Description Date Medical [...] Treatment Notes Treatm ent Clinical Notes Nov, Maternal care due to low tra nsverse uterine scar from previous delivery (ICD-10 - O34.211) Nov, Mental disorder affecting pr egnancy in first trimester (ICD-10 - O99.341) Nov, PTSD (post-traumatic stress disorder) (ICD-10 - F43.10) Nov, 10 weeks gestation of (ICD-10 - Z3A.10 ) Nov, Nicotine dependence, cigarettes, uncompl icated (ICD-10 - F17.210) Nov, Smoking (tobacco) complicati ng , first trimester (ICD-10 - O99.331) PLAN OF TREATMENT Treatment Notes Test Name Order Date HIV 1&2 ANTIBODY SCREEN 2020-12-07 SYPHILIS ANTIBODY (RPR SCREEN) 2020-12-07 CBC - Complete Blood Count 2020-12-07 RUBELLA IMMUNE STATUS IgG 2020-12-07 URINE CULTURE 2020-12-07 CHLAMYDIA & GC DNA AMPLIFICAT 2020-12-07 HEPATITIS C ANTIBODY INDEX 2020-12-07 HBSAG 2020-12-07 Type and Screen Prenatal1 2020-12-07 Next Appt Details 4 Weeks Reason:PN [facility] 2021-01-04 03:00:00 PM, [address] [facility], , [place], [address], Follow Up:4 WeeksPN Insurance Providers Payer Name Payer Address Payer Phone Insured Name Patient Relati onship to Insured Coverage Start Date Coverage End Date [facility] COMMUNITY PLAN [facility] [address] [facility] [phone] BRUNILDA TERRY
--- OUTSIDE RECORDS SUMMARY | 2021-01-31 11:31 | CCD ---
Author Author [facility] Organization [facility] Address Unknown Phone Unavailable Care Team Providers Care Hogshead Mat Inspector Name Role Phone Florinda Anders Unavailable PROBLEMS Type Condition ICD9-CM Code PGE65-JK Code Onset Dates Condition S tatus W/U Status Risk SNOMED Code Notes Problem Tobacco use Z72.0 Active confirmed 34063004 0 Problem Other obesity due to excess calories E66.09 Act sagrario confirmed 641326419 Problem Body mass index (BMI) of 30.0-30.9 in adult Z68.30 Active confirmed 219381091 Problem PTSD (post-traumatic stress disorder) F43.10 Ac tive confirmed 08943935 Problem Supervision of other normal Z34.80 Ac tive confirm 393819788 Problem Anxiety F41.9 Active confirmed 13479007 Problem Nicotine dependence, cigarettes, uncomplicated F17 .210 Active confirmed 546533404 Problem Depression, unspecified depression type F32.9 Active confirmed 01636015 Problem Current episode of major dep ressive disorder without prior episode, unspecified depression episode severity F32.9 Active confirme d 47230211 Problem Menorrhagia N92.0 Active confirmed 34797614 8 Problem Tobacco use disorder F17.200 Active confirmed 584244745 Problem Endometriosis of pelvic peritoneum N80.3 Activ e confirmed 698298396 ALLERGIES Allergen (clinical drug ingredient) Drug/Non Drug Allergy do cumented on EMR Reaction Allergy Type Onset Date Status amoxicillin Amoxicillin([facility] Code:[address]-51) Unknown Drug Aller gy Active ENCOUNTERS from 1994 to 2021-01-05 Encounter Location Date Provider Diagnosis [facility] [address] [place] [phone] [place] [address] [facility] due to low transverse uterine scar from previous delivery O34.211 and 14 weeks gestation of Z3A.14 IMMUNIZATIONS Vaccine Route Administration Date Status Depo-Medrol [...] School Language: Question Answer Notes Languages spoken: Lithuanian Zoroastrianism: Question Answer Notes Zoroastrianism 08 Latter Day Sexual Hx: Question Answer Notes Had sex [...] FOR REFERRAL No Information VITAL SIGNS Weight 163.2 lbs Dec, Weight-kg 74.03 kg Dec, Height 63.5 in Dec, BMI 28.456 kg/m2 Dec, Blood pressure systolic 120 mm Hg Dec, Blood pressure diastolic 72 mm Hg Dec, MEDICATIONS Medication SIG (Take, Route, Frequency, Duration) Notes Start Da te End Date Status Omeprazole 20 MG 1 capsule 30 minutes before morning meal Orally Once a day for 30 day(s) Nov, Not-Taking Tretinoin 0.05 % 1 application in the evening to face Externally Once a day for 30 days Not-Taking 28-0.8 MG 1 tablet Orally Once a day Active Zofran 4 MG 1 tablet Orally every 6 hours as needed for nausea Nov, Not-Taking Prazosin HCl 1 MG 1 capsule at bedtime Orally Once a day for 30 day(s) October, Not-Taking Clotrimazole 1 % 1 application at bedtime Vaginal Once a day for 7 day(s) Nov, Not-Taking Spironolactone 50 MG 1 tablet Orally twice a day for 30 day(s) Not-Taking NexIUM 24HR 20 MG 1 capsule Orally Once a day for 30 day(s) Nov, Not-Taking hydrOXYzine HCl 25 MG 1 tablet as needed Orally every 8 hrs Not-Taking PROCEDURES No Information RESULTS No Results REASON FOR VISIT 4 WK PN MEDICAL (GENERAL) HISTORY Type Description Date [...] Notes Treatment Notes Treatm ent Clinical Notes Dec, Maternal care due to low tra nsverse uterine scar from previous delivery (ICD-10 - O34.211) Dec, 14 weeks gestation of (ICD-10 - Z3A.14 ) PLAN OF TREATMENT Next Appt Details 4 Weeks Reason:- Routine follow up Provider Name:Cassandra Cramer, 2021-02-03 10:40:00 AM, [address] [facility], , [place], [address], Provider Name:Kamila Angel Jim, 2021-06-28 0 7:30:00 AM, [address] [facility], , [place], [address], Follow Up:4 Weeks- Routine follow up Insurance Providers Payer Name Payer Address Payer Phone Insured Name Patient Relati onship to Insured Coverage Start Date Coverage End Date [facility] COMMUNITY PLAN [facility] [address] [facility] [phone] BRUNILDA TERRY self
--- OUTSIDE RECORDS SUMMARY | 2021-01-31 11:31 | CCD ---
Author Author [facility] Organization [facility] Address Unknown Phone Unavailable Care Team Providers Care Senior Quality Control Inspector Name Role Phone Cassandra Cramer Unavailable PROBLEMS Type Condition ICD9-CM Code TVA26-VV Code Onset Dates Condition S tatus W/U Status Risk SNOMED Code Notes Problem Tobacco use Z72.0 Active confirmed 83624650 0 Problem Other obesity due to excess calories E66.09 Act sagrario confirmed 222763245 Problem Body mass index (BMI) of 30.0-30.9 in adult Z68.30 Active confirmed 008977136 Problem PTSD (post-traumatic stress disorder) F43.10 Ac tive confirmed 69803973 Problem Supervision of other normal Z34.80 Ac tive confirm 696812619 Problem Anxiety F41.9 Active confirmed 89201442 Problem Nicotine dependence, cigarettes, uncomplicated F17 .210 Active confirmed 010712313 Problem Depression, unspecified depression type F32.9 Active confirmed 92146891 Problem Current episode of major dep ressive disorder without prior episode, unspecified depression episode severity F32.9 Active confirme d 45277635 Problem Menorrhagia N92.0 Active confirmed 02281356 8 Problem Tobacco use disorder F17.200 Active confirmed 695306704 Problem Endometriosis of pelvic peritoneum N80.3 Activ e confirmed 390602382 ALLERGIES Allergen (clinical drug ingredient) Drug/Non Drug Allergy do cumented on EMR Reaction Allergy Type Onset Date Status amoxicillin Amoxicillin([facility] Code:[address]-93) Unknown Drug Aller gy Active ENCOUNTERS from 1994 to 2020-12-23 Encounter Location Date Provider Diagnosis [facility] Women[facility] Well[facility] and Breast Care [address] [place] [address] [place] [address] Dec, Cassandra Cramer IMMUNIZATIONS Vaccine Route Administration Date Status Depo-Medrol [...] School Language: Question Answer Notes Languages spoken: Belarusian Scientology: Question Answer Notes Scientology 08 [employer] Sexual Hx: Question Answer Notes Had sex [...] Information RESULTS No Results REASON FOR VISIT lab results MEDICAL (GENERAL) HISTORY Type Description Date Medical [...] Information ASSESSMENTS No Information PLAN OF TREATMENT Next Appt Details [facility], 2021-01-04 03:00:00 PM, [address] [facility], , [place], [address], Insurance Providers Payer Name Payer Address Payer Phone Insured Name Patient Relati onship to Insured Coverage Start Date Coverage End Date [facility] COMMUN[facility] PLAN [facility] [address] [facility] [phone] BRUNILDA TERRY
--- OUTSIDE RECORDS SUMMARY | 2021-01-31 11:31 | CCD ---
Author Author Anyi Erma Inman Organization Unknown Address [address] [address] Phone Care Team Providers Care Pyridine Recovery Operator Name Role Phone Henny De Santiago PCP Allergies, Adverse Reactions, Alerts No Data in Section Problem List Concept Problem Description Status Start Date Created Date Resolv ed Date Snomed Code F33.1 Major Depressive Disorder, Recurrent episode, Moderate Active 01/26/2021 F43.12 Post-traumatic stress disorder, chronic Active 01/26/2021 F60.3 Borderline Personality Disorder Active 01/27/20 21 F11.20 Opioid Use Disorder, Moderate Active 01/26/2021 Z72.0 Tobacco Use Disorder, Mild Active 01/26/2021 Medications Rx Norm Medication Route Route Concept Start Date Stop Date Dosage Sebastian quency Duration Formula Strength Dosage Form Dosage Form Code Dosage Description Medication Id Account Npid Author First Name Author Last Name Taxonomy Code Taxonomy Desc Phone Number [id number] prazosin by mouth U88159 10/10/2020 at bedtime 1 mg capsul e 41161 [id number] Kalani Holly [id number] Psychiatric/Mental Health [id number] Social History Social History Element Description Concept Effective Date Smoking Status Unknown if ever smoked [id number] 38631880 Immunizations No Data in Section Vital Signs No Data in Section Procedures Date Concept Id Description Targeted Site Concept Targeted Site Concept Type 01/26/2021 11022 Extended Individual Psychotherapy - 45 min CPT Patient has no history of implantable de vices Encounters Encounter Start Date End Date Encounter Type Description Diagnosis Di agnosis Desc Location Author First Name Author Last Name Npid Taxonomy Cod e Taxonomy Desc Phone Number Location Addr1 Location Addr2 Location [facility] Location Critical access hospital Location Zip [id number] 01/26/2021 01/26/2021 26873 Extended Individual Psych otherapy - 45 min F33.1 Major depressive disorder, recurrent, moderate [facility]i [phone] [id number] Fire Prevention Inspector [id number] [address] [address] Plan of Treatment No Data in Section Lab Results No Data in Section Instructions No Data in Section Insurance Providers Insurance Id Policy Effective Date Policy Thru Date Company N robin [id number] 2020 [employer] Managed Kisha yeager
--- OUTSIDE RECORDS SUMMARY | 2021-01-31 11:32 | CCD ---
Author Author [facility] Organization [facility] Address Unknown Phone Unavailable Care Team Providers Care Core Drilling Supervisor Name Role Phone Cassandra Cramer Unavailable PROBLEMS Type Condition ICD9-CM Code GGD68-FF Code Onset Dates Condition S tatus W/U Status Risk SNOMED Code Notes Problem Anxiety F41.9 Active confirmed 23447268 Problem Tobacco use Z72.0 Active confirmed 24222605 0 Problem Other obesity due to excess calories E66.09 Act sagrario confirmed 860620728 Problem Endometriosis of pelvic peritoneum N80.3 Activ e confirmed 616869617 Problem Depression, unspecified depression type F32.9 Active confirmed 22751625 Problem Supervision of other normal Z34.80 Ac tive confirm 956218167 Problem PTSD (post-traumatic stress disorder) F43.10 Ac tive confirmed 71734692 Problem Body mass index (BMI) of 30.0-30.9 in adult Z68.30 Active confirmed 915392445 Problem Current episode of major dep ressive disorder without prior episode, unspecified depression episode severity F32.9 Active confirme d 92211639 Problem Menorrhagia N92.0 Active confirmed 85102006 8 Problem Tobacco use disorder F17.200 Active confirmed 446404384 ALLERGIES Allergen (clinical drug ingredient) Drug/Non Drug Allergy do cumented on EMR Reaction Allergy Type Onset Date Status amoxicillin Amoxicillin([facility] Code:[address]-70) Unknown Drug Aller gy Active ENCOUNTERS from 1994 to 2020-11-14 Encounter Location Date Provider Diagnosis [facility] [address] [place] [address] [place] [address] Nov, Cassandra Shoaib IMMUNIZATIONS Vaccine Route Administration Date Status Depo-Medrol [...] School Language: Question Answer Notes Languages spoken: Liberian Holiness: Question Answer Notes Holiness 08 Sabianism Sexual Hx: Question Answer Notes Had sex [...] Once a day for 5 day(s) Apr, Not-Taking Famotidine 20 MG 1 tablet at bedtime Orally Once a day Not-Taking HydrOXYzine HCl 25 MG 1 tablet as needed Orally every 8 hrs Not-Taking Spironolactone 50 MG 1 tablet Orally twice a day for 30 day(s) October, Not-Taking Clindamycin Phosphate 1 % 1 swab Externally Twice a day for 30 d ays Aug, Not-Taking Carafate 1 GM 1 tablet on an empty stomach Orally Twice a day for 30 day(s) Sep, Not-Taking Tretinoin 0.025 % 1 application in the evening to face Externally Once a day for 30 days Aug, Not-Taking Seasonique 0.15-0.03 &0.01 MG 1 tablet Orally Once a day for 91 day(s) October, Not-Taking Microgestin /20 1-20 MG-MCG 1 tablet Orally Once a day for 21 d ay(s) October, Not-Taking Tretinoin 0.05 % 1 application in the evening to face Externally Once a day for 30 days October, Not-Taking TraZODone HCl 100 MG 1 tablet at bedtime Orally Once a day for 3 0 day(s) October, Not-Taking Sertraline HCl 100 MG 1 tablet Orally Once a day Not-Taking Pantoprazole Sodium 40 MG 1 tablet Orally Once a day Not-Taking Metronidazole 500 MG 1 tablet Orally Twice a day for 7 days Nov, Active Spironolactone 25 MG 1 tablet Orally Twice daily for 30 days Aug, Not-Taking Prazosin HCl 1 MG 1 capsule at bedtime Orally Once a day for 30 day(s) October, Not-Taking PROCEDURES No Information RESULTS No Results REASON FOR VISIT BV MEDICAL (GENERAL) HISTORY Type Description Date Medical [...] Medication Name Sig Start Date Stop Date Metronidazole 500 MG 1 tablet Orally Twice a day for 7 days 07 J un, 2020 Next Appt Details Provider Name:Kristin Rojo, 11-17 10:30:00 AM, [address] [place] [address], , [place], [address], Provider Name:Izabel Cuenca, 11:45:00 AM, [address] [place] [address], , [place], [place], [facility], Provider Name:Cassandra Cramer, 2020-12-07 01:00:00 PM, [address] [place] [address], , [place], [address], Insurance Providers Payer Name Payer Address Payer Phone Insured Name Patient Relati onship to Insured Coverage Start Date Coverage End Date [facility] [address] [facility] [phone] BRUNILDA TERRY self
--- OUTSIDE RECORDS SUMMARY | 2021-01-31 11:32 | CCD ---
Author Author [facility] Organization [facility] Address Unknown Phone Unavailable Care Team Providers Care Swimming Pool Servicer Name Role Phone Cassandra Cramer Unavailable PROBLEMS Type Condition ICD9-CM Code AKV60-XT Code Onset Dates Condition S tatus W/U Status Risk SNOMED Code Notes Problem Anxiety F41.9 Active confirmed 82471165 Problem Tobacco use Z72.0 Active confirmed 10412937 0 Problem Other obesity due to excess calories E66.09 Act sagrario confirmed 667349520 Problem Endometriosis of pelvic peritoneum N80.3 Activ e confirmed 364880364 Problem Depression, unspecified depression type F32.9 Active confirmed 24313857 Problem Supervision of other normal Z34.80 Ac tive confirm 723208966 Problem PTSD (post-traumatic stress disorder) F43.10 Ac tive confirmed 80648295 Problem Body mass index (BMI) of 30.0-30.9 in adult Z68.30 Active confirmed 870520179 Problem Current episode of major dep ressive disorder without prior episode, unspecified depression episode severity F32.9 Active confirme d 13899597 Problem Menorrhagia N92.0 Active confirmed 02520785 8 Problem Tobacco use disorder F17.200 Active confirmed 443081061 ALLERGIES Allergen (clinical drug ingredient) Drug/Non Drug Allergy do cumented on EMR Reaction Allergy Type Onset Date Status amoxicillin Amoxicillin([facility] Code:[address]-57) Unknown Drug Aller gy Active ENCOUNTERS from 1994 to 2020-11-24 Encounter Location Date Provider Diagnosis [facility] Women's Wellness and Breast Care [facility] [phone] [place] [address] Nov, Cassandra Shoaib IMMUNIZATIONS Vaccine Route Administration [...] School Language: Question Answer Notes Languages spoken: Ukrainian Baptism: Question Answer Notes Baptism 08 Church Sexual Hx: Question Answer Notes Had sex [...] Notes Start Da te End Date Status Tretinoin 0.05 % 1 application in the evening to face Externally Once a day for 30 days Active Omeprazole 20 MG 1 capsule 30 minutes before morning meal Orally Once a day for 30 day(s) Nov, Active Prazosin HCl 1 MG 1 capsule at bedtime Orally Once a day for 30 day(s) October, Active Spironolactone 50 MG 1 tablet Orally twice a day for 30 day(s) Active NexIUM 24HR 20 MG 1 capsule Orally Once a day for 30 day(s) Nov, Active Zofran 4 MG 1 tablet Orally every 6 hours as needed for nausea Nov, Active hydrOXYzine HCl 25 MG 1 tablet as needed Orally every 8 hrs Active PROCEDURES No Information RESULTS No Results REASON FOR VISIT Medications MEDICAL (GENERAL) HISTORY Type Description Date Medical [...] History laproscopic surgery for endometriosis Surgical History 2018 Hospitalization History with childbirth and surgeries Hospitalization History problems Goals Section No Information Health Concerns No Information MEDICAL EQUIPMENT No Information MENTAL STATUS No Information FUNCTIONAL STATUS No Information ASSESSMENTS No Information PLAN OF TREATMENT Medication Medication Name Sig Start Date Stop Date Tretinoin 0.05 % 1 application in the evening to face Externally Once a day for 30 days NexIUM 24HR 20 MG 1 capsule Orally Once a day for 30 day(s) 17 2020 Zofran 4 MG 1 tablet Orally every 6 hours as needed for naus ea Nov, Spironolactone 50 MG 1 tablet Orally twice a day for 30 day(s) Omeprazole 20 MG 1 capsule 30 minutes before morning meal Orally Once a day for 30 day(s) Nov, Next Appt Details Provider Name:Cassandra Cramer, 2020-12-07 01:00:00 PM, [address] [facility], , [place], [address], Insurance Providers Payer Name Payer Address Payer Phone Insured Name Patient Relati onship to Insured Coverage Start Date Coverage End Date [facility] [address] [facility] [phone] BRUNILDA TERRY
--- OUTSIDE RECORDS SUMMARY | 2021-01-31 11:32 | CCD ---
Author Author AnyiErma villalobos Organization Unknown Address [address] [address] Phone Care Team Providers Care Ui Ux Developer Name Role Phone Henny De Santiago PCP Allergies, Adverse Reactions, Alerts No Data in Section Problem List Concept Problem Description Status Start Date Created Date Resolv ed Date Snomed Code F33.1 Major Depressive Disorder, Recurrent episode, Moderate Active 12/01/2020 F43.12 Post-traumatic stress disorder, chronic Active 12/01/2020 F60.3 Borderline Personality Disorder Active 12/02/19 21 F11.20 Opioid Use Disorder, Moderate Active 12/01/2020 Medications Rx Norm Medication Route Route Concept Start Date Stop Date Dosage Sebastian quency Duration Formula Strength Dosage Form Dosage Form Code Dosage Description Medication Id Account Npid Author First Name Author Last Name Taxonomy Code Taxonomy Desc Phone Number [id number] prazosin by mouth U83837 10/10/2020 at bedtime 1 mg capsul e 52115 147932 [id number] Kalani Holly [id number] Psychiatric/Mental Health [phone] buspirone by mouth E76582 11/16/2020 01/15/2021 twice a day 30 5 mg tablet 14670 [id number] [id number] Kalani Holly [id number] P sychiatric/Mental Health [id number] Social History Social History Element Description Concept Effective Date Smoking Status Unknown if ever smoked 211984645 33630202 Immunizations No Data in Section Vital Signs No Data in Section Procedures Date Concept Id Description Targeted Site Concept Targeted Site Concept Type 12/01/2020 12118 Brief Individual Psychotherapy - 30 min CPT Patient has no history of implantable de vices Encounters Encounter Start Date End Date Encounter Type Description Diagnosis Di agnosis Desc Location Author First Name Author Last Name Npid Taxonomy Cod e Taxonomy Desc Phone Number Location Addr1 Location Addr2 Location City Location [facility] Location Zip [id number] 12/01/2020 12/01/2020 47781 Brief Individual Psychoth erapy - 30 min F33.1 Major depressive disorder, recurrent, moderate Communi [facility] [id number] Mason Apprentice [phone] [address] [address] Plan of Treatment No Data in Section Lab Results No Data in Section Instructions No Data in Section Insurance Providers Insurance Id Policy Effective Date Policy Thru Date Company N robin [id number] 2020 [employer] Managed Kisha yeager
--- OUTSIDE RECORDS SUMMARY | 2021-01-31 11:32 | CCD ---
Author Author [facility] Organization [facility] Address Unknown Phone Unavailable Care Team Providers Care High School Music Teacher Name Role Phone Cassandra Cramer Unavailable PROBLEMS Type Condition ICD9-CM Code AOD16-IA Code Onset Dates Condition S tatus W/U Status Risk SNOMED Code Notes Problem Anxiety F41.9 Active confirmed 85290621 Problem Tobacco use Z72.0 Active confirmed 98813664 0 Problem Other obesity due to excess calories E66.09 Act sagrario confirmed 503214307 Problem Endometriosis of pelvic peritoneum N80.3 Activ e confirmed 342628620 Problem Depression, unspecified depression type F32.9 Active confirmed 40516457 Problem Supervision of other normal Z34.80 Ac tive confirm 389377790 Problem PTSD (post-traumatic stress disorder) F43.10 Ac tive confirmed 57278795 Problem Body mass index (BMI) of 30.0-30.9 in adult Z68.30 Active confirmed 901630266 Problem Current episode of major dep ressive disorder without prior episode, unspecified depression episode severity F32.9 Active confirme d 62428639 Problem Menorrhagia N92.0 Active confirmed 00597347 8 Problem Tobacco use disorder F17.200 Active confirmed 962466443 ALLERGIES Allergen (clinical drug ingredient) Drug/Non Drug Allergy do cumented on EMR Reaction Allergy Type Onset Date Status amoxicillin Amoxicillin([facility] Code:[address]-99) Unknown Drug Aller gy Active ENCOUNTERS from 1994 to 2020-11-24 Encounter Location Date Provider Diagnosis [facility] Women[facility] Well[facility] and [facility] [phone] [place] [address] Nov, Cassandra Shoaib IMMUNIZATIONS Vaccine Route Administration [...] School Language: Question Answer Notes Languages spoken: Ecuadorean Cheondoism: Question Answer Notes Cheondoism 08 Voodoo Sexual Hx: Question Answer Notes Had sex [...] Information RESULTS No Results REASON FOR VISIT Nexium not covered MEDICAL (GENERAL) HISTORY Type Description Date Medical [...] Provider Name:Cassandra Cramer, 2020-12-07 01:00:00 PM, [address] [facility], , [place], [address], Insurance Providers Payer Name Payer Address Payer Phone Insured Name Patient Relati onship to Insured Coverage Start Date Coverage End Date [facility] [address] [facility] [phone] BRUNILDA TERRY
--- OUTSIDE RECORDS SUMMARY | 2021-01-31 11:32 | CCD ---
Author Author Erma De Santiago Organization Unknown Address [address] [address] Phone Care Team Providers Care Barrel Charrer Helper Name Role Phone Henny De Santiago PCP Allergies, Adverse Reactions, Alerts No Data in Section Problem List Concept Problem Description Status Start Date Created Date Resolv ed Date Snomed Code F33.1 Major Depressive Disorder, Recurrent episode, Moderate Active 11/11/2020 F43.12 Post-traumatic stress disorder, chronic Active 11/11/2020 F60.3 Borderline Personality Disorder Active 11/12/19 21 F11.20 Opioid Use Disorder, Moderate Active 11/11/2020 Medications Rx Norm Medication Route Route Concept Start Date Stop Date Dosage Sebastian quency Duration Formula Strength Dosage Form Dosage Form Code Dosage Description Medication Id Account Npid Author First Name Author Last Name Taxonomy Code Taxonomy Desc Phone Number [id number] hydroxyzine HCl by mouth D82505 10/10/2020 three times a da y 25 mg tablet as needed 90617 [phone] Kalani Holly [id number] Psychiatric/Mental Health [phone] 839863 trazodone by mouth B05140 10/10/2020 at bedtime [place] [address] 830787 [id number] Kalani Elayne [id number] Psychiatric[facility]Mental Health [phone] 164296 prazosin by mouth [id number] 10/10/2020 as directed 1 [place] [address] [id number] Kalaniabdon Holly [id number] Psychiatric/Mental Health [phone] Social History Social History Element Description Concept Effective Date Smoking Status Unknown if ever smoked [id number] Immunizations No Data in Section Vital Signs No Data in Section Procedures Date Concept Id Description Targeted Site Concept Targeted Site Concept Type 11/11/2020 85079 Extended Individual Psychotherapy - 45 min CPT Patient has no history of implantable de vices Encounters Encounter Start Date End Date Encounter Type Description Diagnosis Di agnosis Desc Location Author First Name Author Last Name Npid Taxonomy Cod e Taxonomy Desc Phone Number Location Addr1 Location Addr2 Location [facility] Location [place] [id number] 11/11/2020 11/11/2020 52076 Extended Individual Psych otherapy - 45 min F33.1 Major depressive disorder, recurrent, moderate Communi [facility] [phone] [id number] Beef Killer [id number] [address] [address] Plan of Treatment No Data in Section Lab Results No Data in Section Instructions No Data in Section Insurance Providers Insurance Id Policy Effective Date Policy Thru Date Company N robin [id number] 2020 [employer] Managed Kisha yeager
--- OUTSIDE RECORDS SUMMARY | 2021-01-31 11:32 | CCD ---
Author Author AnyiErma villalobos Organization Unknown Address [address] [address] Phone Care Team Providers Care Specialist Wound Care Name Role Phone Henny De Santiago PCP Allergies, Adverse Reactions, Alerts No Data in Section Problem List Concept Problem Description Status Start Date Created Date Resolv ed Date Snomed Code F33.1 Major Depressive Disorder, Recurrent episode, Moderate Active 11/03/2020 F43.12 Post-traumatic stress disorder, chronic Active 11/03/2020 F60.3 Borderline Personality Disorder Active 11/04/19 21 F11.20 Opioid Use Disorder, Moderate Active 11/03/2020 Medications Rx Norm Medication Route Route Concept Start Date Stop Date Dosage Sebastian quency Duration Formula Strength Dosage Form Dosage Form Code Dosage Description Medication Id Account Npid Author First Name Author Last Name Taxonomy Code Taxonomy Desc Phone Number [id number] hydroxyzine HCl by mouth C56682 10/10/2020 three times a da y 25 mg tablet as needed 50413 [phone] Kalani Holly [id number] Psychiatric/Mental Health [phone] 150602 trazodone by mouth X45923 10/10/2020 at bedtime 50 [place] [address] 574725 [id number] Kalani Elayne [id number] Psychiatric/Mental Health [phone] 678491 prazosin by mouth M49118 10/10/2020 as directed 1 [place] [address]677 722651 [phone] Kalaniabdon Holly [id number] Psychiatric/Mental Health [phone] Social History Social History Element Description Concept Effective Date Smoking Status Unknown if ever smoked [id number] Immunizations No Data in Section Vital Signs No Data in Section Procedures Date Concept Id Description Targeted Site Concept Targeted Site Concept Type 11/03/2020 89273 Extended Individual Psychotherapy - 45 min CPT Patient has no history of implantable de vices Encounters Encounter Start Date End Date Encounter Type Description Diagnosis Di agnosis Desc Location Author First Name Author Last Name Npid Taxonomy Cod e Taxonomy Desc Phone Number Location Addr1 Location Addr2 Location [facility] Location [facility] Location [email or web address] [id number] 11/03/2020 11/03/2020 39768 Extended Individual Psych otherapy - 45 min F33.1 Major depressive disorder, recurrent, moderate Communi [facility] [phone] [id number] Hooker Off [id number] [phone] [address] Plan of Treatment No Data in Section Lab Results No Data in Section Instructions No Data in Section Insurance Providers Insurance Id Policy Effective Date Policy Thru Date Company N robin [id number] 2020 [employer] Managed Kisha yeager
--- OUTSIDE RECORDS SUMMARY | 2021-01-31 11:32 | CCD ---
Author Author [facility] Organization [facility] Address Unknown Phone Unavailable Support Name Relationship Address Phone BRUNILDA TERRY GUAR [address], [address] [place], [place] [id number] ZEFERINO TERRY ECON Unknown Care Team Providers Care Precision Machinist Name Role Phone Cassandra Cramer Unavailable PROBLEMS Type Condition ICD9-CM Code [id number] Code Onset Dates Condition S tatus W/U Status Risk SNOMED Code Notes Problem Anxiety F41.9 Active confirmed 32692061 Problem Tobacco use Z72.0 Active confirmed 40391549 0 Problem Other obesity due to excess calories E66.09 Act sagrario confirmed 290363397 Problem Endometriosis of pelvic peritoneum N80.3 Activ e confirmed 187297421 Problem Depression, unspecified depression type F32.9 Active confirmed 92728655 Problem Supervision of other normal Z34.80 Ac tive confirm 935050154 Problem PTSD (post-traumatic stress disorder) F43.10 Ac tive confirmed 54155369 Problem Body mass index (BMI) of 30.0-30.9 in adult Z68.30 Active confirmed 498969538 Problem Current episode of major dep ressive disorder without prior episode, unspecified depression episode severity F32.9 Active confirme d 95059675 Problem Menorrhagia N92.0 Active confirmed 23422370 8 Problem Tobacco use disorder F17.200 Active confirmed 467632331 ALLERGIES Allergen (clinical drug ingredient) Drug/Non Drug Allergy do cumented on EMR Reaction Allergy Type Onset Date Status amoxicillin Amoxicillin([facility] Code:[address]-17) Unknown Drug Aller gy Active ENCOUNTERS from 1994 to 2020-12-01 Encounter Location Date Provider Diagnosis [facility] [address] [place] [address] [place] [address] Nov, Cassandra Cramer Acute vaginitis N76. 0 ; Encounter to determine viability of , single or unspecified fetus O36.80X0 and PTSD (post-traumatic stress disorder) F43.10 IMMUNIZATIONS Vaccine Route Administration Date Status Depo-Medrol [...] School Language: Question Answer Notes Languages spoken: Vietnamese Scientology: Question Answer Notes [employer]ology 08 [employer] Sexual Hx: Question Answer Notes Had sex [...] FOR REFERRAL No Information VITAL SIGNS Weight 154.2 lbs Nov, Height 63.5 in Nov, BMI 26.88 kg/m2 Nov, Blood pressure systolic 136 mm Hg Nov, Blood pressure diastolic 78 mm Hg Nov, MEDICATIONS Medication SIG (Take, [...] 8 hrs Active PROCEDURES No Information RESULTS Component Value Reference Range GENITAL CULTURE Reviewed date:11/14/2020 10:17:08 Interpretation: Performing Lab:[facility], [facility] [address] [address] , ,[facility] REASON FOR VISIT MED DISCUSSION DUE TO MEDICAL (GENERAL) HISTORY Type Description Date Medical [...] Treatment Notes Treatm ent Clinical Notes Nov, Acute vaginitis (ICD-10 - N76.0) Nov, Encounter to determine viability of , single or unspecified fetus (ICD-10 - O36.80X0) encouraged PNV. Patient already has a first PN visit scheduled. Nov, PTSD (post-traumatic stress disorder) (ICD-10 - F43.10) [facility]. Reviewed medications that are appropriate for her to continue to take and ones she should avoid/stop taking. PLAN OF TREATMENT Medication Medication Name Sig [...] Once a day for 30 day(s) Nov, Treatment Notes Assessment Notes Clinical Notes Encounter to determine viability o f , single or unspecified fetus encouraged PNV. Patient already has a first PN visit s cheduled. PTSD (post-traumatic stress disorder) Patient encourag ed to make appointment with [facility]. Reviewed medications that are appropriate for her to continue to take and ones she should avoid/stop taking. Next Appt Details Provider Name:Cassandra Cramer, 2020-12-07 01:00:00 PM, [address] [facility], , [place], [address], Insurance Providers Payer Name Payer Address Payer Phone Insured Name Patient Relati onship to Insured Coverage Start Date Coverage End Date [facility] COMM[facility] [address] [facility] [phone] BRUNILDA TERRY
--- OUTSIDE RECORDS SUMMARY | 2021-01-31 11:32 | CCD ---
Author Author AnyiErma villalobos Organization Unknown Address [address] [address] Phone Care Team Providers Care Lead Software Architect Name Role Phone Henny De Santiago PCP Allergies, Adverse Reactions, Alerts No Data in Section Problem List Concept Problem Description Status Start Date Created Date Resolv ed Date Snomed Code F33.1 Major Depressive Disorder, Recurrent episode, Moderate Active 12/07/2020 F43.12 Post-traumatic stress disorder, chronic Active 12/07/2020 F60.3 Borderline Personality Disorder Active 12/08/19 21 F11.20 Opioid Use Disorder, Moderate Active 12/07/2020 Medications Rx Norm Medication Route Route Concept Start Date Stop Date Dosage Sebastian quency Duration Formula Strength Dosage Form Dosage Form Code Dosage Description Medication Id Account Npid Author First Name Author Last Name Taxonomy Code Taxonomy Desc Phone Number [id number] prazosin by mouth G25756 10/10/2020 at bedtime 1 [place]ul e 58434 795972 [phone] Kalani Holly [id number] Psychiatric/Mental Health [phone] 340259 buspirone by mouth J93016 11/16/2020 01/15/2021 twice a day 30 5 mg tablet 77059 871308 [id number] Kalani Holly [id number] P sychiatric/Mental Health [phone] Social History Social History Element Description Concept Effective Date Smoking Status Unknown if ever smoked 921886640 46059275 Immunizations No Data in Section Vital Signs No Data in Section Procedures Date Concept Id Description Targeted Site Concept Targeted Site Concept Type 12/07/2020 01396 Brief Individual Psychotherapy - 30 min CPT Patient has no history of implantable de vices Encounters Encounter Start Date End Date Encounter Type Description Diagnosis Di agnosis Desc Location Author First Name Author Last Name Npid Taxonomy Cod e Taxonomy Desc Phone Number Location Addr1 Location Addr2 Location City Location [facility] Location Zip [id number] 12/07/2020 12/07/2020 95433 Brief Individual Psychoth erapy - 30 min F33.1 Major depressive disorder, recurrent, moderate Communi [facility] [phone] [id number] Guest Laundry Attendant [phone] [address] [address] Plan of Treatment No Data in Section Lab Results No Data in Section Instructions No Data in Section Insurance Providers Insurance Id Policy Effective Date Policy Thru Date Company N robin [id number] 2020 [employer] Managed Kisha yeager
--- OUTSIDE RECORDS SUMMARY | 2021-01-31 11:32 | CCD ---
Author Author [facility] Organization [facility] Address Unknown Phone Unavailable Care Team Providers Care Supervisor Color Paste Mixing Name Role Phone Terri Fontanez Unavailable PROBLEMS Type Condition ICD9-CM Code [id number] Code Onset Dates Condition S tatus W/U Status Risk SNOMED Code Notes Problem Anxiety F41.9 Active confirmed 52854984 Problem Tobacco use Z72.0 Active confirmed 45770194 0 Problem Other obesity due to excess calories E66.09 Act sagrario confirmed 255281487 Problem Endometriosis of pelvic peritoneum N80.3 Activ e confirmed 264327826 Problem Depression, unspecified depression type F32.9 Active confirmed 35502838 Problem Supervision of other normal Z34.80 Ac tive confirm 951329877 Problem PTSD (post-traumatic stress disorder) F43.10 Ac tive confirmed 51855219 Problem Body mass index (BMI) of 30.0-30.9 in adult Z68.30 Active confirmed 646533459 Problem Current episode of major dep ressive disorder without prior episode, unspecified depression episode severity F32.9 Active confirme d 63238077 Problem Menorrhagia N92.0 Active confirmed 69459061 8 Problem Tobacco use disorder F17.200 Active confirmed 736194892 ALLERGIES Allergen (clinical drug ingredient) Drug/Non Drug Allergy do cumented on EMR Reaction Allergy Type Onset Date Status amoxicillin Amoxicillin([facility] Code:[address]-08) Unknown Drug Aller gy Active ENCOUNTERS from 1994 to 2020-12-07 Encounter Location Date Provider Diagnosis [facility] [address] [place] [address] [place] [address] Nov, Terri Fontanez Vulvovaginal candidi asis B37.3 IMMUNIZATIONS Vaccine Route Administration Date Status Depo-Medrol [...] School Language: Question Answer Notes Languages spoken: Frisian Jehovah'S Witness: Question Answer Notes Jehovah'S Witness 08 Yazidi Sexual Hx: Question Answer Notes Had sex [...] a day for 30 day(s) October, Active hydrOXYzine HCl 25 MG 1 tablet as needed Orally every 8 hrs Active Spironolactone 50 MG 1 tablet Orally twice a day for 30 day(s) Active NexIUM 24HR 20 MG 1 capsule Orally Once a day for 30 day(s) Nov, Active Zofran 4 MG 1 tablet Orally every 6 hours as needed for nausea Nov, Active Clotrimazole 1 % 1 application at bedtime Vaginal Once a day for 7 day(s) Nov, Active PROCEDURES No Information RESULTS No Results REASON FOR VISIT monistat MEDICAL (GENERAL) HISTORY Type Description Date Medical [...] Treatment Notes Treatm ent Clinical Notes Nov, Vulvovaginal candidiasis (ICD-10 - B37.3) PLAN OF TREATMENT Medication Medication Name Sig Start Date Stop Date Tretinoin 0.05 % 1 application in the evening to face Externally Once a day for 30 days NexIUM 24HR 20 MG 1 capsule Orally Once a day for 30 day(s) 2020 Zofran 4 MG 1 tablet Orally every 6 hours as needed for naus ea Nov, Spironolactone 50 MG 1 tablet Orally twice a day for 30 day(s) Clotrimazole 1 % 1 application at bedtime Vaginal Once a day for 7 day(s) Nov, Omeprazole 20 MG 1 capsule 30 minutes before morning meal Orally Once a day for 30 day(s) Nov, Next Appt Details Provider Name:Cassandra Cramer, 2020-12-07 01:00:00 PM, [address] [facility], , [place], [address], Insurance Providers Payer Name Payer Address Payer Phone Insured Name Patient Relati onship to Insured Coverage Start Date Coverage End Date [facility] [address] [facility] [phone] BRUNILDA TERRY self
--- OUTSIDE RECORDS SUMMARY | 2021-01-31 11:33 | CCD ---
Author Author [facility] Organization [facility] Address Unknown Phone Unavailable Support Name Relationship Address Phone LUCIANA [place] [address] [id number] Carmina Shane DDS Next Of Kin [address] [place] [address] [phone] Jessica Bonilla Next Of Kin [address] [place] [id number] [place] Next Of [address] [address] OLArchetype MediaIN OUTLET Next Of Kin [address] [place] [address] DPAO Next Of Kin [address] [place] [address] DISABLED Next Of Kin Unknown Unavailable [facility] [place] [address] Carmine Barr MD Next Of Kin [address] [place] [id number] T-MOBILE Next Of Kin [address] [place] [address] TMOBILE Next [place] [address] [id number] STEWARTSuki* Next Of Kin [address] [place] [address] [facility] Next Of [place] [address] JRJohanna* Next Of [place] [address] MARY COOMBS Next Of Kin [address] [place] [address] TJMAXX Next Of Kin [address] [place] [address] PRECIADODIVINEEL Next Of Kin [address] [place] [address] UE Next Of Kin Unknown Unavailable ST Next Of Kin Unknown Unavailable Juan TERRY Next Of Kin [address] [facility] [place] [address] ZEFERINO TERRY Next Of Kin [address], [address] [place] [address] ZEFERINO TERRY [facility] [address] [place] [address] Unavailable Care Team Providers Care Gas Well Pumper Name Role Phone Martha Matt SUGAR MILL WORKER Unavailable Unavailable Martha Matt SUGAR MILL WORKER Unavailable Unavailable Martha Matt NP Unavailable Unavailable Moraima Barr MD Unavailable Unavailable Moraima Barr MD Unavailable Unavailable Moraima Barr MD Unavailable Unavailable Moraima Barr MD Unavailable Unavailable Moraima Barr MD Unavailable Unavailable Moraima Barr MD Unavailable Unavailable Moraima Barr MD Unavailable Unavailable Moraima Barr MD Unavailable Unavailable Moraima Barr MD Unavailable Unavailable Moraima Barr MD Unavailable Unavailable Moraima Barr MD Unavailable Unavailable Moraima Barr MD Unavailable Unavailable Moraima Barr MD Unavailable Unavailable Moraima Barr MD Unavailable Unavailable Moraima Barr MD Unavailable Unavailable Moraima Barr MD Unavailable Unavailable Moraima Barr MD Unavailable Unavailable Moraima Barr MD Unavailable Unavailable Moraima Barr MD Unavailable Unavailable Moraima Barr MD Unavailable Unavailable Moraima Barr MD Unavailable Unavailable Moraima Barr MD Unavailable Unavailable Moraima Barr MD Unavailable Unavailable Moraima Barr MD Unavailable Unavailable Moraima Barr MD Unavailable Unavailable Moraima Barr MD Unavailable Unavailable Moraima Barr MD Unavailable Unavailable Moraima Barr MD Unavailable Unavailable Moraima Barr MD Unavailable Unavailable Moraima Barr MD Unavailable Unavailable Moraima Barr MD Unavailable Unavailable Moraima Barr MD Unavailable Unavailable Moraima Barr MD Unavailable Unavailable Moraima Barr MD Unavailable Unavailable Moraima Barr MD Unavailable Unavailable Moraima Barr MD Unavailable Unavailable Moraima Barr MD Unavailable Unavailable Moraima Barr MD Unavailable Unavailable Moraima Barr MD Unavailable Unavailable Moraima Barr MD Unavailable Unavailable Moraima Barr MD Unavailable Unavailable Moraima Barr MD Unavailable Unavailable Moraima Barr MD Unavailable Unavailable Moraima Barr MD Unavailable Unavailable Moraima Barr MD Unavailable Unavailable Moraima Barr MD Unavailable Unavailable Moraima Barr MD Unavailable Unavailable Moraima Barr MD Unavailable Unavailable Moraima Barr MD Unavailable Unavailable Moraima Barr MD Unavailable Unavailable Moraima Barr MD Unavailable Unavailable Moraima Barr MD Unavailable Unavailable Moraima Barr MD Unavailable Unavailable Moraima Barr MD Unavailable Unavailable Moraima Barr MD Unavailable Unavailable Moraima Barr MD Unavailable Unavailable Moraima Barr MD Unavailable Unavailable Moraima Barr MD Unavailable Unavailable Moraima Barr MD Unavailable Unavailable Moraima Barr MD Unavailable Unavailable Moraima Barr MD Unavailable Unavailable Moraima Barr MD Unavailable Unavailable Moraima Barr MD Unavailable Unavailable Moraima Barr MD Unavailable Unavailable Moraima Barr MD Unavailable Unavailable Moraima Barr MD Unavailable Unavailable Moraima Barr MD Unavailable Unavailable Moraima Barr MD Unavailable Unavailable Moraima Barr MD Unavailable Unavailable Moraima Barr MD Unavailable Unavailable Moraima Barr MD Unavailable Unavailable Moraima Barr MD Unavailable Unavailable Moraima Barr MD Unavailable Unavailable Moraima Barr MD Unavailable Unavailable Moraima Barr MD Unavailable Unavailable Moraima Barr MD Unavailable Unavailable Moraima Barr MD Unavailable Unavailable Moraima Barr MD Unavailable Unavailable Moraima Barr MD Unavailable Unavailable Moraima Barr MD Unavailable Unavailable Moraima Barr MD Unavailable Unavailable Moraima Barr MD Unavailable Unavailable Moraima Barr MD Unavailable Unavailable Moraima Barr MD Unavailable Unavailable Moriama Barr MD Unavailable Unavailable Moraima Barr MD Unavailable Unavailable Moraima Barr MD Unavailable Unavailable Moraima Barr MD Unavailable Unavailable Moraima Barr MD Unavailable Unavailable Moraima Barr MD Unavailable Unavailable Moraima Barr MD Unavailable Unavailable Moraima Barr MD Unavailable Unavailable SELF-REFERRED, Dr. MELISSA RODARTE Unavailable Unavailab Bruce Ureña MD Unavailable Unavailable Bruce Figueroa MD Unavailable Unavailable Bruce Figueroa MD Unavailable Unavailable Bruce Figueroa MD Unavailable Unavailable Bruce Figueroa MD Unavailable Unavailable Bruce Figueroa MD Unavailable Unavailable Green SUGAR MILL WORKER SUGAR MILL WORKER, Mini Unavailable Unavailable Green SUGAR MILL WORKER SUGAR MILL WORKER, Mini Unavailable Unavailable Green SUGAR MILL WORKER SUGAR MILL WORKER, Mini Unavailable Unavailable Green SUGAR MILL WORKER SUGAR MILL WORKER, Mini Unavailable Unavailable Green SUGAR MILL WORKER SUGAR MILL WORKER, Mini Unavailable Unavailable TURRIN, RADHA Unavailable Unavailable TURRIN, RADHA Unavailable Unavailable TURRIN, RADHA Unavailable Unavailable TURRIN, RADHA Unavailable Unavailable Mauro Schmitt MD Unavailable Unavailable Mauro Schmitt MD Unavailable Unavailable Mauro Schmitt MD Unavailable Unavailable Mauro Schmitt MD Unavailable Unavailable Mauro Schmitt MD Unavailable Unavailable Mauro Schmitt MD Unavailable Unavailable Mauro Schmitt MD Unavailable Unavailable Mauro Schmitt MD Unavailable Unavailable Oskar, Mauro Odom MD Unavailable Unavailable Oskar, Mauro Odom MD Unavailable Unavailable Oskar, Mauro Odom MD Unavailable Unavailable Oskar, Mauro Odom MD Unavailable Unavailable Oskar, Mauro Odom MD Unavailable Unavailable Oskar, Mauro Odom MD Unavailable Unavailable Oskar, Mauro Odom MD Unavailable Unavailable Oskar, Mauro Odom MD Unavailable Unavailable Oskar, Mauro Odom MD Unavailable Unavailable Oskar, Mauro Odom MD Unavailable Unavailable Oskar, Mauro Odom MD Unavailable Unavailable Oskar, Mauro Odom MD Unavailable Unavailable Oskar, Mauro Odom MD Unavailable Unavailable Oskar, Mauro Odom MD Unavailable Unavailable Oskar, Mauro Odom MD Unavailable Unavailable Oskar, Mauro Odom MD Unavailable Unavailable Oskar, Mauro Odom MD Unavailable Unavailable Oskar, Mauro Odom MD Unavailable Unavailable Oskar, Mauro Odom MD Unavailable Unavailable Oskar, Mauro Odom MD Unavailable Unavailable Oskar, Mauro Odom MD Unavailable Unavailable Oskar, Mauro Odom MD Unavailable Unavailable Oskar, Mauro Odom MD Unavailable Unavailable Oskar, Mauro Odom MD Unavailable Unavailable Oskar, Mauro Odom MD Unavailable Unavailable Oskar, Mauro Odom MD Unavailable Unavailable Oskar, Mauro Odom MD Unavailable Unavailable Oskar, A Ilene IQBAL Unavailable Unavailable Oskar, Mauro Odom MD Unavailable Unavailable Oskar, Mauro Odom MD Unavailable Unavailable Oskar, Mauro Odom MD Unavailable Unavailable Oskar, Mauro Odom MD Unavailable Unavailable Oskar, Mauro Odom MD Unavailable Unavailable Oskar, Mauro Odom MD Unavailable Unavailable Oskar, Mauro Odom MD Unavailable Unavailable Oskar, Mauro Odom MD Unavailable Unavailable Oskar, Mauro Odom MD Unavailable Unavailable Oskar, Mauro Odom MD Unavailable Unavailable Oskar, Mauro Odom MD Unavailable Unavailable Oskar, Mauro Odom MD Unavailable Unavailable Oskar, Mauro Odom MD Unavailable Unavailable Oskar, Mauro Odom MD Unavailable Unavailable Oskar, Mauro Odom MD Unavailable Unavailable Oskar, Mauro Odom MD Unavailable Unavailable Oskar, Mauro Odom MD Unavailable Unavailable Oskar, Mauro Odom MD Unavailable Unavailable Oskar, Mauro Odom MD Unavailable Unavailable Oskar, Mauro Odom MD Unavailable Unavailable Oskar, Mauro Odom MD Unavailable Unavailable Oskar, Mauro Odom MD Unavailable Unavailable Oskar, Mauro Odom MD Unavailable Unavailable Oskar, Mauro Odom MD Unavailable Unavailable Oskar, Mauro Odom MD Unavailable Unavailable Oskar, Mauro Odom MD Unavailable Unavailable Oskar, Mauro Odom MD Unavailable Unavailable Oskar, Mauro Odom MD Unavailable Unavailable Oskar, Mauro Odom MD Unavailable Unavailable Oskar, Mauro Odom MD Unavailable Unavailable Oskar, Mauro Odom MD Unavailable Unavailable Oskar, Mauro Odom MD Unavailable Unavailable Oskar, Mauro Odom MD Unavailable Unavailable Oskar, Mauro Odom MD Unavailable Unavailable Oskar, Mauro Odom MD Unavailable Unavailable Oskar, A Ilene MD Unavailable Unavailable Mauro Schmitt MD Unavailable Unavailable Mauro Schmitt MD Unavailable Unavailable Mauro Schmitt MD Unavailable Unavailable Mauro Schmitt MD Unavailable Unavailable Mauro Schmitt MD Unavailable Unavailable Mauro Schmitt MD Unavailable Unavailable Mauro Schmitt MD Unavailable Unavailable Mauro Schmitt MD Unavailable Unavailable Mauro Schmitt MD Unavailable Unavailable Dille, E Carmina DDS Unavailable Unavailable Dille, E Carmina DDS Unavailable Unavailable Dille, E Carmina DDS Unavailable Unavailable Dille, E Carmina DDS Unavailable Unavailable Swatsworth, R Kristin PA Unavailable Unavailable Swatsworth, R Kristin PA Unavailable Unavailable Swatsworth, R Kristin PA Unavailable Unavailable Swatsworth, R Kristin PA Unavailable Unavailable Swatsworth, R Kristin PA Unavailable Unavailable Swatsworth, R Kristin PA Unavailable Unavailable Swatsworth, R Kristin PA Unavailable Unavailable Swatsworth, R Kristin PA Unavailable Unavailable Swatsworth, R Kristin PA Unavailable Unavailable Swatsworth, R Kristin PA Unavailable Unavailable Swatsworth, R Kristin PA Unavailable Unavailable Swatsworth, R Kristin PA Unavailable Unavailable Swatsworth, R Kristin PA Unavailable Unavailable Swatsworth, R Kristin PA Unavailable Unavailable Swatsworth, R Kristin PA Unavailable Unavailable Swatsworth, R Kristin PA Unavailable Unavailable Swatsworth, R Kristin PA Unavailable Unavailable Swatsworth, R Kristin PA Unavailable Unavailable Swatsworth, R Kristin PA Unavailable Unavailable Swatsworth, R Kristin PA Unavailable Unavailable Swatsworth, R Kristin PA Unavailable Unavailable Swatsworth, R Kristin PA Unavailable Unavailable Swatsworth, R Kristin PA Unavailable Unavailable Swatsworth, R Kristin PA Unavailable Unavailable Swatsworth, R Kristin PA Unavailable Unavailable Swatsworth, R Kristin PA Unavailable Unavailable Swatsworth, R Kristin PA Unavailable Unavailable Swatsworth, R Kristin PA Unavailable Unavailable Swatsworth, R Kristin PA Unavailable Unavailable Swatsworth, R Kristin PA Unavailable Unavailable Swatsworth, R Kristin PA Unavailable Unavailable Swatsworth, R Kristin PA Unavailable Unavailable Swatsworth, R Kristin PA Unavailable Unavailable Swatsworth, R Kristin PA Unavailable Unavailable Swatsworth, R Kristin PA Unavailable Unavailable Swatsworth, R Kristin PA Unavailable Unavailable Swatsworth, R Kristin PA Unavailable Unavailable Swatsworth, R Kristin PA Unavailable Unavailable Swatsworth, R Kristin PA Unavailable Unavailable Swatsworth, R Kristin PA Unavailable Unavailable Swatsworth, R Kristin PA Unavailable Unavailable Swatsworth, R Kristin PA Unavailable Unavailable Swatsworth, R Kristin PA Unavailable Unavailable Swatsworth, R Kristin PA Unavailable Unavailable Swatsworth, R Kristin PA Unavailable Unavailable Swatsworth, R Kristin PA Unavailable Unavailable Swatsworth, R Kristin PA Unavailable Unavailable Swatsworth, R Kristin PA Unavailable Unavailable Swatsworth, R Kristin PA Unavailable Unavailable PAGE, E PATRICK MD Unavailable Unavailable PAGE, E PATRICK MD Unavailable Unavailable PAGE, E PATRICK MD Unavailable Unavailable PAGE, E PATRICK MD Unavailable Unavailable PAGE, E PATRICK MD Unavailable Unavailable PAGE, E PATRICK MD Unavailable Unavailable PAGE, E PATRICK MD Unavailable Unavailable PAGE, E PATRICK MD Unavailable Unavailable PAGE, E PATRICK MD Unavailable Unavailable PAGE, E PATRICK MD Unavailable Unavailable PAGE, E PATRICK MD Unavailable Unavailable PAGE, E PATRICK MD Unavailable Unavailable PAGE, E PATRICK MD Unavailable Unavailable PAGE, E PATRICK MD Unavailable Unavailable Henny De Santiago Unavailable Re-disclosure Warning The records that you [...] is protected by Article 27-F of the [place] State Public Health law. If you continue you may have access to information: Regarding HIV / AIDS; Provided by facilities licensed or operated by the [facility] Office of Mental Health; or Provided by the [facility] Office for People With Developmental Disabilities. If such information is present, then the following [facility] mandated warning applies: This information has been [...] law may result in a fine or fci sentence or both. A general authorization for the release of medical or other information is NOT sufficient authorization for further disc losure. Allergies and Adverse Reactions Type Description Substance Reaction Status Data Source(s ) ALLERGIES NOT ON FILE ALLERGIES NOT ON FILE Nathan Propensity to adverse reactions AMOXICILLIN AMOXICILLIN HIVES Nathan Family History Family Member Name Family Member Gender Family Member Status Date o f Status Description Data Source(s) Unknown Female Diagnosis 07/01/2015 12:00:00 AM EST [facility] ([facility]) Unknown Female Diagnosis 07/01/2015 12:00:00 AM EST [facility] ([facility]) Encounters Encounter Providers Location Date Indications Data Source(s ) Extended Individual Psychotherapy - 45 min Attender: Ezequiel De Santiago [facility] 01/26/2021 10:00:00 AM EDT - 01/26/2021 10:00:00 AM EDT [facility] ([facility]) Attender: Henny De Santiago 01/26/2021 12:00:00 AM EDT [facility] ([facility]) Unknown [address] [facility] [address] 01/12/2021 12:00:00 AM EDT [facility]CW1 ([facility]) ( ESTOB) [facility] Est OB [address] [place] [address] 01/04/2021 12:00:00 AM EDT eCW1 ([facility]) Outpatient Attender: Hever Matt NP [facility] 12/23/2020 10:00:00 AM EDT - 12/23/2020 10:00:00 AM EDT [facility] ([facility]) Unknown [address] [facility] [address] 12/23/2020 12:00:00 AM EDT [facility]CW1 ([facility]) Attender: Hever Matt NP 12/23/2020 12:00:00 AM EDT [facility] ([facility]) Brief Individual Psychotherapy - 30 min Attender: Henny cai [facility] 12/07/2020 05:00:00 AM EDT - 12/07/2020 05:00:00 AM EDT [facility] ([facility] [place]) (WC ESTOB) [facility] Est OB [address] [place] [address] 12/07/2020 12:00:00 AM EDT eCW1 ([facility]) Attender: Henny De Santiago 12/07/2020 12:00:00 AM EDT [facility] ([facility]) Unknown [address] [facility] [address] 12/06/2020 12:00:00 AM EDT eCW1 ([facility]) Brief Individual Psychotherapy - 30 min [facility] 12/01/[facility] 10:00:00 AM EDT - 12/01/2020 10:00:00 AM EDT [facility] ([facility] [place] [place]) Attender: Henny De Santiago 12/01/2020 12:00:00 AM EDT [facility] ([facility]) Emergency Attender: Bruce Figueroa MDCcherry nt: Kristin Rojo PAConsultant: Carmine Barr MD 11/29/2020 06:04:00 PM EDT - 11/29/2020 09:02:00 PM EDT [facility] Patient discharged. Unknown [address] [facility] [address] 11/24/2020 12:00:00 AM EDT [facility]CW1 ([facility]) Unknown [address] [facility] [address] 11/24/2020 12:00:00 AM EDT eCW1 ([facility]) Outpatient [address] [facility] [address] 11/17/2020 12:00:00 AM EDT eCW1 ([facility]) Unknown [address] [facility] [address] 11/14/2020 12:00:00 AM EDT eCW1 ([facility]) Extended Individual Psychotherapy - 45 min Attender: Ezequiel De Santiago [facility] 11/11/2020 12:00:00 PM EDT - 11/11/2020 12:00:00 PM EDT [facility] ([facility] [place]) Attender: Henny Dance 11/11/2020 12:00:00 AM EDT [facility] ([facility] [place]) Outpatient [address] [facility] [address] 11/10/2020 12:00:00 AM EDT eCW1 ([facility]) Extended Individual Psychotherapy - 45 min Attender: Ezequiel De Santiago [facility] 11/03/2020 01:00:00 AM EDT - 11/03/2020 01:00:00 AM EDT [facility] ([facility] [place]) Attender: Henny Anyi 11/03/2020 12:00:00 AM EDT [facility] ([facility] [place]) Extended Individual Psychotherapy - 45 min Attender: Ezequiel De Santiago [facility] 10/28/2020 11:00:00 AM EDT - 10/28/2020 11:00:00 AM EDT [facility] ([facility] [place]) Attender: Henny Anyi 10/28/2020 12:00:00 AM EDT [facility] ([facility] [place]) [place] [address] [facility] [address] 10/24/2020 12:00:00 AM EDT eCW1 ([facility]) Outpatient [address] [facility] [address] 10/21/2020 12:00:00 AM EDT eCW1 ([facility]) Outpatient [address] [facility] [address] 10/19/2020 12:00:00 AM EDT [facility]CW1 ([facility]) Extended Individual Psychotherapy - 45 min [facility] 10/14/[facility] 11:00:00 AM EDT - 10/14/2020 11:00:00 AM EDT [facility] ([facility] [place]) Attender: Henny De Santiago 10/14/2020 12:00:00 AM EDT [facility] ([facility] [place]) [place] [address] [facility] [address] 10/12/2020 12:00:00 AM EDT eCW1 ([facility]) Outpatient [address] [facility] [address] 10/06/2020 12:00:00 AM EDT [facility]CW1 [facility]) Emergency Attender: RADHA Gascasultant: Carmine Barr MD 10/05/2020 07:42:00 AM EDT - 10/05/2020 10:01:00 AM EDT [facility] Patient discharged. Unknown [address] [facility] [address] 10/04/2020 12:00:00 AM EDT eCW1 ([facility]) Extended Individual Psychotherapy - 45 min Attender: Ezequiel De Santiago [facility] 09/26/2020 03:00:00 AM EDT - 09/26/2020 03:00:00 AM EDT [facility] ([facility] [place]) Attender: Henny Anyi 09/26/2020 12:00:00 AM EDT [facility] ([facility] [place]) Unknown [address] [facility] [address] 09/06/2020 12:00:00 AM EDT eCW1 ([facility]) Outpatient [address] [facility] [address] 09/05/2020 12:00:00 AM EDT eCW1 ([facility]) Unknown [address] [facility] [address] 09/05/2020 12:00:00 AM EDT [facility]) ( PROC) [facility] Procedure [address] [place] [address] 08/29/2020 12:00:00 AM EDT eCW1 ([facility]) Emergency Attender: PATRICK RANDHAWA MDReferrer: Dr. Brian LUNDBERG SELF-REFERRED CAYDEN [id number] 08/25/2020 04:42:00 AM EDT - 08/25/2020 05:32:00 AM EDT Nathan Patient discharged. Outpatient [address] [facility] [address] 08/11/2020 12:00:00 AM EST eCW1 ([facility]) Outpatient [address] [facility] [address] 07/28/2020 12:00:00 AM EST eCW1 ([facility]) Attender: Ilene DOUGHERTY Lena 06/2020 02:22:00 PM EST - 07/11/2020 02:22:00 PM EST [facility] ([facility]) ( [place]) [facility] Nurse Visit [address] [place] [address] 07/11/2020 12:00:00 AM EST eCW1 ([facility]) Unknown [address] [facility] [address] 07/11/2020 12:00:00 AM EST eCW1 ([facility]) Attender: Mini Reyes 0 07/05/2020 08:21:00 AM EST - 07/05/2020 08:21:00 AM EST [facility] ([facility]) OFFICE VISIT, ESTOutpatient Attender: Mini Reyes 06/30/2020 01:30:00 PM EST - 06/30/2020 01:30:00 PM EST Encounter for test, result negativeGonococcal cervicitis, unspecifiedOther sex counselingHuman immunodeficiency virus [HIV] counselingEncounter for screening for human immunodeficiency virusEncntr screen for infections w sexl mode of transmissEncounter for oth general cnsl and advice on contraception Next[facility] ([facility]) Encounter for test, result neg ative Gonococcal cervicitis, unspecified Other sex counseling Human immunodeficiency virus [HIV] couns eling Encounter for screening for human immuno deficiency virus Encntr screen for infections w sexl mode of transmiss Encounter for oth general cnsl and advic e on contraception Unknown [address] [facility] [address] 05/26/2020 12:00:00 AM EST eCW1 ([facility]) Outpatient [address] [facility] [address] 04/28/2020 12:00:00 AM EST eCW1 ([facility]) Unknown [address] [facility] [address] 04/08/2020 12:00:00 AM EDT eCW1 ([facility]) Outpatient Attender: Carmina MENA 02/24/2020 05:49:00 P [facility] Outpatient Attender: Carmina MENA 02/23/2020 12:38:03 P [facility] Outpatient Attender: Carmina MENA 02/23/2020 10:58:01 A [facility] Outpatient Attender: Carmina MENA 02/03/2020 10:40:02 A [facility] Outpatient Attender: Carmina MENA 01/14/2020 10:56:03 A [facility] Outpatient Attender: Carmina MENA 01/14/2020 10:45:01 A [facility] Outpatient Attender: Carmina MENA 01/14/2020 10:07:01 A [facility] Functional Status Medications Medication Brand Name Start Date Product Form Dose Route Admi nistrative Instructions Pharmacy Instructions Status Indications Reaction Description Data Source(s) benzonatate 100 MG Oral Capsule [Tessalon Perles] [place] lynn Perles 100 MG Tessalon Perles 100 MG 01/12/2021 12:00:00 AM EDT 1.0 {capsule_as_nee ded} active Tessalon Perles 100 MG eCW1 ([facility]) Clotrimazole 10 MG/ML Topical Cream Clotrimazole 1 % Clotrim azole 1 % 12/06/2020 12:00:00 AM EDT 1.0 {application_at_bedtime} lindsey pended Clotrimazole 1 % eCW1 ([facility]) Clotrimazole 10 MG/ML Topical Cream Clotrimazole 1 % Clotrim azole 1 % 12/06/2020 12:00:00 AM EDT 1.0 {application_at_bedtime} lindsey pended Clotrimazole 1 % eCW1 ([facility]) Clotrimazole 10 MG/ML Topical Cream Clotrimazole 1 % Clotrim azole 1 % 12/06/2020 12:00:00 AM EDT 1.0 {application_at_bedtime} lindsey pended Clotrimazole 1 % eCW1 ([facility]) Clotrimazole 10 MG/ML Topical Cream Clotrimazole 1 % Clotrim azole 1 % 12/06/2020 12:00:00 AM EDT 1.0 {application_at_bedtime} lindsey pended Clotrimazole 1 % eCW1 ([facility]) Clotrimazole 10 MG/ML Topical Cream Clotrimazole 1 % Clotrim azole 1 % 12/06/2020 12:00:00 AM EDT 1.0 {application_at_bedtime} act sagrario Clotrimazole 1 % eCW1 ([facility]) Clotrimazole 10 MG/ML Topical Cream Clotrimazole 1 % Clotrim azole 1 % 12/06/2020 12:00:00 AM EDT 1.0 {application_at_bedtime} lindsey pended Clotrimazole 1 % eCW1 ([facility]) Omeprazole 20 MG Delayed Release Oral Capsule Omeprazole 20 MG 11/24/2020 12:00:00 AM EDT suspended Omepr azole 20 MG eCW1 ([facility]) Esomeprazole 20 MG Delayed Release Oral Capsule [Nexiu m] NexIUM 24HR 20 MG NexIUM 24HR 20 MG 11/24/2020 12:00:00 AM EDT 1.0 {capsule} active NexIUM 24HR 20 MG eCW1 ([facility]) Esomeprazole 20 MG Delayed Release Oral Capsule [Nexiu m] NexIUM 24HR 20 MG NexIUM 24HR 20 MG 11/24/2020 12:00:00 AM EDT 1.0 {capsule} active NexIUM 24HR 20 MG eCW1 ([facility]) Esomeprazole 20 MG Delayed Release Oral Capsule [Nexiu m] NexIUM 24HR 20 MG NexIUM 24HR 20 MG 11/24/2020 12:00:00 AM EDT 1.0 {capsule} suspended NexIUM 24HR 20 MG eCW1 ([facility]) Esomeprazole 20 MG Delayed Release Oral Capsule [Nexiu m] NexIUM 24HR 20 MG NexIUM 24HR 20 MG 11/24/2020 12:00:00 AM EDT 1.0 {capsule} suspended NexIUM 24HR 20 MG eCW1 ([facility]) Ondansetron 4 MG Oral Tablet [Zofran] Zofran 4 MG Zofran 4 M G 11/24/2020 12:00:00 AM EDT 1.0 {tablet} suspended Zofran 4 MG eCW1 ([facility]) Omeprazole 20 MG Delayed Release Oral Capsule Omeprazole 20 MG 11/24/2020 12:00:00 AM EDT active Omeprazo le 20 MG eCW1 ([facility]) Ondansetron 4 MG Oral Tablet [Zofran] Zofran 4 MG Zofran 4 M G 11/24/2020 12:00:00 AM EDT 1.0 {tablet} active Zo wendy 4 MG eCW1 ([facility]) Esomeprazole 20 MG Delayed Release Oral Capsule [Nexiu m] NexIUM 24HR 20 MG NexIUM 24HR 20 MG 11/24/2020 12:00:00 AM EDT 1.0 {capsule} active NexIUM 24HR 20 MG eCW1 ([facility]) Omeprazole 20 MG Delayed Release Oral Capsule Omeprazole 20 MG 11/24/2020 12:00:00 AM EDT active Omeprazo le 20 MG eCW1 ([facility]) Omeprazole 20 MG Delayed Release Oral Capsule Omeprazole 20 MG 11/24/2020 12:00:00 AM EDT active Omeprazo le 20 MG eCW1 ([facility]) Omeprazole 20 MG Delayed Release Oral Capsule Omeprazole 20 MG 11/24/2020 12:00:00 AM EDT active Omeprazo le 20 MG eCW1 ([facility]) Esomeprazole 20 MG Delayed Release Oral Capsule [Nexiu m] NexIUM 24HR 20 MG NexIUM 24HR 20 MG 11/24/2020 12:00:00 AM EDT 1.0 {capsule} active NexIUM 24HR 20 MG eCW1 ([facility]) Ondansetron 4 MG Oral Tablet [Zofran] Zofran 4 MG Zofran 4 M G 11/24/2020 12:00:00 AM EDT 1.0 {tablet} suspended Zofran 4 MG eCW1 ([facility]) Ondansetron 4 MG Oral Tablet [Zofran] Zofran 4 MG Zofran 4 M G 11/24/2020 12:00:00 AM EDT 1.0 {tablet} active Zo wendy 4 MG eCW1 ([facility]) Ondansetron 4 MG Oral Tablet [Zofran] Zofran 4 MG Zofran 4 M G 11/24/2020 12:00:00 AM EDT 1.0 {tablet} active Zo wendy 4 MG eCW1 ([facility]) Esomeprazole 20 MG Delayed Release Oral Capsule [Nexiu m] NexIUM 24HR 20 MG NexIUM 24HR 20 MG 11/24/2020 12:00:00 AM EDT 1.0 {capsule} suspended NexIUM 24HR 20 MG eCW1 ([facility]) Ondansetron 4 MG Oral Tablet [Zofran] Zofran 4 MG Zofran 4 M G 11/24/2020 12:00:00 AM EDT 1.0 {tablet} suspended Zofran 4 MG eCW1 ([facility]) Ondansetron 4 MG Oral Tablet [Zofran] Zofran 4 MG Zofran 4 M G 11/24/2020 12:00:00 AM EDT 1.0 {tablet} suspended Zofran 4 MG eCW1 ([facility]) Omeprazole 20 MG Delayed Release Oral Capsule Omeprazole 20 MG 11/24/2020 12:00:00 AM EDT suspended Omepr azole 20 MG eCW1 ([facility]) Ondansetron 4 MG Oral Tablet [Zofran] Zofran 4 MG Zofran 4 M G 11/24/2020 12:00:00 AM EDT 1.0 {tablet} active Zo wendy 4 MG eCW1 ([facility]) Esomeprazole 20 MG Delayed Release Oral Capsule [Nexiu m] NexIUM 24HR 20 MG NexIUM 24HR 20 MG 11/24/2020 12:00:00 AM EDT 1.0 {capsule} suspended NexIUM 24HR 20 MG eCW1 ([facility]) Esomeprazole 20 MG Delayed Release Oral Capsule [Nexiu m] NexIUM 24HR 20 MG NexIUM 24HR 20 MG 11/24/2020 12:00:00 AM EDT 1.0 {capsule} suspended NexIUM 24HR 20 MG eCW1 ([facility]) Omeprazole 20 MG Delayed Release Oral Capsule Omeprazole 20 MG 11/24/2020 12:00:00 AM EDT suspended Omepr azole 20 MG eCW1 ([facility]) Ondansetron 4 MG Oral Tablet [Zofran] Zofran 4 MG Zofran 4 M G 11/24/2020 12:00:00 AM EDT 1.0 {tablet} suspended Zofran 4 MG eCW1 ([facility]) Omeprazole 20 MG Delayed Release Oral Capsule Omeprazole 20 MG 11/24/2020 12:00:00 AM EDT suspended Omepr azole 20 MG eCW1 ([facility]) Omeprazole 20 MG Delayed Release Oral Capsule Omeprazole 20 MG 11/24/2020 12:00:00 AM EDT suspended Omepr azole 20 MG eCW1 ([facility]) buspirone hydrochloride 5 MG Oral Tablet buspirone 11/16/2020 12 :00:00 AM EDT 5 mg by mouth completed <td ID="Me dicationRxNorm_2">721033</td><td ID="MedicationMedication_2">buspirone</td><td ID="MedicationRoute_2">by mouth</td><td ID="MedicationRouteConcept_2">W11523</td><td ID="MedicationStartDate_2">11/16/2020</td><td ID="MedicationStopDate_2">01/15/2021</td><td ID="MedicationDosageFrequency_2">twice a day</td><td ID="MedicationDuration_2">30</td><td ID="MedicationFormulaStrength_2">5 mg</td><td ID="MedicationDosageForm_2">tablet</td><td ID="MedicationDosageFormCode_2"></td><td ID="MedicationDosageDescription_2"></td><td ID="MedicationMedicationId_2">[id number]</td><td ID="MedicationAccount_2">[id number]</td><td ID="MedicationNpid_2">[id number]</td><td ID="MedicationAuthorFirstName_2">Kalani</td><td ID="MedicationAuthorLastName_2">Elayne</td><td ID="MedicationTaxonomyCode_2">[id number]</td><td ID="MedicationTaxonomyDesc_2">Psychiatric/Mental Health</td><td ID="MedicationPhoneNumber_2">[phone]</td> [facility] ([facility] [place] [place]) Metronidazole 500 MG Oral Tablet Metronidazole 500 MG 2020 12:00:00 AM EDT 1.0 {tablet} active Metronidazo le 500 MG eCW1 ([facility]) Microgestin 1/20 1-20 MG-MCG Microgestin 1/20 1-20 MG-MCG 12:00:00 AM EDT 1.0 {tablet} active Microgestin 1/20 1-20 MG-MCG eCW1 ([facility]) Microgestin 1/20 1-20 MG-MCG Microgestin 1/20 1-20 MG-MCG 12:00:00 AM EDT 1.0 {tablet} suspended Microges tin 1/20 1-20 MG-MCG eCW1 ([facility]) Trazodone Hydrochloride 100 MG Oral Tablet TraZODone H Cl 100 MG TraZODone HCl 100 MG 10/21/2020 12:00:00 AM EDT 1.0 {tablet_at_bedtime} active TraZODone HCl 100 MG eCW1 ([facility]) Tretinoin 0.5 MG/ML Topical Cream Tretinoin 0.05 % Tretinoin 0.05 % 10/21/2020 12:00:00 AM EDT active e CW1 ([facility]) Prazosin 1 MG Oral Capsule Prazosin HCl 1 MG Prazosin HCl 1 MG 10/21/2020 12:00:00 AM EDT 1.0 {capsule_at_bedtime} active Prazosin HCl 1 MG eCW1 ([facility]) Prazosin 1 MG Oral Capsule Prazosin HCl 1 MG Prazosin HCl 1 MG 10/21/2020 12:00:00 AM EDT 1.0 {capsule_at_bedtime} active Prazosin HCl 1 MG eCW1 ([facility]) Prazosin 1 MG Oral Capsule Prazosin HCl 1 MG Prazosin HCl 1 MG 10/21/2020 12:00:00 AM EDT 1.0 {capsule_at_bedtime} active eCW1 ([facility]) Prazosin 1 MG Oral Capsule Prazosin HCl 1 MG Prazosin HCl 1 MG 10/21/2020 12:00:00 AM EDT 1.0 {capsule_at_bedtime} suspend ed Prazosin HCl 1 MG eCW1 ([facility]) Prazosin 1 MG Oral Capsule Prazosin HCl 1 MG Prazosin HCl 1 MG 10/21/2020 12:00:00 AM EDT 1.0 {capsule_at_bedtime} suspend ed Prazosin HCl 1 MG eCW1 ([facility]) Tretinoin 0.5 MG/ML Topical Cream Tretinoin 0.05 % Tretinoin 0.05 % 10/21/2020 12:00:00 AM EDT active Tretinoi n 0.05 % eCW1 ([facility]) Spironolactone 50 MG Oral Tablet Spironolactone 50 MG 2020 12:00:00 AM EDT 1.0 {tablet} suspended Spironol actone 50 MG eCW1 ([facility]) Spironolactone 50 MG Oral Tablet Spironolactone 50 MG 2020 12:00:00 AM EDT 1.0 {tablet} active Spironolact one 50 MG eCW1 ([facility]) Prazosin 1 MG Oral Capsule Prazosin HCl 1 MG Prazosin HCl 1 MG 10/21/2020 12:00:00 AM EDT 1.0 {capsule_at_bedtime} active Prazosin HCl 1 MG eCW1 ([facility]) Trazodone Hydrochloride 100 MG Oral Tablet TraZODone H Cl 100 MG TraZODone HCl 100 MG 10/21/2020 12:00:00 AM EDT 1.0 {tablet_at_bedtime} active eCW1 ([facility]) Prazosin 1 MG Oral Capsule Prazosin HCl 1 MG Prazosin HCl 1 MG 10/21/2020 12:00:00 AM EDT 1.0 {capsule_at_bedtime} active Prazosin HCl 1 MG eCW1 ([facility]) Trazodone Hydrochloride 100 MG Oral Tablet TraZODone H Cl 100 MG TraZODone HCl 100 MG 10/21/2020 12:00:00 AM EDT 1.0 {tablet_at_bedtime} suspended TraZODone HCl 100 MG eCW1 ([facility]) Prazosin 1 MG Oral Capsule Prazosin HCl 1 MG Prazosin HCl 1 MG 10/21/2020 12:00:00 AM EDT 1.0 {capsule_at_bedtime} active Prazosin HCl 1 MG eCW1 ([facility]) Prazosin 1 MG Oral Capsule Prazosin HCl 1 MG Prazosin HCl 1 MG 10/21/2020 12:00:00 AM EDT 1.0 {capsule_at_bedtime} suspend ed Prazosin HCl 1 MG eCW1 ([facility]) Prazosin 1 MG Oral Capsule Prazosin HCl 1 MG Prazosin HCl 1 MG 10/21/2020 12:00:00 AM EDT 1.0 {capsule_at_bedtime} suspend ed Prazosin HCl 1 MG eCW1 ([facility]) Prazosin 1 MG Oral Capsule Prazosin HCl 1 MG Prazosin HCl 1 MG 10/21/2020 12:00:00 AM EDT 1.0 {capsule_at_bedtime} suspend ed Prazosin HCl 1 MG eCW1 ([facility]) Tretinoin 0.5 MG/ML Topical Cream Tretinoin 0.05 % Tretinoin 0.05 % 10/21/2020 12:00:00 AM EDT suspended Treti noin 0.05 % eCW1 ([facility]) Spironolactone 50 MG Oral Tablet Spironolactone 50 MG 2020 12:00:00 AM EDT 1.0 {tablet} active eCW1 ([facility]) Prazosin 1 MG Oral Capsule Prazosin HCl 1 MG Prazosin HCl 1 MG 10/21/2020 12:00:00 AM EDT 1.0 {capsule_at_bedtime} suspend ed Prazosin HCl 1 MG eCW1 ([facility]) Seasonique 0.15-0.03 &0.01 MG Seasonique 0.15-0.03 &0.01 MG 10/19/2020 12:00:00 AM EDT 1.0 {tablet} active Seasonique 0.15-0.03 &0.01 MG eCW1 ([facility]) Seasonique 0.15-0.03 &0.01 MG Seasonique 0.15-0.03 &0.01 MG 10/19/2020 12:00:00 AM EDT 1.0 {tablet} active Seasonique 0.15-0.03 &0.01 MG eCW1 ([facility]) Seasonique 0.15-0.03 &0.01 MG Seasonique 0.15-0.03 &0.01 MG 10/19/2020 12:00:00 AM EDT 1.0 {tablet} suspended Seasoniq ue 0.15-0.03 &0.01 MG eCW1 ([facility]) Seasonique 0.15-0.03 &0.01 MG Seasonique 0.15-0.03 &0.01 MG 10/19/2020 12:00:00 AM EDT 1.0 {tablet} active eCW1 ([facility]) Prazosin 1 MG Oral Capsule prazosin 10/10/2020 12:00:00 AM EDT 1 mg by mouth completed <td ID="Medicat ionRxNorm_3">[id number]</td><td ID="MedicationMedication_3">prazosin</td><td ID="MedicationRoute_3">by mouth</td><td ID="MedicationRouteConcept_3">I50904</td><td ID="MedicationStartDate_3">10/10/2020</td><td ID="MedicationStopDate_3"></td><td ID="MedicationDosageFrequency_3">as directed</td><td ID="MedicationDuration_3"></td><td ID="MedicationFormulaStrength_3">1 mg</td><td ID="MedicationDosageForm_3">capsule</td><td ID="MedicationDosageFormCode_3"></td><td ID="MedicationDosageDescription_3"></td><td ID="MedicationMedicationId_3">[id number]</td><td ID="MedicationAccount_3">[id number]</td><td ID="MedicationNpid_3">[id number]</td><td ID="MedicationAuthorFirstName_3">Kalani</td><td ID="MedicationAuthorLastName_3">[place]</td><td ID="MedicationTaxonomyCode_3">[id number]</td><td ID="MedicationTaxonomyDesc_3">Psychiatric/Mental Health</td><td ID="MedicationPhoneNumber_3">[phone]</td> [facility] ([facility] [place] [place]) Hydroxyzine Hydrochloride 25 MG Oral Tablet hydroxyzine HCl 10/10/2020 12:00:00 AM EDT 25 mg by mouth completed <td ID="MedicationRxNorm_1">[id number]</td><td ID="MedicationMedication_1">hydroxyzine HCl</td><td ID="MedicationRoute_1">by mouth</td><td ID="MedicationRouteConcept_1">O57052</td><td ID="MedicationStartDate_1">10/10/2020</td><td ID="MedicationStopDate_1"></td><td ID="MedicationDosageFrequency_1">three times a day</td><td ID="MedicationDuration_1"></td><td ID="MedicationFormulaStrength_1">25 mg</td><td ID="MedicationDosageForm_1">tablet</td><td ID="MedicationDosageFormCode_1"></td><td ID="MedicationDosageDescription_1">as needed</td><td ID="MedicationMedicationId_1">[id number]</td><td ID="MedicationAccount_1">[id number]</td><td ID="MedicationNpid_1">[id number]</td><td ID="MedicationAuthorFirstName_1">Kalani</td><td ID="MedicationAuthorLastName_1">[place]</td><td ID="MedicationTaxonomyCode_1">[id number]</td><td ID="MedicationTaxonomyDesc_1">Psychiatric/Mental Health</td><td ID="MedicationPhoneNumber_1">[phone]</td> [facility] ([facility] [place] [place]) Prazosin 1 MG Oral Capsule prazosin 10/10/2020 12:00:00 AM EDT 1 mg by mouth completed <td ID="Medicat ionRxNorm_1">696665</td><td ID="MedicationMedication_1">prazosin</td><td ID="MedicationRoute_1">by mouth</td><td ID="MedicationRouteConcept_1">H48533</td><td ID="MedicationStartDate_1">10/10/2020</td><td ID="MedicationStopDate_1"></td><td ID="MedicationDosageFrequency_1">at bedtime</td><td ID="MedicationDuration_1"></td><td ID="MedicationFormulaStrength_1">1 mg</td><td ID="MedicationDosageForm_1">capsule</td><td ID="MedicationDosageFormCode_1"></td><td ID="MedicationDosageDescription_1"></td><td ID="MedicationMedicationId_1">[id number]</td><td ID="MedicationAccount_1">[id number]</td><td ID="MedicationNpid_1">[id number]</td><td ID="MedicationAuthorFirstName_1">Kalani</td><td ID="MedicationAuthorLastName_1">Elayne</td><td ID="MedicationTaxonomyCode_1">[id number]</td><td ID="MedicationTaxonomyDesc_1">Psychiatric/Mental Health</td><td ID="MedicationPhoneNumber_1">[phone]</td> [facility] ([facility] [place] [place]) Trazodone Hydrochloride 50 MG Oral Tablet trazodone 2020 12:00:00 AM EDT 50 mg by mouth completed <td ID="Medic ationRxNorm_2">[id number]</td><td ID="MedicationMedication_2">trazodone</td><td ID="MedicationRoute_2">by mouth</td><td ID="MedicationRouteConcept_2">B40062</td><td ID="MedicationStartDate_2">10/10/2020</td><td ID="MedicationStopDate_2"></td><td ID="MedicationDosageFrequency_2">at bedtime</td><td ID="MedicationDuration_2"></td><td ID="MedicationFormulaStrength_2">50 mg</td><td ID="MedicationDosageForm_2">tablet</td><td ID="MedicationDosageFormCode_2"></td><td ID="MedicationDosageDescription_2"></td><td ID="MedicationMedicationId_2">[id number]</td><td ID="MedicationAccount_2">[id number]</td><td ID="MedicationNpid_2">[id number]</td><td ID="MedicationAuthorFirstName_2">Kalani</td><td ID="MedicationAuthorLastName_2">Elayne</td><td ID="MedicationTaxonomyCode_2">[id number]</td><td ID="MedicationTaxonomyDesc_2">Psychiatric/Mental Health</td><td ID="MedicationPhoneNumber_2">[phone]</td> [facility] ([facility] [place] [place]) Sucralfate 1000 MG Oral Tablet [Carafate] Carafate 1 GM Cira fate 1 GM 10/06/2020 12:00:00 AM EDT 1.0 {tablet_on_an_empty_stomach} suspended Carafate 1 GM W1 ([facility]) Sucralfate 1000 MG Oral Tablet [Carafate] Carafate 1 GM Cira fate 1 GM 10/06/2020 12:00:00 AM EDT 1.0 {tablet_on_an_empty_stomach} suspended Carafate 1 GM W1 ([facility]) Sucralfate 1000 MG Oral Tablet [Carafate] Carafate 1 GM Cira fate 1 10/06/2020 12:00:00 AM EDT 1.0 {tablet_on_an_empty_stomach} suspended Carafate 1 GM W1 ([facility]) Sucralfate 1000 MG Oral Tablet [Carafate] Carafate 1 GM Cira fate 1 10/06/2020 12:00:00 AM EDT 1.0 {tablet_on_an_empty_stomach} ac tive W1 ([facility]) Sucralfate 1000 MG Oral Tablet [Carafate] Carafate 1 GM Cira fate 1 10/06/2020 12:00:00 AM EDT 1.0 {tablet_on_an_empty_stomach} dash spended eCW1 ([facility]) Sucralfate 1000 MG Oral Tablet [Carafate] Carafate 1 GM Cira fate 1 10/06/2020 12:00:00 AM EDT 1.0 {tablet_on_an_empty_stomach} active Carafate 1 GM eCW1 ([facility]) Sucralfate 1000 MG Oral Tablet [Carafate] Carafate 1 GM Cira fate 1 GM 10/06/2020 12:00:00 AM EDT 1.0 {tablet_on_an_empty_stomach} active Carafate 1 GM eCW1 ([facility]) Ortho Tri-Cyclen Lo 0.18/0.215/0.25 MG-25 MCG UNK 09/07/19 12:00:00 AM EDT 1.0 {tablet} active Ortho Tri-Cyclen Lo 0.18/0.215/0.25 MG-25 MCG eCW1 ([facility]) Ortho Tri-Cyclen Lo 0.18/0.215/0.25 MG-25 MCG UNK 09/07/19 21 12:00:00 AM EDT 1.0 {tablet} [facility] eCW1 [facility] Ortho Tri-Cyclen Lo 0.18/0.215/0.25 MG-25 MCG UNK 09/07/19 21 12:00:00 AM EDT 1.0 {tablet} active Ortho Tri-Cyclen Lo 0.18/0.215/0.25 MG-25 MCG eCW1 ([facility]) Ortho Tri-Cyclen Lo 0.18/0.215/0.25 MG-25 MCG UNK 09/07/19 21 12:00:00 AM EDT 1.0 {tablet} active Ortho Tri-Cyclen Lo 0.18/0.215/0.25 MG-25 MCG eCW1 ([facility]) Ortho Tri-Cyclen Lo 0.18/0.215/0.25 MG-25 MCG UNK 09/07/19 21 12:00:00 AM EDT 1.0 {tablet} active Ortho Tri-Cyclen Lo 0.18/0.215/0.25 MG-25 MCG eCW1 ([facility]) Ortho Tri-Cyclen Lo 0.18/0.215/0.25 MG-25 MCG UNK 09/07/19 21 12:00:00 AM EDT 1.0 {tablet} active Ortho Tri-Cyclen Lo 0.18/0.215/0.25 MG-25 MCG eCW1 ([facility]) Ortho Tri-Cyclen Lo 0.18/0.215/0.25 MG-25 MCG UNK 09/07/19 21 12:00:00 AM EDT 1.0 {tablet} active Ortho Tri-Cyclen Lo 0.18/0.215/0.25 MG-25 MCG eCW1 ([facility]) Tretinoin 0.25 MG/ML Topical Cream Tretinoin 0.025 % Tretino in 0.025 % 09/05/2020 12:00:00 AM EDT active Tretinoin 0.025 % eCW1 ([facility]) Clindamycin 10 MG/ML Medicated Pad Clindamycin Phospha te 1 % Clindamycin Phosphate 1 % 09/05/2020 12:00:00 AM EDT acti ve Clindamycin Phosphate 1 % eCW1 ([facility]) Tretinoin 0.25 MG/ML Topical Cream Tretinoin 0.025 % Tretino in 0.025 % 09/05/2020 12:00:00 AM EDT suspended Tretinoin 0.025 % eCW1 ([facility]) Clindamycin 10 MG/ML Medicated Pad Clindamycin Phospha te 1 % Clindamycin Phosphate 1 % 09/05/2020 12:00:00 AM EDT acti ve Clindamycin Phosphate 1 % eCW1 ([facility]) Clindamycin 10 MG/ML Medicated Pad Clindamycin Phospha te 1 % Clindamycin Phosphate 1 % 09/05/2020 12:00:00 AM EDT acti ve Clindamycin Phosphate 1 % eCW1 ([facility]) Clindamycin 10 MG/ML Medicated Pad Clindamycin Phospha te 1 % Clindamycin Phosphate 1 % 09/05/2020 12:00:00 AM EDT acti ve Clindamycin Phosphate 1 % eCW1 ([facility]) Clindamycin 10 MG/ML Medicated Pad Clindamycin Phospha te 1 % Clindamycin Phosphate 1 % 09/05/2020 12:00:00 AM EDT acti ve Clindamycin Phosphate 1 % eCW1 ([facility]) Tretinoin 0.25 MG/ML Topical Cream Tretinoin 0.025 % Tretino in 0.025 % 09/05/2020 12:00:00 AM EDT active Tretinoin 0.025 % eCW1 ([facility]) Spironolactone 25 MG Oral Tablet Spironolactone 25 MG 2020 12:00:00 AM EDT 1.0 {tablet} active eCW1 ([facility]) Tretinoin 0.25 MG/ML Topical Cream Tretinoin 0.025 % Tretino in 0.025 % 09/05/2020 12:00:00 AM EDT active Tretinoin 0.025 % eCW1 ([facility]) Tretinoin 0.25 MG/ML Topical Cream Tretinoin 0.025 % Tretino in 0.025 % 09/05/2020 12:00:00 AM EDT active Tretinoin 0.025 % eCW1 ([facility]) Clindamycin 10 MG/ML Medicated Pad Clindamycin Phospha te 1 % Clindamycin Phosphate 1 % 09/05/2020 12:00:00 AM EDT acti ve Clindamycin Phosphate 1 % eCW1 ([facility]) Tretinoin 0.25 MG/ML Topical Cream Tretinoin 0.025 % Tretino in 0.025 % 09/05/2020 12:00:00 AM EDT active eCW1 ([facility]) Spironolactone 25 MG Oral Tablet Spironolactone 25 MG 2020 12:00:00 AM EDT 1.0 {tablet} active Spironolact one 25 MG eCW1 ([facility]) Spironolactone 25 MG Oral Tablet Spironolactone 25 MG 2020 12:00:00 AM EDT 1.0 {tablet} active Spironolact one 25 MG eCW1 ([facility]) Clindamycin 10 MG/ML Medicated Pad Clindamycin Phospha te 1 % Clindamycin Phosphate 1 % 09/05/2020 12:00:00 AM EDT acti ve Clindamycin Phosphate 1 % eCW1 ([facility]) Spironolactone 25 MG Oral Tablet Spironolactone 25 MG 2020 12:00:00 AM EDT 1.0 {tablet} active eCW1 ([facility]) Tretinoin 0.25 MG/ML Topical Cream Tretinoin 0.025 % Tretino in 0.025 % 09/05/2020 12:00:00 AM EDT active Tretinoin 0.025 % eCW1 ([facility]) Tretinoin 0.25 MG/ML Topical Cream Tretinoin 0.025 % Tretino in 0.025 % 09/05/2020 12:00:00 AM EDT active Tretinoin 0.025 % eCW1 ([facility]) Tretinoin 0.25 MG/ML Topical Cream Tretinoin 0.025 % Tretino in 0.025 % 09/05/2020 12:00:00 AM EDT active eCW1 ([facility]) Spironolactone 25 MG Oral Tablet Spironolactone 25 MG 2020 12:00:00 AM EDT 1.0 {tablet} active Spironolact one 25 MG eCW1 ([facility]) Spironolactone 25 MG Oral Tablet Spironolactone 25 MG 2020 12:00:00 AM EDT 1.0 {tablet} active Spironolact one 25 MG eCW1 ([facility]) Spironolactone 25 MG Oral Tablet Spironolactone 25 MG 2020 12:00:00 AM EDT 1.0 {tablet} active Spironolact one 25 MG eCW1 ([facility]) Tretinoin 0.25 MG/ML Topical Cream Tretinoin 0.025 % Tretino in 0.025 % 09/05/2020 12:00:00 AM EDT active Tretinoin 0.025 % eCW1 ([facility]) Clindamycin 10 MG/ML Medicated Pad Clindamycin Phospha te 1 % Clindamycin Phosphate 1 % 09/05/2020 12:00:00 AM EDT susp ended Clindamycin Phosphate 1 % eCW1 ([facility]) Spironolactone 25 MG Oral Tablet Spironolactone 25 MG 2020 12:00:00 AM EDT 1.0 {tablet} active Spironolact one 25 MG eCW1 ([facility]) Spironolactone 25 MG Oral Tablet Spironolactone 25 MG 2020 12:00:00 AM EDT 1.0 {tablet} suspended Spironol actone 25 MG eCW1 ([facility]) Clindamycin 10 MG/ML Medicated Pad Clindamycin Phospha te 1 % Clindamycin Phosphate 1 % 09/05/2020 12:00:00 AM EDT active eCW1 ([facility]) Spironolactone 25 MG Oral Tablet Spironolactone 25 MG 2020 12:00:00 AM EDT 1.0 {tablet} active Spironolact one 25 MG eCW1 ([facility]) Clindamycin 10 MG/ML Medicated Pad Clindamycin Phospha te 1 % Clindamycin Phosphate 1 % 09/05/2020 12:00:00 AM EDT acti ve Clindamycin Phosphate 1 % eCW1 ([facility]) Clindamycin 10 MG/ML Medicated Pad Clindamycin Phospha te 1 % Clindamycin Phosphate 1 % 09/05/2020 12:00:00 AM EDT active eCW1 ([facility]) Tretinoin 0.25 MG/ML Topical Cream Tretinoin 0.025 % Tretino in 0.025 % 09/05/2020 12:00:00 AM EDT active Tretinoin 0.025 % eCW1 ([facility]) Spironolactone 25 MG Oral Tablet Spironolactone 25 MG 2020 12:00:00 AM EDT 1.0 {tablet} active Spironolact one 25 MG eCW1 ([facility]) Doxycycline Monohydrate 100 MG Oral Tabl et doxycycline monohydrate 100 mg tablet doxycycline monohydrate 100 mg tablet 06/30/2020 12:00:00 AM EST completed 1 tab po bid x 7 days (#14) Next Gen ([facility]) Ceftriaxone 250 MG Injection ceftriaxone 250 mg soluti on for injection ceftriaxone 250 mg solution for injection 06/30/2020 12:00:00 AM EST completed Inject 500mg total once NextGen ([facility]) Clomiphene Citrate 50 MG Oral Tablet ClomiPHENE Citrat e 50 MG ClomiPHENE Citrate 50 MG 04/28/2020 12:00:00 AM EST 1.0 {tablet} suspe nded ClomiPHENE Citrate 50 MG eCW1 ([facility]) Clomiphene Citrate 50 MG Oral Tablet ClomiPHENE Citrat e 50 MG ClomiPHENE Citrate 50 MG 04/28/2020 12:00:00 AM EST 1.0 {tablet} activ e ClomiPHENE Citrate 50 MG eCW1 ([facility]) Clomiphene Citrate 50 MG Oral Tablet ClomiPHENE Citrat e 50 MG ClomiPHENE Citrate 50 MG 04/28/2020 12:00:00 AM EST 1.0 {tablet} activ e ClomiPHENE Citrate 50 MG eCW1 ([facility]) Clomiphene Citrate 50 MG Oral Tablet ClomiPHENE Citrat e 50 MG ClomiPHENE Citrate 50 MG 04/28/2020 12:00:00 AM EST 1.0 {tablet} activ e ClomiPHENE Citrate 50 MG eCW1 ([facility]) Clomiphene Citrate 50 MG Oral Tablet ClomiPHENE Citrat e 50 MG ClomiPHENE Citrate 50 MG 04/28/2020 12:00:00 AM EST 1.0 {tablet} suspe nded ClomiPHENE Citrate 50 MG eCW1 ([facility]) Clomiphene Citrate 50 MG Oral Tablet ClomiPHENE Citrat e 50 MG ClomiPHENE Citrate 50 MG 04/28/2020 12:00:00 AM EST 1.0 {tablet} suspe nded ClomiPHENE Citrate 50 MG eCW1 ([facility]) Clomiphene Citrate 50 MG Oral Tablet ClomiPHENE Citrat e 50 MG ClomiPHENE Citrate 50 MG 04/28/2020 12:00:00 AM EST 1.0 {tablet} suspe nded ClomiPHENE Citrate 50 MG eCW1 ([facility]) Clomiphene Citrate 50 MG Oral Tablet ClomiPHENE Citrat e 50 MG ClomiPHENE Citrate 50 MG 04/28/2020 12:00:00 AM EST 1.0 {tablet} suspe nded ClomiPHENE Citrate 50 MG eCW1 ([facility]) Clomiphene Citrate 50 MG Oral Tablet ClomiPHENE Citrat e 50 MG ClomiPHENE Citrate 50 MG 04/28/2020 12:00:00 AM EST 1.0 {tablet} suspe nded ClomiPHENE Citrate 50 MG eCW1 ([facility]) Clomiphene Citrate 50 MG Oral Tablet ClomiPHENE Citrat e 50 MG ClomiPHENE Citrate 50 MG 04/28/2020 12:00:00 AM EST 1.0 {tablet} suspe nded ClomiPHENE Citrate 50 MG eCW1 ([facility]) Clomiphene Citrate 50 MG Oral Tablet ClomiPHENE Citrat e 50 MG ClomiPHENE Citrate 50 MG 04/28/2020 12:00:00 AM EST 1.0 {tablet} suspe nded ClomiPHENE Citrate 50 MG eCW1 ([facility]) Clomiphene Citrate 50 MG Oral Tablet ClomiPHENE Citrat e 50 MG ClomiPHENE Citrate 50 MG 04/28/2020 12:00:00 AM EST 1.0 {tablet} suspe nded ClomiPHENE Citrate 50 MG eCW1 ([facility]) Clomiphene Citrate 50 MG Oral Tablet ClomiPHENE Citrat e 50 MG ClomiPHENE Citrate 50 MG 04/28/2020 12:00:00 AM EST 1.0 {tablet} suspended eCW1 ([facility]) Clomiphene Citrate 50 MG Oral Tablet ClomiPHENE Citrat e 50 MG ClomiPHENE Citrate 50 MG 04/28/2020 12:00:00 AM EST 1.0 {tablet} suspended eCW1 ([facility]) Clomiphene Citrate 50 MG Oral Tablet ClomiPHENE Citrat e 50 MG ClomiPHENE Citrate 50 MG 04/28/2020 12:00:00 AM EST 1.0 {tablet} suspe nded ClomiPHENE Citrate 50 MG eCW1 ([facility]) Clomiphene Citrate 50 MG Oral Tablet ClomiPHENE Citrat e 50 MG ClomiPHENE Citrate 50 MG 04/28/2020 12:00:00 AM EST 1.0 {tablet} activ e ClomiPHENE Citrate 50 MG eCW1 ([facility]) Clomiphene Citrate 50 MG Oral Tablet ClomiPHENE Citrat e 50 MG ClomiPHENE Citrate 50 MG 04/28/2020 12:00:00 AM EST 1.0 {tablet} activ e ClomiPHENE Citrate 50 MG eCW1 ([facility]) Clomiphene Citrate 50 MG Oral Tablet ClomiPHENE Citrat e 50 MG ClomiPHENE Citrate 50 MG 04/28/2020 12:00:00 AM EST 1.0 {tablet} activ e ClomiPHENE Citrate 50 MG eCW1 ([facility]) Insurance Providers Payer name Policy type / Coverage type Policy ID Covered republican ID Covered republican's relationship to agosto Policy Agosto Plan Information MEDICAID M [id number] Self [id number] [facility] [id number] FA2 [id number] EMPIRE PLAN [facility] U [id number] Self [id number] [facility] I [id number] Self [id number] Medicaid S [id number] S [id number] [facility] [id number] FA2 [id number] BCBS EMPIRE [place] DIV [id number] HU2 [id number] [place] P [id number] S [id number] MEDICAID [id number] SP [id number] [place] P [id number] S [id number] Medicaid S [id number] S [id number] BCBS EMPIRE [place] DIV [id number] FA2 [id number] [place] P [id number] S [id number] [facility] [id number] FA2 [id number] [place] Plan P [id number] S [id number] [place] Plan P [id number] S [id number] MEDICAID [id number] SP [id number] MEDICAID [id number] SP [id number] [facility] [id number] FA2 [id number] BCBS EMPIRE [place] DIV [id number] FA2 [id number] [place] Plan P [id number] S [id number] [facility] MCDO [id number] SP [id number] ANSI-Medicaid [id number] ANSI-Medicaid [id number] ANSI-Commercial [id number] ANSI-Medicaid [id number] ANSI-Commercial [id number] ANSI-Medicaid [id number] ANSI-Commercial [id number] ANSICloudFabCommercial [id number] ANSI-Medicaid [id number] ANSI-Commercial [id number] ANSI-Medicaid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 medicines can harm the growing baby. If you have nausea or vomiting, don't eat greasy or fried foods. Eat several smaller meals throughout the day rather than 3 large meals. If you smoke, you must stop. The nicotine you breathe in goes right to the baby. Stay away from alcohol, even in moderate amounts. Daily drinking will harm your baby and can cause permanent brain damage. Don't use recreational drugs, especially cocaine, crack, and heroin. These will harm your baby. Also avoid marijuana. If you were using recreational drugs or prescribed medicine when you found out that you were , talk with your healthcare provider about possible effects on your growing baby. If you have medical problems that you need to take medicine for, talk with your healthcare provider.Follow-up care 6 General Instructions [facility] Emergency Department [address] [place] [address] Phone #: ext- [phone] 11/29/2020 17:58 Patient: ERMA TERRY Sex: F : 1995 Age: 25yCall your healthcare provider to arrange for care. care is important. You can seeyour family provider, a specialist (electron gun inspector), a test automation architect, or a primary care clinic.When to seek medical adviceCall your healthcare provider right away if any of these occur: Vaginal bleeding Pain in your belly (abdomen) or back that is moderate or severe Lots of vomiting, or you can't keep any fluids down for 6 hours Burning feeling when you urinate Headache, dizziness, or rapid weight gain Fever Vision changes or blurred vision 1999- 2019 [employer]. [address] [place] [address], [place] [address]. All rights reserved. This information is not intended as asubstitute for [facility] medical care. Always follow your healthcare professional's instructions.PregnancyYour exam today shows that you are . 7 General Instructions [facility] Emergency Department [address] [place] [address] Phone #: ext- [phone] 11/29/2020 17:58 Patient: ERMA TERRY Sex: F : 1995 Age: 25yPregnancy symptomsDuring your body's hormones change. This causes physical and emotional changes. Thisis normal. Knowing what to expect is importa nt for your piece of mind and so you know when to seekhelp for a problem. Here are some of the most common symptoms: Morning sickness or nausea. This can happen any time of the day or night. Tender, swollen breasts Need to urinate frequently Tiredness or fatigue Dizziness Indigestion or heartburn Food cravings or turn-offs Constipation Emotional changes. This can range from anxiety to excitement to depression.General care for a healthy pregnancyHere are things you can do to help make sure your baby is born healthy: Rest when you feel tired. This is especially true in the later months of . Drink more fluids. Your body needs more fluids than you may be used to. Drink 8 to10 glasses of juice, milk, or water every day. Eat well-balanced meals. Eat at regular times to give your body enough protein. You can expect to gain about 30 pounds during the . Don't try to diet or lose weight while you are . Take a vitamin every day. This helps you meet the extra nutritional needs of . Don't take any other medicine during your unless your healthcare provider tells you to. This includes prescription medicines and those you buy over the counter. Many medicines can harm the growing baby. If you have nausea or vomiting, don't eat greasy or fried foods. Eat several smaller m eals throughout the day rather than 3 large meals. If you smoke, you must stop. The nicotine you breathe in goes right to the baby. 8 General Instructions [facility] Emergency Department [address] [place] [address] Phone #: ext- [phone] 11/29/2020 17:58 Patient: ERMA TERRY Sex: F : 1995 Age: 25y Stay away from alcohol, even in moderate amounts. Daily drinking will harm your baby and can cause permanent brain damage. Don't use recreational drugs, especially cocaine, crack, and heroin. These will harm your baby. Also avoid marijuana. If you were using recreational drugs or prescribed medicine when you found out that you were , talk with your healthcare provider about possible effects on your growing baby. If you have medical problems that you need to take medicine for, talk with your healthcare provider.Follow-up careCall your healthcare provider to arrange for care. care is important. You can seeyour family provider, a specialist (electron gun inspector), a test automation architect, or a primary care clinic.When to seek medical advice Call your healthcare provider right away if any of these occur: Vaginal bleeding Pain in your belly (abdomen) or back that is moderate or severe Lots of vomiting, or you can't keep any fluids down for 6 hours Burning feeling when you urinate Headache, dizziness, or rapid weight gain Fever Vision changes or blurred vision [phone] [employer]. [address] [place] [address], [place] [address]. All rights reserved. This information is not intended as asubstitute for professional medical care. Always follow your healthcare professional's instructions.Established , Normal Symptoms 9 General Instructions [facility] Emergency Department [address] [place] [address] Phone #: ext- [phone] 11/29/2020 17:58 Patient: ERMA TERRY Sex: F : 1995 Age: 25yYou are and are having symptoms that worry you. During , it's normal to havemany kinds of symptoms. Here is a list of common symptoms that happen during .Circulation changes Bleeding gums Headaches Nosebleeds Mild blurriness of vision, especially with contact lenses Stuffy nose Dizziness and fainting Extra saliva Skin color changes on your face 10 General Instructions [facility] Emergency Department [address] [place] [address] Phone #: [phone]- [phone] 11/29/2020 17:58 Patient: ERMA TERRY Sex: F : 1995 Age: 25y Stuffy nose Swollen hands, legs, and feet Swollen leg veinsBreast and skin changes Darkening of nipples Yellow or white discharge from the nipples Sore breasts and nipples Swollen breasts Dry, itchy skin Skin color changes on your faceMuscle and joint changes Back, hip, or thigh pain Leg cramps that come and go Numbness and tingling in your hands and fingersUrinary and bowel changes Constipation Feeling of pressure on your bladder and stomach Need to urinate often Gas and bloating Heartburn Anal itching, swelling, and bleeding (hemorrhoids) Leaking urine Mild pressure or cramping in your belly Nausea and vomiting throughout the day or night (morning sickness) Swollen belly Clear to white vaginal discharge 11 General Instructions [facility] Emergency Department [address] [place] [address] Phone #: ext- [phone] 11/29/2020 17:58 Patient: ERMA TERRY Sex: F : 1995 Age: 25yMood and thinking changes Forgetfulness Less interest in sex Mood swings Tiredness Trouble sleepingHome careHere is information that may help relieve some common symptoms.Sore and swollen breasts Wear a support bra that fits properly.Nausea and indigestion Eat smaller meals or snacks more often. Eat bland foods, such as bananas, crackers, or rice. Stay away from spicy, fatty, or fried foods. Stay away from alcohol, caffeine, and tobacco. Don't lie down right after eating. Raise your head with pillows when you lie down. Eat foods or beverages that have juvenal. If you drink juvenal vicki, be sure to make sure it has real juvenal and not just juvenal flavoring.Leg swelling and varicose veins Wear elastic support hose. Put your feet up as often as possible.Constipation Eat more fresh fruits and vegetables and more whole grains. Drink more clear liquids.Joint and muscle pain Avoid heavy lifting. 12 General Instructions [facility] Emergency Department [address] [place] [address] Phone #: ext- [phone] 11/29/2020 17:58 Patient: ERMA TERRY Sex: F : 1995 Age: 25y Pick things up by bending at your knees, not at your waist. Use acetaminophen for joint and muscle pain. Don't use aspirin, ibuprofen, or naproxen.Mouth and nose dryness or bleeding Drink more liquids. Use a vaporizer or humidifier in your bedroom.Don't take medicines or use remedies that your healthcare provider hasn't approved. If you havesymptoms that are severe or sudden, call your healthcare provider.Call [phone] if any of these occur: New chest, arm, shoulder, neck, or upper back pain Trouble breathing Severe belly pain or very heavy bleeding Severe lightheadedness, passing out, or fainting Rapid heart rate Confusion or trouble waking upWhen to seek medical adviceCall your healthcare provider right away if any of these occur: Burning or pain when you urinate Depression or severe anxiety Desire to eat or drink nonfood items such as paper, dirt, or cleaning products Diarrhea that lasts more than 24 hours Fast heartbeat or heart palpitations Fever of 100.4F (38C) or higher, or as directed by your healthcare provider You can't keep fluids down for 6 hours without vomiting Severe or ongoing vomiting Little or no urine Major vision changes 13 General Instructions [facility] Emergency Department [address] [place] [address] Phone #: ext- [phone] 11/29/2020 17:58 Patient: ERMA TERRY Sex: F : 1995 Age: 25y Moderate or severe belly pain Severe back pain Severe constipation Severe cramping or swelling in a leg, especially if it's just on one side Severe headache Sudden swelling of your face, hands, feet, or ankles Vaginal bleeding Very itchy skin that doesn't get better [phone] [employer] [place] [address]. All rights reserved. This information is not intended as asubstitute for professional medical care. Always follow your healthcare professional's instructions. You have been given the following additional information: , New Dx , New Dx , New Dx , Established, Normal Symptoms Do not work for four days.(Electronically signed by Tera Jefferson P.A.-C 12/03/2020 11:38) Name Value Range Interpretation Code Description Data Sophia rce(s) Supporting Document(s) ID Date Data Source [id number] 11/29/2020 06:04:00 PM EDT [facility] 1 Clinical Report - Nurses [facility] Emergency Department [address] [place] [address] Phone #: ext- [phone] 11/29/2020 17:58 Patient: ERMA TERRY Sex: F : 1995 Age: 25yTRIAGEArrived by private vehicle. Historian: patient. Unaccompanied.Triage time: 18:21 11/29/2020. Acuity: LEVEL 4.Chief Complaint: ABDOMINAL PAIN.Alert. No acute distress.This started yesterday. ( Pt is approximately 9 weeks has first appt on December 07. Pt has not hada BM in about 4 days. Pt is having abd pain.).Treatment RECEIVER DISPATCHER:None.SEPSIS SCREEN: SIRS SCREEN NEGATIVE. SEPSIS SCREEN NEGATIVE. No suspected or confirmedsigns of infection present. --18:28 11/29/20 Leia Courteny R.N.18:21 11/29/20. BP: 104/69. MAP: 80. HR: 81. RR: 16. O2 saturation: 99% on room air. Temp: 98.4 F(oral). Pain level now: 01/17. --18:28 11/29/20 Leia Courtney R.N.Weight: 69.8 kg stated. Height/Length: 62 inches Per Patient. BMI: 28.2. --18:20 11/29/20 Leia Courtney R.N.MedicationsZofran ODT Oral. --18:24 11/29/20 Leia Courtney R.N.AllergiesPenicillins. --18:24 11/29/20 Leia Courtney R.N.PROBLEMS:Endometriosis.Anxiety Reaction.Depression.Ovarian Cyst.Vaginal Bleeding.Gastroesophageal Reflux Disease.Insomnia. --18:25 11/29/20 Leia Courtney R.N.Medication/allergy information source: the patient. --18:28 11/29/20 Leia Courtney R.N.ADDITIONAL SURGERIES: 2 Clinical Report - Nurses [facility] Emergency Department [address] [place] [address] Phone #: ext- [phone] 11/29/2020 17:58 Patient: ERMA TERRY Sex: F : 1995 Age: 25y . Hernia Repair. Laparoscopy. --18:25 11/29/20 Leia Courtney R.N. History PAST MEDICAL HX: Immunizations: up-to-date. Last normal menstrual period- September 30. 3. Para 2. SOCIAL HX: Current every day heavy tobacco smoker (cigarette)- less than 1 pack per day. No alcohol use or drug use. She was offered HIV testing but declined. Patient education was provided. She was offered hepatitis C testing but declined. Patient education was provided. She has not traveled outside the [place] Infectious disease exposure: No infectious disease exposure. (COVID screen negative). Patient is not a known carrier of tuberculosis, hepatitis, HIV, MRSA or VRE. Patient is not a known carrier of CRE. SELF HARM ASSESSMENT: Self harm assessment was performed. The patient answered "no" to the question(s) "Do you have thoughts of harming or killing yourself?", "Do you have a plan for harming or killing yourself?" and "Have you recently had thoughts about harming or killing others?". ABUSE ASSESSMENT: Abuse assessment. The patient had positive responses to the question(s) "Do you feel safe in your home?" (yes). Abuse denied. No suspicion of abuse. No report of abuse. NUTRITIONAL RISK ASSESSMENT: The nutritional risk assessment revealed no deficiencies. FUNCTIONAL ASSESSMENT: Functional assessment: no impairments noted. LEARNING NEEDS ASSESSMENT: The learning needs assessment revealed no barriers. FALL RISK ASSESSMENT: Fall risk assessment completed. No risk factors identified. SKIN INTEGRITY ASSESSMENT: Skin integrity risk assessment completed. No skin integrity risk identified. --18:28 11/29/20 Leia Courtney R.N. Interventions Identification band on patient. --18:28 11/29/20 Leia Courtney R.N. Allergy band on patient. --18:28 11/29/20 Leia Courtney R.N.PHYSICAL UOIXWBHNGO02:31 11/29/20. Ambulatory to room. Patient gowned.GENERAL / NEURO / PSYCH: Alert. Oriented X 4.HEENT: Mucous membranes are pink.RESPIRATORY: Respirations not labored. Breath sounds within normal limits.CVS: Normal heart rate and rhythm. Capillary refill less than 2 seconds.GI / : Abdomen soft and nontender. Bowel sounds within normal limits. 3 Clinical Report - Nurses [facility] Emergency Department [address] [place] [address] Phone #: ext- [phone] 11/29/2020 17:58 Patient: ERMA TERRY Sex: F : 1995 Age: 25y EXTREMITIES: No lower extremity edema. SKIN: Skin is warm and dry. --18:32 11/29/20 Bean Kwong R.N.NURSING PROGRESS NOTESPatient gowned. Reassurance given. Three patient identifiers checked. Call light placed in reach. Siderails up x 2. Bed placed in lowest position. Brakes of bed on. Patient ready for evaluation- ED gonzalo MIRANDA notified. --18:28 11/29/20 Leia Courtney R.N. 19:19 11/29/2020 Site #1 started via IV in the right antecubital space with an 20g angiocath, with aseptic technique and good blood return; one attempt. Blood drawn: rainbow set. Labeled in the presence of the patient and sent to the lab. Saline lock flushed with 10 mL saline. --19:19 11/29/20 Bean Kwong R.N. 19:54 11/29/2020 Started bag #1 1000 mL IV Fluids IV NS; at 1000 mL/hr over 1 hour(s) via site #1 via IV pump. Allergies verified and confirmed 5 rights. IV patency established. IV site checked: no pain, redness, or swelling. IV flushed thoroughly pre- and post-medication administration. Information reviewed with patient including reason for taking this medication, signs of allergic reaction and precautions. Verbalizes understanding. --19:54 11/29/20 Bean Kwong R.N. 20:49 11/29/2020 IV Fluids IV NS via IV site #1 Discontinued: bag #1 completed. Total amount infused: 1000 mL. IV patency established. IV site checked: no pain, redness, or swelling. IV flushed thoroughly. --20:49 11/29/20 Bean Kwong R.N.DISPOSITION / DISCHARGE 20:56 11/29/20. Departure time: 21:01 11/29/2020. Condition at departure: improved and stable. The goals identified in the patient's plan of care were met. Fall risk assessment completed. No risk factors identified. No learning barriers present. Reviewed warnings. Reviewed medication(s) side effects, precautions, dosing and course information. Prescription(s) sent electronically to pharmacy. Treatments reviewed. Reviewed referral to a primary care physician (OBGYN). Work note given. Patient oscar balized understanding. Written instructions provided in Botswanan. The patient was discharged by the physician periodicals library assistant. She was discharged home. She left ambulatory and via private vehicle. Patient driving. --21:02 11/29/20 Bean Kwong R.N. 21:00 11/29/2020 Site #1 removed upon discharge. Catheter intact. Bandage applied. --21:00 11/29/20 Bean Kwong R.N. 21:00 11/29/20. BP: 106/66. MAP: 79. HR: 83. RR: 16. O2 saturation: 100%. Temp: 98 F. Pain level now: 0/10. --21:02 11/29/20 Bean Kwong R.N.Locked/Released at 11/29/2020 21:03 by Bean Kwong R.N. 4 Clinical Report - Nurses [facility] Emergency Department [address] [place] [address] Phone #: ext- [phone] 11/29/2020 17:58 Patient: ERMA TERRY Sex: F : 1995 Age: 25y Name Value Range Interpretation Code Description Data Sophia rce(s) Supporting Document(s) ID Date Data Source [id number] 11/29/2020 06:04:00 PM EDT [facility] 1 Clinical Report - Physicians/Mid Levels [facility] Emergency Department [address] [place] [address] Phone #: ext- [phone] 11/29/2020 17:58 Patient: ERMA TERRY Sex: F : 1995 Age: 25y Time Seen: 19:08 11/29/2020; initial patient contact, initial documentation. Arrived- By private vehicle. Historian- patient. Disposition decision: 20:44 11/29/2020.HISTORY OF PRESENT ILLNESS Chief Complaint: ABDOMINAL CRAMPS. This started yesterday and is still present but is improving. No contractions, vaginal bleeding or discharge or complaint of leakage of fluid. Gestational age is 9 weeks. (Pt is approximately 9 weeks has first appt on December 07. Pt has not had a BM in about 4 days. Pt is having abd pain). Similar symptoms previously. None. Recent medical care: Not recently seen/assessed.REVIEW OF SYSTEMSNo nausea, vomiting, diarrhea, black stools or bloody stools. No headache, double vision, faintingepisodes, fever or eye discomfort. No eye discharge, sore throat, cough, difficulty breathing or chest pain.No skin rash, enlarged lymph nodes, chills or joint pain. All other systems reviewed and are negative.PAST HISTORYSee nurses notes. Problems: Endometritis. Gastritis. Endometriosis. Anxiety Reaction. Depression. Ovarian Cyst. Vaginal Bleeding. Gastroesophageal Reflux Disease. Insomnia. Additional Surgeries: . Hernia Repair. Laparoscopy. Medications: 2 Clinical Report - Physicians/Mid Levels [facility] Emergency Department [address] [place] [address] Phone #: ext- [phone] 11/29/2020 17:58 Patient: ERMA TERRY Sex: F : 1995 Age: 25y Zofran ODT Oral. Allergies: Penicillins.SOCIAL HISTORYCurrent every day smoker. No alcohol use or drug use.ADDITIONAL NOTESThe nursing notes have been reviewed.PHYSICAL EXAMVital Signs: 11/29/2020 18:21 BP: 104/69. MAP: 80. HR: 81. RR: 16. O2 saturation: 99% on room air.Temp: 98.4 F. Pain level now: 8/10. Have been reviewed. Oxygen saturation normal.Appearance: Alert. Oriented X3. No acute distress.ENT: Voice normal.CVS: Normal heart rate and rhythm. No JVD present. Pulses normal. Capillary refill normal. Strongperipheral pulses. Heart sounds normal.Respiratory: Chest normal on inspection. No respiratory distress. Unlabored respirations. Lungs clear.Good chest movement. Breath sounds normal and equal. Chest nontender.Abdomen: Soft and nontender. Bowel sounds normal.Back: Normal external inspection.Skin: Skin warm and dry.Extremities: No lower extremity edema. Extremities nontender. No calf tenderness. No pathol ogicedema.Neuro: Awake. Alert. Mood/affect normal. Speech normal. No motor deficit. No sensory deficit.Psych: Cognition normal. Thought process and content normal. Insight and judgement normal.LABS, X-RAYS, AND EKGPelvic Sonogram: Ko iqbal Neal - 11/29/2020 7:56:59 PMSingle live uterine 8 weeks 5 days.The gestational sac is abnormally shaped. Recommend short-term follow-up ultrasound.Laboratory Tests: CBC w Diff: (MICK: 11/29/2020 19:15) ( MsgRcvd 11/29/2020 19:38) Final results Test Result Flag Units (Reference) CBC W/AUTOMATED DIFF COMPLETE BLOOD COUNT WBC 10.8 10/uL (4.2 - 11.0) RBC 3.96 L 10/uL (4.20 - 5.40) HEMOGLOBIN 12.7 g/dL (12.0 - 16.0) HEMATOCRIT 36.3 L % (37.0 - 47.0) MCV 91.7 fL (81.0 - 101) MCH 32.1 pg (27.0 - 34.0) MCHC 35.0 g/dL (31.0 - 36.0) RDW 12.0 % (11.5 - 14.5) PLATELETS 203 10/uL (150 - 450) MPV 10.9 H fL (7.4 - 10.4) NEUT 65.3 % (37.0 - 80.0) 3 Clinical Report - Physicians/Mid Levels [facility] Emergency Department [address] [place] [address] Phone #: ext- [phone] 11/29/2020 17:58 Patient: ERMA TERRY Sex: F : 1995 Age: 25y LYMPH 23.0 L % (25.0 - 40.0) MONO 8.1 H % (3.0 - 8.0) EOS 2.8 % (0.0 - 7.0) BASO 0.4 % (0.0 - 2.5) %IG 0.4 H % (0.0 - 0.0) %NRBC 0.0 % (0.0 - 0.0) #NEUT 7.04 H 10/uL (2.00 - 6.90) #LYMPH 2.48 10/uL (0.60 - 3.40) #MONO 0.87 10/uL (0.00 - 0.90) #EOS 0.30 10/uL (0.00 - 0.70) #BASO 0.04 10/uL (0.00 - 0.20) #IG 0.04 10/uL (0.00 - 0.10) #NRBC 0.00 10/uL (0.00 - 0.00) MANUAL DIFF NOT INDICATED RBC MORPH NOT INDICATEDCMP: (MIKC: 11/29/2020 19:15) ( MsgRcvd 11/29/2020 20:22) Final results Test Result Flag Units (Reference) COMPREHENSIVE METABOLIC PANEL COMPREHENSIVE METABOLIC PANEL SODIUM 135 mEq/L (134 - 153) POTASSIUM 4.1 mEq/L (3.6 - 5.0) CHLORIDE 102 mEq/L (98 - 107) CO2 24 MEQ/L (22 - 30) GLUCOSE 70 MG/DL (70 - 99) BUN 12 MG/DL (7 - 21) CREATININE 0.5 L MG/DL (0.7 - 1.5) BUN/CREAT 24 (8 - 27) TOTAL PROTEIN 6.0 L G/DL (6.3 - 8.2) ALBUMIN 3.9 G/DL (3.9 - 5.0) GLOBULIN 2.1 L GM/DL (2.4 - 3.2) A/G RATIO 1.9 (0.8 - 2.0) CALCIUM 9.4 MG/DL (8.4 - 10.2) TOTAL BILI <0.7 MG/DL (0.2 - 1.3) ALKALINE PHOS 60 U/L (38 - 126) SGOT/AST 11 U/L (5 - 40) SGPT/ALT 13 U/L (7 - 56) ANION GAP 9.0 mmol/L (8.0 - 16.0) AGE 25 yrs NON-AA GFR >60 mL/min AFR AMER GFR >60 mL/min Male GFR Interprentation 20-49 yrs >60 mL/min Sckpal62-31 yrs >56 mL/min Normal 60-69 yrs >49 mL/min Normal 70-79yrs>42 mL/min Normal 80 and above >35 mL/min Normal Female GFRInterpretation 20-39 yrs >60 mL/min Normal 40-49 yrs >58 mL/minNormal 50-59 yrs >51 mL/min Normal 60-69 yrs >45 mL/min Urmvpv13-75 yrs >39 mL/min Normal 80 and above >32 mL/min NormalType Rh: (MICK: 11/29/2020 19:15) ( MsgRcvd 11/29/2020 20:29) Final results Test Result Flag Units (Reference) ABO GROUP O RH TYPE POSITIVE { ABO/RH REENTER O POSITIVEBeta-HCG, Quant Serum: (MICK: 11/29/2020 19:15) ( MsgRcvd 11/29/2020 20:16) Final results Test Result Flag Units (Reference) 4 Clinical Report - Physicians/Mid Levels [facility] Emergency Department [address] [place] [address] Phone #: [phone]- [phone] 11/29/2020 17:58 Patient: ERMA TERRY Sex: F : 1995 Age: 25y HCG QUANT 903597.0 mIU/mL Interpretation: Less than 5 mU/mL: Negative 6-10 mU/mL: Borderline (suggest repeat in 48 hours) >10: Positive Approx HCG range (mU/mL) Weeks post LMP 5.4-708 mU/mL 3-4 Weeks 217-51830 mU/mL 5-6 Weeks 4059-324661 mU/mL 7-8 Weeks 52659-255082 mU/mL 9-10 Weeks 38371-27238 mU/mL 12- 14 Weeks 98451-09378 mU/mL 15-16 Weeks 8240-57057 mU/mL 17-18 Weeks Urinalysis: (MICK: 11/29/2020 18:25) ( MsgRcvd 11/29/2020 18:53) Final results Test Result Flag Units (Reference) URINALYSIS URINALYSIS SOURCE R COLOR yellow (NORMAL: Yello CLARITY clear (NORMAL: Clear SPEC GRAVITY 1.025 (1.001 - 1.030 pH 5 (5 - 9) GLUCOSE NORM (NORMAL: Negat BILIRUBIN NEG (NORMAL: Negat KETONE NEG (NORMAL: Negat PROTEIN NEG (NORMAL: Negat NITRITE NEG (NORMAL: Negat BLOOD NEG (NORMAL: Negat LEUK EST NEG (NORMAL: Negat UROBILINOGEN NOR (less than 1.0 MICROSCOPIC Not Indicate.PROGRESS AND PROCEDURESCourse of Care: VSS, NAD, AOx3, interacting well and appropriately, no use of accessory muscle, able tospeak full sentences, stable, non-toxic looking. Enter room and pt lying peacefully in bed in NAD. Patient stable. Denies any new issues, concerns, or complaints. Pt sts she had slight abd cramping, but also may be constipated. No vaginal bleeding or disch arge. PE dmeow NV intact b/l UE and LE. Will obtina labs and imaigng for furhter eval. Pending restuls. Reviewed results. Discussed with attending. Agrees wiht discharge. Discussed wiht OB and recommendds f/u in office. Enter room and patient lying peacefully in bed in NAD. Patient stable. Denies any new issues, concerns, or complaints. Discussed results with pt. Discussed tx plan with pt. Discussed and counseled on stable condition. Discussed importance of a f/u with PCP. Discussed return to ER criteria. Answered their questions. Indicates and verbalizes that they understand, agree, and will comply with above. Denies any new questions or concerns. Patient has capacity to understand. 5 Clinical Report - Physicians/Mid Levels [facility] Emergency Department [address] [place] [address] Phone #: ext- [phone] 11/29/2020 17:58 [id number] Sex: F : 1995 Age: 25y ////////////////////////////////////////// Considerations Polyethylene glycol (PEG) has minimal systemic absorption and would be unlikely to cause malformations. Treatment of constipation in women is similar to that of non patients and medications may be used when diet and lifestyle modifications are not effective. Polyethylene glycol may be used when an osmotic laxative is needed (Zach 2018; Asael 2015). ////////////////////////////////////////////////// Discharge decision based on the following: patient's condition is stable; patient's exam is stable; social support is adequate; transportation is available; follow-up is available. Discussed of OTC Motrin and Tylenol to control inflammation and pain management. Informed to follow directions on bottle that are appropriate for age and/or weight. Discussed case with health care provider (Chastity). Obstetrics and gynecology called for consult. Disposition: Discharged home in good and improved condition. Condition: good and stable.CLINICAL IMPRESSION First trimester ; positive test in emergency department. First trimester discomforts of - constipation. Positive test in the emergency department.INSTRUCTIONS Do not work for four days. Drink plenty of fluids. Do not smoke. (Recommend to utilize OTC Tylenol to control inflammation and pain management. Recommend to follow the instructions on the bottle and not to exce ed. Please f/u wtih your OBGYN for repeat US.). Warnings: Further evaluation is necessary. GENERAL WARNINGS: Return or contact your physician immediately if your condition worsens or changes unexpectedly, if not improving as expected, or if other problems arise. 6 Clinical Report - Physicians/Mid Levels [facility] Emergency Department [address] [place] [address] Phone #: ext- [phone] 11/29/2020 17:58 Patient: ERMA TERRY Sex: F : 1995 Age: 25y Prescription Medications: polyethylene glycol 3350 17 gram oral powder packet Take 1 packet once a day for 10 days -- Dispense 10 packet. Refills: 0. Substitution permitted. Pharmacy - [facility] - [address] ; [place] [address]. . Follow-up: Return to the emergency department as needed. Follow up with your healthcare provider in about two days if not better. Call for an appointment. Understanding of the discharge instructions verbalized by patient.(Electronically signed by Tera Jefferson P.A.-C 12/03/2020 11:38) Name Value Range Interpretation Code Description Data Sophia rce(s) Supporting Document(s) ID Date Data Source [id number] 11/30/2020 12:14:00 [place] [address] PHONE: [phone] FAX: [phone] Name .................. : HARRISON Martinez Acct Number.................. : [id number] ROOM. ................. : TR-02 MR Number ................... : [id number] Stay type ............. : E/R Discharge Date......... ... : 11/29/20 Admit Date ... ...... : 11/29/20 Admit Phys .................... : CHASTITY Spencer Date of ....... : 1995 Family Phys ................... : DIEGO Phone .................. : [phone] Age ................................ : 25 Film# .................. .:[id number] Sex ................................. : F Unsigned transcriptions are preliminary reports and do not represent a medical or legal document OB 1ST TRI W TV IF NEEDED [id number] COMPLETE:11/29/20 20:54 ADB [id number] Reason(s): cramping. FIRST TRIMESTER OB ULTRASOUND: INDICATION: Cramping. FINDINGS: There is a single live intrauterine with a heart rate of 170 beats per minute. Based on measurements, the estimated gestational age is 8 weeks 5 days with estimated delivery date of July 06, 2021. The yolk sac is visualized. The gestational sac is crescent in shape instead of round. IMPRESSION: Single live intrauterine of 8 weeks 5 days. The gestational sac is abnormally shaped. Recommend short term follow up ultrasound. Electronically Reviewed and Signed By Basil Connell M.D. , 11/30/20 12:14, TERESE Transcribe Initials: BINA , Transcribe Date: 11/30/20 00:20, Dictation Date: Copy for: SHAUN SMITH via fax Copy for: EMERGENCY DEPT via mode Copy for: 710 MED REC DISCHARGED Page 1 of 1 Name Value Range Interpretation Code Description Data Sophia rce(s) Supporting Document(s) ID Date Data Source [id number] 11/29/2020 08:28:00 PM EDT [facility] Name Value Range Interpretation Code Description Data Sophia rce(s) Supporting Document(s) ABO group [Type] in Blood O [facility] Rh [Type] in Blood POSITIVE [facility] { ABO/RH REENTER O POSITIVE ID Date Data Source [id number] 11/29/2020 08:22:00 PM EDT [facility] Name Value Range Interpretation Code Description Data Sophia [facility](s) Supporting Document(s) COMPREHENSIVE METABOLIC PANEL [facility] COMPREHENSIVE METABOLIC PANEL Sodium [Moles/volume] in Serum or Plasma 135 mEq/L 134 - 153 [facility] Potassium [Moles/volume] in Serum or Plasma 4.1 mEq/L 3.6 - 5.0 [facility] Chloride [Moles/volume] in Serum or Plasma 102 mEq/L 98 - 107 [facility] Carbon dioxide, total [Moles/volume] in Serum or Plasma 24 MEQ/L 22 - 30 [facility] Glucose [Mass/volume] in Serum or Plasma 70 MG/DL 70 - 99 [facility] BUN 12 MG/DL 7 [facility] Creatinine [Mass/volume] in Serum or Plasma 0.5 MG/DL 0.7 - 1.5 L [facility] BUN/CREAT 24 8 - 27 [facility] al Protein [Mass/volume] in Serum or Plasma 6.0 G/DL 6.3 - 8.2 L [facility] Albumin [Mass/volume] in Serum or Plasma 3.9 G/DL 3.9 - 5.0 [facility] Globulin [Mass/volume] in Serum by calculation 2.1 GM/DL 2.4 - 3.2 L [facility] A/G RATIO 1.9 0.8 - 2.0 [facility] Calcium [Mass/volume] in Serum or Plasma 9.4 MG/DL 8.4 - 10.2 [facility] Bilirubin.total [Mass/volume] in Serum or Plasma <0.7 MG/DL 0.2 - 1.3 [facility] Alkaline phosphatase [Enzymatic activity/volume] in Serum or Plasma 60 U/L 38 - 126 [facility] Aspartate aminotransferase [Enzymatic activity/volume] in Serum or Plasma 11 U/L 5 - 40 [facility] Alanine aminotransferase [Enzymatic activity/volume] in Seru m or Plasma 13 U/L 7 - 56 [facility] Anion gap 3 in Serum or Plasma 9.0 mmol/L 8.0 - 16.0 [facility] AGE 25 yrs [facility] NON-AA GFR >60 mL/min [facility] ital AFR AMER GFR >60 mL/min [facility] Male GFR In terprentation 20-49 yrs >60 mL/min Normal 50-59 yrs >56 mL/min Normal 60-69 yrs >49 mL/min Normal 70-79yrs >42 mL/min Normal 80 and above >35 mL/min Normal Female GFR Interpretation 20-39 yrs >60 mL/min Normal 40-49 yrs >58 mL/min Normal 50-59 yrs >51 mL/min Normal 60-69 yrs >45 mL/min Normal 70-79 yrs >39 mL/min Normal 80 and above >32 mL/min Normal ID Date Data Source [id number] 11/29/2020 08:16:00 PM EDT [facility] Name Value Range Interpretation Code Description Data Sophia rce(s) Supporting Document(s) Choriogonadotropin.intact [Units/volume] in Serum or Plasma 069414. 0 mIU/mL [facility] Interpr etation: Less than 5 mU/mL: Negative 6-10 mU/mL: Borderline (suggest repeat in 48 hours) >10: Positive Approx HCG range (mU/mL) Weeks post LMP 5.4-708 mU/mL 3-4 Weeks 217-69125 mU/mL 5-6 Weeks 4059-719288 mU/mL 7-8 Weeks 57862-302202 mU/mL 9-10 Weeks 28120-60869 mU/mL 12-14 Weeks 92883-25635 mU/mL 15-16 Weeks 8240- 27671 mU/mL 17-18 Weeks ID Date Data Source [id number] 11/29/2020 07:38:00 PM EDT [facility] Name Value Range Interpretation Code Description Data Sophia rce(s) Supporting Document(s) CBC W/AUTOMATED DIFF [facility] COMPLETE BLOOD COUNT Leukocytes [#/volume] in Blood by Automated count 10.8 10^3/uL 4.2 - 11.0 [facility] Erythrocytes [#/volume] in Blood by Automated count 3.96 10^6/uL 4. 20 - 5.40 L [facility] Hemoglobin [Mass/volume] in Blood 12.7 g/dL 12.0 - 16.0 [facility] Hematocrit [Volume Fraction] of Blood by Automated count 36.3 % 3 7.0 - 47.0 L [facility] Erythrocyte mean corpuscular volume [Entitic volume] by Auto mated count 91.7 fL 81.0 - 101 [facility] Erythrocyte mean corpuscular hemoglobin [Entitic mass] by Automated count 32.1 pg 27.0 - 34.0 [facility] Erythrocyte mean corpuscular hemoglobin concentration [Mass/volume] by Automated count 35.0 g/dL 31.0 - 36.0 [facility] Erythrocyte distribution width [Ratio] by Automated count 12.0 % 11.5 - 14.5 [facility] Platelets [#/volume] in Blood by Automated count 203 10^3/uL 150 - 45 0 [facility] Platelet mean volume [Entitic volume] in Blood by Automated count 10.9 fL 7.4 - 10.4 H [facility] Neutrophils/100 leukocytes in Blood by Automated count 65.3 % 37. 0 - 80.0 [facility] Lymphocytes/100 leukocytes in Blood by Manual count 23.0 % 25.0 - 40.0 L [facility] Monocytes/100 leukocytes in Blood by Automated count 8.1 % 3.0 - 8.0 H [facility] Eosinophils/100 leukocytes in Blood by Automated count 2.8 % 0.0 - 7.0 [facility] Basophils/100 leukocytes in Blood by Automated count 0.4 % 0.0 - 2.5 [facility] %IG 0.4 % 0.0 - 0.[address] %NRBC 0.0 % 0.0 - 0.0 [facility] al Neutrophils [#/volume] in Blood by Automated count 7.04 10^3/uL 2.00 - 6.90 H [facility] Lymphocytes [#/volume] in Blood by Automated count 2.48 10^3/uL 0.60 - 3.40 [facility] Monocytes [#/volume] in Blood by Automated count 0.87 10^3/uL 0.00 - 0.90 [facility] Eosinophils [#/volume] in Blood by Automated count 0.30 10^3/uL 0.00 - 0.70 [facility] Basophils [#/volume] in Blood by Automated count 0.04 10^3/uL 0.00 - 0.20 [facility] #IG 0.04 10^3/uL 0.00 - 0.10 [facility] #NRBC 0.00 10^3/uL 0.00 - 0.00 [facility] ospital MANUAL DIFF NOT INDICATED [facility] RBC MORPH NOT INDICATED [facility] spital ID Date Data Source [id number] 12/03/2020 10:18:00 AM EDT [facility] Name Value Range Interpretation Code Description Data Sophia rce(s) Supporting Document(s) CULTURE URINE [facility] _CULTURE URINE_$$[id number]$$852405$$513836$$599600$$589083$$747753$$274213$$905909$$327620$$ 760345$$801966$$288140$$881895$$273336$$895745$$304383$$686263$$061081$$715387$$ 460225$$938928$$875165$$774460$$593703$$781996$$587540$$744588 -- Continued on next page --Patient: HARRISON Martinez Order: [id number] Page 2Culture: CULTURE URINE Status: Final ==== -- Continued on next page --Patient: HARRISON Martinez Order: [id number] Page 2Culture: CULTURE URINE Status: Prelim =====$$[id number]$$[id number] DATE/TIME: 12/03/2020 10:06Culture: CULTURE URINE Status: FinalUrine Culture,Comprehensive: E0Zitae urogenital flora10,000-25,000 colony forming units per mL Previous result entered on 12/02/2020 07:48 ET No growth after 18-24 hours.P1 Test performed by: [facility] #: [id number] [address] [place] [address] [id number] [facility] [id number] Director : Jacob Rojas MD NPI #:Concrete Mixer Operator Helper : 12/03/[email or web address] REF 12/03/[email or web address].[email or web address] REF ID Date Data Source [id number] 11/29/2020 06:52:00 PM EDT [facility] Name Value Range Interpretation Code Description Data Sophia rce(s) Supporting Document(s) URINALYSIS [facility] jeanne URINALYSIS SOURCE R [facility] COLOR yellow NORMAL: Yellow [facility] CLARITY clear NORMAL: Clear [facility] Specific gravity of Urine by Test strip 1.025 1.001 - 1.030 [facility] pH 5 5 - [facility] Glucose [Mass/volume] in Urine by Test strip NORM NORMAL: Negat [facility] Bilirubin.total [Presence] in Urine by Test strip NEG NORMAL: Negative [facility] Ketones [Presence] in Urine by Test strip NEG NORMAL: Negative [facility] Protein [Mass/volume] in Urine by Test strip NEG NORMAL: Negat [facility] Nitrite [Presence] in Urine by Test strip NEG NORMAL: Negative [facility] BLOOD NEG NORMAL: Negative [facility] LEUK EST NEG NORMAL: Negative [facility] Urobilinogen [Mass/volume] in Urine by Test strip NOR less doug n 1.0 mg/dL [facility] MICROSCOPIC Not Indicate [facility] ID Date Data Source GENITAL CULTURE 11/10/2020 12:00:00 AM EDT eCW1 ([facility]) Name Value Range Interpretation Code Description Data Sophia rce(s) Supporting Document(s) GENITAL CULTURE eCW1 ([facility]) ID Date Data Source [id number] 10/06/2020 11:13:00 AM EDT [facility] [address] [place] [address] PHONE: [phone] FAX: [phone] Name .................. : HARRISON Martinez Acct Number.................. : [id number] ROOM. ................. : TR-07 MR Number ................... : [id number] Stay type ............. : E/R Discharge Date......... ... : Admit Date ......... : 10/05/20 Admit Phys .................... : SAHTYN COLLIER Date of ....... : 1995 Family Phys ................... : CORTNEY SCOT Phone .................. : [phone] Age ................................ : 25 Film# .................. .:[id number] Sex ................................. : F Unsigned transcriptions are preliminary reports and do not represent a medical or legal document GALLBLADDER [id number] COMPLETE:10/05/20 08:28 KNB 9806 Reason(s): RUQ Pain ABDOMINAL SONOGRAM, 10/05/20: Prior examination, none available. FINDINGS: This liver is mostly homogenous in echotexture without discrete mass or biliary duct dilatation demonstrated on current study. Evaluation of the gallbladder is unremarkable without calculus, wall thickening, or pericholecystic fluid. The visualized proximal common bile duct is the upper limits of normal for patient's age, measuring 5 mm. The right kidney measures approximately 11.1 cm in craniocaudal dimension. The kidneys are unremarkable in size and echotexture without cyst, mass, or hydronephrosis demonstrated. Evaluation of the patient's pancreas, aorta, and inferior vena cava do not demonstrate acute abnormality. IMPRESSION: Unremarkable right upper quadrant sonogram. Electronically Reviewed and Signed By Timoteo Hoang MD , 10/06/20 11:13, AML Transcribe Initials: SSR, Transcribe Date: 10/05/20 08:54, Dictation Date: Copy for: EMERGENCY DEPT via [facility] Copy for: [address] [place] [address] REC [address] [place] [address] PHONE: [phone] FAX: [phone] Name .................. : JENNYFERCHAPINCITODon ERMA Martinez Acct Number.................. : [id number] ROOM. ................. : TR-07 MR Number ................... : [id number] Stay type ............. : E/R Discharge Date......... ... : Admit Date ......... : 10/05/20 Admit Phys ..... ............... : ASHTYN COLLIER Date of ....... : 1995 Family Phys ................... : CORTNEY PRIETO Phone .................. : [phone] Age ................................ : 25 Film# .................. .:[id number] Sex ................................. : F Unsigned transcriptions are preliminary reports and do not represent a medical or legal document [facility] [id number] COMPLETE:10/05/20 08:28 KNB 9806 Reason(s): RUQ Pain DISCHARGED Page 2 of 2 Name Value Range Interpretation Code Description Data Sophia rce(s) Supporting Document(s) ID Date Data Source H PYLORI SERUM QUANT IGA 10/06/2020 12:00:00 AM EDT eCW1 ([facility]) Name Value Range Interpretation Code Description Data Sophia rce(s) Supporting Document(s) <9.0 0.0-8.9 eCW1 ([facility]) ID Date Data Source [id number] 10/05/2020 07:42:00 AM EDT [facility] 1 OrderSheet [facility] Emergency Department [address] [place] [address] Phone #: [phone]- [phone] 10/05/2020 07:31 Patient: ERMA TERRY Sex: F : 1995 Age: 25yWEIGHT:68.0 kg (S) HEIGHT:62 inches (S) BMI:27.4ALLERGIES: PenicillinsCHIEF COMPLAINT: abdominal painDIAGNOSIS: Gastritis, Gastroesophageal reflux diseaseLAB ORDERSOrder Description Priority Entered Acknowledged InitialedCBC w Diff STAT 08:09 10/05/2020 08:11 Ashtyn Cole Riccardo Lisa RN M.D.;CMP STAT 08:09 10/05/2020 08:11 Ashtyn Cole Riccardo Lisa RN M.D.;Lipase STAT 08:09 10/05/2020 08:11 Ashtyn Cole Riccardo Lisa RN M.D.;Urinalysis (Clean STAT 08:09 10/05/2020 Ack'd: 08:45 09:27 BurnhamCatch) Radha Travis Lisa RN ekg monitorBehzad M.D.; [id number], Quant STAT 08:09 10/05/2020 08:11 Kelsey,Serum Radha Travis RN, M.D.;Lactic Acid STAT 08:10/05/2020 08:11 Ashtyn Cole Riccardo Lisa RN M.D.;DIAGNOSTIC STUDY ORDERSOrder Description Priority Entered Acknowledged InitialedUS Gall Bladder STAT 08:09 10/05/2020 08:11 Kelesy,(Oxygen?(No)) Radha Travis RN, M.D.; Reason for Study: RUQ PainMEDICATION/IV/DRIP/FLUID ORDERSOrder Description Priority Entered Acknowledged InitialedNS IV 1000 mL 08:10 10/05/2020 08:44 Kelsey,Bolus: : Bolus 1000 Radha Travis RNmL (X1) Lisa; 2 OrderSheet [facility] Emergency Department [address] [place] [address] Phone #: ext- [phone] 10/05/2020 07:31 Patient: ERMA TERRY Sex: F : 1995 Age: 25yProtonix IV Push 40 08:10 10/05/2020 08:44 Kelsey,mg (in 10 mL NS, Radha Travis RNadminister over at M.D.;least 2 minutes,NOW x1)Pepcid IVPB 20 08:10 10/05/2020 08:45 Kelsey,mg/50mL (NOW x1, Radha Travis RNInfuse over 30 M.D.;minutes.)Toradol 15 mg IVP 09:09 10/05/2020 09:21 Kelsey,X1 dose: 15 mg Radha Travis RN(NOW x1) Lisa;GI Cocktail PO 50 09:39 10/05/2020 09:47 Kelsey,mL with Lidocaine Radha Travis RNViscous Lisa;Mouth/Throat 10mL, Maalox Oral 30mL, Oral10 mLGENERAL ORDERSOrder Description Priority Entered Acknowledged InitialedNPO 08:09 10/05/2020 08:11 Ashtyn Cole Riccardo Lisa RN M.D.;Saline Lock 08:09 10/05/2020 08:45 Ashtyn Cole Riccardo Lisa RN M.D.;[Electronically signed by Radha Travis M.D. (10:55 10/05/2020)][Electronically signed by Erma Cole RN (11:32 10/05/2020)][Electronically locked by Erma Cole RN (11:32 10/05/2020)] Name Value Range Interpretation Code Description Data Sophia rce(s) Supporting Document(s) ID Date Data Source [id number] 10/05/2020 07:42:00 AM EDT [facility] 1 Medication Reconciliation Report [facility] Emergency Department [address] [place] [address] Phone #: [phone]- [phone] 10/05/2020 07:31 Patient: ERMA TERRY Sex: F : 1995 Age: 25yWeight: 68.0 kgHeight/Length: 62 in.BMI: 27.4ALLERGIES: PenicillinsThe patient's Home Medications are listed below:CONTINUE TAKING THE FOLLOWING MEDICATIONS: Bcp Spironolactone Oral, 2x a day traZODone HCl Oral (50 mg), at bedtimeThe source(s) of the original Home Medication information:patientThe following Medications were given to the patient in the Emergency Department:IV NS IV Fluids bolus 1000 mL over 40 minute(s), then 1000 mL/hr, administered: 08:44 1PROTONIX [IVP] IVP 40 mg, administered: 08:44 1Pepcid [IVPB] IVPB bolus 0, then 20 mg 100 mL/hr, administered: 08:45 10/05/2020Toradol [IVP] IVP 15 mg, administered: 09:21 10/05/2020GI Cocktail [PO] PO 50 mL, administered: 09:46 10/05/2020The following Medications were prescribed to the patient:Protonix 40 mg tablet,delayed release Take 1 tablet once a day for 30 days -- Dispense 30 tablet.Refills: 1. Substitution permitted.Pharmacy - [facility] - [address] [place] [address]. FaxNumber: [phone].Pepcid 20 mg tablet Take 1 tablet twice a day for 7 days -- Dispense 14 tablet. Refills: 0. Substitution 2 Medication Re conciliation Report [facility] Emergency Department [address] [place] [address] Phone #: ext- [phone] 10/05/2020 07:31 Patient: ERMA TERRY Sex: F : 1995 Age: 25ypermitted.Pharmacy - [facility] - [address] [facility] ; [place] [address]. . -- Radha Travis M.D. Name Value Range Interpretation Code Description Data Sophia rce(s) Supporting Document(s) ID Date Data Source [id number] 10/05/2020 07:42:00 AM EDT [facility] 1 Medication Administration Record [facility] Emergency Department [address] [place] [address] Phone #: ext- [phone] 10/05/2020 07:31 Patient: ERMA TERRY Sex: F : 1995 Age: 25yWeight: 68.0 kgHeight/Length: 62 inBMI: 27.4ALLERGIES: Penicillins Date/Time Medication Administered Medication OrderedStart IV NS NS IV 1000 mL Bolus: : Bolus 535219:44 10/05/2020 Dose: IV Fluids mL (X1)Erma Cole RN Rate: 1000 mL/hr over 1 hour(s)---- Bolus: 1000 mL over 40 mi nute(s)Stop Dispensed: 1000 mL bag09:47 10/05/2020 Site: #1 left ACLErma Curtis RNGiven PROTONIX [IVP] (PANTOPRAZOLE Protonix IV Push 40 mg (in 10 mL08:44 10/05/2020 SODIUM) NS, administer over at least 2LErma Curtis RN Dose: 40 mg IVP minutes, NOW x1) Site: #1 left ACStart PEPCID [IVPB] Pepcid IVPB 20 mg/50mL (NOW08:45 10/05/2020 Dose: 20 mg IVPB x1, Infuse over 30 minutes.)Erma Cole RN Rate: 100 mL/hr over 30 minute(s)---- Dispensed: 50 mL bagStop Site: #1 left AC09:15 10/05/2020aFErma hernandez RNGiven TORADOL [IVP] (KETOROLAC Toradol 15 mg IVP X1 dose: 15 mg09:21 10/05/2020 TROMETHAMINE) (NOW x1)Erma Cole RN Dose: 15 mg IVP Site: #1 left ACGiven GI COCKTAIL [PO] (CALCIUM GI Cocktail PO 50 mL with09:46 10/05/2020 CARBONATE ANTACID) Lidocaine Viscous Mouth/ThroatLaFrErma mcfarland RN Dose: 50 mL PO 10 mL, Maalox Oral 30 mL, Oral 10 mL Name Value Range Interpretation Code Description Data Sophia rce(s) Supporting Document(s) ID Date Data Source [id number] 10/05/2020 07:42:00 AM EDT [facility] 1 General Instructions [facility] Emergency Department [address] [place] [address] Phone #: ext- [phone] 10/05/2020 07:31 Patient: ERMA TERRY Sex: F : 1995 Age: 25yGastroesophageal reflux disease. No esophagitis.Acute gastritis. No alcoholic gastritis or hemorrhagic gastritis.INSTRUCTIONSDrink plenty of fluids. Avoid alcohol and NSAIDS. NSAIDS include aspirin, ibuprofen (Advil) and naproxen(Aleve). Avoid fatty, fried/greasy, lactose-containing (such as milk, cheese and ice cream), salty and spicyfoods. No alcohol. Do not smoke.(PLEASE SEE YOUR FAMILY MD IN NEXT FEW DAYS FOR GI SPECIALTY REFERRAL FORPOSSIBLE UPPER ENDOSCOPY).Warnings: Further evaluation is necessary in order to conduct further tests (GI specialist). It is veryimportant to follow up with a healthcare provider.GENERAL WARNINGS: Return or contact your physician immediately if your condition worsens orchanges unexpectedly, if not improving as expected, or if other problems arise. SPECIFICALLY, return ifyou develop pain in the abdomen, pelvis, back or shoulder, fever, vomiting, the inability to keep fluidsdown, blood in vomitus, blood in diarrhea, fainting or lightheadedness.Your Current Medications: Your current home medications have been reviewed.CONTINUE TAKING THE FOLLOWING MEDICATIONS:Bcp*.Spironolactone Oral : 2x a day.traZODone HCl Oral : Tablet 50 mg, at bedtime.Prescription Medications:Protonix 40 mg tablet,delayed release Take 1 tablet once a day for 30 days -- Dispense 30 tablet.Refills: 1. Substitution permitted.[facility] [address] [place] [address]. .Pepcid 20 mg tablet Take 1 tablet twice a day for 7 days -- Dispense 14 tablet. Refills: 0. Substitutionpermitted.[facility] [address] [place] [address]. .Follow-up:Return to the emergency department as needed. Follow up with your healthcare provider in three dayseven if well. Call for an appointment. Reason for referral: evaluation, treatment and GI MD specialist 2 General Instructions [facility] Emergency Department [address] [place] [address] Phone #: ext- [phone] 10/05/2020 07:31 Patient: ERMA TERRY Sex: F : 1995 Age: 25yreferral. Summary of care provided to patient via paper. Follow up with a office communication professor in seven dayseven if well. Call for an appointment. Reason for referral: evaluation and treatment. Summary of careprovided to patient via paper.Understanding of the discharge instructions verbalized by patient. Expected course of illness, dischargeinstructions, activity level, diet, prescriptions x2, follow-up appointment and risks and b enefits of treatmentreviewed with patient and understanding verbalized. Agrees to plan of care. ADDITIONAL INFORMATIONGastritis (Adult)Gastritis is inflammation and irritation of the stomach lining. You can have it for a short time (acute) lakshmi long lasting (chronic). Infection with bacteria called H pylori most often causes gastritis. More thana third of people in the have these bacteria in their bodies. In many cases, H pylori causes noproblems or symptoms. In some people, though, the infection irritates the stomach lining and causesgastritis. H. pylori may be diagnosed through blood, stool, or breath tests, we well as through biopsyduring an endoscopy. Other causes of stomach irritation include drinking alcohol, smoking or chewingtobacco, or taking pain-relieving medicines called NSAIDs (such as aspirin or ibuprofen). Certaindrugs (such as cocaine) and immune conditions can also cause gastritis.Symptoms of gastritis can include: Belly pain or bloating 3 General Instructions [facility] Emergency Department [address] [place] [address] Phone #: ext- [phone] 10/05/2020 07:31 [id number] Sex: F : 1995 Age: 25y Feeling full quickly Loss of appetite Nausea or vomiting Vomiting blood or having black stools Feeling more tired than usualAn inflamed and irritated stomach lining is more likely to develop a sore called an ulcer. To helpprevent this, gastritis should be treated.Home careIf needed, our healthcare provider may prescribe medicines. If you have H pylori infection, treating itwill likely relieve your symptoms. Other changes can help reduce stomach irritation and help it heal. If you have been prescribed medicines for H pylori infection, take them as directed. Take all of the medicine until it is finished or your healthcare provider tells you to stop, even if you feel better. Your healthcare provider may advise you not to take NSAIDs. If you take daily aspirin for your heart or other medical reasons, do not stop without talking to your healthcare provider first. Don't drink alcohol. Stop smoking. Smoking can irritate the stomach and delay healing. As much as possible, stay away from second hand smoke.Follow-up careFollow up with your healthcare provider, or as advised by our staff. You may need testing to check forinflammation or an ulcer.When to seek medical adviceCall your healthcare provider for any of the following: Stomach pain that gets worse or moves to the lower right belly (appendix area) Chest pain that appears or gets worse, or spreads to the back, neck, shoulder, or arm Frequent vomiting (can't keep down liquids) Blood in the stool or vomit (red or black in color) Feeling weak or dizzy 4 General Instructions [facility] Emergency Department [address] [place] [address] Phone #: ext- [phone] 10/05/2020 07:31 Patient: ERMA TERRY Sex: F : 1995 Age: 25y Shortness of breath Unexplained weight loss Fever of 100.4F (38C) or higher, or as directed by your healthcare provider [employer]. [address] [place] [address]. All rights reserved. This information is not intended as asubstitute for professional medical care. Always follow your healthcare professional's instructions.Gastritis or Ulcer, No Antibiotic TreatmentGastritis is irritation and inflammation of the stomach lining. This means the lining is red and swollen.It can cause shallow sores in the stomach lining called erosions. An ulcer is a deeper open sore in thelining of the stomach. It may also occur in the first part of the small intestine (duodenum). The causesand symptoms of gastritis and ulcers are very similar.Causes and risk factors for both problems can include: Long-term use of nonsteroidal anti-inflammatory drugs (NSAIDs), such as aspirin and ibuprofen H. pylori bacteria infection Tobacco use Alcohol use Certain other conditions such as immune disorders, certain medicines (high-dose iron supplements) and street drugs (such as cocaine) 5 General Instructions [facility] Emergency Department [address] [place] [address] Phone #: ext- [phone] 10/05/2020 07:31 Patient: ERMA TERRY Sex: F : 1995 Age: 25ySymptoms for both problems can include: Dull or burning pain in the upper part of the belly Loss of appetite Heartburn or upset stomach Frequent burping Bloated feeling Nausea with or without vomitingYou likely had an evaluation to help find the exact cause and extent of your problem. This may haveincluded a health history, exam, and certain tests.Results showed that your problem is not due to H. pylori infection. For this reason, you don't needantibiotics as part of your treatment.Whether your problem is gastritis or an ulcer, you will still need to take other medicines, however. Youwill also need to follow instructions to help reduce stomach irritation so your stomach can heal.Home care Take any medicines you're prescribed exactly as directed. Common medicines used to treat gastritis include: o Antacids. These help neutralize the normal acids in your stomach. o Proton pump inhibitors. These block your stomach from making any acid. o H2 blockers. These reduce the amount of acid your stomach makes. o Bismuth subsalicylate. This helps protect the lining of your stomach from acid. Don't take any NSAIDs during your treatment. If you take NSAID to help treat other health problems, tell your healthcare provider. He or she may need to adjust your medicine plan or change the dosage. Don't use tobacco. Also don't drink alcohol. These products can increase the amount of acid your stomach makes. This can delay healing. It can also worsen symptoms.Follow-up careFollow up with your healthcare provider, or as advised. In some cases, more testing may be needed.When to seek medical advice 6 General Instructions [facility] Emergency Department [address] [place] [address] Phone #: ext- [phone] 10/05/2020 07:31 Patient: ERMA TERRY Sex: F : 1995 Age: 25yCall your healthcare provider right away if any of these occur: Fever of 100.4F (38C) or higher, or as directed by your healthcare provider Stomach pain that worsens or moves to the lower right part of belly Extreme fatigue Weakness or dizziness Continued weight loss Frequent vomiting, blood in your vomit, or coffee ground-like substance in your vomit Black, tarry, or bloody stoolsCall 911Call 911 if any of these occur: Chest pain appears or worsens, or spreads to the back, neck, shoulder, or arm Unusually fast heart rate Trouble breathing or swallowing Confusion Extreme drowsiness or trouble waking up Fainting Large amounts of blood present in vomit or stool [id number] [employer] [place] [address]. All rights reserved. This information is not intended as asubstitute for professional medical care. Always follow your healthcare professional's instructions.GERD (Adult) 7 General Instructions [facility] Emergency Department [address] [place] [address] Phone #: [phone]- [phone] 10/05/2020 07:31 Patient: ERMA TERRY Sex: F : 1995 Age: 25y The esophagus is a tube that carries food from the mouthto the stomach. A valve (the LES, lower esophageal sphincter) at the lower end of the esophagusprevents stomach acid from flowing upward. When this valve doesn't work properly, stomach contentsmay repeatedly flow back up (reflux) into the esophagus. This is called gastroesophageal refluxdisease (GERD). GERD can irritate the esophagus. It can cause problems with pain, swallowing orbreathing. In severe cases, GERD can cause recurrent pneumonia (from aspiration or breathing inparticles) or other serious problems.Symptoms of reflux include burning, pressure or sharp pain in the upper abdomen or mid to lowerchest. The pain can spread to the neck, back, or shoulder. There may be belching, an acid taste inthe back of the throat, chronic cough, or sore throat, or hoarseness. GERD symptoms often occurduring the day after a big meal. They can also occur at night when lying down.Home careLifestyle changes can help reduce symptoms. If needed, your healthcare provider may prescribemedicines. Symptoms often improve with treatment, but if treatment is stopped, the symptoms oftenreturn after a few months. So most persons with GERD will need to continue treatment or gettreatment on and off.Lifestyle changes 8 General Instructions [facility] Emergency Department [address] [place] [address] Phone #: ext- [phone] 10/05/2020 07:31 [id number] Sex: F : 1995 Age: 25y Limit or avoid fatty, fried, and spicy foods, as well as coffee, chocolate, mint, and foods with high acid content such as tomatoes and citrus fruit and juices (orange, grapefruit, lemon). Don't eat large meals, especially at night. Frequent, smaller meals are best. Don't lie down right after eating. And don't eat anything 3 hours before going to bed. Don't drink alcohol or s moke. As much as possible, stay away from second hand smoke. If you are overweight, losing weight will reduce symptoms. Don't wear tight clothing around your stomach area. If your symptoms occur during sleep, use a foam wedge to elevate your upper body (not just your head.) Or, place 4" blocks under the head of your bed. Or use 2 bed risers under your bedframe.MedicinesIf needed, medicines can help relieve the symptoms of GERD and prevent damage to the esophagus.Discuss a medicine plan with your healthcare provider. This may include one or more of the followingmedicines: Antacids to help neutralize the normal acids in your stomach. Acid blockers (Histamine or H2 blockers) to decrease acid production. Acid inhibitors (proton pump inhibitors PPIs) to decrease acid production in a different way than the blockers. They may work better, but can take a little longer to take effect.Take an antacid 30 to 60 minutes after eating and at bedtime, but not at the same time as an acidblocker.Try not to take medicines such as ibuprofen and aspirin. If you are taking aspirin for your heart orother medical reasons, talk to your healthcare provider about stopping it.Follow-up careFollow up with your healthcare provider or as advised by our staff.When to seek medical adviceCall your healthcare provider if any of the following occur: Stomach pain gets worse or moves to the lower right abdomen (appendix area) Chest pain appears or gets worse, or spreads to the back, neck, shoulder, or arm An [id number] trial of medicine doesn't relieve your symptoms 9 General Instructions [facility] Emergency Department [address] [place] [address] Phone #: ext- [phone] 10/05/2020 07:31 Patient: ERMA TERRY Sex: F : 1995 Age: 25y Weight loss that can't be explained Trouble or pain swallowing Frequent vomiting (can't keep down liquids) Blood in the stool or vomit (red or black in color) Feeling weak or dizzy Fever of 100.4F (38C) or higher, or as directed by your healthcare provider [phone] [employer]. [address] [place] [address], [place] [address]. All rights reserved. This information is not intended as asubstitute for professional medical care. Always follow your healthcare professional's instructions. You have been given the following additional information: Gastritis (Adult) Gastritis or Ulcer (No Antibiotic Treatment) GERD (Adult)(Electronically signed by Radha Travis M.D. 10/05/2020 10:55) Name Value Range Interpretation Code Description Data Sophia rce(s) Supporting Document(s) ID Date Data Source [id number] 10/05/2020 07:42:00 AM EDT [facility] 1 Clinical Report - Nurses [facility] Emergency Department [address] [place] [address] Phone #: ext- [phone] 10/05/2020 07:31 Patient: ERMA TERRY Sex: F : 1995 Age: 25yTRIAGEArrived by private vehicle. Historian: patient. ( presents with c/o abd. pain, [facility] and [facility] a CT which showed she had fluid in her abd. and ruptured cyst and they didn't doanything.).Triage time: 07:35 10/05/2020. Acuity: LEVEL 3.Chief Complaint: ABDOMINAL PAIN and DIARRHEA.Alert. No acute distress.This started yesterday. The patient has had diarrhea. 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 SEPSIS SCREEN NEGATIVE. No suspected or confirmedsigns of infection present. --07:41 10/05/20 Erma Cole, RN07:40 10/05/20. BP: 112/79. MAP: 90. HR: 95. RR: 20. O2 saturation: 98%. Temp: 97.1 F. Pain level now:03/19. --07:41 10/05/20 Erma Cole RN.Weight: 68 kg stated. Height/Length: 62 inches Per Patient. BMI: 27.4. --07:41 10/05/20 Erma Cole RN.MedicationsSpironolactone Oral, 2x a day. --07:37 10/05/20 Erma Cole, YANIV traZODone HCl Oral (Tablet 50 mg), at bedtime. --07:38 10/05/20 Erma Cole RN Bcp. --07:38 10/05/20 Erma Cole RN.AllergiesPenicillins. --07:37 10/05/20 Erma Cole RN.PROBLEMS:Ovarian Cyst.Endometriosis. --07:39 10/05/20 Erma Cole RN.Medication/allergy inf ormation source: the patient. --07:41 10/05/20 Erma Cole RN.ADDITIONAL SURGERIES:.Hernia Repair. 2 Clinical Report - Nurses [facility] Emergency Department [address] [place] [address] Phone #: ext- [phone] 10/05/2020 07:31 --- Patient: ERMA ETRRY Sex: F : 1995 Age: 25y Laparoscopy. --07:39 10/05/20 Erma Cole RN. History PAST MEDICAL HX: Last normal menstrual period now. SOCIAL HX: Light tobacco smoker- less than 1/2 a pack per day. No alcohol use or drug use. No recent travel. No known contact with a sick individual. The patient was offered HIV testing but declined and hepatitis C testing but declined. The patient has not traveled outside the [place] Infectious disease exposure: No infectious disease exposure. SELF HARM ASSESSMENT: Self harm assessment was performed. The patient answered "no" to the question(s) "Have you recently felt down, depressed, or hopeless?". ABUSE ASSESSMENT: No report of abuse. NUTRITIONAL RISK ASSESSMENT: The nutritional risk assessment revealed no deficiencies. FUNCTIONAL ASSESSMENT: Functional assessment: no impairments noted. LEARNING NEEDS ASSESSMENT: The learning needs assessment revealed no barriers. FALL RISK ASSESSMENT: Fall risk assessment completed. No risk factors identified. SKIN INTEGRITY ASSESSMENT: Skin integrity risk assessment completed. No skin integrity risk identified. --07:41 10/05/20 Erma Cole RN.PHYSICAL ASSESSMENTTo room via wheelchair.GENERAL / NEURO / PSYCH: Alert. Oriented X 4. Appears in no acute distress.HEENT: Mucous membranes are pink.RESPIRATORY: Respirations not labored. Breath sounds within normal limits.CVS: Capillary refill less than 2 seconds.GI / : The patient has diarrhea. Abdomen soft. Abdominal tenderness in the epigastric area. Bowelsounds within normal limits.SKIN: Skin is warm and dry. --07:44 10/05/20 Erma Cole RN.NURSING PROGRESS NOTESPatient gowned. Reassurance given. Two patient identifiers checked. Bed placed in lowest position.Brakes of bed on. Patient ready for evaluation. --07:41 10/05/20 Erma Cole, YANIV Patient transported to sonogram by wheelchair with technical associate. --08:13 10/05/20 Erma Cole RN 08:28 10/05/20. Patient returned from sonogram by wheelchair with technical associate. --08:43 10/05/20 Erma Cole, YANIV 3 Clinical Report - Nurses [facility] Emergency Department [address] [place] [address] Phone #: ext- [phone] 10/05/2020 07:31 Patient: ERMA TERRY Sex: F : 1995 Age: 25y 08:44 10/05/2020 Site #1 started via IV in the left antecubital space with an 20g angiocath; one attempt. Saline lock flushed with 5 mL saline. --08:44 10/05/20 Erma Cole RN 08:44 10/05/2020 Started bag #1 1000 mL IV Fluids IV NS; bolus of 1000 mL over 40 minute(s) then at 1000 mL/hr over 1 hour(s) via site #1 via IV pump. Allergies verified and confirmed 5 rights. IV patency established. IV site checked: no pain, redness, or swelling. IV flushed thoroughly pre- and post-medication administration. Information reviewed with patient including reason for taking this medication. Verbalizes understanding. --08:44 10/05/20 Erma Cole RN 08:44 10/05/2020 PROTONIX (Pantoprazole Sodium) IVP 40 mg given via site #1. Allergies verified and confirmed 5 rights. IV patency established. IV site checked: no pain, redness, or swelling. IV flushed thoroughly pre- and post-medication administration. IVP given by RN. Information reviewed with patient including reason for taking this medication. Verbalizes understanding. --08:44 10/05/20 Erma Cole RN 08:45 10/05/2020 Started 20 mg of Pepcid IVPB in bag #1 50 mL; at 100 mL/hr over 30 minute(s) via site #1. via IV pump. Allergies verified and confirmed 5 rights. IV patency established. IV site checked: no pain, redness, or swelling. IV flushed thoroughly pre- and post-medication administration. Information reviewed with patient including reason for taking this medication. Verbalizes understanding. --08:45 10/05/20 Erma Cole RN 09:15 10/05/2020 Pepcid IVPB via IV site #1 Discontinued: completed. Total amount infused: 50 mL. --09:22 10/05/20 Erma Cole RN 09:21 10/05/2020 Toradol (Ketorolac Tromethamine) IVP 15 mg given via site #1. Allergies verified and confirmed 5 rights. IV patency established. IV site checked: no pain, redness, or swelling. IV flushed thoroughly pre- and post-medication administration. IVP given by RN. Information reviewed with patient including reason for taking this medication. Verbalizes understanding. --09:21 10/05/20 Erma Cole RN ( amb. to bathroom without difficulty, c/o diarrhea.). --09:22 10/05/20 Erma Cole RN 09:27 10/05/20. BP: 117/73. MAP: 87. HR: 82. RR: 16. O2 saturation: 98%. Pain level now: 710. --09:28 10/05/20 Erma Cole RN ( UA obtained, pt states pain is better.). --09:28 10/05/20 Erma Cole RN 09:46 10/05/2020 GI Cocktail (Calcium Carbonate Antacid) PO 50 mL given. Allergies verified and confirmed 5 rights. Information reviewed with patient including reason for taking this medication. Verbalizes understanding. --09:47 10/05/20 Erma Cole RN 09:47 10/05/2020 IV Fluids IV NS via IV site #1 Discontinued: discontinued upon discharge. Total amount infused: 500 mL. --09:47 10/05/20 Erma Cole RN.DISPOSITION / DISCHARGE 09:57 10/05/20. BP: 108/70. HR: 76. RR: 18. O2 saturation: 100%. Temp: 98.3 F. Pain level now 710. 4 Clinical Report - Nurses [facility] Emergency Department [address] [place] [address] Phone #: ext- [phone] 10/05/2020 07:31 Patient: ERMA TERRY Sex: F : 1995 Age: 25y --09:58 10/05/20 [facility] Behzad Red ER Tech1 09:58 10/05/2020 Site #1 removed upon discharge. Manual pressure and bandaid applied. --09:58 10/05/20 [place] ekg monitorBehzad Red ER Tech1 Departure time: 10:01 10/05/2020. --10:05 10/05/20 Erma Cole RN Condition at departure: improved. No learning barriers present. Discharge instructions provided and reviewed with the patient. Reviewed medication(s) side effects, precautions, dosing and course information. Prescription(s) sent electronically to pharmacy. Reviewed referral to a office communication professor and primary care physician. Patient verbalized understanding. Written instructions provided in Bots[place]an. The patient was discharged by the physician. She was discharged home and unaccompanied at time of discharge. She left ambulatory and via private vehicle. Patient driving. --10:05 10/05/20 Erma Cole RN.Locked/Released at 10/05/2020 11:32 by Erma Cole RN Name Value Range Interpretation Code Description Data Sophia rce(s) Supporting Document(s) ID Date Data Source [id number] 10/05/2020 07:42:00 AM EDT [facility] 1 Clinical Report - Physicians/Mid Levels [facility] Emergency Department [address] [place] [address] Phone #: ext- [phone] 10/05/2020 07:31 Patient: ERMA TERRY Sex: F : 1995 Age: 25y Time Seen: 07:44 10/05/2020; initial patient contact. Arrived- By private vehicle. Historian- patient. Disposition decision: 09:40 10/05/2020.HISTORY OF PRESENT ILLNESS Chief Complaint: ABDOMINAL PAIN. This started 2 days ago and is still present. It was gradual in onset and has been constant. It is described as "pain" and well localized and pressure. At its maximum, severity described as severe and 10 / 10. When seen in the E.D., s everity described as severe and 10 / 10. Modifying factors- worsened by movement and food. Not relieved by anything. The patient has had loss of appetite. She has had diarrhea. This has occurred twice. No bloody diarrhea. (was at [facility] ER yesterday, "I have fluid in abdomen and they didn't do anything, so I snapped at them and left"). Similar symptoms previously. None. Recent medical care: The patient was seen recently at another facility in the emergency department. ( at [facility] ER last night, workup nml, CTAP w IV showed NAD w some ff in pelvis c/w ruptured cyst).REVIEW OF SYSTEMSNo constipation, black stools, hematemesis, difficulty with urination or pain with urination. No urinaryfrequency, bloody stools, fever, headache or sore throat. No blurred vision, chest pain, difficulty breathing,cough or joint pain. No skin rash, chills or back pain. Denies current . The patient has nothad weight loss. All other systems reviewed and are negative.PAST HISTORYSee nurses notes. Problems: Depression. Anxiety Reaction. Insomnia. Ovarian Cyst. Endometriosis. Additional Surgeries: . Hernia Repair. Laparoscopy. Medications: Bcp. 2 Clinical Report - Physicians/Mid Levels [facility] Emergency Department [address] [place] [address] Phone #: yig- [phone] 10/05/2020 07:31 Patient: ERMA TERRY Sex: F : 1995 Age: 25y traZODone HCl Oral (Tablet 50 mg), at bedtime. Spironolactone Oral, 2x a day. Allergies: Penicillins.SOCIAL HISTORYLight tobacco smoker- less than 1/2 a pack per day. No alcohol use or drug use.ADDITIONAL NOTESThe nursing notes have been reviewed with agreement regarding the chief complaint, HPI, ROS, PMH andpatient medications and allergies.PHYSICAL EXAMVital Signs: 10/05/2020 07:40 BP: 112/79. MAP: 90. HR: 95. RR: 20. O2 saturation: 98%. Temp: 97.1 F.Pain level now: 10/10. Have been reviewed. Oxygen saturation normal.Appearance: Alert. Oriented X3. Anxious. Appears to be in pain. Patient in moderate distress.Distress appears due to pain and anxiety.Eyes: Pupils equal, round and reactive to light. Eyes normal inspection.ENT: Nose normal. Pharynx normal.Neck: Normal inspection. Neck supple.CVS: Normal heart rate and rhythm. Heart sounds normal. Pulses normal.Respiratory: No respiratory distress. Painless inspiration. Breath sounds normal. Chest nontender.Abdomen: Soft. Moderate tenderness in the upper abdomen and epigastric area with guarding present.Positive Hernandez's sign. No rebound te nderness. Bowel sounds normal. No organomegaly. No mass.Femoral pulses equal.Back: Normal inspection. No CVA tenderness.Skin: Skin warm and dry. Normal skin color. No rash. Normal skin turgor.Extremities: Extremities exhibit normal ROM. No lower extremity edema.Neuro: Oriented X 3. No motor deficit. No sensory deficit.LABS, X-RAYS, AND EKGAbdominal Sonogram: Normal study. Study included the gallbladder. The study was interpreted by theradiologist. Interpretation time: 08:32 10/05/2020.Laboratory Tests: Laboratory tests have been ordered, with results reviewed and considered in themedical decision making process. CBC w Diff: (MICK: 10/05/2020 08:33) ( MsgRcvd 10/05/2020 08:45) Final results Test Result Flag Units (Reference) CBC W/AUTOMATED DIFF COMPLETE BLOOD COUNT WBC 9.8 10/uL (4.2 - 11.0) RBC 4.20 10/uL (4.20 - 5.40) HEMOGLOBIN 13.4 g/dL (12.0 - 16.0) HEMATOCRIT 38.9 % (37.0 - 47.0) MCV 92.6 fL (81.0 - 101) MCH 31.9 pg (27.0 - 34.0) MCHC 34.4 g/dL (31.0 - 36.0) 3 Clinical Report - Physicians/Mid Levels [facility] Emergency Department [address] [place] [address] Phone #: ext- [phone] 10/05/2020 07:31 [id number] Sex: F : 1995 Age: 25y RDW 12.1 % (11.5 - 14.5) PLATELETS 226 10/uL (150 - 450) MPV 10.7 H fL (7.4 - 10.4) NEUT 74.3 % (37.0 - 80.0) LYMPH 12.1 L % (25.0 - 40.0) MONO 9.9 H % (3.0 - 8.0) EOS 3.0 % (0.0 - 7.0) BASO 0.4 % (0.0 - 2.5) %IG 0.3 H % (0.0 - 0.0) %NRBC 0.0 % (0.0 - 0.0) #NEUT 7.28 H 10/uL (2.00 - 6.90) #LYMPH 1.19 10/uL (0.60 - 3.40) #MONO 0.97 H 10/uL (0.00 - 0.90) #EOS 0.29 10/uL (0.00 - 0.70) #BASO 0.04 10/uL (0.00 - 0.20) #IG 0.03 10/uL (0.00 - 0.10) #NRBC 0.00 10/uL (0.00 - 0.00) MANUAL DIFF NOT INDICATED RBC MORPH NOT INDICATEDCMP: (MICK: 10/05/2020 08:33) ( MsgRcvd 10/05/2020 09:17) Final results Te st Result Flag Units (Reference) COMPREHENSIVE METABOLIC PANEL COMPREHENSIVE METABOLIC PANEL SODIUM 141 mEq/L (134 - 153) POTASSIUM 4.6 mEq/L (3.6 - 5.0) CHLORIDE 107 mEq/L (98 - 107) CO2 25 MEQ/L (22 - 30) GLUCOSE 94 MG/DL (70 - 99) BUN 20 MG/DL (7 - 21) CREATININE 0.9 MG/DL (0.7 - 1.5) BUN/CREAT 22 (8 - 27) TOTAL PROTEIN 6.5 G/DL (6.3 - 8.2) ALBUMIN 4.1 G/DL (3.9 - 5.0) GLOBULIN 2.4 GM/DL (2.4 - 3.2) A/G RATIO 1.7 (0.8 - 2.0) CALCIUM 9.4 MG/DL (8.4 - 10.2) TOTAL BILI <0.7 MG/DL (0.2 - 1.3) ALKALINE PHOS 61 U/L (38 - 126) SGOT/AST 10 U/L (5 - 40) SGPT/ALT 9 U/L (7 - 56) ANION GAP 9.0 mmol/L (8.0 - 16.0) AGE 25 yrs NON-AA GFR >60 mL/min AFR AMER GFR >60 mL/min Male GFR Interprentation 20-49 yrs >60 mL/min Rpmqpn20-40 yrs >56 mL/min Normal 60-69 yrs >49 mL/min Normal 70-79yrs>42 mL/min Normal 80 and above >35 mL/min Normal Female GFRInterpretation 20-39 yrs >60 mL/min Normal 40-49 yrs >58 mL/minNormal 50-59 yrs >51 mL/min Normal 60-69 yrs >45 mL/min Ztyarr90-98 yrs >39 mL/min Normal 80 and above >32 mL/min NormalLipase: (MICK: 10/05/2020 08:33) ( MsgRcvd 10/05/2020 09:17) Final results Test Result Flag Units (Reference) LIPASE 49 U/L (13 - 60)Beta-HCG, Quant Serum: (MICK: 10/05/2020 08:33) ( MsgRcvd 10/05/2020 09:06) Final results 4 Clinical Report - Physicians/Mid Levels [facility] Emergency Department [address] [place] [address] Phone #: ext- [phone] 10/05/2020 07:31 Patient: REMA TERRY Sex: F : 1995 Age: 25y Test Result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 bleeding (ICD-569.3) (WWO66-I01.5)Amenorrhea (ICD-626.0) (KBH76-C54.2)Ovarian cyst (ICD- 620.2) (NNT31-K41.20)Hyperlipidemia (ICD-272.4) (CSX30-C23.5)Bacterial vaginosis (ICD-616.10) (IVY86-Z15.0)Preventative health care (ICD-V70.0) (ICD10- Z00.00)General Adult Medical Exam WITH Abnormal Findings (over 18) (ICD-V70.0) (CUN87-M32.01)Abdominal pain, suprapubic (ICD-789.09) (KYE39-N46.30)ANXIETY DISORDER, GENERALIZED (ICD-300.02) (CMW40-B38.1)Depression, major, moderate (ICD-296.22) (VPW15-N35.1)Tobacco use (ICD-305.1) (QTW70-L50.0)Problem list reviewed during this update.Current Medications: MINOCYCLINE [...] rce(s) Supporting Document(s) ID Date Data Source [id number] 01/14/2020 10:02:29 AM EDT [facility] Current Problems: Teeth extraction (ICD- 525.10) (XPP44-L25.499)Acne vulgaris (ICD-706.1) (KMS20-S29.0)Chronic pelvic pain of female (ICD-625.9) (ICD10- R10.2)Secondary amenorrhea (CPW44-O47.1)Cough - urge incontinence of urine (ICD- 788.31) (VYV04-N28.46)Female infertility associated with anovulation (ICD10- N97.0)Acute viral bronchitis (ICD-466.0) (EJD00-D54.8)Unspecified injury of unspecified muscle(s) and tendon(s) at lower leg level, right leg, initial encounter (QJS35-C68.901A)Insomnia due to medical condition (ICD10- G47.01)Passive smoke exposure (ICD-V15.89) (KBC68-M79.22)Painful rectal bleeding (ICD-569.3) (UVO28-E57.5)Amenorrhea (ICD-626.0) (JBP13-Q93.2)Ovarian cyst (ICD- 620.2) (IJX60-K94.20)Hyperlipidemia (ICD-272.4) (ZYK57-B93.5)Bacterial vaginosis (ICD-616.10) (NLY85-V08.0)Preventative health care (ICD-V70.0) (ICD10- Z00.00)General Adult Medical Exam WITH Abnormal Findings (over 18) (ICD-V70.0) (MWF03-Z29.01)Abdominal pain, suprapubic (ICD-789.09) (OGL99-U19.30)ANXIETY DISORDER, GENERALIZED (ICD-300.02) (GHX97-Z29.1)Depression, major, moderate (ICD-296.22) (JUI55-R52.1)Tobacco use (ICD-305.1) (QTL28-Q58.0)Problem list reviewed during this update.Current Medications: MINOCYCLINE [...] call her for appointment. No swelling noted.A: DDS recommends Extraction of #1, #16, #17, #32 [...] rce(s) Supporting Document(s) ID Date Data Source [id number] 01/07/2020 12:00:00 AM EDT [facility]y Imaging Kristin MIRANDA Patient Name: ADAM [id number] [facility] Date [place] : 1995[place] [id number] Date of Exam: 01/07/2020PH#: Fax: [phone] EXAM: [...] spasm.Otherwise, unremarkable study.ALICIA Wilson/Yecenia you for referring ERMA TERRY to our office. Electronically Signed - LES FLOWERS MD 01/07/20 16:35 Name Value Range Interpretation Code Description Data Sophia rce(s) Supporting Document(s) Procedure Social History Code Duration Value Status Description Data Source(s ) Smoking 01/26/2021 12:00:00 AM EDT Unknown if ever smoked comp leted Unknown if ever smoked [facility] ([facility]) Smoking 01/02/2021 12:00:00 AM EDT Current Smoker completed Curre nt Smoker eCW1 ([facility]) Smoking 01/02/2021 12:00:00 AM EDT Current Smoker completed Curre nt Smoker eCW1 ([facility]) Smoking 12/23/2020 12:00:00 AM EDT Unknown if ever smoked comp leted Unknown if ever smoked [facility] ([facility]) Smoking 12/07/2020 12:00:00 AM EDT Current Smoker completed Curre nt Smoker eCW1 ([facility]) Smoking 12/07/2020 12:00:00 AM EDT Current Smoker completed Curre nt Smoker eCW1 ([facility]) Smoking 12/07/2020 12:00:00 AM EDT Current Smoker completed Curre nt Smoker eCW1 ([facility]) Smoking 12/07/2020 12:00:00 AM EDT Unknown if ever smoked comp leted Unknown if ever smoked [facility] ([facility]) Smoking 12/02/2020 12:00:00 AM EDT Current Smoker completed Curre nt Smoker eCW1 ([facility]) Smoking 12/01/2020 12:00:00 AM EDT Unknown if ever smoked comp leted Unknown if ever smoked [facility] ([facility]) Smoking 11/17/2020 12:00:00 AM EDT Current Smoker completed Curre nt Smoker eCW1 ([facility]) Smoking 11/17/2020 12:00:00 AM EDT Current Smoker completed Curre nt Smoker eCW1 ([facility]) Smoking 11/17/2020 12:00:00 AM EDT Current Smoker completed Curre nt Smoker eCW1 ([facility]) Smoking 11/11/2020 12:00:00 AM EDT Unknown if ever smoked comp leted Unknown if ever smoked [facility] ([facility]) Smoking 11/10/2020 12:00:00 AM EDT Current Smoker completed Curre nt Smoker eCW1 ([facility]) Smoking 11/03/2020 12:00:00 AM EDT Unknown if ever smoked comp leted Unknown if ever smoked [facility] ([facility]) Smoking 10/28/2020 12:00:00 AM EDT Unknown if ever smoked comp leted Unknown if ever smoked [facility] ([facility]) Smoking 10/21/2020 12:00:00 AM EDT Current Smoker completed Curre nt Smoker eCW1 ([facility]) Smoking 10/21/2020 12:00:00 AM EDT Current Smoker completed Curre nt Smoker eCW1 ([facility]) Smoking 10/14/2020 12:00:00 AM EDT Unknown if ever smoked comp leted Unknown if ever smoked [facility] ([facility]) Smoking 10/11/2020 12:00:00 AM EDT Current Smoker completed Curre nt Smoker eCW1 ([facility]) Smoking 10/11/2020 12:00:00 AM EDT Current Smoker completed Curre nt Smoker eCW1 ([facility]) Smoking 10/06/2020 12:00:00 AM EDT Current Smoker completed Curre nt Smoker eCW1 ([facility]) Smoking 10/06/2020 12:00:00 AM EDT Current Smoker completed Curre nt Smoker eCW1 ([facility]) Smoking 09/26/2020 12:00:00 AM EDT Unknown if ever smoked comp leted Unknown if ever smoked [facility] ([facility]) Smoking 09/05/2020 12:00:00 AM EDT Current Smoker completed Curre nt Smoker eCW1 ([facility]) Smoking 09/05/2020 12:00:00 AM EDT Current Smoker completed Curre nt Smoker eCW1 ([facility]) Smoking 09/05/2020 12:00:00 AM EDT Current Smoker completed Curre nt Smoker eCW1 ([facility]) Smoking 09/05/2020 12:00:00 AM EDT Current Smoker completed Curre nt Smoker eCW1 ([facility]) Smoking 08/29/2020 12:00:00 AM EDT Current Smoker completed Curre nt Smoker eCW1 ([facility]) Smoking 08/11/2020 12:00:00 AM EST Current Smoker completed Curre nt Smoker eCW1 ([facility]) Smoking 07/25/2020 12:00:00 AM EST Current Smoker completed Curre nt Smoker eCW1 ([facility]) Smoking 07/11/2020 12:00:00 AM EST Heavy tobacco smoker comple becky Heavy tobacco smoker [facility] ([facility]) 06/30/2020 12:00:00 AM EST Heavy cigarette smoker (20- 39 cigs/day) completed Heavy cigarette smoker (20-39 cigs/day) [facility] ([facility]) Smoking 04/28/2020 12:00:00 AM EST Current Smoker completed Curre nt Smoker eCW1 ([facility]) Smoking 04/28/2020 12:00:00 AM EST Current Smoker completed Curre nt Smoker eCW1 ([facility]) Smoking 04/28/2020 12:00:00 AM EST Current Smoker completed Curre nt Smoker eCW1 ([facility]) Smoking 04/28/2020 12:00:00 AM EST Current Smoker completed Curre nt Smoker eCW1 ([facility]) Vital Signs ID Date Data Source UNK Name Value Range Interpretation Code Description Data Source(s) Body weight 163.2 [lb_av] 163.2 [lb_av] eCW1 ([facility]) Body weight 74.03 kg 74.03 kg W1 ([facility]) Body height 63.5 [in_i] 63.5 [in_i] W1 ([facility]) Body mass index (BMI) [Ratio] 28.456 kg/m2 28.4 56 kg/m2 [facility] ([facility]) Systolic blood pressure 120 mm[Hg] 120 mm[Hg] e CW1 ([facility]) Diastolic blood pressure 72 mm[Hg] 72 mm[Hg] eCW1 ([facility]) Body weight 153.8 [lb_av] 153.8 [lb_av] eCW1 ([facility]) Body weight 69.76 kg 69.76 kg W1 ([facility]) Body height 63.5 [in_i] 63.5 [in_i] eCW1 [facility] Body mass index (BMI) [Ratio] 26.817 kg/m2 26.8 17 kg/m2 eCW1 ([facility]) Systolic blood pressure 118 mm[Hg] 118 mm[Hg] e CW1 ([facility]) Diastolic blood pressure 70 mm[Hg] 70 mm[Hg] eCW1 ([facility]) Body weight 153.8 [lb_av] 153.8 [lb_av] eCW1 ([facility]) Body height 63.5 [in_i] 63.5 [in_i] eCW1 ([facility]) Body mass index (BMI) [Ratio] 26.81 kg/m2 26.81 kg/m2 W1 ([facility]) Heart rate 105 /min 105 /min eCW1 ([facility]) Respiratory rate 18 /min 18 /min eCW1 ([facility]) Body temperature 97.6 [degF] 97.6 [degF] eCW1 ( [facility]) Systolic blood pressure 118 mm[Hg] 118 mm[Hg] e CW1 ([facility]) Diastolic blood pressure 76 mm[Hg] 76 mm[Hg] eCW1 ([facility]) Body weight 154.2 [lb_av] 154.2 [lb_av] eCW1 ([facility]) Body height 63.5 [in_i] 63.5 [in_i] eCW1 ([facility] Body mass index (BMI) [Ratio] 26.88 kg/m2 26.88 kg/m2 eCW1 ([facility]) Systolic blood pressure 136 mm[Hg] 136 mm[Hg] e CW1 ([facility]) Diastolic blood pressure 78 mm[Hg] 78 mm[Hg] eCW1 ([facility]) Systolic blood pressure 110 mm[Hg] 110 mm[Hg] e CW1 ([facility]) Body height 63.5 [in_i] 63.5 [in_i] W1 ([facility]) Body mass index (BMI) [Ratio] 27.27 kg/m2 27.27 kg/m2 eCW1 ([facility]) Body weight 156.4 [lb_av] 156.4 [lb_av] eCW1 ([facility]) Diastolic blood pressure 68 mm[Hg] 68 mm[Hg] eCW1 ([facility]) Body weight 154.2 [lb_av] 154.2 [lb_av] eCW1 ([facility]) Body height 63.5 [in_i] 63.5 [in_i] eCW1 ([facility]) Body mass index (BMI) [Ratio] 26.88 kg/m2 26.88 kg/m2 eCW1 ([facility]) Systolic blood pressure 116 mm[Hg] 116 mm[Hg] e CW1 ([facility]) Diastolic blood pressure 70 mm[Hg] 70 mm[Hg] eCW1 ([facility]) Body weight 153 [lb_av] 153 [lb_av] eCW1 ([facility] Body height 63.5 [in_i] 63.5 [in_i] eCW1 ([facility]) Body mass index (BMI) [Ratio] 26.67 kg/m2 26.67 kg/m2 eCW1 ([facility]) Heart rate 111 /min 111 /min eCW1 ([facility]) Respiratory rate 18 /min 18 /min eCW1 ([facility]) Body temperature 97.5 [degF] 97.5 [degF] eCW1 ( [facility]) Systolic blood pressure 118 mm[Hg] 118 mm[Hg] e CW1 ([facility]) Diastolic blood pressure 68 mm[Hg] 68 mm[Hg] eCW1 ([facility]) Body weight 153.8 [lb_av] 153.8 [lb_av] eCW1 ([facility]) Body height 63.5 [in_i] 63.5 [in_i] eCW1 ([facility]) Body mass index (BMI) [Ratio] 26.81 kg/m2 26.81 kg/m2 eCW1 ([facility]) Systolic blood pressure 120 mm[Hg] 120 mm[Hg] e CW1 ([facility]) Diastolic blood pressure 80 mm[Hg] 80 mm[Hg] eCW1 ([facility]) Body weight 154 [lb_av] 154 [lb_av] eCW1 ([facility]) Body weight 69.85 kg 69.85 kg eCW1 ([facility]) Body height 63.5 [in_i] 63.5 [in_i] eCW1 ([facility]) Body mass index (BMI) [Ratio] 26.85 kg/m2 26.85 kg/m2 eCW1 ([facility]) Systolic blood pressure 135 mm[Hg] 135 mm[Hg] e CW1 ([facility]) Diastolic blood pressure 80 mm[Hg] 80 mm[Hg] eCW1 ([facility]) Body weight 152.4 [lb_av] 152.4 [lb_av] eCW1 ([facility]) Body height 63.5 [in_i] 63.5 [in_i] eCW1 ([facility] Body mass index (BMI) [Ratio] 26.57 kg/m2 26.57 kg/m2 eCW1 ([facility]) Systolic blood pressure 126 mm[Hg] 126 mm[Hg] e CW1 ([facility]) Diastolic blood pressure 74 mm[Hg] 74 mm[Hg] eCW1 ([facility]) Body weight 150.2 [lb_av] 150.2 [lb_av] eCW1 ([facility]) Body weight 68.13 kg 68.13 kg eCW1 ([facility]) Body height 63.5 [in_i] 63.5 [in_i] eCW1 ([facility]) Body mass index (BMI) [Ratio] 26.19 kg/m2 26.19 kg/m2 W1 ([facility]) Systolic blood pressure 104 mm[Hg] 104 mm[Hg] e CW1 ([facility]) Diastolic blood pressure 70 mm[Hg] 70 mm[Hg] eCW1 ([facility]) Body height 157.48 cm 157.48 cm Next[facility] ([facility]) Body weight 68.583 kg 68.583 kg [facility] ([facility]) Systolic blood pressure 118 mm[Hg] 118 mm[Hg] N extGen ([facility]) Diastolic blood pressure 74 mm[Hg] 74 mm[Hg] NextGen ([facility]) Body mass index (BMI) [Ratio] 27.65 kg/m2 Overweight 27.65 kg/m2 NextGen ([facility]) Body weight 152 [lb_av] 152 [lb_av] eCW1 (Critical access hospital) Body height 63.5 [in_i] 63.5 [in_i] eCW1 (Critical access hospital) Body mass index (BMI) [Ratio] 26.5 kg/m2 26.5 k g/m2 eCW1 ([facility]) Systolic blood pressure 126 mm[Hg] 126 mm[Hg] e CW1 ([facility]) Diastolic blood pressure 72 mm[Hg] 72 mm[Hg] eCW1 ([facility]) ID Date Data Source [id number] 08/25/2020 05:32:57 AM EDT Nathan Name Value Range Interpretation Code Description Data Source(s) WEIGHT 150 lb 150 lb Nathan HEIGHT 5' 3" ft 5' 3" ft Nathan Patient Treatment Plan of Care Planned Activity Planned Date Details Description Data Source (s) benzonatate 100 MG Oral Capsule [Tessalon Perles] 01/12/2021 12: 00:00 AM EDT eCW1 ([facility]) Clotrimazole 10 MG/ML Topical Cream 12/06/2020 12:00:00 AM EDT eCW1 ([facility]) Ondansetron 4 MG Oral Tablet [Zofran] 11/24/2020 12:00:00 AM EDT eCW1 ([facility]) Esomeprazole 20 MG Delayed Release Oral Capsule [Nexiu m] 11/24/2020 12:00:00 AM EDT eCW1 ([facility]) Omeprazole 20 MG Delayed Release Oral Capsule 11/24/2020 12:00:00 A M EDT eCW1 ([facility]) Ondansetron 4 MG Oral Tablet [Zofran] 11/24/2020 12:00:00 AM EDT eCW1 ([facility]) Esomeprazole 20 MG Delayed Release Oral Capsule [Nexiu m] 11/24/2020 12:00:00 AM EDT eCW1 ([facility]) Omeprazole 20 MG Delayed Release Oral Capsule 11/24/2020 12:00:00 A M EDT eCW1 ([facility]) Ondansetron 4 MG Oral Tablet [Zofran] 11/24/2020 12:00:00 AM EDT eCW1 ([facility]) Esomeprazole 20 MG Delayed Release Oral Capsule [Nexiu m] 11/24/2020 12:00:00 AM EDT eCW1 ([facility]) Omeprazole 20 MG Delayed Release Oral Capsule 11/24/2020 12:00:00 A M EDT eCW1 ([facility]) Ondansetron 4 MG Oral Tablet [Zofran] 11/24/2020 12:00:00 AM EDT eCW1 ([facility]) Esomeprazole 20 MG Delayed Release Oral Capsule [Nexiu m] 11/24/2020 12:00:00 AM EDT eCW1 ([facility]) Omeprazole 20 MG Delayed Release Oral Capsule 11/24/2020 12:00:00 A M EDT eCW1 ([facility]) Metronidazole 500 MG Oral Tablet 11/14/2020 12:00:00 AM EDT eCW1 ([facility]) Microgestin 20 1-20 MG-MCG 10/27/2020 12:00:00 AM EDT eCW1 ([facility]) Tretinoin 0.5 MG/ML Topical Cream 10/21/2020 12:00:00 AM EDT eCW1 ([facility]) Spironolactone 50 MG Oral Tablet 10/21/2020 12:00:00 AM EDT eCW1 ([facility]) Tretinoin 0.5 MG/ML Topical Cream 10/21/2020 12:00:00 AM EDT eCW1 ([facility]) Spironolactone 50 MG Oral Tablet 10/21/2020 12:00:00 AM EDT eCW1 ([facility]) Seasonique 0.15-0.03 &0.01 MG 10/19/2020 12:00:00 AM EDT eCW1 ([facility]) Sucralfate 1000 MG Oral Tablet [Carafate] 10/06/2020 12:00:00 AM ED T eCW1 ([facility]) Sucralfate 1000 MG Oral Tablet [Carafate] 10/06/2020 12:00:00 AM ED T eCW1 ([facility]) Sucralfate 1000 MG Oral Tablet [Carafate] 10/06/2020 12:00:00 AM ED T eCW1 ([facility]) Ortho Tri-Cyclen Lo 0.18/0.215/0.25 MG-25 MCG 09/06/2020 12:00:00 A M EDT eCW1 ([facility]) Ortho Tri-Cyclen Lo 0.18/0.215/0.25 MG-25 MCG 09/06/2020 12:00:00 A M EDT eCW1 ([facility]) Ortho Tri-Cyclen Lo 0.18/0.215/0.25 MG-25 MCG 09/06/2020 12:00:00 A M EDT eCW1 ([facility]) Ortho Tri-Cyclen Lo 0.18/0.215/0.25 MG-25 MCG 09/06/2020 12:00:00 A M EDT eCW1 ([facility]) Spironolactone 25 MG Oral Tablet 09/05/2020 12:00:00 AM EDT eCW1 ([facility]) Tretinoin 0.25 MG/ML Topical Cream 09/05/2020 12:00:00 AM EDT eCW1 ([facility]) Clindamycin 10 MG/ML Medicated Pad 09/05/2020 12:00:00 AM EDT eCW1 ([facility]) Spironolactone 25 MG Oral Tablet 09/05/2020 12:00:00 AM EDT eCW1 ([facility]) Tretinoin 0.25 MG/ML Topical Cream 09/05/2020 12:00:00 AM EDT eCW1 ([facility]) Clindamycin 10 MG/ML Medicated Pad 09/05/2020 12:00:00 AM EDT eCW1 ([facility]) Spironolactone 25 MG Oral Tablet 09/05/2020 12:00:00 AM EDT eCW1 ([facility]) Tretinoin 0.25 MG/ML Topical Cream 09/05/2020 12:00:00 AM EDT eCW1 ([facility]) Clindamycin 10 MG/ML Medicated Pad 09/05/2020 12:00:00 AM EDT eCW1 ([facility]) Spironolactone 25 MG Oral Tablet 09/05/2020 12:00:00 AM EDT eCW1 ([facility]) Tretinoin 0.25 MG/ML Topical Cream 09/05/2020 12:00:00 AM EDT eCW1 ([facility]) Clindamycin 10 MG/ML Medicated Pad 09/05/2020 12:00:00 AM EDT eCW1 ([facility]) Doxycycline Monohydrate 100 MG Oral Tablet 06/30/2020 12:00:[address] [facility] ([facility]) Ceftriaxone 250 MG Injection 06/30/2020 12:00:00 AM EST [facility] ([facility]) Clomiphene Citrate 50 MG Oral Tablet 04/28/2020 12:00:00 AM EST eCW1 ([facility]) Clomiphene Citrate 50 MG Oral Tablet 04/28/2020 12:00:00 AM EST eCW1 ([facility]) Clomiphene Citrate 50 MG Oral Tablet 04/28/2020 12:00:00 AM EST eCW1 ([facility]) Clomiphene Citrate 50 MG Oral Tablet 04/28/2020 12:00:00 AM EST eCW1 ([facility]) Clomiphene Citrate 50 MG Oral Tablet 04/28/2020 12:00:00 AM EST eCW1 ([facility])
== END 2021-01-31 12:26 | disposition left against medical advice (07) ==
LOC: M ED 11:25
DX: Z53.21 Procedure and treatment not carried out due to patient leaving prior to being seen by health care provider (principal)

== ENCOUNTER → 2021-02-08 | Outpatient (CLI) | payer OTHER ==
[2021-02-08 17:15] LABS: CREATININE,RANDOM URINE 80.9 MG/DL; TOTAL PROTEIN,RANDOM URINE 12.3 MG/DL (0.0-12.0)
[2021-02-08 17:41] LABS: ALT/SGPT 13 U/L (12-78); BILIRUBIN,TOTAL 0.4 MG/DL (0.2-1.0); CREATININE FOR GFR 0.47 MG/DL (0.55-1.30); GLOMERULAR FILTRATION RATE > 60.0 (>60); LDH LACTATE DEHYDROGENASE 112 U/L (84-246); URIC ACID 2.8 MG/DL (2.6-6.0)
== END ==
LOC: M PLALAB 14:47
PROVIDERS: ATTEND Advanced Practice Midwife
DX: O09.292 Supervision of pregnancy with other poor reproductive or obstetric history, second trimester (principal)

== ENCOUNTER → 2021-02-16 | Outpatient (CLI) | payer OTHER ==
--- NOTE | 2021-02-16 12:16 | REP ---
INDICATION: PREG, ANATOMY. COMPARISON: None. TECHNIQUE: Transabdominal obstetric sonography FINDINGS: Scanning through the gravid uterus demonstrates a viable single intrauterine gestation in breech lie. motion is observed and heart rate is recorded at 163 beats per minute. A anterior placenta is seen, grade 4.6, without evidence of placenta previa. Closed cervical length is measured at 4.6 cm transabdominally. No extrauterine abnormality is observed. Amniotic fluid is subjectively normal. This patient has significant thinning of the anterior uterine myometrium at the level of the lower uterine segment uterine myotomy scar for previous . There appears to be only 3-4 mm of anterior uterine tissue at this level. Follow-up is advised.. No anomaly is seen. The following anatomic structures are identified and felt to be sonographically unremarkable: cranium, choroid plexus, cavum, cerebellum and posterior fossa, face and profile, lungs, four-chamber heart with left and right ventricular outflow tract views, diaphragm, left-sided stomach, abdominal wall cord insertion, three-vessel umbilical cord, kidneys and bladder, spine, and upper and lower extremities. Biometry chart: BPD 4.9 cm, 20 weeks 6 days Head circumference 17.2 cm, 19 weeks 6 days abdominal circumference 15.2 cm, 20 weeks 3 days Femur length 3.2 cm, 19 weeks 6 days Humeral length 3.2 cm, 20 weeks 4 days HC AC ratio normal 1.13 Cephalic index normal 0.82 Estimated weight 337 g, 0 lb 11 oz, 50th percentile for 20 weeks 1 day IMPRESSION: Viable single intrauterine gestation at 20 weeks 2 days by today's composite sonographic criteria. PATO by today's sonography July 04, 2021.. No complication identified. There is significant thinning observed of the anterior myometrium in the lower uterine segment at previous scar. Follow-up is advised. <Electronically signed by Leonel Michelle > 02/16/21 [id number]
== END ==
LOC: M RAD 10:42
PROVIDERS: ATTEND Advanced Practice Midwife
DX: O34.211 Maternal care for low transverse scar from previous cesarean delivery (principal); Z3A.20 20 weeks gestation of pregnancy; O94 Sequelae of complication of pregnancy, childbirth, and the puerperium

== ENCOUNTER → 2021-03-02 | Outpatient (REF) | payer OTHER | LOC: M SFHCWAGY 16:58 | PROVIDERS: ATTEND Advanced Practice Midwife | DX: R30.0 Dysuria (principal) ==

== ENCOUNTER 2021-03-12 23:01 | Outpatient (CLI) | payer OTHER ==
[~2021-03-12] VITALS: Ht 160 cm; Wt 81.4 kg
[2021-03-12 23:17] VITALS: BP 112/55
[2021-03-13 00:25] VITALS: BP 106/70
--- NOTE | 2021-03-13 02:07 | REPVR ---
PROCEDURE INFORMATION: Exam: US ; Follow up Exam date and time: 03/13/2021 1:06 AM Age: 26 years old Clinical indication: complicated by abdominal or pelvic pain; Lower; Second trimester (14 weeks 0 days to 27 weeks 6 days); Gestational age or lmp: 09/28/20; ; Prior surgery; Surgery date: 6+ months; Surgery type: x2; Additional info: Pelvic pressure TECHNIQUE: Imaging protocol: Transabdominal ultrasound of the uterus, real time with image documentation. Follow-up (eg, re-evaluation of size by measuring standard growth parameters and amniotic fluid volume, re-evaluation of organ system(s) suspected or confirmed to be abnormal on a previous scan). COMPARISON: US OBS SINGEL GEST 02/16/2021 10:52 AM FINDINGS: Gestation: Single intrauterine fetus. presentation: Breech presentation. heart rate: heartbeat of 158 bpm. Placenta: Anterior placenta. Amniotic fluid index: Normal BRANDON of 18.4 cm. ANATOMY: Umbilical cord insertion site into the abdomen: The cranial structures, stomach, cord insertion, bladder, cord, heart and spine appear normal. BIOMETRY: Gestational age (AUA): The composite gestational age by ultrasound is 24 weeks 3 days. Estimated due date (AUA): The EDC is 06/30/2021. Estimated weight: The estimated weight is 6 centered 99 grams. Biparietal diameter: The BPD measures 6.0 cm suggesting an age of 24 weeks 4 days. Head circumference: The head circumference measures 21.5 cm suggesting an age of 23 weeks 4 days. Abdominal circumference: The abdominal circumference measures 19.9 cm suggesting an age of 24 weeks 4 days. Femur length: The femur length measures 4.4 cm suggesting an age of 24 weeks 4 days. MATERNAL: Uterus: Thin myometrium at a scar measuring 7 mm. Cervix: The cervix measures 2.8 cm with some funneling of the internal os measuring 2.3 cm across and is 1.9 cm in depth. IMPRESSION: 1. Single live intrauterine fetus in breech presentation with a composite age of 24 weeks 3 days. The EDC is 06/30/2021. 2. Thin scar measuring 7 mm in thickness. 3. Slightly short cervix measuring 2.8 cm with some funneling of the internal os. Electronically signed by: David Berg On 03/13/2021 02:06:40 AM
== END 2021-03-13 02:13 | disposition left against medical advice (07) ==
LOC: M LDO 23:01
PROVIDERS: ATTEND Obstetrics & Gynecology
DX: O26.892 Other specified pregnancy related conditions, second trimester (principal); R10.2 Pelvic and perineal pain; Z3A.23 23 weeks gestation of pregnancy; Z88.1 Allergy status to other antibiotic agents

== ENCOUNTER 2021-03-14 21:08 | Outpatient (CLI) | payer OTHER ==
[~2021-03-14] VITALS: Ht 157.5 cm; Wt 80.9 kg
[~2021-03-14 21:08] MED LIST changes: +DOXY-443 PO; -DOXY1CAP62 PO
[2021-03-14 21:34] VITALS: BP 120/65
[2021-03-14 23:42] VITALS: BP 117/64
[2021-03-15] MEDS ORDERED: NAPROXEN 250 MG TAB PO ONE (00:40)
[2021-03-15] MEDS ORDERED: ACET325C5 PO (00:41)
[2021-03-15] MEDS ORDERED: HOME MED LIST COMPLETE! XX SCH (00:45)
--- NOTE | 2021-04-04 09:28 | IPNPDOC ---
Text Note Date of Service The patient was seen on 03/15/21. Labor and Delivery Triage Note: S: 26-year-old G3, P2 at 25 weeks presents with c/o contractions [id number] and pelvic pressure. She describes unable to follow-up due to severity of pelvic pain denies vaginal bleeding or LOF. Reports active movement. O: vss, AF no ctx Cat 1 tracing Gen: well appearing, NAD Abd: gravid, soft, nttp cx: [long/ closed] A/P: 26-year-old with pelvic floor dysfunction not in PTL reassuring status -1 dose of ibuprofen. Patient instructed to use only Tylenol. Will place physical therapy consult. -home with PTL precautions and FKCs. -f/u at next OB appt MD NORMA Sarmiento KENYA MD. Apr 04, 2021 09:28
== END 2021-03-15 01:30 | disposition home or self-care (01) ==
LOC: M LDO 21:08
PROVIDERS: ATTEND Obstetrics & Gynecology
DX: O26.892 Other specified pregnancy related conditions, second trimester (principal); R10.2 Pelvic and perineal pain; Z3A.25 25 weeks gestation of pregnancy

== ENCOUNTER → 2021-03-30 | Outpatient (CLI) | payer OTHER ==
[~2021-03-30] MED LIST changes: +ACET325C5 PO
[2021-03-30 15:11] LABS: HEMATOCRIT 34.1 % (36.0-47.0); HEMOGLOBIN 11.2 g/dl (12.0-15.5); MEAN CORPUSCULAR HEMOGLOBIN 32.5 pg (27.0-33.0); MEAN CORPUSCULAR HGB CONC 32.8 g/dl (32.0-36.5); MEAN CORPUSCULAR VOLUME 98.8 fl (80.0-96.0); PLATELET COUNT, AUTOMATED 231 10^3/uL (150-450); RED BLOOD COUNT 3.45 10^6/uL (4.00-5.40); WHITE BLOOD COUNT 12.6 10^3/uL (4.0-10.0)
== END ==
LOC: M PLALAB 12:41
PROVIDERS: ATTEND Advanced Practice Midwife
DX: O34.211 Maternal care for low transverse scar from previous cesarean delivery (principal); R30.0 Dysuria; O26.90 Pregnancy related conditions, unspecified, unspecified trimester

== ENCOUNTER 2021-05-01 10:35 | Outpatient (CLI) | payer OTHER ==
[~2021-05-01] VITALS: Ht 160 cm; Wt 81.5 kg
[~2021-05-01 10:35] MED LIST changes: -BETAMETHASONE SOLUSPAN 6MG/ML 5ML VIAL (J0702 PER 3MG) IM SCH
[2021-05-01 11:02] VITALS: BP 125/60
[2021-05-01] MEDS ORDERED: HOME MED LIST COMPLETE! XX SCH (11:10)
--- NOTE | 2021-05-01 11:18 | IPNPDOC ---
Text Note Date of Service The patient was seen on 05/01/21. NOTE Subjective: Erma is a 26-year-old female who presents to the office after having a f/u ultrasound done showing a shorted cervix at 9 mm with funneling. The myometrial scar has also thinned to 2.6 mm. The patient was sent over to start IM Betamethasone. She reports active movement. Denies contractions, leaking of fluid or vaginal bleeding. She does report pelvic pain, hip pain and pubic bone pain, which she has complained about and has been taken out of work for and is in PT. She reports that pain has improved with physical therapy. She initiated her care in her first trimester with [facility]. Her has been complicated by a history of preeclampsia, prior sections, multiple psychiatric diagnosis. Objective: VS and labs: see below. FHR: 130, moderate variability, positive accelerations, no decelerations. Contractions: irregular General: Alert and oriented. Appears comfortable. Respiratory: regular rate and rhythm. Comfortable on room air. Abdomen: gravid and soft to palpation SSE: cervix appears closed and thicker than 9 mm. No bleeding. Discharge appears white and thick. No pooling of fluid in the vagina. Assessment: IUP at 30.5 weeks gestation, shortened cervix with funneling, prior section Plan: GBS obtained. Betamethasone ordered and 1 dose given now. Will repeat in 24 hours. Urine obtained for UA and culture. Given that patient denies having contractions and her cervix looks visibly thicker than 9mm she was discharged to home with precautions with the intention of returning to the hospital for repeat dose of IM Betamethasone tomorrow at 11:30. Reviewed access to care, kick counts, labor signs and danger signs to report. VS,Fishbone, I+O VS, Fishbone, I+O Vital Signs Date Time Temp Pulse Resp B/P (MAP) Pulse Ox O2 Delivery O2 Flow Rate FiO2 05/01/21 11:02 113 18 125/60 (81) 05/01/21 11:00 98.5 98 Room Air EXAMINATION REQUESTED: OBS FOLLOW UP OR REPEAT REASON FOR PATIENT VISIT: F/U THINNING OF MYOMETRIUM AT UTERINE SCAR REASON FOR EXAMINATION: F/U THINNING OF MYOMETRIUM AT UTERINE SCAR INDICATION: F/U THINNING OF MYOMETRIUM AT UTERINE SCAR COMPARISON: 03/13/2021 TECHNIQUE: Transabdominal obstetrical ultrasound with color Doppler evaluation. FINDINGS: Examination demonstrates a single live intrauterine in cephalic presentation. motion is identified by technologist. Placenta is noted anterior and grade 1 without evidence for placenta previa or abruption. Amniotic fluid volume is normal. Funneling at the internal os is noted and the closed cervical length measures 9 mm. The myometrium at the previous Caesarean section scar measures 2.6 mm in narrowest width. Selected gestational age: 30 weeks 2 days with PATO 07/08/2021. Gestational age by current measurements 32 weeks 2 days with PATO 06/24/2021. FHR equals 156 beats per minute. BPD: 8.1 cm at 32 weeks 3 days HC: 29.5 cm at 32 weeks 4 days AC: 28.1 cm at 32 weeks 1 day FL: 6.3 cm at 32 weeks 4 days HL: 5.5 cm at 32 weeks 1 day HC/AC: 1.05 Estimated weight 1949 grams (95thpercentile). BRANDON: 15.2 cm Umbilical artery SD ratio: 2.33 IMPRESSION: 1. Incompetent cervix with funneling at the internal os and closed cervical length of 9 mm. 2. Myometrium at the level of the Caesarean section scar measures 2.6 mm in narrowest width. 3. Biometric measurements suggest age and weight at the upper limits of normal range. <Electronically signed by Omer Wyman > 05/01/21 [id number] ELADIO WALTER CNM May 01, 2021 11:18
[2021-05-01] MEDS ORDERED: DOCUSATE SODIUM 100MG CAPSULE PO ONE (11:50)
[2021-05-01] MEDS ORDERED: ACETAMINOPHEN 500 MG TAB PO ONE (11:50)
[2021-05-01] MEDS ORDERED: BETAMETHASONE SOLUSPAN 6MG/ML 5ML VIAL (J0702 PER 3MG) IM SCH (12:00)
[2021-05-01 12:20] VITALS: BP 105/58
[2021-05-01 12:40] VITALS: BP 111/69
[2021-05-01] MEDS ORDERED: FLUCONAZOLE 50MG TABLET PO ONE (13:05)
[2021-05-01 13:54] LABS: APPEARANCE, URINE CLEAR (CLEAR); BACTERIA, URINE AUTO 1+ (NEGATIVE); BILIRUBIN, URINE AUTO NEGATIVE (NEGATIVE); BLOOD, URINE BLOOD NEGATIVE (NEGATIVE); COLOR, URINE YELLOW (YELLOW); GLUCOSE, URINE (UA) AUTO NEGATIVE (NEGATIVE); KETONE, URINE AUTO NEGATIVE (NEGATIVE); LEUKOCYTE ESTERASE, URINE AUTO NEGATIVE (NEGATIVE); MUCUS, URINE SMALL (NEGATIVE); NITRITE, URINE AUTO NEGATIVE (NEGATIVE); PROTEIN, URINE AUTO NEGATIVE (NEGATIVE); RBC, URINE AUTO 0 /HPF (0-3); SPECIFIC GRAVITY URINE AUTO 1.014 (1.002-1.035); SQUAMOUS EPITHELIAL CELL UR AU 1 /HPF (0-6); UROBILINOGEN, URINE AUTO 0.2 mg/dL (0.0-2.0); WBC, URINE AUTO 2 /HPF (0-3)
[2021-05-02] MEDS ORDERED: COLA100C5 PO (11:43)
== END 2021-05-01 14:19 | disposition home or self-care (01) ==
LOC: M LDO 10:35
PROVIDERS: ATTEND Advanced Practice Midwife
DX: O26.873 Cervical shortening, third trimester (principal); O34.29 Maternal care due to uterine scar from other previous surgery; O26.893 Other specified pregnancy related conditions, third trimester; N89.8 Other specified noninflammatory disorders of vagina; Z3A.30 30 weeks gestation of pregnancy
CPT/HCPCS: 59025; 81001; 87081; 87086; 96372; J0702

== ENCOUNTER → 2021-05-01 | Outpatient (CLI) | payer OTHER ==
[~2021-05-01] MED LIST changes: +BETAMETHASONE SOLUSPAN 6MG/ML 5ML VIAL (J0702 PER 3MG) IM SCH
--- NOTE | 2021-05-01 10:19 | REP ---
INDICATION: F/U THINNING OF MYOMETRIUM AT UTERINE SCAR COMPARISON: 03/13/2021 TECHNIQUE: Transabdominal obstetrical ultrasound with color Doppler evaluation. FINDINGS: Examination demonstrates a single live intrauterine in cephalic presentation. motion is identified by technologist. Placenta is noted anterior and grade 1 without evidence for placenta previa or abruption. Amniotic fluid volume is normal. Funneling at the internal os is noted and the closed cervical length measures 9 mm. The myometrium at the previous Caesarean section scar measures 2.6 mm in narrowest width. Selected gestational age: 30 weeks 2 days with PATO 07/08/2021. Gestational age by current measurements 32 weeks 2 days with PATO 06/24/2021. FHR equals 156 beats per minute. BPD: 8.1 cm at 32 weeks 3 days HC: 29.5 cm at 32 weeks 4 days AC: 28.1 cm at 32 weeks 1 day FL: 6.3 cm at 32 weeks 4 days HL: 5.5 cm at 32 weeks 1 day HC/AC: 1.05 Estimated weight 1949 grams (95thpercentile). BRANDON: 15.2 cm Umbilical artery SD ratio: 2.33 IMPRESSION: 1. Incompetent cervix with funneling at the internal os and closed cervical length of 9 mm. 2. Myometrium at the level of the Caesarean section scar measures 2.6 mm in narrowest width. 3. Biometric measurements suggest age and weight at the upper limits of normal range. <Electronically signed by Omer Wyman > 05/01/21 [id number]
--- NOTE | 2021-05-01 11:14 | IPNPDOC ---
Text Note Date of Service The patient was seen on 05/01/21. VS,Goldybone, I+O VS, Fishbone, I+O EXAMINATION REQUESTED: OBS FOLLOW UP OR REPEAT REASON FOR PATIENT VISIT: F/U THINNING OF MYOMETRIUM AT UTERINE SCAR REASON FOR EXAMINATION: F/U THINNING OF MYOMETRIUM AT UTERINE SCAR INDICATION: F/U THINNING OF MYOMETRIUM AT UTERINE SCAR COMPARISON: 03/13/2021 TECHNIQUE: Transabdominal obstetrical ultrasound with color Doppler evaluation. FINDINGS: Examination demonstrates a single live intrauterine in cephalic presentation. motion is identified by technologist. Placenta is noted anterior and grade 1 without evidence for placenta previa or abruption. Amniotic fluid volume is normal. Funneling at the internal os is noted and the closed cervical length measures 9 mm. The myometrium at the previous Caesarean section scar measures 2.6 mm in narrowest width. Selected gestational age: 30 weeks 2 days with PATO 07/08/2021. Gestational age by current measurements 32 weeks 2 days with PATO 06/24/2021. FHR equals 156 beats per minute. BPD: 8.1 cm at 32 weeks 3 days HC: 29.5 cm at 32 weeks 4 days AC: 28.1 cm at 32 weeks 1 day FL: 6.3 cm at 32 weeks 4 days HL: 5.5 cm at 32 weeks 1 day HC/AC: 1.05 Estimated weight 1949 grams (95thpercentile). BRANDON: 15.2 cm Umbilical artery SD ratio: 2.33 IMPRESSION: 1. Incompetent cervix with funneling at the internal os and closed cervical length of 9 mm. 2. Myometrium at the level of the Caesarean section scar measures 2.6 mm in narrowest width. 3. Biometric measurements suggest age and weight at the upper limits of normal range. <Electronically signed by Omer Wyman > 05/01/21 [id number] ELADIO WALTER CNM May 01, 2021 11:14
== END ==
LOC: M WHC 09:06
PROVIDERS: ATTEND Advanced Practice Midwife
DX: O34.219 Maternal care for unspecified type scar from previous cesarean delivery (principal); Z3A.30 30 weeks gestation of pregnancy; O34.33 Maternal care for cervical incompetence, third trimester

== ENCOUNTER 2021-05-02 11:27 | Outpatient (CLI) | payer OTHER ==
[~2021-05-02] VITALS: Ht 160 cm; Wt 88.4 kg
[2021-05-02] MEDS ORDERED: COLA100C5 PO (11:43)
[2021-05-02 11:44] VITALS: BP 132/69
[2021-05-02] MEDS ORDERED: HOME MED LIST COMPLETE! XX SCH (11:45)
[2021-05-02] MEDS ORDERED: BETAMETHASONE SOLUSPAN 6MG/ML 5ML VIAL (J0702 PER 3MG) IM SCH (12:00)
== END 2021-05-02 12:17 | disposition home or self-care (01) ==
LOC: M LDO 11:27
PROVIDERS: ATTEND Obstetrics & Gynecology
DX: O26.893 Other specified pregnancy related conditions, third trimester (principal); Z3A.30 30 weeks gestation of pregnancy
CPT/HCPCS: 59025; 96372; J0702

== ENCOUNTER 2021-05-07 21:47 | Outpatient (CLI) | payer OTHER ==
[~2021-05-07] VITALS: Ht 160 cm; Wt 87.9 kg
[~2021-05-07 21:47] MED LIST changes: -CEFD1CAP8 PO; +CEFD300C41 PO
[2021-05-07 22:00] VITALS: BP 151/75
[2021-05-07 22:16] VITALS: BP 131/60
[2021-05-07 22:31] VITALS: BP 128/58
[2021-05-07 22:48] VITALS: BP 138/92
[2021-05-07] MEDS ORDERED: LR 1,000 ML IV SCH (23:10)
[2021-05-07] MEDS ORDERED: LACTATED RINGER'S 1000 ML IV STA (23:10)
[2021-05-07] MEDS ORDERED: ACETAMINOPHEN 500 MG TAB PO ONE (23:10)
[2021-05-08] VITALS (15 sets, daily range): BP systolic 125–145; BP diastolic 59–81
[2021-05-08] MEDS ORDERED: MORPHINE 10 MG/ML 1ML VIAL (J2270) IV ONE (00:40)
[2021-05-08] MEDS ORDERED: PROMETHAZINE INJ 25 MG/ML VIAL (J2550) IV PRN (00:40)
[2021-05-08] MEDS ORDERED: MORPHINE 10 MG/ML 1ML VIAL (J2270) SC ONE (00:40)
[2021-05-08 01:06] LABS: GC DNA AMPLIFICATION POSITIVE (NEGATIVE)
[2021-05-08 01:23] LABS: HEMATOCRIT 31.1 % (36.0-47.0); HEMOGLOBIN 10.3 g/dl (12.0-15.5); MEAN CORPUSCULAR HEMOGLOBIN 31.2 pg (27.0-33.0); MEAN CORPUSCULAR HGB CONC 33.1 g/dl (32.0-36.5); MEAN CORPUSCULAR VOLUME 94.2 fl (80.0-96.0); PLATELET COUNT, AUTOMATED 218 10^3/uL (150-450); WHITE BLOOD COUNT 18.8 10^3/uL (4.0-10.0)
[2021-05-08] MEDS ORDERED: cefTRIAXone SOD 250 MG in D5W MINI-BAG PLUS 50 ML IV ONE (01:40)
[2021-05-08 01:42] LABS: ALT/SGPT 16 U/L (12-78); BILIRUBIN,TOTAL 0.2 MG/DL (0.2-1.0); CREATININE FOR GFR 0.48 MG/DL (0.55-1.30); GLOMERULAR FILTRATION RATE > 60.0 (>60); LDH LACTATE DEHYDROGENASE 117 U/L (84-246); URIC ACID 4.1 MG/DL (2.6-6.0)
[2021-05-08 03:37] LABS: CREATININE,RANDOM URINE 49.3 MG/DL
[2021-05-08] MEDS ORDERED: AZITHROMYCIN 250MG TABLET PO ONE (07:00)
[2021-05-26] MEDS ORDERED: CYCL5TAB PO (10:18)
[2021-05-26] MEDS ORDERED: MIRA3350 PO (10:18)
[2021-06-08] MEDS ORDERED: PERCOCET PO (13:23)
[2021-06-08] MEDS ORDERED: IBUP80TA PO (13:23)
[2021-06-11] MEDS ORDERED: COLA100C5 PO (12:00)
== END 2021-05-08 11:56 | disposition home or self-care (01) ==
LOC: M LDO 21:47
PROVIDERS: ATTEND Obstetrics & Gynecology
DX: O60.03 Preterm labor without delivery, third trimester (principal); O26.893 Other specified pregnancy related conditions, third trimester; R10.2 Pelvic and perineal pain; O34.219 Maternal care for unspecified type scar from previous cesarean delivery; Z3A.31 31 weeks gestation of pregnancy
CPT/HCPCS: 36415; 81001; 82247; 82565; 82570; 83615; 84156; 84450; 84460; 84550; 85027; 87661; 96365; 96375; J0696; J2270

== ENCOUNTER 2021-05-11 13:50 | Outpatient (CLI) | payer OTHER ==
[~2021-05-11] VITALS: Ht 160 cm; Wt 88.4 kg
[~2021-05-11 13:50] MED LIST changes: +CEFD1CAP8 PO; -CEFD300C41 PO
[2021-05-11 14:06] VITALS: BP 138/72
[2021-05-11] MEDS ORDERED: HOME MED LIST COMPLETE! XX SCH (14:15)
[2021-05-11 15:16] VITALS: BP 130/68
--- NOTE | 2021-05-11 15:40 | IPNPDOC ---
Text Note Date of Service The patient was seen on 05/11/21. NOTE Labor and Delivery Triage Note: S: 26-year-old G3, P2 at 33 weeks 1 day presents with c/o back pain, vaginal discomfort and pelvic pressure. Denies vaginal bleeding or LOF. Reports active movement. She was recently seen on Saturday for similar complaints and was treated for gonorrhea which she tested positive for. O: vss, AF no ctx Cat 1 tracing Gen: well appearing, NAD Abd: gravid, soft, nttp cx: closed A/P: 26-year-old G3, P2 at 33 weeks 1 day not in PTL reassuring status -home with PTL precautions and FKCs. -f/u at next OB appt MD NORMA Sarmiento KENYA MD. May 11, 2021 15:40
[2021-05-26] MEDS ORDERED: MIRA3350 PO (10:18)
[2021-05-26] MEDS ORDERED: CYCL5TAB PO (10:18)
== END 2021-05-11 15:45 | disposition home or self-care (01) ==
LOC: M LDO 13:50
PROVIDERS: ATTEND Obstetrics & Gynecology
DX: O26.893 Other specified pregnancy related conditions, third trimester (principal); R10.2 Pelvic and perineal pain; M54.50 Low back pain, unspecified; Z3A.33 33 weeks gestation of pregnancy

== ENCOUNTER → 2021-05-19 | Outpatient (CLI) | payer OTHER ==
[~2021-05-19] MED LIST changes: -CEFD1CAP8 PO; +CEFD300C41 PO; +CYCL5TAB PO; +PRENTAB9 PO
== END ==
LOC: M WHC 13:32
PROVIDERS: ATTEND Obstetrics & Gynecology
DX: O34.211 Maternal care for low transverse scar from previous cesarean delivery (principal); Z36.2 Encounter for other antenatal screening follow-up; Z3A.32 32 weeks gestation of pregnancy; O34.33 Maternal care for cervical incompetence, third trimester; O36.63X0 Maternal care for excessive fetal growth, third trimester, not applicable or unspecified

== ENCOUNTER 2021-05-22 21:49 | Outpatient (CLI) | payer OTHER ==
[~2021-05-22] VITALS: Ht 160 cm; Wt 91.3 kg
[~2021-05-22 21:49] MED LIST changes: -CYCL5TAB PO; -PRENTAB9 PO
[2021-05-22 22:09] VITALS: BP 100/69
[2021-05-22] MEDS ORDERED: PRENTAB9 PO (22:32)
[2021-05-22] MEDS ORDERED: HOME MED LIST COMPLETE! XX SCH (22:35)
[2021-05-22 23:56] VITALS: BP 137/73
[2021-05-23 01:31] LABS: GC DNA AMPLIFICATION NEGATIVE (NEGATIVE)
[2021-05-26] MEDS ORDERED: CYCL5TAB PO (10:18)
[2021-05-26] MEDS ORDERED: MIRA3350 PO (10:18)
[2021-06-08] MEDS ORDERED: IBUP80TA PO (13:23)
[2021-06-08] MEDS ORDERED: PERCOCET PO (13:23)
[2021-06-11] MEDS ORDERED: COLA100C5 PO (12:00)
== END 2021-05-23 00:35 | disposition home or self-care (01) ==
LOC: M LDO 21:49
PROVIDERS: ATTEND Advanced Practice Midwife
DX: O47.1 False labor at or after 37 completed weeks of gestation (principal); R10.2 Pelvic and perineal pain; Z3A.33 33 weeks gestation of pregnancy

== ENCOUNTER → 2021-05-24 | Outpatient (CLI) | payer OTHER ==
[~2021-05-24] MED LIST changes: +CEFD1CAP8 PO; -CEFD300C41 PO; +CYCL5TAB PO; +PRENTAB9 PO
[2021-05-24 13:18] LABS: HEMATOCRIT 32.6 % (36.0-47.0); HEMOGLOBIN 10.7 g/dl (12.0-15.5); MEAN CORPUSCULAR HEMOGLOBIN 30.7 pg (27.0-33.0); MEAN CORPUSCULAR HGB CONC 32.8 g/dl (32.0-36.5); MEAN CORPUSCULAR VOLUME 93.7 fl (80.0-96.0); PLATELET COUNT, AUTOMATED 232 10^3/uL (150-450); RED BLOOD COUNT 3.48 10^6/uL (4.00-5.40); WHITE BLOOD COUNT 14.1 10^3/uL (4.0-10.0)
[2021-05-24 13:34] LABS: TOTAL PROTEIN,RANDOM URINE 26.5 MG/DL (0.0-12.0)
[2021-05-24 13:37] LABS: ALT/SGPT 12 U/L (12-78); BILIRUBIN,TOTAL 0.4 MG/DL (0.2-1.0); CREATININE FOR GFR 0.46 MG/DL (0.55-1.30); GLOMERULAR FILTRATION RATE > 60.0 (>60); LDH LACTATE DEHYDROGENASE 129 U/L (84-246); URIC ACID 4.1 MG/DL (2.6-6.0)
== END ==
LOC: M PLALAB 11:28
PROVIDERS: ATTEND Obstetrics & Gynecology
DX: O13.3 Gestational [pregnancy-induced] hypertension without significant proteinuria, third trimester (principal)

== ENCOUNTER → 2021-06-05 | Outpatient (CLI) | payer OTHER ==
[~2021-06-05] MED LIST changes: -CEFD1CAP8 PO; +CEFD300C41 PO
== END ==
LOC: M LABSMTC 11:56
PROVIDERS: ATTEND Anesthesiology
DX: Z01.812 Encounter for preprocedural laboratory examination (principal); Z20.822 Contact with and (suspected) exposure to COVID-19

== ENCOUNTER → 2021-08-16 | Outpatient (REF) | payer OTHER ==
[~2021-08-16] MED LIST changes: -DOXY150C PO; +DOXY150C3 PO
== END ==
LOC: M LAB REF 16:06
PROVIDERS: ATTEND Physician Assistant
DX: R53.83 Other fatigue (principal); J02.9 Acute pharyngitis, unspecified

== ENCOUNTER → 2021-10-25 | Outpatient (CLI) | payer OTHER ==
[2021-10-25 17:25] LABS: HEMATOCRIT 42.5 % (36.0-47.0); MEAN CORPUSCULAR HGB CONC 32.9 g/dl (32.0-36.5); PLATELET COUNT, AUTOMATED 326 10^3/uL (150-450); RED BLOOD COUNT 4.83 10^6/uL (4.00-5.40); WHITE BLOOD COUNT 11.2 10^3/uL (4.0-10.0)
[2021-10-25 18:23] LABS: HEPATITIS B SURFACE ANTIGEN NEGATIVE (NEGATIVE); HEPATITIS C VIRUS ABY INDEX 0.1 INDEX (<0.8); HIV 1&2 SCREEN CENTAUR NEGATIVE (NEGATIVE)
== END ==
LOC: M PLALAB 15:05
PROVIDERS: ATTEND Obstetrics & Gynecology
DX: Z01.419 Encounter for gynecological examination (general) (routine) without abnormal findings (principal); Z11.3 Encounter for screening for infections with a predominantly sexual mode of transmission; N93.9 Abnormal uterine and vaginal bleeding, unspecified

== ENCOUNTER → 2021-10-25 | Outpatient (REF) | payer OTHER | LOC: M PLALAB 15:50 | PROVIDERS: ATTEND Obstetrics & Gynecology | DX: Z12.4 Encounter for screening for malignant neoplasm of cervix (principal) ==

== ENCOUNTER → 2021-12-29 | Outpatient (CLI) | payer OTHER ==
[2021-12-29 14:29] LABS: HEMOGLOBIN 13.7 g/dl (12.0-15.5); MEAN CORPUSCULAR HEMOGLOBIN 29.3 pg (27.0-33.0); MEAN CORPUSCULAR HGB CONC 32.6 g/dl (32.0-36.5); MEAN CORPUSCULAR VOLUME 89.7 fl (80.0-96.0); PLATELET COUNT, AUTOMATED 262 10^3/uL (150-450); RED BLOOD COUNT 4.68 10^6/uL (4.00-5.40); WHITE BLOOD COUNT 8.8 10^3/uL (4.0-10.0)
[2021-12-29 17:37] LABS: HEMOGLOBIN A1c 5.3 %
[2021-12-29 18:57] LABS: ALBUMIN 3.8 GM/DL (3.2-5.2); ALT/SGPT 23 U/L (12-78); BILIRUBIN,TOTAL 0.2 MG/DL (0.2-1.0); BLOOD UREA NITROGEN 14 MG/DL (7-18); CALCIUM LEVEL 8.8 MG/DL (8.5-10.1); CARBON DIOXIDE LEVEL 29 MEQ/L (21-32); CHLORIDE LEVEL 109 MEQ/L (98-107); FREE T4 0.97 NG/DL (0.76-1.46); GLOMERULAR FILTRATION RATE > 60.0 (>60); GLUCOSE, FASTING 103 MG/DL (70-100); POTASSIUM SERUM 4.6 MEQ/L (3.5-5.1); SODIUM LEVEL 140 MEQ/L (136-145)
== END ==
LOC: M PLALAB 11:14
PROVIDERS: ATTEND Physician Assistant Medical
DX: Z00.00 Encounter for general adult medical examination without abnormal findings (principal); R53.83 Other fatigue

== ENCOUNTER → 2022-01-08 | Outpatient (CLI) | payer OTHER | LOC: M PLAIMG 09:41 | PROVIDERS: ATTEND Physician Assistant Medical | DX: M54.6 Pain in thoracic spine (principal) ==

== ENCOUNTER → 2022-03-21 | Outpatient (CLI) | payer OTHER | LOC: M WHC 13:15 | PROVIDERS: ATTEND Obstetrics & Gynecology | DX: N92.0 Excessive and frequent menstruation with regular cycle (principal) ==

== ENCOUNTER → 2022-03-23 | Outpatient (REF) | payer OTHER | LOC: M LAB REF 21:06 | PROVIDERS: ATTEND Physician Assistant | DX: B34.9 Viral infection, unspecified (principal) ==

== ENCOUNTER → 2022-04-16 | Outpatient (CLI) | payer OTHER | LOC: M RAD 08:09 | PROVIDERS: ATTEND Physician Assistant Medical | DX: M50.30 Other cervical disc degeneration, unspecified cervical region (principal); M54.10 Radiculopathy, site unspecified ==

== ENCOUNTER 2022-05-20 13:21 | Emergency (ER) | payer OTHER ==
[~2022-05-20] VITALS: Ht 157.5 cm; Wt 81.8 kg
[2022-05-20 13:28] VITALS: BP 114/68
[2022-05-20] MEDS ORDERED: NS 1,000 ML IV ONE (15:25)
[2022-05-20] MEDS ORDERED: ACETAMINOPHEN 500 MG TAB PO ONE (15:25)
== END 2022-05-20 17:22 | disposition home or self-care (01) ==
LOC: EDBD 13:21 → M ED 13:21
DX: J09.X2 Influenza due to identified novel influenza A virus with other respiratory manifestations (principal); R05.9 Cough, unspecified; R51.9 Headache, unspecified; E86.0 Dehydration; F17.200 Nicotine dependence, unspecified, uncomplicated; Z79.899 Other long term (current) drug therapy; Z88.0 Allergy status to penicillin

== ENCOUNTER 2022-08-02 17:18 | Emergency (ER) | payer OTHER ==
[~2022-08-02] VITALS: Ht 157.5 cm; Wt 81.0 kg
[~2022-08-02 17:18] MED LIST changes: +LIDO15SO4 MT; -LIDO2SOL17 MT
[2022-08-02] MEDS ORDERED: hydrOXYzine 50 MG TAB PO STA (17:39)
[2022-08-02] MEDS ORDERED: PRAZOSIN 1 MG CAP PO ONE (17:40)
[2022-08-02] MEDS ORDERED: cloNIDine 0.1MG TABLET PO ONE (17:40)
[2022-08-02] MEDS ORDERED: HYDR-3363 PO (20:26)
[2022-08-02] MEDS ORDERED: HYDR50TA70 PO (20:26)
[2022-08-02] MEDS ORDERED: PRAZ1CAP PO (20:26)
[2022-08-02 20:36] VITALS: BP 116/84
== END 2022-08-02 20:37 | disposition home or self-care (01) ==
LOC: M ED 17:18 → EDBD 17:18 → M ED 20:37
DX: F41.9 Anxiety disorder, unspecified (principal); F32.A Depression, unspecified; K59.00 Constipation, unspecified; F17.200 Nicotine dependence, unspecified, uncomplicated; F10.10 Alcohol abuse, uncomplicated; Z88.1 Allergy status to other antibiotic agents; Z79.83 Long term (current) use of bisphosphonates; Z79.891 Long term (current) use of opiate analgesic; Z79.899 Other long term (current) drug therapy

== ENCOUNTER 2022-08-19 16:32 | Emergency (ER) | payer OTHER ==
[~2022-08-19 16:32] MED LIST changes: +HYDR50TA70 PO; +PRAZ1CAP PO
[2022-08-19 17:50] VITALS: BP 122/80
== END 2022-08-19 18:22 | disposition home or self-care (01) ==
LOC: EDBD 16:32 → M ED 16:32
DX: R19.7 Diarrhea, unspecified (principal); F43.10 Post-traumatic stress disorder, unspecified; Z79.899 Other long term (current) drug therapy; Z88.0 Allergy status to penicillin

== ENCOUNTER → 2022-10-29 | Outpatient (REF) | payer OTHER ==
[~2022-10-29] MED LIST changes: +LIDO15SO MT; -LIDO15SO4 MT
== END ==
LOC: M SFHCWAGY 10:18
PROVIDERS: ATTEND Nurse Practitioner Family
DX: N73.9 Female pelvic inflammatory disease, unspecified (principal)

== ENCOUNTER → 2022-10-31 | Outpatient (REF) | payer OTHER | LOC: M SFHCWAGY 17:55 | PROVIDERS: ATTEND Obstetrics & Gynecology | DX: Z12.4 Encounter for screening for malignant neoplasm of cervix (principal); A59.09 Other urogenital trichomoniasis ==

== ENCOUNTER → 2022-11-07 | Outpatient (CLI) | payer OTHER ==
[2022-11-07 17:53] LABS: FREE T4 0.93 NG/DL (0.89-1.76); THYROID STIMULATING HORMONE 1.145 uIU/ML (0.55-4.78)
== END ==
LOC: M PLALAB 16:09
PROVIDERS: ATTEND Obstetrics & Gynecology
DX: Z13.29 Encounter for screening for other suspected endocrine disorder (principal)

== ENCOUNTER → 2022-11-26 | Outpatient (CLI) | payer OTHER ==
[2022-11-26 15:02] LABS: MONO SCRN NEGATIVE (NEGATIVE)
== END ==
LOC: M LAB 13:03
PROVIDERS: ATTEND Physician Assistant Medical
DX: J02.9 Acute pharyngitis, unspecified (principal); R50.9 Fever, unspecified

== ENCOUNTER → 2022-11-26 | Outpatient (REF) | payer OTHER | LOC: M LAB REF 12:51 | PROVIDERS: ATTEND Physician Assistant Medical | DX: R53.83 Other fatigue (principal); R07.0 Pain in throat ==

== ENCOUNTER → 2023-07-09 | Outpatient (CLI) | payer OTHER ==
[~2023-07-09] MED LIST changes: +CEFD1CAP9 PO; -CEFD300C41 PO
== END ==
LOC: M EKG 13:12
PROVIDERS: ATTEND Nurse Practitioner Psychiatric/Mental Health
DX: F90.1 Attention-deficit hyperactivity disorder, predominantly hyperactive type (principal)

== ENCOUNTER → 2023-08-21 | Outpatient (REF) | payer OTHER ==
[~2023-08-21] MED LIST changes: -LIDO15SO MT; +LIDO15SO8 MT
[2023-08-21 17:45] LABS: BASO # 0.1 10^3/uL (0.0-0.2); BASO % 0.9 % (0.0-1.0); EOS # 0.4 10^3/uL (0.0-0.5); EOS % 3.4 % (0.0-3.0); HEMATOCRIT 46.5 % (36.0-47.0); HEMOGLOBIN 15.4 g/dl (12.0-15.5); LYMPH # 2.9 10^3/uL (1.5-5.0); LYMPH % 27.4 % (24.0-44.0); MEAN CORPUSCULAR HEMOGLOBIN 31.3 pg (27.0-33.0); MEAN CORPUSCULAR HGB CONC 33.1 g/dl (32.0-36.5); MEAN CORPUSCULAR VOLUME 94.5 fl (80.0-96.0); MONO # 0.7 10^3/uL (0.0-0.8); MONO % 6.8 % (2.0-8.0); NEUTROPHILS # 6.4 10^3/uL (1.5-8.5); NEUTROPHILS % 61.2 % (36.0-66.0); PLATELET COUNT, AUTOMATED 306 10^3/uL (150-450); RED BLOOD COUNT 4.92 10^6/uL (4.00-5.40); WHITE BLOOD COUNT 10.5 10^3/uL (4.0-10.0)
[2023-08-21 18:09] LABS: ALKALINE PHOSPHATASE 59 U/L (46-116); ALT/SGPT 14 U/L (7.0-40); AST/SGOT 9 U/L (<34); BILIRUBIN,TOTAL 0.4 MG/DL (0.3-1.2); BLOOD UREA NITROGEN 14 MG/DL (9-23); CALCIUM LEVEL 8.9 MG/DL (8.5-10.1); CARBON DIOXIDE LEVEL 28 MMOL/L (20-31); CHLORIDE LEVEL 104 MMOL/L (98-107); CHOLESTEROL LEVEL 176 MG/DL (<200); CHOLESTEROL RISK RATIO 5.64 (<5); CREATININE FOR GFR 0.57 MG/DL (0.55-1.30); GLOMERULAR FILTRATION RATE > 60.0 (>60); GLUCOSE, FASTING 88 MG/DL (60-100); HDL CHOLESTEROL 31.2 MG/DL (>40); LDL CHOLESTEROL 86.2 MG/DL (<100); NON-HDL-C 144.8 MG/DL; POTASSIUM SERUM 4.5 MMOL/L (3.5-5.1); SODIUM LEVEL 136 MMOL/L (136-145); TRIGLYCERIDES LEVEL 293 MG/DL (<150)
[2023-08-21 18:10] LABS: THYROID STIMULATING HORMONE 1.846 uIU/ML (0.55-4.78); TOTAL 25(OH) VITAMIN D 13.9 NG/ML (20.0-100.0)
[2023-08-21 18:41] LABS: HIV 1&2 SCREEN NEGATIVE (NEGATIVE)
[2023-08-21 18:48] LABS: HEPATITIS C VIRUS ABY INDEX 0.02 INDEX (<0.8)
== END ==
LOC: M LAB REF 16:26
PROVIDERS: ATTEND Physician Assistant
DX: Z11.3 Encounter for screening for infections with a predominantly sexual mode of transmission (principal); E66.9 Obesity, unspecified; E55.9 Vitamin D deficiency, unspecified

== ENCOUNTER → 2023-09-02 | Outpatient (REF) | payer OTHER ==
[~2023-09-02] MED LIST changes: -DOXY150C3 PO; +DOXY150C5 PO
== END ==
LOC: M LAB REF 16:25
PROVIDERS: ATTEND Nurse Practitioner Family
DX: J06.9 Acute upper respiratory infection, unspecified (principal)

== ENCOUNTER → 2023-09-05 | Outpatient (REF) | payer OTHER ==
[~2023-09-05] MED LIST changes: +DOXY150C3 PO; -DOXY150C5 PO
== END ==
LOC: M LAB REF 16:10
PROVIDERS: ATTEND Nurse Practitioner Family
DX: J06.9 Acute upper respiratory infection, unspecified (principal)

== ENCOUNTER 2023-09-13 22:15 | Emergency (ER) | payer OTHER ==
[~2023-09-13] VITALS: Ht 157.5 cm; Wt 79.6 kg
[~2023-09-13 22:15] MED LIST changes: -DOXY150C3 PO; +DOXY150C5 PO
[2023-09-13 22:18] VITALS: BP 120/73; TEMP 98.3; O2SAT 96
== END 2023-09-13 23:00 | disposition left against medical advice (07) ==
LOC: M ED 22:15
DX: Z53.21 Procedure and treatment not carried out due to patient leaving prior to being seen by health care provider (principal)

== ENCOUNTER → 2023-10-02 | Outpatient (CLI) | payer OTHER ==
[2023-10-02 14:46] LABS: BASO # 0.1 10^3/uL (0.0-0.2); BASO % 0.6 % (0.0-1.0); EOS # 0.4 10^3/uL (0.0-0.5); EOS % 3.9 % (0.0-3.0); HEMATOCRIT 43.1 % (36.0-47.0); HEMOGLOBIN 14.3 g/dl (12.0-15.5); LYMPH # 2.2 10^3/uL (1.5-5.0); LYMPH % 24.7 % (24.0-44.0); MEAN CORPUSCULAR HEMOGLOBIN 31.3 pg (27.0-33.0); MEAN CORPUSCULAR HGB CONC 33.2 g/dl (32.0-36.5); MEAN CORPUSCULAR VOLUME 94.3 fl (80.0-96.0); MONO # 0.6 10^3/uL (0.0-0.8); MONO % 6.7 % (2.0-8.0); NEUTROPHILS # 5.7 10^3/uL (1.5-8.5); PLATELET COUNT, AUTOMATED 255 10^3/uL (150-450); RED BLOOD COUNT 4.57 10^6/uL (4.00-5.40); WHITE BLOOD COUNT 8.9 10^3/uL (4.0-10.0)
[2023-10-02 15:14] LABS: LIPASE 55 U/L (12-53)
[2023-10-02 15:15] LABS: HCG, SERUM QUALITATIVE NEGATIVE (NEGATIVE)
[2023-10-02 15:16] LABS: ALBUMIN 3.8 G/DL (3.2-5.2); ALKALINE PHOSPHATASE 68 U/L (46-116); ALT/SGPT 15 U/L (7.0-40); AST/SGOT 10 U/L (<34); BILIRUBIN,TOTAL 0.4 MG/DL (0.3-1.2); BLOOD UREA NITROGEN 12 MG/DL (9-23); CALCIUM LEVEL 9.1 MG/DL (8.5-10.1); CARBON DIOXIDE LEVEL 26 MMOL/L (20-31); CHLORIDE LEVEL 109 MMOL/L (98-107); CREATININE FOR GFR 0.64 MG/DL (0.55-1.30); GLOMERULAR FILTRATION RATE > 60.0 (>60); GLUCOSE, FASTING 91 MG/DL (60-100); POTASSIUM SERUM 4.5 MMOL/L (3.5-5.1); SODIUM LEVEL 140 MMOL/L (136-145); TOTAL PROTEIN 6.6 G/DL (5.7-8.2)
== END ==
LOC: M WUC 11:25
PROVIDERS: ATTEND Physician Assistant
DX: R10.9 Unspecified abdominal pain (principal)

== ENCOUNTER → 2023-10-07 | Outpatient (REF) | payer OTHER ==
[~2023-10-07] MED LIST changes: +DOXY-323 PO; -DOXY-443 PO
== END ==
LOC: M LAB REF 10:09
PROVIDERS: ATTEND Podiatrist
DX: L03.121 Acute lymphangitis of right axilla (principal)

== ENCOUNTER → 2024-01-24 | Outpatient (REF) | payer OTHER | LOC: M LAB REF 16:02 | PROVIDERS: ATTEND Physician Assistant | DX: B34.9 Viral infection, unspecified (principal) ==

== ENCOUNTER → 2024-02-25 | Outpatient (CLI) | payer OTHER ==
[2024-02-25 11:19] LABS: BASO % 0.4 % (0.0-1.0); EOS # 0.3 10^3/uL (0.0-0.5); EOS % 3.2 % (0.0-3.0); HEMATOCRIT 44.6 % (36.0-47.0); HEMOGLOBIN 15.4 g/dl (12.0-15.5); LYMPH # 2.2 10^3/uL (1.5-5.0); MEAN CORPUSCULAR HEMOGLOBIN 31.9 pg (27.0-33.0); MEAN CORPUSCULAR HGB CONC 34.5 g/dl (32.0-36.5); MEAN CORPUSCULAR VOLUME 92.3 fl (80.0-96.0); MONO # 0.6 10^3/uL (0.0-0.8); MONO % 6.2 % (2.0-8.0); NEUTROPHILS # 6.1 10^3/uL (1.5-8.5); NEUTROPHILS % 65.9 % (36.0-66.0); PLATELET COUNT, AUTOMATED 267 10^3/uL (150-450); RED BLOOD COUNT 4.83 10^6/uL (4.00-5.40); WHITE BLOOD COUNT 9.3 10^3/uL (4.0-10.0)
[2024-02-25 11:31] LABS: ERYTHROCYTE SEDIMENTATION RATE 19 mm/hr (0-20)
[2024-02-25 11:51] LABS: C REACTIVE PROTEIN QUANTITATIV < 0.40 MG/DL (<1.0)
[2024-02-25 11:52] LABS: ALKALINE PHOSPHATASE 58 U/L (46-116); ALT/SGPT 12 U/L (7.0-40); AST/SGOT < 8 U/L (<34); BILIRUBIN,TOTAL 0.5 MG/DL (0.3-1.2); BLOOD UREA NITROGEN 10 MG/DL (9-23); CALCIUM LEVEL 9.6 MG/DL (8.5-10.1); CARBON DIOXIDE LEVEL 25 MMOL/L (20-31); CHLORIDE LEVEL 110 MMOL/L (98-107); CREATININE FOR GFR 0.61 MG/DL (0.55-1.30); GLOMERULAR FILTRATION RATE > 60.0 (>60); GLUCOSE, FASTING 88 MG/DL (60-100); POTASSIUM SERUM 4.2 MMOL/L (3.5-5.1); SODIUM LEVEL 141 MMOL/L (136-145); TOTAL PROTEIN 7.1 G/DL (5.7-8.2)
[2024-02-25 11:56] LABS: RHEUMATOID FACTOR QUANT 6.5 IU/ML (<14)
[2024-02-25 11:57] LABS: FOLATE 19.1 NG/ML (>5.4); VITAMIN B12 LEVEL 555 PG/ML (211-911)
[2024-02-26 13:33] LABS: CYCLIC CITRULLINATED PEPTIDE < 16 UNITS (<20)
[2024-02-26 16:08] LABS: SSA SJOGRENS A <1.0 NEG AI (<1.0 NEG); SSB SJOGRENS B <1.0 NEG AI (<1.0 NEG)
[2024-02-27 08:42] LABS: ANA PATTERN Nuclear, Speckled (NEGATIVE); ANA SCREEN, IFA POSITIVE (NEGATIVE); ANA TITER 1:40 titer (<1:40)
== END ==
LOC: M LAB 09:39
PROVIDERS: ATTEND Physician Assistant
DX: R53.81 Other malaise (principal)

== ENCOUNTER 2024-03-19 19:47 | Emergency (ER) | payer OTHER ==
[~2024-03-19] VITALS: Ht 157.5 cm; Wt 76.8 kg
[~2024-03-19 19:47] MED LIST changes: -DOXY-323 PO; +DOXY-441 PO
[2024-03-19 19:48] VITALS: TEMP 97.1
[2024-03-19] MEDS ORDERED: OMEP-173 (20:00)
[2024-03-19 21:12] LABS: BASO # 0.1 10^3/uL (0.0-0.2); BASO % 0.6 % (0.0-1.0); EOS # 0.4 10^3/uL (0.0-0.5); HEMATOCRIT 40.2 % (36.0-47.0); HEMOGLOBIN 13.7 g/dl (12.0-15.5); LYMPH # 2.8 10^3/uL (1.5-5.0); LYMPH % 27.4 % (24.0-44.0); MEAN CORPUSCULAR HEMOGLOBIN 31.7 pg (27.0-33.0); MEAN CORPUSCULAR HGB CONC 34.1 g/dl (32.0-36.5); MEAN CORPUSCULAR VOLUME 93.1 fl (80.0-96.0); MONO # 0.6 10^3/uL (0.0-0.8); NEUTROPHILS # 6.4 10^3/uL (1.5-8.5); NEUTROPHILS % 61.7 % (36.0-66.0); PLATELET COUNT, AUTOMATED 244 10^3/uL (150-450); RED BLOOD COUNT 4.32 10^6/uL (4.00-5.40); WHITE BLOOD COUNT 10.3 10^3/uL (4.0-10.0)
[2024-03-19 21:25] LABS: LIPASE 48 U/L (12-53)
[2024-03-19 21:27] LABS: ALBUMIN 3.8 G/DL (3.2-5.2); ALKALINE PHOSPHATASE 60 U/L (46-116); ALT/SGPT < 9 U/L (7.0-40); AST/SGOT < 8 U/L (<34); BILIRUBIN,DIRECT < 0.1 MG/DL (<0.4); BILIRUBIN,TOTAL 0.3 MG/DL (0.3-1.2); BLOOD UREA NITROGEN 18 MG/DL (9-23); CALCIUM LEVEL 10.1 MG/DL (8.5-10.1); CARBON DIOXIDE LEVEL 30 MMOL/L (20-31); CHLORIDE LEVEL 107 MMOL/L (98-107); CREATININE FOR GFR 0.69 MG/DL (0.55-1.30); GLOMERULAR FILTRATION RATE > 60.0 (>60); GLUCOSE, FASTING 94 MG/DL (60-100); POTASSIUM SERUM 3.8 MMOL/L (3.5-5.1); SODIUM LEVEL 141 MMOL/L (136-145); TOTAL PROTEIN 6.8 G/DL (5.7-8.2)
[2024-03-19] MEDS ORDERED: ISOVUE-370 76% 100ML VIAL As Ordered ONE (21:51)
[2024-03-19] MEDS: FAMOTIDINE IV BAG 20 MG in IV 1 EA IV ONE (22:02)
[2024-03-19] MEDS: PANTOPRAZOLE 40MG VIAL IV ONE (22:02)
[2024-03-19] MEDS: SUCRALFATE SUSP 1GM/10ML UD PO ONE (22:02)
[2024-03-19 22:30] VITALS: BP 119/73; O2SAT 99
[2024-03-19] MEDS ORDERED: PROT1TAB2 PO (23:43)
[2024-03-19] MEDS ORDERED: PEPC1TAB5 PO (23:43)
[2024-03-19] MEDS ORDERED: SUCR1SS PO (23:43)
== END 2024-03-19 23:52 | disposition home or self-care (01) ==
LOC: M ED 19:47
DX: K21.9 Gastro-esophageal reflux disease without esophagitis (principal); N83.201 Unspecified ovarian cyst, right side; R16.2 Hepatomegaly with splenomegaly, not elsewhere classified; F17.200 Nicotine dependence, unspecified, uncomplicated; Z88.1 Allergy status to other antibiotic agents; Z79.1 Long term (current) use of non-steroidal anti-inflammatories (NSAID); Z79.899 Other long term (current) drug therapy
CPT/HCPCS: 74177; 80048; 80076; 81001; 83690; 85025; 96374; 99284; J2470; Q9967; S0028

== ENCOUNTER 2024-03-20 20:17 | Emergency (ER) | payer OTHER ==
[~2024-03-20] VITALS: Ht 157.5 cm; Wt 76.0 kg
[~2024-03-20 20:17] MED LIST changes: +OMEP-173; +PEPC1TAB5 PO; +PROT1TAB2 PO; +SUCR1SS PO
[2024-03-20 20:18] VITALS: BP 117/74; TEMP 97.8; O2SAT 98
== END 2024-03-20 21:12 | disposition left against medical advice (07) ==
LOC: M ED 20:17
DX: Z53.21 Procedure and treatment not carried out due to patient leaving prior to being seen by health care provider (principal)

== ENCOUNTER → 2024-03-27 | Outpatient (CLI) | payer OTHER ==
[2024-03-27 18:05] LABS: BASO # 0.1 10^3/uL (0.0-0.2); BASO % 0.7 % (0.0-1.0); EOS # 0.5 10^3/uL (0.0-0.5); EOS % 4.3 % (0.0-3.0); HEMATOCRIT 41.6 % (36.0-47.0); HEMOGLOBIN 14.1 g/dl (12.0-15.5); LYMPH # 3.1 10^3/uL (1.5-5.0); LYMPH % 29.6 % (24.0-44.0); MEAN CORPUSCULAR HEMOGLOBIN 31.7 pg (27.0-33.0); MEAN CORPUSCULAR HGB CONC 33.9 g/dl (32.0-36.5); MEAN CORPUSCULAR VOLUME 93.5 fl (80.0-96.0); MONO # 0.6 10^3/uL (0.0-0.8); MONO % 6.1 % (2.0-8.0); NEUTROPHILS # 6.2 10^3/uL (1.5-8.5); NEUTROPHILS % 59.1 % (36.0-66.0); PLATELET COUNT, AUTOMATED 254 10^3/uL (150-450); RED BLOOD COUNT 4.45 10^6/uL (4.00-5.40); WHITE BLOOD COUNT 10.4 10^3/uL (4.0-10.0)
[2024-03-27 18:34] LABS: ALBUMIN 3.9 G/DL (3.2-5.2); ALKALINE PHOSPHATASE 61 U/L (46-116); ALT/SGPT 13 U/L (7.0-40); AST/SGOT < 8 U/L (<34); BILIRUBIN,TOTAL 0.4 MG/DL (0.3-1.2); BLOOD UREA NITROGEN 16 MG/DL (9-23); CALCIUM LEVEL 9.6 MG/DL (8.5-10.1); CARBON DIOXIDE LEVEL 26 MMOL/L (20-31); CHLORIDE LEVEL 112 MMOL/L (98-107); GLOMERULAR FILTRATION RATE > 60.0 (>60); GLUCOSE, FASTING 81 MG/DL (60-100); POTASSIUM SERUM 4.1 MMOL/L (3.5-5.1); SODIUM LEVEL 142 MMOL/L (136-145); TOTAL PROTEIN 7.1 G/DL (5.7-8.2)
== END ==
LOC: M RAD 17:27
PROVIDERS: ATTEND Physician Assistant
DX: R05.9 Cough, unspecified (principal); Z20.828 Contact with and (suspected) exposure to other viral communicable diseases

== ENCOUNTER 2024-04-05 02:26 | Emergency (ER) | payer OTHER ==
[~2024-04-05] VITALS: Ht 157.5 cm; Wt 74.6 kg
[2024-04-05] MEDS ORDERED: PROMETHAZINE 25MG/ML 1ML VIAL IV ONE (03:20)
[2024-04-05 04:31] LABS: BASO # 0.1 10^3/uL (0.0-0.2); BASO % 0.7 % (0.0-1.0); EOS # 0.4 10^3/uL (0.0-0.5); EOS % 3.9 % (0.0-3.0); HEMATOCRIT 38.3 % (36.0-47.0); HEMOGLOBIN 13.3 g/dl (12.0-15.5); LYMPH # 2.8 10^3/uL (1.5-5.0); LYMPH % 26.3 % (24.0-44.0); MEAN CORPUSCULAR HEMOGLOBIN 32.2 pg (27.0-33.0); MEAN CORPUSCULAR HGB CONC 34.7 g/dl (32.0-36.5); MEAN CORPUSCULAR VOLUME 92.7 fl (80.0-96.0); MONO # 0.6 10^3/uL (0.0-0.8); MONO % 5.7 % (2.0-8.0); NEUTROPHILS # 6.8 10^3/uL (1.5-8.5); NEUTROPHILS % 63.2 % (36.0-66.0); PLATELET COUNT, AUTOMATED 281 10^3/uL (150-450); RED BLOOD COUNT 4.13 10^6/uL (4.00-5.40); WHITE BLOOD COUNT 10.7 10^3/uL (4.0-10.0)
[2024-04-05 04:53] LABS: AMPHETAMINES LEVEL URINE NEGATIVE (NEGATIVE); BARBITURATES URINE NEGATIVE (NEGATIVE); BENZODIAZEPINES URINE NEGATIVE (NEGATIVE)
[2024-04-05 04:54] LABS: CANNABINOIDS URINE NEGATIVE (NEGATIVE); COCAINE METABOLITE URINE NEGATIVE (NEGATIVE); METHADONE URINE NEGATIVE (NEGATIVE); OPIATES URINE NEGATIVE (NEGATIVE); PHENCYCLIDINE URINE NEGATIVE (NEGATIVE)
[2024-04-05 04:56] LABS: ETHYL ALCOHOL (ETHANOL) < 0.003 % (0.000-0.010)
[2024-04-05 04:57] LABS: CPK CREATINE PHOSPHOKINASE 46 U/L (34-145)
[2024-04-05 04:58] LABS: ALBUMIN 3.7 G/DL (3.2-5.2); ALKALINE PHOSPHATASE 58 U/L (35-104); ALT/SGPT < 9 U/L (7.0-40); AST/SGOT < 8 U/L (<34); BILIRUBIN,DIRECT < 0.1 MG/DL (<0.4); BILIRUBIN,TOTAL 0.3 MG/DL (0.3-1.2); BLOOD UREA NITROGEN 15 MG/DL (9-23); CALCIUM LEVEL 9.3 MG/DL (8.5-10.1); CARBON DIOXIDE LEVEL 26 MMOL/L (20-31); CHLORIDE LEVEL 111 MMOL/L (98-107); CREATININE FOR GFR 0.64 MG/DL (0.55-1.30); GLOMERULAR FILTRATION RATE > 60.0 (>60); GLUCOSE, FASTING 98 MG/DL (60-100); SALICYLATE LEVEL < 3.0 MG/DL (<30); SODIUM LEVEL 141 MMOL/L (136-145); TOTAL PROTEIN 6.4 G/DL (5.7-8.2)
[2024-04-05 05:00] LABS: THYROID STIMULATING HORMONE 2.767 uIU/ML (0.55-4.78)
[2024-04-05 05:07] LABS: HCG, SERUM QUALITATIVE NEGATIVE (NEGATIVE)
[2024-04-05] MEDS ORDERED: ONDA-282 PO (08:23)
[2024-04-05 08:40] VITALS: BP 102/68; TEMP 97.4; O2SAT 99
== END 2024-04-05 08:46 | disposition home or self-care (01) ==
LOC: M ED 02:26
DX: R11.10 Vomiting, unspecified (principal); K21.9 Gastro-esophageal reflux disease without esophagitis; F41.9 Anxiety disorder, unspecified; F32.A Depression, unspecified; Z88.1 Allergy status to other antibiotic agents; Z79.83 Long term (current) use of bisphosphonates; Z79.1 Long term (current) use of non-steroidal anti-inflammatories (NSAID); Z79.899 Other long term (current) drug therapy

== ENCOUNTER → 2024-04-21 | Outpatient (REF) | payer OTHER ==
[~2024-04-21] MED LIST changes: -CYCL5TAB PO; +CYCL5TAB4 PO; +ONDA-282 PO
== END ==
LOC: M LAB REF 08:44
PROVIDERS: ATTEND Physician Assistant
DX: N39.0 Urinary tract infection, site not specified (principal)

== ENCOUNTER 2024-04-25 22:57 | Emergency (ER) | payer OTHER ==
[~2024-04-25] VITALS: Ht 157.5 cm; Wt 76.4 kg
[~2024-04-25 22:57] MED LIST changes: +AZIT1PAC2 PO; -ZITH1POW PO
[2024-04-25 23:02] VITALS: BP 165/100; TEMP 98.3; O2SAT 100
== END 2024-04-25 23:48 | disposition left against medical advice (07) ==
LOC: M ED 22:57
DX: Z53.21 Procedure and treatment not carried out due to patient leaving prior to being seen by health care provider (principal)

== ENCOUNTER 2024-05-15 10:53 | Emergency (ER) | payer OTHER ==
[~2024-05-15] VITALS: Ht 157.5 cm; Wt 76.4 kg
[2024-05-15] MEDS ORDERED: BUPR1TAB52 (11:04)
[2024-05-15] MEDS: IBUPROFEN 800 MG TAB PO ONE (12:20)
[2024-05-15] MEDS ORDERED: IBUP-1022 PO (12:47)
[2024-05-15 12:57] VITALS: BP 109/57; TEMP 98.7; O2SAT 97
[2024-05-15] MEDS ORDERED: KETO10TAB PO (21:46)
[2024-05-15] MEDS ORDERED: ONDA-282 PO (22:25)
== END 2024-05-15 13:07 | disposition home or self-care (01) ==
LOC: M ED 10:53
DX: S93.602A Unspecified sprain of left foot, initial encounter (principal); W10.8XXA Fall (on) (from) other stairs and steps, initial encounter; K21.9 Gastro-esophageal reflux disease without esophagitis; M54.50 Low back pain, unspecified; F41.9 Anxiety disorder, unspecified; Z88.1 Allergy status to other antibiotic agents; Y92.218 Other school as the place of occurrence of the external cause; Y93.89 Activity, other specified; Y99.9 Unspecified external cause status; Z87.42 Personal history of other diseases of the female genital tract; Z79.899 Other long term (current) drug therapy; Z79.83 Long term (current) use of bisphosphonates; Z79.1 Long term (current) use of non-steroidal anti-inflammatories (NSAID)

== ENCOUNTER 2024-05-15 19:51 | Emergency (ER) | payer OTHER ==
[~2024-05-15] VITALS: Ht 157.5 cm; Wt 76.3 kg
[~2024-05-15 19:51] MED LIST changes: +BUPR1TAB52
[2024-05-15 19:53] VITALS: TEMP 97.6
[2024-05-15] MEDS ORDERED: KETO10TAB PO (21:46)
[2024-05-15] MEDS: KETOROLAC 30 MG/ML 1ML VIAL IM ONE (22:17)
[2024-05-15] MEDS ORDERED: ONDA-282 PO (22:25)
[2024-05-15 22:48] VITALS: BP 134/78; O2SAT 97
== END 2024-05-15 23:06 | disposition home or self-care (01) ==
LOC: M ED 19:51
DX: S93.402A Sprain of unspecified ligament of left ankle, initial encounter (principal); W01.0XXA Fall on same level from slipping, tripping and stumbling without subsequent striking against object, initial encounter; Y92.218 Other school as the place of occurrence of the external cause; Y93.89 Activity, other specified; Y99.9 Unspecified external cause status; Z88.1 Allergy status to other antibiotic agents; Z79.83 Long term (current) use of bisphosphonates; Z79.1 Long term (current) use of non-steroidal anti-inflammatories (NSAID); Z79.899 Other long term (current) drug therapy
CPT/HCPCS: 96372; 99283; J1885

== ENCOUNTER 2024-06-10 16:30 | Emergency (ER) | payer OTHER ==
[~2024-06-10] VITALS: Ht 157.5 cm; Wt 76.9 kg
[2024-06-10 16:34] VITALS: BP 121/74; TEMP 97.6; O2SAT 98
== END 2024-06-10 17:40 | disposition left against medical advice (07) ==
LOC: M ED 16:30
DX: Z53.21 Procedure and treatment not carried out due to patient leaving prior to being seen by health care provider (principal)

== ENCOUNTER 2024-06-17 09:55 | Emergency (ER) | payer OTHER ==
[~2024-06-17] VITALS: Ht 157.5 cm; Wt 75.9 kg
[2024-06-17 11:36] LABS: KETONE, URINE AUTO RFX NEGATIVE (NEGATIVE); LEUKOCYTE ESTERASE UR AUTO RFX NEGATIVE (NEGATIVE); NITRITE, URINE AUTO RFX NEGATIVE (NEGATIVE); RBC, URINE AUTO RFX 0 /HPF (0-3); SQUAM EPITHELIAL CELL UR AURFX 1 /HPF (0-6); URINE PREG TEST NEGATIVE (NEGATIVE); WBC, URINE AUTO RFX 1 /HPF (0-3)
[2024-06-17 12:31] VITALS: BP 100/66; TEMP 96.7; O2SAT 99
[2024-06-17 14:00] LABS: Trichomonas vaginalis (AMP) NOT DETECTED (NEGATIVE)
[2024-06-17 14:23] LABS: GC DNA AMPLIFICATION NEGATIVE (NEGATIVE)
== END 2024-06-17 12:32 | disposition home or self-care (01) ==
LOC: EDBD 09:55 → M ED 09:55
DX: F41.9 Anxiety disorder, unspecified (principal); K21.9 Gastro-esophageal reflux disease without esophagitis; Z87.42 Personal history of other diseases of the female genital tract; Z79.1 Long term (current) use of non-steroidal anti-inflammatories (NSAID); Z79.83 Long term (current) use of bisphosphonates; Z79.899 Other long term (current) drug therapy; Z88.1 Allergy status to other antibiotic agents

== ENCOUNTER → 2024-06-18 | Outpatient (REF) | payer OTHER ==
[2024-06-19 07:13] LABS: APPEARANCE, URINE HAZY (CLEAR); BACTERIA, URINE AUTO NEGATIVE (NEGATIVE); BILIRUBIN, URINE AUTO NEGATIVE (NEGATIVE); BLOOD, URINE BLOOD 3+ (NEGATIVE); COLOR, URINE YELLOW (YELLOW); GLUCOSE, URINE (UA) AUTO NEGATIVE (NEGATIVE); KETONE, URINE AUTO NEGATIVE (NEGATIVE); LEUKOCYTE ESTERASE, URINE AUTO NEGATIVE (NEGATIVE); MUCUS, URINE SMALL (NEGATIVE); NITRITE, URINE AUTO NEGATIVE (NEGATIVE); PROTEIN, URINE AUTO NEGATIVE (NEGATIVE); RBC, URINE AUTO TNTC /HPF (0-3); SPECIFIC GRAVITY URINE AUTO 1.028 (1.002-1.035); SQUAMOUS EPITHELIAL CELL UR AU 2 /HPF (0-6); TRANSITIONAL EPITHELIAL AUTO <1 /HPF; UROBILINOGEN, URINE AUTO 0.2 mg/dL (0.0-2.0); WBC, URINE AUTO 7 /HPF (0-3)
== END ==
LOC: M LAB REF 17:05
PROVIDERS: ATTEND Physician Assistant
DX: N39.0 Urinary tract infection, site not specified (principal); B34.9 Viral infection, unspecified

== ENCOUNTER 2024-07-26 00:38 | Emergency (ER) | payer OTHER ==
[~2024-07-26] VITALS: Ht 157.5 cm; Wt 79.7 kg
[2024-07-26 00:40] VITALS: BP 114/64; TEMP 97.7; O2SAT 100
[2024-07-26] MEDS ORDERED: SUCR1SS PO (01:26)
[2024-07-26] MEDS: SUCRALFATE SUSP 1GM/10ML UD PO ONE (01:55)
[2024-07-26] MEDS: MAALOX 30 ML SUSP *UDC PO ONE (01:57)
[2024-07-26] MEDS: LIDOCAINE VISCOUS 2% SOLN 15ML UDC PO ONE (01:57)
== END 2024-07-26 02:44 | disposition home or self-care (01) ==
LOC: M ED 00:38
DX: K21.9 Gastro-esophageal reflux disease without esophagitis (principal); Z88.1 Allergy status to other antibiotic agents; Z79.899 Other long term (current) drug therapy

== ENCOUNTER → 2024-08-07 | Outpatient (CLI) | payer OTHER | LOC: M WHC 14:39 | PROVIDERS: ATTEND Obstetrics & Gynecology | DX: R10.2 Pelvic and perineal pain (principal); N88.8 Other specified noninflammatory disorders of cervix uteri ==

== ENCOUNTER → 2024-09-08 | Outpatient (REF) | payer OTHER | LOC: M LAB REF 14:07 | PROVIDERS: ATTEND Physician Assistant Medical | DX: B34.9 Viral infection, unspecified (principal) ==

== ENCOUNTER → 2024-09-09 | Outpatient (REF) | payer OTHER ==
[2024-09-09 15:17] LABS: BASO # 0.1 10^3/uL (0.0-0.2); BASO % 0.6 % (0.0-1.0); EOS # 0.4 10^3/uL (0.0-0.5); EOS % 3.7 % (0.0-3.0); HEMATOCRIT 44.9 % (36.0-47.0); LYMPH # 2.6 10^3/uL (1.5-5.0); LYMPH % 25.6 % (24.0-44.0); MEAN CORPUSCULAR HEMOGLOBIN 31.5 pg (27.0-33.0); MEAN CORPUSCULAR HGB CONC 33.4 g/dl (32.0-36.5); MEAN CORPUSCULAR VOLUME 94.3 fl (80.0-96.0); MONO # 0.7 10^3/uL (0.0-0.8); MONO % 6.9 % (2.0-8.0); NEUTROPHILS # 6.4 10^3/uL (1.5-8.5); NEUTROPHILS % 62.8 % (36.0-66.0); PLATELET COUNT, AUTOMATED 276 10^3/uL (150-450); RED BLOOD COUNT 4.76 10^6/uL (4.00-5.40); WHITE BLOOD COUNT 10.2 10^3/uL (4.0-10.0)
[2024-09-09 15:22] LABS: ALKALINE PHOSPHATASE 65 U/L (35-104); ALT/SGPT 21 U/L (7.0-40); AST/SGOT < 8 U/L (<34); BILIRUBIN,TOTAL 0.2 MG/DL (0.3-1.2); BLOOD UREA NITROGEN 13 MG/DL (9-23); CARBON DIOXIDE LEVEL 28 MMOL/L (20-31); CHLORIDE LEVEL 106 MMOL/L (98-107); CHOLESTEROL LEVEL 218 MG/DL (<200); CHOLESTEROL RISK RATIO 5.79 (<5); CREATININE FOR GFR 0.63 MG/DL (0.55-1.30); GLOMERULAR FILTRATION RATE > 60.0 (>60); GLUCOSE, FASTING 81 MG/DL (60-100); HDL CHOLESTEROL 37.6 MG/DL (>40); IRON (FE) 96 UG/DL (50-170); NON-HDL-C 180.4 MG/DL; PERCENT SATURATION 27.3 % (13.2-45.0); POTASSIUM SERUM 4.6 MMOL/L (3.5-5.1); SODIUM LEVEL 139 MMOL/L (136-145); TOTAL IRON BINDING CAPACITY 352 UG/DL (250-425); TOTAL PROTEIN 7.1 G/DL (5.7-8.2); TRIGLYCERIDES LEVEL 409 MG/DL (<150)
[2024-09-09 15:25] LABS: FERRITIN 9.5 NG/ML (7.3-270.7); THYROID STIMULATING HORMONE 2.151 uIU/ML (0.55-4.78); TOTAL 25(OH) VITAMIN D 14.5 NG/ML (20.0-100.0)
[2024-09-09 15:37] LABS: HEMOGLOBIN A1c 4.9 % (4.0-6.0)
== END ==
LOC: M LAB REF 12:39
PROVIDERS: ATTEND Physician Assistant
DX: D64.9 Anemia, unspecified (principal); E66.9 Obesity, unspecified; E55.9 Vitamin D deficiency, unspecified

== ENCOUNTER → 2025-03-04 | Outpatient (REF) | payer OTHER ==
[~2025-03-04] MED LIST changes: +BUPR-670; -BUPR1TAB52; -IBUP-1022 PO; +IBUP600T42 PO
[2025-03-07 08:57] LABS: HPV APTIMA Not Detected (Not Detected)
== END ==
LOC: M PLALAB 13:37
PROVIDERS: ATTEND Obstetrics & Gynecology
DX: Z12.4 Encounter for screening for malignant neoplasm of cervix (principal); Z11.3 Encounter for screening for infections with a predominantly sexual mode of transmission

== ENCOUNTER → 2025-03-24 | Outpatient (REF) | payer OTHER ==
[2025-03-24 15:20] LABS: BASO # 0.1 10^3/uL (0.0-0.2); BASO % 0.8 % (0.0-1.0); EOS # 0.5 10^3/uL (0.0-0.5); EOS % 5.6 % (0.0-3.0); LYMPH # 2.4 10^3/uL (1.5-5.0); LYMPH % 24.9 % (24.0-44.0); MONO # 0.8 10^3/uL (0.0-0.8); MONO % 7.9 % (2.0-8.0); NEUTROPHILS # 5.8 10^3/uL (1.5-8.5); NEUTROPHILS % 60.3 % (36.0-66.0); PLATELET COUNT, AUTOMATED 257 10^3/uL (150-450)
[2025-03-24 15:48] LABS: ALT/SGPT 20 U/L (7.0-40); AST/SGOT 16 U/L (<34); CALCIUM LEVEL 8.8 MG/DL (8.5-10.1); CARBON DIOXIDE LEVEL 27 MMOL/L (20-31); CHLORIDE LEVEL 109 MMOL/L (98-107); CHOLESTEROL LEVEL 217 MG/DL (<200); CHOLESTEROL RISK RATIO 5.68 (<5); CREATININE FOR GFR 0.68 MG/DL (0.55-1.30); GLOMERULAR FILTRATION RATE > 90.0 (>60); LDL CHOLESTEROL 117.2 MG/DL (<100); NON-HDL-C 178.8 MG/DL; POTASSIUM SERUM 4.6 MMOL/L (3.5-5.1); SODIUM LEVEL 144 MMOL/L (136-145); TRIGLYCERIDES LEVEL 308 MG/DL (<150)
[2025-03-24 15:49] LABS: TOTAL 25(OH) VITAMIN D 29.3 NG/ML (20.0-100.0)
[2025-03-24 16:13] LABS: ESTIMATED AVERAGE GLUCOSE 105.0 MG/DL (60-110)
== END ==
LOC: M LAB REF 14:52
PROVIDERS: ATTEND Physician Assistant
DX: E55.9 Vitamin D deficiency, unspecified (principal); D64.9 Anemia, unspecified; E66.9 Obesity, unspecified

== ENCOUNTER → 2025-03-29 | Outpatient (CLI) | payer OTHER | LOC: M WHC 09:01 | PROVIDERS: ATTEND Physician Assistant Medical | DX: R10.20 Pelvic and perineal pain unspecified side (principal) ==

== ENCOUNTER → 2025-05-27 | Outpatient (CLI) | payer OTHER | LOC: M PLAIMG 12:47 | PROVIDERS: ATTEND Physician Assistant | DX: M50.122 Cervical disc disorder at C5-C6 level with radiculopathy (principal); M48.02 Spinal stenosis, cervical region ==